=== PATIENT | male | born 1960 | race Caucasian/White ===

== ENCOUNTER → 2017-12-20 06:59 | Outpatient (CLI) | payer BC, SELFPAY ==
--- NOTE | 2017-12-20 07:30 | CT_ITS ---
STUDY: CT CHEST WITH CONTRAST REASON FOR EXAM: Male, 57 years old. Two-week history of shortness of breath. Lung nodules. RADIATION DOSAGE (If Supplied By Facility): CTDIvol = ( 13.87 ) mGy, DLP = ( 613.21 ) mGycm TECHNIQUE: Transaxial imaging was performed following intravenous administration of 100cc ml of Isovue 300 contrast material. Multiplanar coronal and sagittal images were reformatted. Individualized dose optimization techniques were used for this CT. COMPARISON: Comparison is made with prior study dated July 09, 2014. FINDINGS: There is a 6 mm noncalcified nodule in the lingular segment of the left upper lobe as seen on axial image #63. There is also evidence of a 5.4 mm noncalcified nodule in the peripheral aspect of the left lower lobe adjacent to the pleural surface on image #71. A 3 mm nodule is also seen in the peripheral aspect of the left lower lobe as seen on axial image #79. The previously seen bibasilar infiltration and/or atelectasis has almost completely resolved. 3 mm nodule in the right middle lobe as seen on axial image #52. There is no demonstrated pleural abnormality. Normal heart and pericardium. Normal mediastinum. Normal hilar regions. Normal enhanced pulmonary arteries. Normal aorta arch and descending thoracic aorta. There are degenerative changes of the thoracic spine. There is no demonstrated abnormality of the visualized upper abdomen. CT/Chest WITH Contrast IMPRESSION: Stable appearance of the subcentimeter bilateral pulmonary nodules. The previously seen infiltration and/or atelectasis of the lung bases L almost completely resolved. Electronically Signed: Julio Walter MD at 9:37 EST Tel [phone], Service support ,
== END ==
PROVIDERS: Family Provider Family Medicine; PCP Family Medicine; Visit Provider Internal Medicine Critical Care Medicine
DX: R91.8 Other nonspecific abnormal finding of lung field (principal); R06.02 Shortness of breath
CPT/HCPCS: 71260

== ENCOUNTER → 2017-12-21 06:30 | Outpatient (CLI) | payer BC, SELFPAY ==
--- NOTE | 2017-12-21 10:11 | STRESSREP ---
Stress Test Report Date: 12/21/2017 Procedure: Pharmacologic stress nuclear imaging study Indications: Chest pain; dyspnea Consent: Per the patient Procedure: The patient underwent pharmacologic (Regadenoson) evaluation with a peak heart rate of 96 bpm (58% predicted maximal heart rate) with a peak blood pressure 130/90 mmHg. The baseline ECG demonstrated normal sinus rhythm. The peak pharmacologic ECG demonstrated no obvious ECG changes. There were no cardiac dysrhythmias pretest, during pharmacologic infusion, or recovery. The examination was discontinued secondary to completion of protocol. Impression: 1. Pharmacologic (Regadenoson) evaluation 2. Peak pharmacologic ECG with no obvious ECG changes 3. Nuclear images pending Myocardial perfusion imaging study: Technique: The patient was injected with 13.9 mCi of technetium 99m Cardiolite and subsequently rest SPECT Cardiolite nuclear imaging was obtained in the horizontal long, vertical long, and short axis views. The patient underwent pharmacologic (Regadenoson) evaluation with a peak heart rate of 96 bpm (58% predicted maximal heart rate) with a peak blood pressure 130/90 mmHg area the patient was injected with 43.6 mCi of technetium 99m Cardiolite and subsequently stress SPECT Cardiolite nuclear imaging was obtained in the horizontal long, vertical long, and short axis views. A gated Cardiolite study at peak stress was obtained. Interpretation: Rest and stress SPECT cardiac nuclear imaging status post realignment, normalization, and attenuation correction, demonstrates a small area of subtle diminished tracer uptake near the apical segments without significant change between rest and stress. There are similar type findings on the resting and stress polar map images. There is end systolic thickening and brightening. The gated Cardiolite study demonstrates myocardial thickening and inward wall motion. The reported LVEF is 75%. Impression: 1. Rest and stress SPECT cardiac nuclear imaging demonstrate myocardial perfusion changes appearing compatible with physiologic apical thinning with no myocardial perfusion changes consider diagnostic for associated stress-induced myocardial ischemia or previous myocardial injury/infarction. [place] 2. The gated Cardiolite study reports an LVEF of 75%. This note was generated with [employer] software. Every effort was made to ensure accuracy, however, computerized ferris wheel operator mistakes may persist.
--- NOTE | 2017-12-21 10:17 | STRESSREP_ITS ---
Stress Test Report Date: 12/21/2017 Procedure: Pharmacologic stress nuclear imaging study Indications: Chest pain; dyspnea Consent: Per the patient Procedure: The patient underwent pharmacologic (Regadenoson) evaluation with a peak heart rate of 96 bpm (58% predicted maximal heart rate) with a peak blood pressure 130 /90 mmHg. The baseline ECG demonstrated normal sinus rhythm. The peak pharmacologic ECG demonstrated no obvious ECG changes. There were no cardiac dysrhythmias pretest, during pharmacologic infusion, or recovery. The examination was discontinued secondary to completion of protocol. Impression: 1. Pharmacologic (Regadenoson) evaluation 2. Peak pharmacologic ECG with no obvious ECG changes 3. Nuclear images pending Myocardial perfusion imaging study: Technique: The patient was injected with 13.9 mCi of technetium 99m Cardiolite and subsequently rest SPECT Cardiolite nuclear imaging was obtained in the horizontal long, vertical long, and short axis views. The patient underwent pharmacologic (Regadenoson) evaluation with a peak heart rate of 96 bpm (58% predicted maximal heart rate) with a peak blood pressure 130/90 mmHg area the patient was injected with 43.6 mCi of technetium 99m Cardiolite and subsequently stress SPECT Cardiolite nuclear imaging was obtained in the horizontal long, vertical long, and short axis views. A gated Cardiolite study at peak stress was obtained. Interpretation: Rest and stress SPECT cardiac nuclear imaging status post realignment, normalization, and attenuation correction, demonstrates a small area of subtle diminished tracer uptake near the apical segments without significant change between rest and stress. There are similar type findings on the resting and stress polar map images. There is end systolic thickening and brightening. The gated Cardiolite study demonstrates myocardial thickening and inward wall motion. The reported LVEF is 75%. Impression: 1. Rest and stress SPECT cardiac nuclear imaging demonstrate myocardial perfusion changes appearing compatible with physiologic apical thinning with no myocardial perfusion changes consider diagnostic for associated stress-induced myocardial ischemia or previous myocardial injury/infarction. [place] 2. The gated Cardiolite study reports an LVEF of 75%. This note was generated with [employer] software. Every effort was made to ensure accuracy, however, computerized director oracle mistakes may persist.
== END ==
PROVIDERS: Family Provider Family Medicine; PCP Family Medicine; Visit Provider Family Medicine
DX: R07.9 Chest pain, unspecified (principal)
CPT/HCPCS: 78452; 93017; A9500; A4216; J2785

== ENCOUNTER → 2017-12-25 06:28 | Outpatient (CLI) | payer BC, SELFPAY ==
--- NOTE | 2017-12-25 15:10 | PFTCOMP ---
COMPLETE PULMONARY FUNCTION TEST INTERPRETATION Brief HPI: Patient is a 57 year old male, currently under the care of Dr. Hallman, who presents to [facility] for complete pulmonary function tests secondary to diagnosis of dyspnea. Respiratory therapist reports good effort and reproducible results. Interpretation: Forced expiration spirometry shows no large airways obstructive ventilatory defect with an FEV1 of 74 % predicted. There is a significant bronchodilator response in FVC by ATS criteria. Spirograms are of good quality and plateau normally. The respiratory flow volume loop shows decreased expiratory flow rates at high lung volumes consistent with small airways obstruction. Lung volumes by body plethysmography show a decreased total lung capacity at 3.59 L, 68 % predicted. All other lung volumes are reduced symmetrically. Diffusion capacity by carbon monoxide is at the lower limit of normal at 64 % predicted. The airway resistance is elevated. No previous pulmonary function tests were available for review. Impression: Moderate restrictive ventilatory defect with a symmetric reduction in diffusion capacity.
== END ==
PROVIDERS: Family Provider Family Medicine; PCP Family Medicine; Visit Provider Internal Medicine Critical Care Medicine
DX: R06.02 Shortness of breath (principal)
CPT/HCPCS: 94060; 94726; 94729

== ENCOUNTER → 2017-12-28 08:41 | Outpatient (CLI) | payer BC, SELFPAY ==
--- NOTE | 2017-12-28 09:00 | ECHOD_ITS ---
Reason For Study: DYSPNEA Procedure This was a 2D Doppler, Color Flow transthoracic echocardiogram. Contrast injection was performed. The study was technically difficult. Exam performed in department. Left Ventricle Normal size and thickness. The estimated ejection fraction is 65 %. Stage 1 diastolic dysfunction. No regional wall motion abnormalities noted. Right Ventricle Normal size and thickness. Normal systolic function. Atria Normal left atrium. Normal right atrium. Normal atrial septum. Mitral Valve The mitral valve is structurally normal. No prolapse or stenosis seen. Tricuspid Valve Normal tricuspid valve. Trivial tricuspid valve insufficiency. Right ventricular systolic pressure estimated to be 30 mmHg. Aortic Valve Trisinus/trileaflet aortic valve. Normal aortic valve. Pulmonic Valve The pulmonic valve is not well visualized. Great Vessels Normal aortic root. Normal arch. Normal inferior vena cava. Inferior vena cava collapse with sniff. Pericardium/Pleural No pericardial effusion. Medication 22 gauge I.V. with prn adaptor inserted into right arm. Diluted definity 3ml given slow IV push to enhance endocardial definition. MMode/2D Measurements & Calculations LVIDd: 4.4 cm IVSd: 0.96 cm Ao root diam: 3.2 cm LVIDs: 3.0 cm LVPWd: 1.2 cm LA dimension: 4.3 cm RVDd: 3.0 cm FS: 31.8 % LAV(MOD-sp4): 38.7 ml EDV(MOD-sp4): 118.0 ml EDV(MOD-sp2): 99.2 ml ESV(MOD-sp4): 37.4 ml EF(MOD-sp2): 58.6 % EF(MOD-sp4): 68.3 % SV(MOD-sp4): 80.6 ml SV(MOD-sp2): 58.1 ml LA A4 area: 15.0 cm2 RA A4 area: 8.8 cm2 Doppler Measurements & Calculations MV E max kaci: 63.9 cm/sec Ao V2 max: 110.0 cm/sec LV V1 max: 101.3 cm/sec MV A max kaci: 80.1 cm/sec Ao max P.9 mmHg LV V1 max P.1 mmHg MV E/A: 0.80 TR max kaci: 251.4 cm/sec TR max P.3 mmHg Interpretation Summary The estimated ejection fraction is 65 %. Stage 1 diastolic dysfunction. Trivial tricuspid valve insufficiency. Right ventricular systolic pressure estimated to be 30 mmHg. There is no comparison study available. Ordering Physician: Albert Hallman D.O. Referring Physician: ANDREE PARRISH Performed By: Mirian Collazo RDCS, RVT
== END ==
PROVIDERS: Family Provider Family Medicine; PCP Family Medicine; Visit Provider Internal Medicine Critical Care Medicine
DX: R06.02 Shortness of breath (principal)
CPT/HCPCS: 93306; Q9957; A4216; C8929

== ENCOUNTER → 2018-01-09 10:18 | Outpatient (CLI) | payer BC, SELFPAY ==
[2018-01-13 14:06] LABS: Aspirgillus flavus Negative (Neg:<1:1); Aspirgillus fumigatus Negative (Neg:<1:1); Aspirgillus niger Negative (Neg:<1:1)
[2018-01-14 03:06] LABS: Alternaria alternata <0.10 kU/L (Class 0); Bermuda Grass <0.10 kU/L (Class 0); Bluegrass, Kentucky <0.10 kU/L (Class 0); Cat Hair/Dander, Standard <0.10 kU/L (Class 0); D farinae Mite 0.54 kU/L (Class I); D pteronyssinus 0.52 kU/L (Class I); Dog Epithelia <0.10 kU/L (Class 0); Elm, American White <0.10 kU/L (Class 0); Oak, White <0.10 kU/L (Class 0); Plantain, English <0.10 kU/L (Class 0); Ragweed, Short/Common 0.54 kU/L (Class I)
[2018-01-14 08:51] LABS: Immunoglobulin E 87 IU/mL (0-100)
[2018-01-14 08:52] LABS: Mouse Urine <0.10 kU/L (Class 0)
== END ==
PROVIDERS: Family Provider Family Medicine; PCP Family Medicine; Visit Provider Nurse Practitioner Acute Care
DX: R06.02 Shortness of breath (principal)
CPT/HCPCS: 36415; 82785; 86003; 86606

== ENCOUNTER → 2018-01-19 08:45 | Outpatient (CLI) | payer BC, SELFPAY ==
[2018-01-19 09:23] VITALS: PULSE 74; PULSE 76; PULSE 77; PULSE 85; PULSE 88; PULSE 95; O2SAT 94; O2SAT 95; O2SAT 96; O2SAT 97; O2SAT 99
--- NOTE | 2018-01-19 12:09 | WT_ITS ---
PSN 6 Minute Walk Test - 6 Minute Walk Test 6 Minute Walk Test: 6 Minute Walk Test PSN:6-Minute Walk Test Start: 01/19/18 09: 23 Freq: Status: Active Protocol: [id number] Document 01/19/18 09:23 [facility] (Rec: 01/19/18 09:27 [facility] [id number]) 6 Minute Walk Test Date Performed 01/19/18 Time Performed 09:15 Height 5 ft 4 in Weight: 185 lb Weight in Pounds 185.[address]: Geri Del Real FIO2 (% Oxygen) 21 Assistive device used: None Pre-test Oxygen Delivery Method Room Air Pulse Ox (%) 95 Pulse Rate (60-100 beats/min) 76 Dyspnea Jason Scale (0-10) 0 1st minute Oxygen Delivery Method Room Air Pulse Ox (%) 95 Pulse Rate (60-100 beats/min) 77 Dyspnea Jason Scale (0-10) 0 Number of Rests Taken 0 2nd minute Oxygen Delivery Method Room Air Pulse Ox (%) 94 Pulse Rate (60-100 beats/min) 95 Dyspnea Jason Scale (0-10) 1 Number of Rests Taken 0 Reported Symptoms Increased Work of Breathing 3rd minute Oxygen Delivery Method Room Air Pulse Ox (%) 95 Pulse Rate (60-100 beats/min) 88 Dyspnea Jason Scale (0-10) 3 Number of Rests Taken 0 Reported Symptoms Increased Work of Breathing 4th minute Oxygen Delivery Method Room Air Pulse Ox (%) 97 Pulse Rate (60-100 beats/min) 88 Dyspnea Jason Scale (0-10) 3 Number of Rests Taken 0 Reported Symptoms Increased Work of Breathing 5th minute Oxygen Delivery Method Room Air Pulse Ox (%) 97 Pulse Rate (60-100 beats/min) 85 Dyspnea Jason Scale (0-10) 3 Number of Rests Taken 0 Reported Symptoms Increased Work of Breathing 6th minute Oxygen Delivery Method Room Air Pulse Ox (%) 96 Pulse Rate (60-100 beats/min) 95 Dyspnea Jason Scale (0-10) 4 Number of Rests Taken 0 Reported Symptoms Increased Work of Breathing Post-test Oxygen Delivery Method Room Air Pulse Ox (%) 99 Pulse Rate (60-100 beats/min) 74 Dyspnea Jason Scale (0-10) 1 Full Laps Walked 20 Partial Lap, Number of Tiles Walked 14 Total Distance Walked (ft) 1194 - Interpretation Interpretation: The patient ambulated 1194 feet over the course of 6 minutes on room air without assistive devices or breaks. Pretesting oxygen saturation was noted to be 95% on room air. With ambulation, the elvira oxygen saturation was 94%. There was no significant exertional oxygen desaturation noted. - Recommendations Recommendations: There is no indication for the use of supplemental oxygen at this time.
== END ==
PROVIDERS: Family Provider Family Medicine; PCP Family Medicine; Visit Provider Nurse Practitioner Acute Care
DX: R06.02 Shortness of breath (principal)
CPT/HCPCS: 94618

== ENCOUNTER → 2018-02-20 11:06 | Outpatient (CLI) | payer BC, SELFPAY ==
--- NOTE | 2018-02-20 11:11 | RAD_ITS ---
STUDY: X-RAY - RIGHT SHOULDER REASON FOR EXAM: Male, 57 years old. Pain TECHNIQUE: Four view(s) of the RIGHT shoulder were obtained. COMPARISON: None. FINDINGS: The glenohumeral joint is within normal limits. There is degenerative arthrosis of the acromioclavicular joint without inferior osseous spur formation. No acute abnormalities are seen in the visualized clavicle. There is spurring off the inferior acromion. No acute abnormalities are seen in the visualized humerus. The soft tissues are unremarkable. There is minimal atelectasis in the right lung base. RAD/Shoulder min 2 Views IMPRESSION: There are mild degenerative changes in the acromioclavicular joint, and there is subacromial spurring. This can cause symptoms of impingement. Electronically Signed: Ariela Ramires MD at 9:02 EDT Tel Direct: [phone], Service support ,
== END ==
PROVIDERS: Family Provider Family Medicine; PCP Family Medicine; Visit Provider Family Medicine
DX: M19.011 Primary osteoarthritis, right shoulder (principal)
CPT/HCPCS: 73030

== ENCOUNTER → 2018-03-16 15:15 | Outpatient (CLI) | payer BC, SELFPAY ==
--- NOTE | 2018-03-16 16:00 | MRI_ITS ---
STUDY: MRI RIGHT SHOULDER REASON FOR EXAM: Male, 58 years old. Pain. Weakness. TECHNIQUE: Standardized fat and water weighted pulse sequences were obtained in all 3 orthogonal planes. COMPARISON: X-ray February 20, 2018. FINDINGS: Tendinosis with high-grade tear of the distal supraspinatus, series 4 image /20. There is infraspinatus tendinosis with tendon thickening, but without a demonstrated tendon tear. Normal subscapularis tendon. Normal teres minor tendon. Normal supraspinatus muscle. Normal infraspinatus muscle. Normal subscapularis muscle. Normal teres minor muscle. Normal glenohumeral articulation. There is a cortical erosion at the insertion of the subscapularis tendon. Normal biceps labral complex. Normal intracapsular long biceps tendon. Tear of the posterior labrum, series 2 image 12/20 Normal capsulo- ligamentous complex. Normal rotator interval. There is mild osteoarthritis of the acromioclavicular articulation. There is a Type II morphology (curved) acromion, with a neutral orientation. There is minimal fluid distention of the subacromial bursa, consistent with mild subacromial-subdeltoid bursitis. Normal visualized coracohumeral and coracoacromial ligaments. Normal quadrilateral space. Normal axillary space. Normal deltoid muscle. Normal trapezius muscle. MRI/Upper Ext Joint Only(Routine) IMPRESSION: High-grade tear of the supraspinatus tendon. Tear of the posterior labrum. Electronically Signed: Jero Garcia MD at 12:47 EDT , Service support ,
== END ==
PROVIDERS: Family Provider Family Medicine; PCP Family Medicine; Visit Provider Orthopaedic Surgery
DX: M75.101 Unspecified rotator cuff tear or rupture of right shoulder, not specified as traumatic (principal)
CPT/HCPCS: 73221

== ENCOUNTER → 2018-03-21 09:10 | Outpatient (CLI) | payer BC, SELFPAY ==
[2018-03-21 12:25] LABS: Absolute Lymphocyte Count 2.03 X10^3/ul (0.83-4.51); Basophil# 0.02 X10^3/uL; Basophil% 0.4 % (0-1); Eosinophils% 1.8 % (0-5); Hematocrit 46.8 % (40-54); Hemoglobin 16.1 g/dl (13.0-16.5); Lymphocyte # 2.03 X10^3/ul (4.0); Lymphocyte % 35.6 % (19-41); Mean Corp Hgb Conc 34.4 g/gl (32-36); Mean Corpuscular Hgb 29.7 pg (27.0-32.0); Mean Corpuscular Volume 86.3 fL (80-94); Mean Platelet Vol. 9.9 fl (6.2-12.0); Monocyte# 0.56 X10^3/uL; Monocyte% 9.8 % (0-10); Neutrophil # 2.98 X10^3/uL (2.7-7.7); Neutrophil % 52.2 % (47-70); Platelet Count 227 K/mm3 (150-450); RBC Distribution Width CV 12.8 % (11.6-14.6); RBC Distribution Width SD 39.8 fl (35.1-43.9); Red Blood Count 5.42 M/mm3 (4.6-6.2); White Blood Count 5.7 K/mm3 (4.4-11.0)
[2018-03-21 12:32] LABS: POSITIVE COUNT NO; POSITIVE DIFFERENTIAL NO; POSITIVE MORPHOLOGY NO
[2018-03-21 12:42] LABS: ALB/GLOB Ratio 1.2 RATIO (0.9-2.4); AST(SGOT) 19 U/L (15-37); Alanine Aminotransfer ALT/SGPT 40 U/L (16-61); Alkaline Phosphatase 84 U/L (45-117); Anion Gap 8 (5-15); BUN 23 mg/dL (7-18); BUN/Creat Ratio 21.5 RATIO (10-20); Calcium,Total 9.1 mg/dL (8.5-10.1); Chloride 109 mmol/L (98-107); Cholesterol 218 mg/dL (200); Creatinine, Serum 1.07 mg/dL (0.70-1.30); EST Glomerular Filtration Rate 76 mL/min (>60); Est Glom Filt Rate - Afr Amer 92 mL/min (>60); Globulin 3.4 g/dL (2.2-4.2); Glucose 90 mg/dL (74-106); High Density Lipoprotein 45 mg/dL; Protein, Total 7.4 g/dL (6.4-8.2); Sodium Level 143 mmol/L (136-145); Triglycerides 146 mg/dL; Very Low Density Lipoprotein 29 mg/dL (5-40)
== END ==
PROVIDERS: Family Provider Family Medicine; PCP Family Medicine; Visit Provider Family Medicine
DX: I10 Essential (primary) hypertension (principal); E78.5 Hyperlipidemia, unspecified
CPT/HCPCS: 36415; 80053; 80061; 85025

== ENCOUNTER 2018-03-27 09:11 | Day surgery (SDC) | payer BC, SELFPAY ==
--- NOTE | 2018-03-23 08:51 | EKG12_ITS ---
Test Reason : PRE OP Blood Pressure : / mmHG Vent. Rate : 068 BPM Atrial Rate : 068 BPM P-R Int : 166 ms QRS Dur : 094 ms QT Int : 404 ms P-R-T Axes : 043 036 022 degrees QTc Int : 429 ms Normal sinus rhythm Poor R wave progression Confirmed by PADMINI ZEPEDA, RODOLFO ([id number]), online editor [employer]ON WHEAT ([id number] on 03/26/2018 1:42:50 PM Referred By: Redd Trinidad Confirmed By:RODOLFO WASHINGTON MD
[2018-03-23 10:02] LABS: International Normalized Ratio 1.1; Prothrombin Time (Protime)PT. 14.1 SECONDS (11.7-14.9)
[2018-03-23 10:30] LABS: AST(SGOT) 18 U/L (15-37); Alanine Aminotransfer ALT/SGPT 36 U/L (16-61); Albumin, Serum 3.8 g/dL (3.2-5.0); Alkaline Phosphatase 79 U/L (45-117); Bilirubin, Direct 0.15 mg/dL (0.00-0.30); Globulin 3.4 g/dL (2.2-4.2); Protein, Total 7.2 g/dL (6.4-8.2)
[2018-03-27 09:27] VITALS: BP 138/85; PULSE 80; RESP 16; TEMP 36.4; O2SAT 100; BMI 30.8
--- NOTE | 2018-03-27 10:03 | OP.PN_ITS ---
Immediate Post-Op Note Date of Procedure: 03/27/18 Primary Surgeon/Physician: Redd Trinidad DO ux developer designer: Linda May Pre-Operative Diagnosis: Right shoulder rotator cuff tear, subacromial impingement, biceps tendinitis. Post-Operative Diagnosis: Same as above Surgery/Procedure Performed:: Right shoulder arthroscopic rotator cuff repair, subacromial decompression Description of Surgical Findings:: See dictation Estimated Blood Loss: 20 Specimen's removed: None Type of Anesthesia:: General ASA Class: ASA2 Mod Systematic Disease - Admit VTE Documentation VTE Present on Admission: No VTE Mechan Device Prophylaxis: SCD's, Knee High MEGAN Hose VTE Pharm Prophylaxis ordered?: No Reason prophylaxis not ordered:: Treatment Not Indicated
[2018-03-27] MEDS: Cefazolin 2 GM in 0.9% Normal Saline 100 ML IV (10:15)
[2018-03-27 11:47] VITALS: BP 117/74; BP 138/85; PULSE 81; RESP 15; TEMP 36.2; O2SAT 95
[2018-03-27 12:00] VITALS: BP 115/80; BP 138/85; PULSE 82; RESP 16; O2SAT 96
[2018-03-27] MEDS: Ketorolac 15 MG/ML Vial IV (12:05)
[2018-03-27 12:15] VITALS: BP 127/86; BP 138/85; PULSE 84; RESP 16; TEMP 35.9; O2SAT 97
--- NOTE | 2018-03-27 12:19 | PCM.DC.ORTHO ---
Discharge Activity: Return to Normal Activity, May not drive while taking narcotic pain medications., May Shower, - - Sling 24 7 except for shower. May flex and extend elbow ad rohini. No other lifting of the shoulder motion. May perform Codman or pendulum exercises 3 times daily. May shower in (days): 2 May resume sexual activity in: 8 weeks Ice area for (Minutes): 20 Weight Bearing Status: No weight bearing Lifting Restrictions: Doing Call your doctor if your incision/area has: Continuous Slow Oozing, Sudden Increased Bleeding, Increased Pain/ Swelling, Increased Redness, Foul Smelling Discharge, Swelling at the incision site Call your doctor if you observe: Fever of 101 or Higher, Coldness, Increased Pain, Numbness or Tingling, Change in Color, Inability to urinate, Inability to have a bowel movement, Using more than one pad per hour, Shortness of breath, Dizziness, Fainting spells, Swelling in the ankles, Chest pain, Prolonged hiccoughing, Increased palpitations (irregular heartbeat), Calf discomfort, Uncontrolled pain Suture Line Care: Avoid Pulling/Pushing, Avoid Pinching/Bending Change Dressing in (Days):: 2 Remove Dressing in (days):: 2 Cleanse incision/area with: Soap & Water Additional Dressing/Incision Instructions:: Replace dressing with Band-Aids after shower. Allergies/Adverse Reactions: Allergies pre-anesthetic per pt report Allergy (Uncoded 03/22/18 08:26) Other SHRIMP Allergy (Uncoded 03/22/18 08:26) Swelling Medications to take at Discharge Albuterol Inhaler [Ventolin Hfa] 2 puff INHALATION Q6H PRN PRN 10/24/14 apple cider vinegar 300 mg tablet 300 mg PO QDAY ea 12/12/17 lisinopril 5 mg tablet 10 mg PO DAILY tab 12/12/17 magnesium oxide 500 mg capsule 100 mg PO QDAY cap 12/12/17 red yeast rice 600 mg capsule 1,200 mg PO QDAY cap 12/12/17 saw palm 160 mg-vit E 100 unit-selen 100 bpl-pfrb-ykionn-pygeum tablet 3 tab PO QDAY ea 12/12/17 albuterol sulfate 1.25 mg/3 mL solution for nebulization 1.25 mg CONTINUOUS NEBULIZATION ONCE #1 ml 12/13/17 albuterol sulfate 2.5 mg/3 mL (0.083 %) solution for nebulization 2.5 mg INHALATION Q4H PRN #75 vial 01/09/18 fluticasone furoate 200 mcg/actuation blister powder for inhalation 1 inh INHALATION QDAY #30 ea 01/09/18 fexofenadine 180 mg tablet 180 mg PO QDAY 03/07/18 Docusate Sodium [Colace] 100 mg PO BID PRN PRN #10 cap 03/27/18 Oxycodone HCl/Acetaminophen [Percocet 5/325] 1 - 2 tablet PO Q4H PRN PRN #60 tablet 03/27/18 proMETHazine tablet [Phenergan] 25 mg PO Q4H PRN PRN #10 tab 03/27/18 The following prescriptions were given: Oxycodone HCl/Acetaminophen [Percocet 5/325] 1 - 2 tablet PO Q4H PRN PRN #60 tablet PRN Reason: Pain proMETHazine tablet [Phenergan] 25 mg PO Q4H PRN PRN #10 tab PRN Reason: Nausea Docusate Sodium [Colace] 100 mg PO BID PRN PRN #10 cap PRN Reason: Constipation Primary Care Physician: Librado Carter DO [Primary Care Provider] - Please Follow Up With: Redd Trinidad DO When: call [facility] for appt for 2 week Proposed Discharge Date: 03/27/18
--- NOTE | 2018-03-27 12:27 | PCM.OPRPT ---
Report of Operation Date of Procedure: 03/27/18 Pre-Operative Diagnosis: Right shoulder rotator cuff tear, subacromial impingement, biceps tendinitis. Post-Operative Diagnosis: Same as above Surgery/Procedure Performed:: Right shoulder arthroscopic rotator cuff repair, subacromial decompression Description of Surgical Findings:: 58-year-old male with recalcitrant right shoulder pain that failed nonoperative management to include NSAIDs activity modifications physical therapy and injection. Patient had an MRI that showed him to have a leading edge rotator cuff tear and symptoms concerning for a subluxation of his biceps tendon. Having failed conservative measures patient elected for operative intervention. He was met in the holding area where the right upper extremity was marked and identified by the orthopedic surgeon. Patient was taken to the operating room in satisfactory condition with somewhat to place to identify patient operative procedure and limb. Patient received 2 g Ancef. He underwent a successful intubation was then placed into the beachchair position with all bony and soft tissue prominences protected. His head was in a fine neutral position. He was then prepped and draped in usual fashion. Right upper extremity was placed into the [place] O arm more. Posterior portal was established and we entered an intra-articular space. Upon identification of the anatomic triangle and anterior inferior working portal was established. Diagnostic scope should the patient have a normal superior labrum and biceps root. He had no labral pathology to the posterior inferior anterior inferior labrum. He had no significant chondromalacia to the glenoid. His subscapularis was normal. The biceps was mildly injected upon outlet but otherwise looked very good. The subscap sling was still intact. The patient had a leading edge rotator cuff tear full-thickness with delamination to the rotator cable. The tear was roughly 1-2 cm in overall width from anterior to posterior. The central posterior cuffs were normal. He had no loose bodies and x-ray pouch. At that point time the scope was retracted with moved in the subacromial space established a lateral working portal a anterior superior working portal and a posterior lateral working portal. Patient underwent a standard arthroscopic subacromial bursectomy and decompression due to a type III acromial spur using a 6 mm shark bite technique. Through gentle external rotation the cuff tear was identified it was significantly anterior and the biceps tendon was visualized. The main portion of the cuff was debrided down to the articular margin of the humeral head and the tuberosity was then decorticated using an acromionizer bur. Using a percutaneous technique 1 4.5 mm anchor from Marisela was placed at the articular margin. We then used a suture shuttle technique to place 2 horizontal mattress sutures through the tear and repair down in continuity. We then used 1 peripheral anchor to create a triangular compressive technique-a trans-osseous technique repair. This was done without difficulty. At that point time the shoulder moved through good range of motion. There was no further signs of any rotator cuff pathology no signs of any dog ears. Scope was then retracted portal sites are closed with 2 3-0 nylon using simple suture technique. He was then dressed in usual fashion with Xeroform 4 x 4's ABDs and Medipore tape. He was then placed into a sling. I was scrubbed and available all time during our procedure. We had no drains or complications. Implants included 1 4.5 mm bio composite anchor from [employer]isela Mytec in 1 4.5 mm peripheral row anchor also from [place] My[employer]. I was scrubbed and available time throughout the procedure if you require any further information please do not hesitate contact me. incising machine operator: Linda May Type of Anesthesia:: General Specimen's removed: None Estimated Blood Loss (mL): 20 Grafts/Implants Used: 2 4.5 mm bio composite anchors Marisela - Complications None - Admit VTE Documentation VTE Present on Admission: No VTE Mechan Device Prophylaxis: SCD's, Knee High MEGAN Hose VTE Pharm Prophylaxis ordered?: No Reason prophylaxis not ordered:: Treatment Not Indicated
[2018-03-27 13:06] VITALS: BP 138/85
== END 2018-03-27 13:14 | disposition home or self-care (01) ==
LOC: SDC 09:12 → AC 09:12
PROVIDERS: Family Provider Family Medicine; PCP Family Medicine; Visit Provider Orthopaedic Surgery
PROC: (CPT 29827; principal; 2018-03-27 11:05)
DX: S46.011A Strain of muscle(s) and tendon(s) of the rotator cuff of right shoulder, initial encounter (principal); X58.XXXA Exposure to other specified factors, initial encounter; M75.41 Impingement syndrome of right shoulder; M75.21 Bicipital tendinitis, right shoulder; I25.2 Old myocardial infarction; I10 Essential (primary) hypertension; J45.909 Unspecified asthma, uncomplicated; Z79.899 Other long term (current) drug therapy
CPT/HCPCS: 29826; 29827; 36415; 80076; 85610; 85730; 93005; C1713; C1776; J7120; J2405

== ENCOUNTER → 2018-11-07 10:00 | Outpatient (CLI) | payer BC, SELFPAY ==
[2018-10-24 14:20] VITALS: BMI 31.9
== END ==
PROVIDERS: Family Provider Family Medicine; PCP Family Medicine; Referring Provider Nurse Practitioner Acute Care; Visit Provider Nurse Practitioner Acute Care
DX: G47.33 Obstructive sleep apnea (adult) (pediatric) (principal)
CPT/HCPCS: 95806

== ENCOUNTER 2018-12-13 10:36 | Emergency (ER) | payer BC, SELFPAY ==
[2018-10-24 14:20] VITALS: BMI 31.9
[2018-12-13 10:37] VITALS: BP 122/85; PULSE 85; RESP 14; TEMP 36.6; O2SAT 100; BMI 30.6
[2018-12-13 10:44] VITALS: BP 124/81; PULSE 72; RESP 28; O2SAT 100
--- NOTE | 2018-12-13 10:53 | EKG12_ITS ---
Test Reason : SOB Blood Pressure : / mmHG Vent. Rate : 068 BPM Atrial Rate : 068 BPM P-R Int : 156 ms QRS Dur : 096 ms QT Int : 406 ms P-R-T Axes : 017 002 000 degrees QTc Int : 431 ms Normal sinus rhythm Inferior infarct , age undetermined Abnormal ECG Confirmed by PADMINI ZEPEDA, RODOLFO ([id number]), editor in chief newspaper [employer] WHEAT ([id number] on 12/18/2018 2:50:55 PM Referred By: ANTONINA Confirmed By:RODOLFO WASHINGTON MD
--- NOTE | 2018-12-13 10:53 | RAD_ITS ---
STUDY: X-RAY CHEST REASON FOR EXAM: Male, 58 years old. Shortness of breath, productive cough TECHNIQUE: AP upright portable chest COMPARISON: 12/06/2017 FINDINGS: The lungs are clear and expanded. Normal cardiomediastinal silhouette, omero and pleural margins. No acute osseous or upper abdominal process. RAD/Chest 1 View (Portable) IMPRESSION: No acute cardiopulmonary process. Electronically Signed: Reji Stoddard MD at 11:23 EST Tel , Service support ,
--- NOTE | 2018-12-13 11:09 | ED.DCSUM_ITS ---
- ER Visit Summary Date of Service: 12/13/18 Chief Complaint: [] Runny nose harsh cough for about 5 days History of Present Illness: The patient is a 58 M [] course of 5 days ago developed a harsh cough runny nose, he was on a Z-Pan and prednisone on Monday he reports symptoms persisted and he is constantly coughing, he is not sure he is having any fevers he is having no vomiting no chest or abdominal pain no numbness 6 paresthesias he does have COPD where it easier for him to inhale air then to expel the air is seen by Dr. Hallman and other outpatient providers he denies history of cardiovascular disease otherwise, no history of MA PE or DVT Physical Examination: [] 158/80 his pulse ox is 99% on room air, he has a harsh dry cough here in the department his nose is congested General, no distress resting comfortably HEENT is generally unremarkable except as above The neck is supple no adenopathy Cardiovascular, regular rate and rhythm Lungs, clear bilateral Abdomen, soft nontender Extremities, no clubbing cyanosis or edema Neurologic, awake alert answering questions appropriately moving all 4 extremities Test Results: [] Emergency Department Course and Treatment: [] In all the above x-rays aerosol screening labs Afrin nasal spray to help with the copious rhinorrhea Tylenol with codeine to help with the harsh coughing Treatment Plan: [] Studies are all unremarkable see those reports he is feeling much better he wants to go home the main medicine that seemed to help and was the Afrin nasal spray she will be started on Flonase as Afrin could cause complications, he has an aerosol machine at home he can use, he was recently on antibiotics and steroids and 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 It may contain incorrect words, spelling, and punctuation that were not noted in review of the chart prior to signing ED Disposition - Plan for ED Patient: Chief Complaint: Shortness of Breath Referrals: Librado Carter DO [Primary Care Provider] -
[2018-12-13 11:10] VITALS: PULSE 85; RESP 18
[2018-12-13] MEDS: Ipratropium/Albuterol Sulfate 3 ML AMPUL.NEB INHALATION (11:12)
[2018-12-13 11:26] LABS: Absolute Lymphocyte Count 0.62 X10^3/ul (0.83-4.51); Absolute Neutrophil Count 5.9 X10^3/uL (2.0-7.7); Hematocrit 46.4 % (40-54); Hemoglobin 15.7 g/dl (13.0-16.5); Lymphocyte # 0.62 X10^3/ul (4.0); Lymphocyte % 9.2 % (19-41); Mean Corp Hgb Conc 33.8 g/gl (32-36); Mean Corpuscular Hgb 29.5 pg (27.0-32.0); Mean Corpuscular Volume 87.2 fL (80-94); Mean Platelet Vol. 9.5 fl (6.2-12.0); Monocyte# 0.22 X10^3/uL; Monocyte% 3.3 % (0-10); Neutrophil # 5.88 X10^3/uL (2.7-7.7); Neutrophil % 87.2 % (47-70); Platelet Count 208 K/mm3 (150-450); RBC Distribution Width CV 13.3 % (11.6-14.6); RBC Distribution Width SD 42.6 fl (35.1-43.9); Red Blood Count 5.32 M/mm3 (4.6-6.2); White Blood Count 6.7 K/mm3 (4.4-11.0)
[2018-12-13 11:27] LABS: POSITIVE COUNT NO; POSITIVE DIFFERENTIAL NO; POSITIVE MORPHOLOGY NO
[2018-12-13 11:39] LABS: Anion Gap 13 (5-15); BUN 19 mg/dL (7-18); BUN/Creat Ratio 15.8 RATIO (10-20); Calcium,Total 9.2 mg/dL (8.5-10.1); Chloride 110 mmol/L (98-107); EST Glomerular Filtration Rate 66 mL/min (>60); Est Glom Filt Rate - Afr Amer 80 mL/min (>60); Estimated Creatinine Clearance 59.08 ml/min; Glucose 119 mg/dL (74-106); Potassium 3.8 mmol/L (3.5-5.1); Sodium Level 143 mmol/L (136-145)
[2018-12-13] MEDS: Oxymetazoline 0.05% 1 SPRAY SPRAY.BTL 2 SPRAY NASAL (11:46)
[2018-12-13 11:54] LABS: BNP,B-Type NATRIURETIC PEPTIDE 12.4 pg/mL (0-100)
[2018-12-13 12:10] VITALS: BP 110/64; PULSE 86; RESP 20; O2SAT 92
[2018-12-13 13:30] VITALS: BP 117/69; PULSE 85; RESP 28; O2SAT 93
--- NOTE | 2018-12-13 14:17 | ED.DEP ---
ED Disposition - Plan for ED Patient: Chief Complaint: Shortness of Breath Instructions: ED Upper Resp Infec No Abx Tx Prescriptions: Fluticasone Propionate [Flonase Allergy Relief] 15.8 ml NS BID #1 spray.susp Referrals: Librado Carter DO [Primary Care Provider] -
[2018-12-13 14:29] VITALS: BP 113/77; PULSE 78; RESP 17; O2SAT 94
--- NOTE | 2018-12-13 14:29 | ED.RN ---
IV DC'ED, CATHETER INTACT, SMALL GAUZE DRESSING PLACED. DISCHARGE INSTRUCTIONS GIVEN TO AND REVIEWED WITH PATIENT, PATIENT DENIES QUESTIONS OR CONCERNS AND VOICES UNDERSTANDING OF DISCHARGE INSTRUCTIONS. PT AMBULATES OUT OF ROOM WITHOUT ISSUE.
== END 2018-12-13 14:30 | disposition home or self-care (01) ==
PROVIDERS: Emergency Provider Emergency Medicine; Family Provider Family Medicine; PCP Family Medicine
DX: J06.9 Acute upper respiratory infection, unspecified (principal)
CPT/HCPCS: 71045; 80048; 83880; 84484; 85025; 87804; 93005; 94640; 99284; A4216

== ENCOUNTER → 2019-03-05 08:02 | Outpatient (CLI) | payer BC, SELFPAY ==
[2019-03-05 14:33] LABS: AST(SGOT) 24 U/L (15-37); Alanine Aminotransfer ALT/SGPT 37 U/L (16-61); Alkaline Phosphatase 88 U/L (45-117); Bilirubin, Direct 0.15 mg/dL (0.00-0.30); Cholesterol 221 mg/dL (200); Globulin 3.2 g/dL (2.2-4.2); High Density Lipoprotein 43 mg/dL; PSA,Total - Annual Screen 4.19 ng/mL (0.00-4.00); Protein, Total 7.2 g/dL (6.4-8.2); Triglycerides 191 mg/dL; Very Low Density Lipoprotein 38 mg/dL (5-40)
[2019-03-11 03:06] LABS: Aspirgillus flavus Negative (Neg:<1:1); Aspirgillus fumigatus Negative (Neg:<1:1); Aspirgillus niger Negative (Neg:<1:1)
[2019-03-11 11:13] LABS: Immunoglobulin E 76 IU/mL (6-495)
[2019-03-16 16:07] LABS: Alternaria alternata <0.10 kU/L (Class 0); Bermuda Grass <0.10 kU/L (Class 0); Bluegrass, Kentucky <0.10 kU/L (Class 0); Cat Hair/Dander, Standard <0.10 kU/L (Class 0); D farinae Mite 0.47 kU/L (Class I); D pteronyssinus 0.52 kU/L (Class I); Dog Epithelia <0.10 kU/L (Class 0); Elm, American White <0.10 kU/L (Class 0); Oak, White <0.10 kU/L (Class 0); Plantain, English <0.10 kU/L (Class 0); Ragweed, Short/Common 0.61 kU/L (Class II)
[2019-03-17 17:23] LABS: Mouse Urine <0.10 kU/L (Class 0)
== END ==
PROVIDERS: Family Provider Family Medicine; PCP Family Medicine; Visit Provider Nurse Practitioner Acute Care
DX: I10 Essential (primary) hypertension (principal); E78.5 Hyperlipidemia, unspecified; Z12.5 Encounter for screening for malignant neoplasm of prostate; R06.02 Shortness of breath
CPT/HCPCS: 36415; 80061; 80076; 82785; 84153; 86003; 86606; G0103

== ENCOUNTER 2019-03-05 09:05 | Emergency (ER) | payer BC, SELFPAY ==
[2019-03-05 09:06] VITALS: BP 122/81; PULSE 66; RESP 24; TEMP 36.4; O2SAT 100; BMI 33.0
--- NOTE | 2019-03-05 09:35 | ED.VISSUMM ---
- ER Visit Summary Date of Service: 03/05/19 Chief Complaint: Near syncope History of Present Illness: The patient is a 59 M who was at his doctor's office today getting blood work drawn for yearly physical. He states that after multiple attempts he began to feel lightheaded sweaty and weak. He never lost consciousness. He states that he is feeling better. He fasted since 7 PM last night. He had some water prior to the blood draw. He has had syncope and near syncope with blood draws in the past particularly donating blood. Physical Examination: Afebrile vital signs are stable Gen: Well-nourished well-developed Head: Normocephalic atraumatic Eyes: Perrl EOMI ENT: TMs clear no rhinorrhea moist mucous membranes Neck: Supple no lymphadenopathy no JVD nontender CVS: Regular rate rhythm no murmurs normal S1-S2 Respiratory: No distress clear to auscultation bilaterally chest nontender Abdomen: Soft nontender nondistended normal bowel sounds no masses Back: Nontender Extremity: Nontender no edema Skin: Normal color no rash Neuro: alert orientated ?3 CN II-XII intact normal strength sensation reflexes gait cerebellar Psych: Normal affect normal mood Test Results: Prehospital EKG shows a normal sinus rhythm at a rate of 64 with no concerning features. Blood sugar for EMS was 94. Emergency Department Course and Treatment: Patient received a liter of normal saline and was given food and drink. He continues to do well. I believe this to be a vasovagal reaction. Patient will follow-up as needed return if worsening or concerns Impression: 1. Vasovagal near syncope This note was generated with [employer] dictation software. It may contain incorrect words, spelling, and punctuation that were not noted in review of the chart prior to signing ED Disposition - Plan for ED Patient: Disposition: Home or Assisted Living Instructions: ED Near Syncope Vasovagal Referrals: Librado Carter DO [Primary Care Provider] - Keep Niki appointment
[2019-03-05] MEDS: 0.9% Normal Saline 1,000 ML 1000 ML IV (09:40)
[2019-03-05 11:03] VITALS: BP 132/80; PULSE 87; RESP 16; O2SAT 100
== END 2019-03-05 11:04 | disposition home or self-care (01) ==
PROVIDERS: Emergency Provider Emergency Medicine; Family Provider Family Medicine; PCP Family Medicine
DX: R55 Syncope and collapse (principal); I10 Essential (primary) hypertension; J45.909 Unspecified asthma, uncomplicated
CPT/HCPCS: 96360; 99285; J7030; A4216

== ENCOUNTER → 2019-03-15 08:08 | Outpatient (CLI) | payer BC, SELFPAY ==
[2019-03-05 09:06] VITALS: BMI 33.0
--- NOTE | 2019-03-15 08:11 | US_ITS ---
PROCEDURES: ULTRASOUND AORTA REASON FOR EXAM: Male, 59 years old. Abdominal and back pain TECHNIQUE: Ultrasound evaluation of the aorta was performed with real-time and static sellers-scale imaging. COMPARISON: None. FINDINGS: There is no elongation or tortuosity of the abdominal aorta. Aorta measures: Proximal 2.2 cm. Middle 1.7 cm. Distal 1.6 cm. Aorta measure transversely: Proximal 2.5 cm. Middle 1.8 cm. Distal 2.0 cm. Right iliac artery measures: 1.2 cm. Right iliac artery measure transversely: 1.4 cm. Left iliac artery measures: 1.2 cm. Left iliac artery measure transversely: 1.4 cm. There is no demonstrated aneurysm.. US/Aorta IMPRESSION: Normal abdominal aorta. Electronically Signed: Eliazar Mott MD at 10:36 EDT , Service support ,
--- NOTE | 2019-03-15 14:07 | VDLE_ITS ---
Reason For Study: LEG PAIN RIGHT LEFT GSV is normal. CFV is compressible, spontaneous, phasic, CFV is compressible, spontaneous, phasic, competent, and demonstrates normal competent and demonstrates normal augmentation. augmentation. FV is compressible, spontaneous, phasic, competent and demonstrates normal augmentation. POP V is compressible, spontaneous, phasic, competent and demonstrates normal augmentation. T/P Trunk is compressible. PTV is compressible. RT PerV is compressible. Procedure Exam performed in department. A preliminary report was called and/or faxed to Dr. Carter. Interpretation Summary Deep veins of the right lower extremity are patent and compressible segmentally. There is no evidence of right lower extremity deep vein thrombosis. Valvular competence appears intact within the proximal deep venous system on the right . The right greater saphenous vein appears patent and compressible segmentally. Ordering Physician: Librado Carter Referring Physician: Librado Carter Performed By: Janell Art RVT
== END ==
PROVIDERS: Family Provider Family Medicine; PCP Family Medicine; Referring Provider Family Medicine; Visit Provider Family Medicine
DX: M79.661 Pain in right lower leg (principal)
CPT/HCPCS: 76775; 93971

== ENCOUNTER → 2019-06-17 13:08 | Outpatient (CLI) | payer BC, SELFPAY ==
[2019-03-19 07:08] VITALS: BMI 32.4
--- NOTE | 2019-06-17 13:10 | CT_ITS ---
STUDY: CT CHEST WITHOUT CONTRAST REASON FOR EXAM: Male, 59 years old. Follow-up lung nodules RADIATION DOSAGE (If Supplied By Facility): CTDIvol = ( 14.67 ) mGy, DLP = ( 483.80 ) mGycm TECHNIQUE: Transaxial imaging was performed without the administration of intravenous contrast material. Individualized dose optimization techniques were used for this CT. COMPARISON: CT chest 12/20/2017 and 07/09/2014. FINDINGS: Stable nodule in the lingular segment of the left upper lobe measures approximately 8 mm average diameter on series 2 image 67 when measured in a similar manner. There is a stable 5mm noncalcified nodule in the peripheral aspect of the left lower lobe adjacent to the pleural surface on image 71. Stable 3 mm nodule in the peripheral aspect of the left lower lobe as seen on axial image 78. Stable 3 mm nodule in the right middle lobe as seen on axial image 56. Stable 4 mm posterior right lower lobe nodule on image 60. Stable 3-4 mm right upper and middle lobe nodules on image 43, 48 and 50. No new or enlarging pulmonary nodule. No focal consolidation. There is no demonstrated pleural abnormality. Normal heart and pericardium. Normal mediastinum. Normal hilar regions. Normal unenhanced pulmonary arteries. Normal aorta arch and descending thoracic aorta. Mild aortic calcification. Normal osseous structures. There is a 1.1 cm indeterminate right adrenal gland nodule, unchanged since 2013. There is diffuse fibrofatty infiltration of the liver. CT/Chest without Contrast IMPRESSION: 1. Scattered pulmonary nodules measuring up to 8mm are unchanged since 2013 and very likely benign. No new or enlarging pulmonary nodule. No focal consolidation. If high risk for developing pulmonary malignancy continued annual chest CT is recommended. 2. Hepatic steatosis. 3. Indeterminate right adrenal gland nodule also stable since 2013. Electronically Signed: Jose Agarwal, at 9:37 EDT Tel , Service support ,
== END ==
PROVIDERS: Family Provider Family Medicine; PCP Family Medicine; Referring Provider Internal Medicine Critical Care Medicine; Visit Provider Internal Medicine Critical Care Medicine
DX: R91.1 Solitary pulmonary nodule (principal)
CPT/HCPCS: 71250

== ENCOUNTER → 2019-09-06 15:10 | Outpatient (CLI) | payer BC, SELFPAY ==
[2019-07-09 07:01] VITALS: BMI 33.1
[2019-09-06 18:07] LABS: PSA,Total- Diagnostic 3.05 ng/mL (0.0-4.0)
== END ==
PROVIDERS: Family Provider Family Medicine; PCP Family Medicine; Referring Provider Family Medicine; Visit Provider Family Medicine
DX: R97.20 Elevated prostate specific antigen [PSA] (principal)
CPT/HCPCS: 36415; 84153

== ENCOUNTER → 2019-09-11 08:17 | Outpatient (CLI) | payer BC, SELFPAY ==
[2019-09-11 07:57] VITALS: BMI 33.1
--- NOTE | 2019-09-11 08:18 | RAD_ITS ---
STUDY: X-RAY - LEFT SHOULDER REASON FOR EXAM: Male, 59 years old. Pain. TECHNIQUE: 4 view(s) of the shoulder. COMPARISON: None. FINDINGS: There is minimal degenerative arthrosis of the glenohumeral articulation. Normal acromioclavicular joint. Normal acromion. Normal humeral head and visualized proximal humerus. The soft tissue structures are unremarkable. There is no demonstrated fracture. Normal visualized pulmonary apex. RAD/Shoulder min 2 Views IMPRESSION: Minimal/early degenerative arthritis as described above with no acute fracture or subluxation. Electronically Signed: Celeste Gallardo MD at 0:28 EDT , Service support ,
== END ==
PROVIDERS: Family Provider Family Medicine; PCP Family Medicine; Referring Provider Orthopaedic Surgery; Visit Provider Orthopaedic Surgery
DX: M25.512 Pain in left shoulder (principal)
CPT/HCPCS: 73030

== ENCOUNTER → 2019-12-28 07:41 | Outpatient (CLI) | payer BC, SELFPAY ==
[2019-12-23 08:33] VITALS: BMI 22.9
--- NOTE | 2019-12-28 07:42 | MRI_ITS ---
HISTORY: LEFT shoulder capsulitis, pain and ROM x 4 months, NKI EXAMINATION: MR Shoulder W/O Contrast TECHNIQUE: Multiplanar and multisequence MR images of the left shoulder. IV Contrast dosage and agent: None. 161 images COMPARISON: X-rays of the left shoulder from September 11, 2019 FINDINGS: BONE: Subcortical cystic degenerative disease in edema is present at the pedicle for the insertion of the anterior margin of the supraspinatus, and the superior margin for the subscapularis ACROMIOCLAVICULAR JOINT: Mildly arthropathic with a small amount of edema and fluid within the space between the 2 bones SUBACROMIAL-SUBDELTOID SPACE: Tiny crescentic rim of subacromial/subdeltoid bursal fluid GLENOHUMERAL JOINT: Small shoulder effusion Cartilaginous surfaces are preserved Rotator cuff interval edema and fluid are present ROTATOR CUFF: Full-thickness rim rent tear is present at the anterior margin of the supraspinatus. Some tendinosis is present within the subscapularis and the infraspinatus There is no cuff muscle atrophy. LABRUM: Intact, limited evaluation on non-arthrographic exam. BICEPS TENDON: The extra-articular portion long head of the biceps tendon sits well within the biceps groove, but is surrounded by fluid. There is some thickening and edema as it courses the intra-articular portion. OTHER SOFT TISSUES: Unremarkable. IMPRESSION: Small peripheral insertional full-thickness tear to the anterior margin of the supraspinatus. Tendinosis to the sub-scapularis and the teres minor. Tendinosis at the origin long head of the biceps tendon. Small left shoulder effusion. at 0611 Reported and signed by: Jason Oro MD Electronically Signed: Jason Oro MD at 6:10 EST Tel , Service support , MRI/Upper Ext Joint Only(Routine)
== END ==
PROVIDERS: PCP Family Medicine; Referring Provider Orthopaedic Surgery; Visit Provider Orthopaedic Surgery
DX: M75.02 Adhesive capsulitis of left shoulder (principal)
CPT/HCPCS: 73221

== ENCOUNTER 2020-03-24 07:15 | Day surgery (SDC) | payer BC, SELFPAY ==
[2020-03-18 08:17] VITALS: BMI 22.9
--- NOTE | 2020-03-19 15:57 | EKG12_ITS ---
Test Reason : PRE OP Blood Pressure : / mmHG Vent. Rate : 074 BPM Atrial Rate : 074 BPM P-R Int : 176 ms QRS Dur : 088 ms QT Int : 384 ms P-R-T Axes : 034 -10 013 degrees QTc Int : 426 ms Normal sinus rhythm Inferior Q waves that could be due to body habitus Abnormal ECG Confirmed by MARSHA ZEPEDA, KANDACE ([id number]), video news editor NAPOLEON WHEAT ([id number]) on 03/23/2020 2:10:43 PM Referred By: Erich Duckworth Confirmed By:LOKESH LARSON MD
[2020-03-19 18:08] LABS: Hematocrit 48.3 % (40-54); Hemoglobin 15.9 g/dL (13.0-16.5); Partial Thromboplast Time 35.1 Seconds (24.1-36.2); Red Blood Count 5.57 M/mm3 (4.6-6.2); White Blood Count 6.1 K/mm3 (4.4-11.0)
[2020-03-19 18:09] LABS: Mean Corp Hgb Conc 32.9 g/dL (32-36); Mean Corpuscular Hgb 28.5 pg (27.0-32.0); Mean Corpuscular Volume 86.7 fL (80-94); Mean Platelet Vol. 10.1 fl (6.2-12.0); Platelet Count 237 K/mm3 (150-450); RBC Distribution Width CV 12.6 % (11.6-14.6); RBC Distribution Width SD 39.8 fl (35.1-43.9)
[2020-03-19 18:23] LABS: AST(SGOT) 18 U/L (15-37); Alanine Aminotransfer ALT/SGPT 35 U/L (16-61); Alkaline Phosphatase 80 U/L (45-117); Globulin 3.5 g/dL (2.2-4.2); Protein, Total 7.5 g/dL (6.4-8.2)
[2020-03-24 07:37] VITALS: BP 124/84; PULSE 72; RESP 14; TEMP 37.1; O2SAT 100
[2020-03-24] MEDS: Lactated Ringers 1,000 ML 100 ML IV (07:59)
--- NOTE | 2020-03-24 08:37 | DCINST_ITS ---
Discharge Diet: No Restrictions Weight Bearing Status: Weight bearing as tolerated Keep extremity elevated above heart level: Operative Extremity Call your doctor if you observe: Fever of 101 or Higher, Shortness of breath, Chest pain Additional Instructions: Ice and elevate next 72 hours .keep dressing on clean and dry for 48 hours then may remove begin showering daily but do not submerge in tub or pool. After shower may apply Band-Aids . Encourage knee range of motion weightbearing as tolerated, use crutches until confident in knee then may discontinue. No strenuous activity. When not ambulating keep iced and elevated next 72 hours. Allergies/Adverse Reactions: Allergies pre-anesthetic per pt report Allergy (Uncoded 03/24/20 07:36) Other SHRIMP Allergy (Uncoded 03/24/20 07:36) Swelling Medications to take at Discharge Albuterol Aerosols [Ventolin Aerosols] 2.5 mg INHALATION Q6H PRN PRN 12/13/18 Lisinopril [Prinivil] 10 mg PO DAILY 12/13/18 Magnesium Oxide 250 mg PO DAILY 03/05/19 Red Yeast Rice 1,200 mg PO DAILY 03/05/19 fexofenadine 60 mg tablet 60 mg PO DAILY 09/11/19 Fluticasone Furoate [Arnuity Ellipta] 1 puff IH DAILY 03/19/20 Prostate Plus 3 tab PO DAILY 03/19/20 Oxycodone [Oxyir] 5 mg PO Q4H PRN PRN #30 tablet 03/24/20 The following prescriptions were given: Oxycodone [Oxyir] 5 mg PO Q4H PRN PRN #30 tablet PRN Reason: Pain Score 4-10/10 Transmission Status: Sent to [facility] Orders to be completed after discharge: 12 Lead EKG [CVS] Time Frame: 03/24/20, Facility: [facility], Location: Cardiovascular Services Primary Care Physician: Librado Carter DO [Primary Care Provider] - Test Results: Test results from this visit will be discussed in further detail at your follow- up appointment, if applicable. Please Follow Up With: Erich Duckworth DO - 2 weeks
[2020-03-24] MEDS: Cefazolin 2 GM in 0.9% Normal Saline 100 ML IV (09:17)
[2020-03-24] MEDS: MethylPREDNISolone Acetate 80 MG/ML Vial (09:31)
[2020-03-24] MEDS: Epinephrine (1 mg/ml) 1 MG/ML VIAL (09:31)
[2020-03-24] MEDS: morphine PF (epidural) 5 MG/10 ML Vial (09:31)
[2020-03-24] MEDS: Bupivacaine Mpf 0.5% 30 ML VIAL (09:31)
[2020-03-24] MEDS: Bupiv/Epi 0.5% Mpf 30 ML Vial (09:31)
[2020-03-24 10:18] VITALS: BP 124/84; BP 134/83; PULSE 86; RESP 16; TEMP 36.2; O2SAT 94
--- NOTE | 2020-03-24 10:20 | PCM.HP.BLA ---
History and Physical Date of Admission: 03/24/20 Addendum entered and electronically signed by Erich Duckworth DO 03/18/20 09:53: Risk of contraction of the COVID virus from coming to the hospital reviewed patient understands risk and wishes to proceed because of active limitations in activity of daily living HPI Details: LUIS GRAF, is a 60 M who presents to the office today for Assessment & Plan Problems 1. Nontraumatic incomplete tear of left rotator cuff M75.112 2. Left shoulder tendonitis M75.82 3. Adhesive capsulitis of left shoulder M75.02 Intake Vital Signs 03/18/20 BMI 22.9 Intake Visit Reasons: LEFT SHOULDER Is patient in pain?: Yes Allergies pre-anesthetic per pt report Allergy (Uncoded 12/24/19 06:57) Other SHRIMP Allergy (Uncoded 12/24/19 06:57) Swelling Medications Albuterol Aerosols [Ventolin Aerosols] 2.5 mg INHALATION Q6H PRN PRN 12/13/18 [History Confirmed 12/24/19] Lisinopril [Prinivil] 10 mg PO DAILY 12/13/18 [History Confirmed 12/24/19] Cider Vinegar [Apple Cider Vinegar] 300 mg PO DAILY 03/05/19 [History Confirmed 12/24/19] Magnesium Oxide 250 mg PO DAILY 03/05/19 [History Confirmed 12/24/19] Red Yeast Rice 600 mg PO DAILY 03/05/19 [History Confirmed 12/24/19] albuterol sulfate 90 mcg/actuation aerosol inhaler 2 puff INHALATION Q4H PRN #18 g 07/09/19 [Rx Confirmed 12/24/19] fexofenadine 60 mg tablet 60 mg PO BID 09/11/19 [History Confirmed 12/24/19] fluticasone furoate 200 mcg/actuation blister powder for inhalation 200 mcg INHALATION DAILY #30 ea 11/08/19 [Rx Confirmed 12/24/19] celecoxib 50 mg capsule 50 mg PO DAILY #30 cap 12/11/19 [Rx Confirmed 12/24/19] [facility] Social History (Updated 03/18/20 @ 09:[address] 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 This visit was conducted during COVID-19 pandemic. LUIS GRAF, is a 60 M who presents to the office today for continued left shoulder pain. Patient notes that his pain is over his superior and posterior shoulder. He states that his range of motion is improved but not full, as physical therapy has been helpful. He states that if he reaches to the side he has increased shoulder pain. He denies any pain medications. Patient had surgery scheduled previously which was stopped due to covid. Denies numbness, tingling or other associated symptoms. ROS Musc Musculoskeletal: Positive for joint pain, muscle weakness and stiffness Exam Const General: cooperative, healthy appearing, well developed, well groomed, not anxious Nutritional Appearance: average body habitus Musc Musculoskeletal: Yes muscle weakness Skin General: no rashes or lesions noted, elasticity normal, turgor normal Neuro General: alert, awake, oriented x3 Psych Appearance: grossly normal, well kempt Mood: congruent mood Affect: normal affect Attitude: cooperative Details: Details:: Exam was limited due to phone visit with no video. Supplemental Info 12/28/2019 MRI left shoulder: Anterior acromial spurring small anterior supraspinatus rotator cuff tear subscapularis and teres minor tendinosis bicipital tendon tinnitus and tendinosis Quality Reporting BMI Screening ([facility] 69) Body Mass Index (BMI): 22.9 Tobacco Screening (CMS 138) Smoking Status: Never smoker Assessment & Plan Problems 1. Nontraumatic incomplete tear of left rotator cuff M75.112 2. Left shoulder tendonitis M75.82 3. Adhesive capsulitis of left shoulder M75.02 Medications Discontinued: meloxicam (Mobic) Take 1 pill daily regularly for 1 month do not take other NSAIDs while on this medication Discontinued Reason: Pt no longer taking 15 mg PO DAILY 30 tabs 1RF I have re-examined the patient. There are no clinical changes since date of exam
--- NOTE | 2020-03-24 10:20 | PCM.DC.ORTHO ---
Weight Bearing Status: Partial weight bearing Keep extremity elevated above heart level: Operative Extremity Call your doctor if you observe: Fever of 101 or Higher, Shortness of breath, Chest pain Additional Instructions: leave the dressing on and intact for 48 hours. Then may remove and shower with warm water and antibacterial soap. But do not submerge in tub for 3 weeks. ice shoulder 15 min on and 15 mins off next 72 hrs. May remove sling for elbow range of motion and pendulum exercises may preform active range of motion of shoulder when pain allows. discontinue sling over the course to the week as pain allow. DC completely by 1 week. Do not lift push or pull greater then 5 lbs with operative extremity. Encourage finger and wrist range of motion. If any concerns call Dr. Duckworth's office. Allergies/Adverse Reactions: Allergies pre-anesthetic per pt report Allergy (Uncoded 03/24/20 07:36) Other SHRIMP Allergy (Uncoded 03/24/20 07:36) Swelling Medications to take at Discharge Albuterol Aerosols [Ventolin Aerosols] 2.5 mg INHALATION Q6H PRN PRN 12/13/18 Lisinopril [Prinivil] 10 mg PO DAILY 12/13/18 Magnesium Oxide 250 mg PO DAILY 03/05/19 Red Yeast Rice 1,200 mg PO DAILY 03/05/19 fexofenadine 60 mg tablet 60 mg PO DAILY 09/11/19 Fluticasone Furoate [Arnuity Ellipta] 1 puff IH DAILY 03/19/20 Prostate Plus 3 tab PO DAILY 03/19/20 Oxycodone [Oxyir] 5 mg PO Q4H PRN PRN #30 tab 03/24/20 The following prescriptions were given: Oxycodone [Oxyir] 5 mg PO Q4H PRN PRN #30 tab PRN Reason: Pain Score 4-10/10 Transmission Status: Received by [facility] Orders to be completed after discharge: 12 Lead EKG [CVS] Time Frame: 03/24/20, Facility: [facility], Location: Cardiovascular Services Primary Care Physician: Librado Carter DO [Primary Care Provider] - Test Results: Test results from this visit will be discussed in further detail at your follow-up appointment, if applicable. Please Follow Up With: Erich Duckworth DO - 2 weeks
--- NOTE | 2020-03-24 10:22 | OP.PCM_ITS ---
Report of Operation Date of Procedure: 03/24/20 Description of Surgical Findings:: Preoperative diagnosis: Left shoulder he said capsulitis suspected partial rotator cuff tear biceps tendinopathy Postoperative diagnosis: Left shoulder type I labral tearing biceps tendinopathy synovitis capsulitis bursitis anterior acromial spurring impingement Procedure: Arthroscopic labral debridement biceps tenotomy manipulation under anesthesia anterior capsulectomy with rotator interval release rotator cuff evaluation subacromial decompression with bursectomy and acromioplasty Anesthesia: General with interscalane block; EBL: 10 cc Complications: none Indication for procedure: This is a 60-year-old male patient without injury who has had ongoing shoulder pain and progressive stiffness who is failed conservative treatment did have an MRI and did wish to proceed with elective arthroscopic surgery to attempt to alleviate his symptoms patient did wish to proceed with an arthroscopic subacromial decompression and surgery as indicated. risks benefits and alternatives of the procedure were reviewed including risk of bleeding infection nerve artery tissue damage need for further surgery continued pain postoperative stiffness and need for postoperative physical therapy and continued pain. Procedure : Patient was met in the preoperative holding area the operative extremity was identified by both the patient and the physician and was marked. Patient was met by anesthesia and brought back to the operating room on a wheeled cart. She was transferred to the operating table in the supine position. Anesthesia was started. Patient was then positioned in the beachchair configuration. Bony prominences were well-padded. The patient was prepped and draped in the usual sterile fashion. A timeout was called to ensure the proper patient procedure and extremity were being contemplated. Anatomic landmarks were palpated and marked with a marking pen. A 0.25% Marcaine with epinephrine was injected into the planned portal sites. Manipulation under anesthesia was performed with forward flexion abduction internal/external rotation with palpable adhesion releases an 11 blade scalpel was used to make a stab incision in the posterior lateral portal. Arthroscope was inserted into the glenohumeral space with ease. Inflow and outflow tubes were attached and arthroscopic visualization began. An anterior portal was established with an 18-gauge spinal needle. Immediately there was noted to be degenerative labral tearing from tear and superior labrum there was noted to be lipstick lesion of the biceps with degenerative tearing the use of an ArthroCare biceps tenotomy was performed and a shaver was used to debride the labral tissue the rotator cuff was evaluated from the undersurface supraspinatus infraspinatus were completely intact there was some degenerative appearance to the subscapularis bu t no tracee tearing the arthroscope was then repositioned into the subacromial space there was significant bursal thickening sub-acromial decompression of bursal tissue as well as acromioplasty were performed there was anterior acromial spurring which was removed bursal side of the cuff was evaluated and there was no tear seen or palpated with probe probe, again the amount of thickened bursal tissue was very significant in this case the wound was thoroughly irrigated through the scope followed by a subacromial injection with 40 mg Depo-Medrol 4 mg of morphine and 8 cc of 0.5% Marcaine plain. Suture portals were closed with 3-0 nylon arthroscopic stitches followed by Xeroform 4 x 4 ABD and a Ioban dressing. A regular sling was placed. Anesthesia was reversed and patient tolerated the procedure well was and was transferred to the PACU all counts were correct patient will follow-up in the office in 2 weeks patient may begin active range of motion immediately
[2020-03-24 10:30] VITALS: BP 122/82; BP 124/84; PULSE 63; RESP 18; O2SAT 99
[2020-03-24 10:48] VITALS: BP 117/76; BP 124/84; PULSE 72; RESP 18; TEMP 36.2; O2SAT 100
[2020-03-24 11:59] VITALS: BP 112/60; BP 124/84; PULSE 60; RESP 16; TEMP 36.1; O2SAT 94
== END 2020-03-24 12:07 | disposition home or self-care (01) ==
LOC: SDC 07:16 → AC 07:16
PROVIDERS: Anesthesiology; PCP Family Medicine; Referring Provider Orthopaedic Surgery; Visit Provider Orthopaedic Surgery
PROC: (CPT 29827; principal; 2020-03-24 08:40)
DX: M75.22 Bicipital tendinitis, left shoulder (principal); M75.02 Adhesive capsulitis of left shoulder; M75.42 Impingement syndrome of left shoulder; I10 Essential (primary) hypertension; J45.909 Unspecified asthma, uncomplicated; G47.30 Sleep apnea, unspecified; Z79.51 Long term (current) use of inhaled steroids; Z79.899 Other long term (current) drug therapy
CPT/HCPCS: 29826; 29828; 64415; 36415; 80076; 85027; 85610; 85730; 93005; J7120; J2405

== ENCOUNTER → 2020-07-08 15:34 | Outpatient (CLI) | payer BC, SELFPAY ==
--- NOTE | 2020-07-08 15:35 | RAD_ITS ---
STUDY: X-RAY - LEFT HAND, ATTENTION 2 FINGER REASON FOR EXAM: Male, 60 years old. 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 SOMETHING WENT INTO FINGER BUT PATIENT DOESN''T KNOW WHAT @ PIP JOINT. PAIN AND SWELLING SINCE TECHNIQUE: 3 view(s) of the finger were obtained. COMPARISON: None. FINDINGS: Normal metacarpal head. Normal metacarpophalangeal joint. Normal proximal phalanx. Normal middle phalanx. Normal distal phalanx. Normal proximal interphalangeal joint. Normal distal interphalangeal joint. RAD/Finger(s) Min 2 Views IMPRESSION: Normal x-ray examination of the finger. Electronically Signed: Reji Sheldon MD at 15:51 EDT Tel , Service support ,
== END ==
PROVIDERS: PCP Family Medicine; Referring Provider Physician Assistant; Visit Provider Physician Assistant
DX: S69.92XA Unspecified injury of left wrist, hand and finger(s), initial encounter (principal)
CPT/HCPCS: 73140

== ENCOUNTER → 2020-08-06 | Outpatient (CLI) | payer BC, SELFPAY | END | disposition home or self-care (01) | LOC: LABSPEC 12:21 | PROVIDERS: Visit Provider Family Medicine | DX: Z03.818 Encounter for observation for suspected exposure to other biological agents ruled out (principal) | CPT/HCPCS: 87635; U0003 ==

== ENCOUNTER → 2020-08-20 | Outpatient (CLI) | payer BC, SELFPAY | END | disposition home or self-care (01) | LOC: LABSPEC 10:39 | PROVIDERS: Referring Provider Family Medicine; Visit Provider Family Medicine | DX: Z11.59 Encounter for screening for other viral diseases (principal) | CPT/HCPCS: 87635; U0003 ==

== ENCOUNTER → 2020-11-23 13:50 | Outpatient (CLI) | payer BC, SELFPAY ==
[2020-10-06 15:18] VITALS: BMI 30.9
== END ==
PROVIDERS: Visit Provider Nurse Practitioner Acute Care
DX: R69 Illness, unspecified (principal)

== ENCOUNTER → 2021-01-09 06:57 | Outpatient (CLI) | payer BC, SELFPAY ==
[2020-10-06 15:18] VITALS: BMI 30.9
[2021-01-09 08:30] LABS: Absolute Lymphocyte Count 2.01 X10^3/uL (0.83-4.51); Absolute Neutrophil Count 2.6 X10^3/uL (2.0-7.7); Basophil# 0.02 X10^3/uL; Basophil% 0.4 % (0-1); Eosinophil# 0.08 X10^3/uL; Eosinophils% 1.5 % (0-5); Hematocrit 49.9 % (40-54); Hemoglobin 16.3 g/dL (13.0-16.5); Lymphocyte # 2.01 X10^3/ul (4.0); Lymphocyte % 38.8 % (19-41); Mean Corp Hgb Conc 32.7 g/dL (32-36); Mean Corpuscular Hgb 28.4 pg (27.0-32.0); Mean Corpuscular Volume 87.1 fL (80-94); Mean Platelet Vol. 9.5 fl (6.2-12.0); Monocyte# 0.43 X10^3/uL; Monocyte% 8.3 % (0-10); NRBC Flagged by Analyzer 0 % (0-5); Neutrophil # 2.63 X10^3/uL (2.7-7.7); Neutrophil % 50.8 % (47-70); Platelet Count 216 K/mm3 (150-450); RBC Distribution Width CV 12.5 % (11.6-14.6); RBC Distribution Width SD 39.7 fl (35.1-43.9); Red Blood Count 5.73 M/mm3 (4.6-6.2); White Blood Count 5.2 K/mm3 (4.4-11.0)
[2021-01-09 09:05] LABS: ALB/GLOB Ratio 1.2 RATIO (0.9-2.4); AST(SGOT) 21 U/L (15-37); Alanine Aminotransfer ALT/SGPT 32 U/L (16-61); Albumin, Serum 3.8 g/dL (3.2-5.0); Alkaline Phosphatase 92 U/L (45-117); Anion Gap 5 (5-15); BUN 22 mg/dL (7-18); BUN/Creat Ratio 22.2 RATIO (10-20); Calcium,Total 8.9 mg/dL (8.5-10.1); Chloride 107 mmol/L (98-107); Cholesterol 232 mg/dL (200); Creatinine, Serum 0.99 mg/dL (0.70-1.30); EST Glomerular Filtration Rate 82 mL/min (>60); Est Glom Filt Rate - Afr Amer 99 mL/min (>60); Globulin 3.3 g/dL (2.2-4.2); Glucose 96 mg/dL (74-106); High Density Lipoprotein 51 mg/dL; PSA,Total - Annual Screen 7.23 ng/mL (0.00-4.00); Potassium 4.1 mmol/L (3.5-5.1); Protein, Total 7.1 g/dL (6.4-8.2); Sodium Level 141 mmol/L (136-145); Triglycerides 97 mg/dL; Very Low Density Lipoprotein 19 mg/dL (5-40)
== END ==
PROVIDERS: PCP Family Medicine; Visit Provider Family Medicine
DX: Z00.00 Encounter for general adult medical examination without abnormal findings (principal); Z12.5 Encounter for screening for malignant neoplasm of prostate
CPT/HCPCS: 36415; 80053; 80061; 84153; 85025; G0103

== ENCOUNTER → 2021-07-10 08:20 | Outpatient (CLI) | payer OTHER, SELFPAY ==
[2020-10-06 15:18] VITALS: BMI 30.9
[2021-07-10 09:12] LABS: PSA,Total- Diagnostic 4.91 ng/mL (0.0-4.0)
== END ==
PROVIDERS: PCP Family Medicine; Referring Provider Family Medicine; Visit Provider Family Medicine
DX: R97.20 Elevated prostate specific antigen [PSA] (principal)
CPT/HCPCS: 36415; 84153

== ENCOUNTER → 2022-04-02 | Outpatient (CLI) | payer OTHER, SELFPAY ==
[2022-04-02 09:17] LABS: Absolute Lymphocyte Count 2.19 X10^3/uL (0.83-4.51); Hematocrit 46.1 % (40-54); Hemoglobin 15.8 g/dL (13.0-16.5); Lymphocyte # 2.19 X10^3/ul (0.83-4.51); Lymphocyte % 28.4 % (19-41); Mean Corp Hgb Conc 34.3 g/dL (32-36); Mean Corpuscular Hgb 29.5 pg (27.0-32.0); Mean Corpuscular Volume 86.2 fL (80-94); Mean Platelet Vol. 9.9 fl (6.2-12.0); Monocyte# 0.55 X10^3/uL; Monocyte% 7.1 % (0-10); NRBC Flagged by Analyzer 0 % (0-5); Neutrophil # 4.96 X10^3/uL (2.7-7.7); Neutrophil % 64.4 % (47-70); Platelet Count 258 K/mm3 (150-450); RBC Distribution Width CV 12.6 % (11.6-14.6); RBC Distribution Width SD 39.2 fl (35.1-43.9); Red Blood Count 5.35 M/mm3 (4.6-6.2); White Blood Count 7.7 K/mm3 (4.4-11.0)
[2022-04-02 10:22] LABS: ALB/GLOB Ratio 1.2 RATIO (0.9-2.4); AST(SGOT) 20 U/L (15-37); Alanine Aminotransfer ALT/SGPT 35 U/L (16-61); Albumin, Serum 3.8 g/dL (3.2-5.0); Alkaline Phosphatase 80 U/L (45-117); Anion Gap 7 (5-15); BUN 23 mg/dL (7-18); BUN/Creat Ratio 23.1 RATIO (10-20); Calcium,Total 8.7 mg/dL (8.5-10.1); Chloride 109 mmol/L (98-107); Cholesterol 199 mg/dL (200); Creatinine, Serum 0.99 mg/dL (0.70-1.30); EST Glomerular Filtration Rate 81 mL/min (>60); Est Glom Filt Rate - Afr Amer 98 mL/min (>60); Globulin 3.2 g/dL (2.2-4.2); Glucose 101 mg/dL (74-106); High Density Lipoprotein 60 mg/dL; PSA,Total- Diagnostic 5.47 ng/mL (0.0-4.0); Potassium 3.6 mmol/L (3.5-5.1); Sodium Level 141 mmol/L (136-145); Triglycerides 65 mg/dL; Very Low Density Lipoprotein 13 mg/dL (5-40)
== END | disposition home or self-care (01) ==
LOC: LAB 07:53
PROVIDERS: PCP Family Medicine; Visit Provider Family Medicine
DX: Z00.00 Encounter for general adult medical examination without abnormal findings (principal); R97.20 Elevated prostate specific antigen [PSA]
CPT/HCPCS: 36415; 80053; 80061; 84153; 85025

== ENCOUNTER → 2022-05-03 | Outpatient (CLI) | payer OTHER, SELFPAY ==
--- NOTE | 2022-05-03 16:04 | RAD_ITS ---
EXAM: XR LEFT HAND COMPLETE, 3 OR MORE VIEWS CLINICAL INDICATION: PAIN TECHNIQUE: Frontal, lateral and oblique views of the left hand. This report was created using [employer] report generation technology. COMPARISON: None. FINDINGS: BONES/JOINTS: Unremarkable. No acute fracture. No subluxation. Normal alignment. Preservation of the joint space. No sclerotic or destructive changes observed. SOFT TISSUES: Unremarkable. No soft tissue swelling or gas. No radiopaque foreign body. RAD/Hand Min 3 Views IMPRESSION: No acute abnormality. Electronically Signed: Benny Light MD at 16:42 EDT ,
== END | disposition home or self-care (01) ==
LOC: MTRAD 16:03
PROVIDERS: PCP Family Medicine; Referring Provider Family Medicine; Visit Provider Family Medicine
DX: M79.645 Pain in left finger(s) (principal); M79.89 Other specified soft tissue disorders
CPT/HCPCS: 73130

== ENCOUNTER → 2023-03-04 | Outpatient (CLI) | payer OTHER, SELFPAY ==
[2023-03-04 08:39] LABS: Absolute Lymphocyte Count 2.02 X10^3/uL (0.83-4.51); Absolute Neutrophil Count 2.8 X10^3/uL (2.0-7.7); Basophil# 0.03 X10^3/uL; Basophil% 0.5 % (0-1); Eosinophil# 0.09 X10^3/uL; Eosinophils% 1.6 % (0-5); Hematocrit 48.1 % (40-54); Hemoglobin 16.1 g/dL (13.0-16.5); Lymphocyte # 2.02 X10^3/ul (0.83-4.51); Lymphocyte % 36.9 % (19-41); Mean Corp Hgb Conc 33.5 g/dL (32-36); Mean Corpuscular Hgb 28.8 pg (27.0-32.0); Mean Corpuscular Volume 85.9 fL (80-94); Mean Platelet Vol. 9.3 fl (6.2-12.0); Monocyte# 0.52 X10^3/uL; Monocyte% 9.5 % (0-10); NRBC Flagged by Analyzer 0 % (0-5); Neutrophil # 2.81 X10^3/uL (2.7-7.7); Neutrophil % 51.3 % (47-70); Platelet Count 227 K/mm3 (150-450); RBC Distribution Width CV 12.4 % (11.6-14.6); RBC Distribution Width SD 38.6 fl (35.1-43.9); White Blood Count 5.5 K/mm3 (4.4-11.0)
[2023-03-04 09:07] LABS: ALB/GLOB Ratio 1.3 RATIO (0.9-2.4); AST(SGOT) 24 U/L (15-37); Alanine Aminotransfer ALT/SGPT 35 U/L (16-61); Albumin, Serum 3.8 g/dL (3.2-5.0); Alkaline Phosphatase 80 U/L (45-117); Anion Gap 4 (5-15); BUN 14 mg/dL (7-18); BUN/Creat Ratio 14.1 RATIO (10-20); Calcium,Total 9.1 mg/dL (8.5-10.1); Chloride 109 mmol/L (98-107); Cholesterol 225 mg/dL (200); Creatinine, Serum 0.99 mg/dL (0.70-1.30); EST Glomerular Filtration Rate 81 mL/min (>60); Est Glom Filt Rate - Afr Amer 98 mL/min (>60); Glucose 102 mg/dL (74-106); High Density Lipoprotein 44 mg/dL; PSA,Total - Annual Screen 6.89 ng/mL (0.00-4.00); Potassium 3.9 mmol/L (3.5-5.1); Protein, Total 6.8 g/dL (6.4-8.2); Sodium Level 140 mmol/L (136-145); Triglycerides 205 mg/dL; Very Low Density Lipoprotein 41 mg/dL (5-40)
[2023-03-07 22:06] LABS: QNTFERON TB Mitogen Value > 10.00 IU/mL (.); QNTFERON TB Nil Value 0.09 IU/mL (.); QNTFERON TB1+ Ag Value 0.12 IU/mL (.); QNTFERON TB2+ Ag Value 0.14 IU/mL (.); QNTIFERON TB Positive Criteria Negative (Negative)
== END | disposition home or self-care (01) ==
LOC: MTLAB 08:16 → LAB 08:17
PROVIDERS: PCP Family Medicine; Referring Provider Family Medicine; Visit Provider Family Medicine
DX: Z00.00 Encounter for general adult medical examination without abnormal findings (principal); Z11.1 Encounter for screening for respiratory tuberculosis; Z12.5 Encounter for screening for malignant neoplasm of prostate
CPT/HCPCS: 36415; 80053; 80061; 84153; 85025; 86480; G0103

== ENCOUNTER 2023-12-19 06:43 | Day surgery (SDC) | payer OTHER, SELFPAY ==
[2023-12-19] VITALS (7 sets, daily range): BP systolic 94–135; BP diastolic 70–92; PULSE 59–79; RESP 16; TEMP 36.6–37.1; O2SAT 95–98
[2023-12-19] MEDS: Lactated Ringers 1,000 ML 15 ML IV (07:24)
--- NOTE | 2023-12-19 08:04 | H&P.OPEN ---
HPI - General HPI Narrative LUIS GRAF, is a 63 M who presents for screening colonoscopy. His last colonoscopy was 12 years ago. He denies any abdominal pain or blood in the stool. He has no family history of colon cancer. [facility] Medical History (Updated 12/14/23 @ 14:41 by Renetta Beckwith) Asthma exacerbation Cancer Chest pain CPAP (continuous positive airway pressure) dependence Fatigue Gastric reflux Gout Hay fever High cholesterol History of echocardiogram History of left shoulder repair History of stomach ulcers History of stress test Hypertension Jaw pain Non-smoker Old myocardial infarction Prostate disease Pulmonary nodule Shortness of breath Shoulder pain Sleep apnea TMJ (temporomandibular joint disorder) Wears glasses Home Medications lisinopril 10 mg tablet 10 mg PO DAILY 12/13/18 [History Last Taken 12/19/23 05:10] albuterol sulfate 2.5 mg/3 mL (0.083 %) solution for nebulization 2.5 mg (3 mL) inhalation Q6H PRN PRN COUGH/SOB #180 mL 03/31/22 [Rx Last Taken Unknown] saw palm 160 mg-vit E 100 unit-selen 100 shi-vrpx-dmqczr-pygeum tablet ([employer]) 2 tab PO .QD 11/29/23 [History Last Taken 12/18/23 05:15] 4 LIFE TRANSFER FACTOR CARDIO 2 ea PO BID 12/14/23 [History Last Taken 12/18/23 05:15] 4 LIFE TRANSFER FACTOR LUNG 3 ea PO DAILY 12/14/23 [History Last Taken 12/18/23 05:15] 4 LIFE TRANSFER FACTORY CLASSIC 3 ea PO DAILY 12/14/23 [History Last Taken 12/18/23 05:15] Allergy/AdvReac Type Severity Reaction Status Date / Time shrimp Allergy Swelling Verified 12/19/23 07:20 Family History Father Lung disease Diabetes Mother Diabetes Brother Diabetes Surgical History (Updated 12/14/23 @ 14:41 by Renetta Beckwith) H/O hernia repair H/O repair of right rotator cuff History of repair of left rotator cuff History of tonsillectomy Hx of colonoscopy Hx of vasectomy Social History (Updated 11/29/23 @ 08:46 by Mckayla Pinzon) household members: spouse current occupational status: employed current occupation: [employer] Smoking Status: Never smoker alcohol intake: never substance use type: does not use Past Medical/Surgical History Planned Operation Planned Operative Procedure/s: COLONOSCOPY S.O.S: No Previous Hospitalizations/Surgeries HX Hospitalizations: No HX of Surgeries: VASECTOMY X 2 TESTICULAR SWELLING WITH SURGICAL REPAIR COLONOSCOPY CICUMCISION TONSILLECTOMY EGD right shoulder subcromical decompression 2018 Any Problems With Anesthesia: No You/Your Family Experience Fever (Hyperthermia) With Anes: No Cholinesterase deficiency: No Cardiovascular Hx Chest Pain within Last 2 months: No Hx of Irregular Heartbeat and/or Afib: No Hx Heart Attack: No Hx Congestive Heart Failure: No Hx Rheumatic Fever: No Hx Hypertension: Yes Hx Internal Defibrillator: No Hx Pacemaker: No Hx Cardiac Catheterization: No Hx Cardiac Surgery/Stents/Etc.: No Hx Stress Test: Yes (12/21/17) Hx Pain in Legs when Walking/Leg Cramps: Yes (LEG CRAMPS AT NIGHT) Respiratory Chronic Cough: No HX of Shortness of Breath: No (ABLE TO WALK UP TWO FLIGHTS OF STAIRS) Hoarseness: No Hx Chronic Obstructive Pulmonary Disease (COPD): No Hx Asthma: Yes (inhaler) Hx Emphysema: No Hx Sleep Apnea: Yes CPAP: Yes BIPAP: No Hx Respiratory Tract Infection/Cold (presently): No Result (for STOP score): Positive Hx Smoking: No Smoking Status: Never smoker Gastrointestinal Controlled With Meds: No Hx Gastrointestinal Disorders: No Hx Gastrointestinal Bleed: No Hx Ulcer: Yes (in the past) Hx Hiatal Hernia: No Difficulty Chewing/Swallowing: No Special diet followed at home: No (.) Hx Unplanned Weight Loss of 20#: No HX Unplanned Weight Gain of 20#: No Neurological Hx Seizures: No HX Syncope/Blackout Spells/Unconsciousness: Yes (syncope prn/blacked out in the past) Hx Transient Ischemic Attacks (TIA): No Hx Multiple Sclerosis: No Hx Parkinson's Disease: No Hx Head/Neck Injury: No (.) Hx Headaches: Yes (occ) Hx Back Injury/Pain: Yes (upper back pain prn) Recent Onset of Speech Difficulty: No Restless Legs: No Does patient have nerve stimulator: No Blood Disorder Hx Leukemia: No Bleeding Tendencies: Yes (bleeds easily) Hx Deep Vein Thrombosis: No Hx High Cholesterol: Yes (TAKING SUPPLEMENTS) Blood Transmitted Disease: No Hx Hepatitis: No Hx Cirrhosis: No Hx Anemia: No Hx Blood Disorders: No Genitourinary Hx Renal Disease: No Musculoskeletal Hx Arthritis: No Hx Rheumatoid Arthritis: No Hx Gout: Yes (HX) Recent Onset of an Orthopedic Problem: No Endocrine Hx Diabetes: No (hypoglycemia) Thyroid Disease: No Hx Steroid Therapy: No Psycho/Social Hx Substance Use: No Hx Alcohol Use: No Hx Anxiety: No Hx Depression: No Mental Illness: No Hx Dementia: No Miscellaneous Hx Cancer: No Recent Exposure to Contagious Disease: No Hx of C-Diff: No Any Loose Teeth: No (upper plate) Allergies shrimp Allergy (Verified 12/19/23 07:20) Swelling Also hives Discharge Is Pt Admitted From a Jail, or a Retirement: No Who Could Help: After D/C, Where Do you Plan to Go: Return Home From the [facility] History Number of Risk Factors: 2 Vital Signs Vital Signs Vital Signs: 12/19/23 07:22 12/19/23 07:22 Temperature 97.8 F Temperature Source Temporal Pulse Rate 79 Respiratory Rate 16 Respiratory Pattern Normal Blood Pressure 135/92 H Blood Pressure Mean 106 Blood Pressure Source Monitor Blood Pressure Position Sitting Blood Pressure Location Right Arm Pulse Ox 98 Oxygen Delivery Method Room Air Weight Weight: 180 lb 12.465 oz Body Mass Index (BMI) 30.0 Physical Exam Const alert and oriented x3 HEENT normocephalic Eyes PERRL Resp normal respiratory effort and normal air movement Cardio regular rate and regular rhythm GI soft to palpation, non-tender and non-distended Extremity normal to inspection Assessment & Plan Assessment/Plan (1) Encounter for screening for malignant neoplasm of colon: PLAN: I explained endoscopy in detail to the patient. I explained the risks including but not limited to stroke or heart attack with anesthesia, perforation of the GI tract, bleeding, infection. I explained that any of these could necessitate further emergency surgery. The patient understands and all questions were answered sufficiently. The patient wishes to proceed with procedure. Joseph Macias MD Pager: [facility] [address] [place] [address], [address] [place] [address] Office: Surgery Risks - Colonoscopy Risks Include but are not Limited To: Risks include but are not limited to: Bleeding, perforation requiring further surgery, inability to complete colonoscopy requiring barium enema.
--- NOTE | 2023-12-19 08:31 | OP.COLON_ITS ---
Patient Name: Vinnie Etienne Procedure Date: 12/19/2023 8:07 AM Date of : 1960 Age: 63 Procedure: Colonoscopy Indications: Screening for colorectal malignant neoplasm Providers: Joseph Macias MD Referring MD: Joseph Macias MD Medicines: Propofol per Anesthesia Patient Profile: This is a 63 year old male. Refer to note in patient chart for documentation of history and physical. Last Colonoscopy: more than 10 years ago. Complications: No immediate complications. Procedure: Pre-Anesthesia Assessment: - Prior to the procedure, a History and Physical was performed, and patient medications and allergies were reviewed. The patient's tolerance of previous anesthesia was also reviewed. The risks and benefits of the procedure and the sedation options and risks were discussed with the patient. All questions were answered, and informed consent was obtained. Prior Anticoagulants: The patient has taken no anticoagulant or antiplatelet agents. After reviewing the risks and benefits, the patient was deemed in satisfactory condition to undergo the procedure. After I obtained informed consent, the scope was passed under direct vision. Throughout the procedure, the patient's blood pressure, pulse, and oxygen saturations were monitored continuously. The Colonoscope was introduced through the anus and advanced to the cecum, identified by appendiceal orifice and ileocecal valve. The colonoscopy was performed without difficulty. The patient tolerated the procedure well. The quality of the bowel preparation was good. The ileocecal valve, appendiceal orifice, and rectum were photographed. Scope In: 8:16:07 AM Scope Withdrawal Time 0 hours 5 minutes 30 seconds Scope Out: 8:24:29 AM Total Procedure Duration Time 0 hours 8 minutes 22 seconds Findings: The entire examined colon appeared normal on direct and retroflexion views. Impression: - The entire examined colon is normal on direct and retroflexion views. - No specimens collected. Recommendation: - Discharge patient to home. - Resume previous diet. - Continue present medications. - Repeat colonoscopy in 10 years for screening purposes. Procedure Code(s): --- Professional --- 50657, Colonoscopy, flexible; diagnostic, including collection of specimen(s) by brushing or washing, when performed (separate procedure) Diagnosis Code(s): --- Professional --- Z12.11, Encounter for screening for malignant neoplasm of colon CPT copyright 2021 [employer]. All rights reserved. The codes documented in this report are preliminary and upon oil field pumper review may be revised to meet current compliance requirements. Joseph Macias MD 12/19/2023 8:31:23 AM This report has been signed electronically. Number of Addenda: 0 Note Initiated On: 12/19/2023 8:07 AM
--- NOTE | 2023-12-19 08:31 | OP.CCLET_ITS ---
12/19/2023 Librado Carter [address] [place] [address] Re : Colonoscopy procedure for Vinnienithya Dennyy Dear Dr. Carter This procedure was performed on Tuesday, December 19, 2023. My impressions and recommendations are as follows: Impressions : - The entire examined colon is normal on direct and retroflexion views. - No specimens collected. Recommendations : - Discharge patient to home. - Resume previous diet. - Continue present medications. - Repeat colonoscopy in 10 years for screening purposes. My findings are described in the full procedure note, which is enclosed. If I can be of further assistance, please feel free to contact me at Doctor phone number(s): , Work: . Sincerely, Joseph Macias MD 12/19/2023 8:31:23 AM This report has been signed electronically.
== END 2023-12-19 09:15 | disposition home or self-care (01) ==
LOC: EN 06:45 → AC 06:46
PROVIDERS: PCP Family Medicine; Referring Provider Family Medicine; Visit Provider Surgery
PROC: 0DJD8ZZ Inspection of Lower Intestinal Tract, Via Natural or Artificial Opening Endoscopic (ICD-10-PCS; CPT 45378; principal; 2023-12-19 08:10)
DX: Z12.11 Encounter for screening for malignant neoplasm of colon (principal); I10 Essential (primary) hypertension; I25.2 Old myocardial infarction; Z79.899 Other long term (current) drug therapy
CPT/HCPCS: 45378; J7120; J2405

== ENCOUNTER → 2023-12-26 | Outpatient (CLI) | payer OTHER, SELFPAY | END | disposition home or self-care (01) | LOC: PSN 09:03 | PROVIDERS: PCP Family Medicine; Referring Provider Nurse Practitioner Acute Care; Visit Provider Nurse Practitioner Acute Care | DX: R06.02 Shortness of breath (principal) | CPT/HCPCS: 94060; 94726; 94729 ==

== ENCOUNTER → 2024-01-30 | Outpatient (CLI) | payer OTHER, SELFPAY ==
[2024-01-30 08:10] VITALS: PULSE 101; PULSE 102; PULSE 103; PULSE 79; PULSE 80; PULSE 92; PULSE 96; PULSE 98; O2SAT 97; O2SAT 98
--- NOTE | 2024-01-31 05:46 | WT_ITS ---
PSN 6 Minute Walk Test 6 Minute Walk Test 6 Minute Walk Test: 6 Minute Walk Test PSN:6-Minute Walk Test Start: 01/30/24 08:11 Freq: Status: Active Protocol: RESP.6MINW Document 01/30/24 08:10 AE (Rec: 01/30/24 08:15 [facility] Desktop) 6 Minute Walk Test Date Performed 01/30/24 Time Performed 08:10 Height 5 ft 5 in Weight: 81.647 kg Weight in Pounds 180.[address]: Dolly Assistive device used: None Pre-test Oxygen Delivery Method Nasal Cannula Pulse Ox 98 Pulse Rate (60-100) 79 Dyspnea Jason Scale (0-10) 0 Exertion Jason Scale (6-20) 6 1st minute Oxygen Delivery Method Room Air Pulse Ox 98 Pulse Rate (60-100) 92 2nd minute Oxygen Delivery Method Room Air Pulse Rate (60-100) 98 Dyspnea Jason Scale (0-10) 96 3rd minute Oxygen Delivery Method Room Air Pulse Ox 97 Pulse Rate (60-100) 103 H 4th minute Oxygen Delivery Method Room Air Pulse Ox 98 Pulse Rate (60-100) 101 H 5th minute Oxygen Delivery Method Room Air Pulse Ox 98 Pulse Rate (60-100) 102 H 6th minute Oxygen Delivery Method Room Air Pulse Ox 98 Pulse Rate (60-100) 96 Dyspnea Jason Scale (0-10) 0 Exertion Jason Scale (6-20) 8 Post-test Oxygen Delivery Method Room Air Pulse Ox 98 Pulse Rate (60-100) 80 Full Laps Walked 28 Partial Lap, Number of Tiles Walked 34 Total Distance Walked (ft) 1686 Interpretation Interpretation: The patient was able to ambulate 1686 feet over the course of 6 minutes on room air with no assistive devices or breaks. The patient experienced no significant desaturation and only mild tachycardia with a peak heart rate of 103 bpm. These findings are consistent with deconditioning. Recommendations Recommendations: No supplemental oxygen is indicated at this time.
== END | disposition home or self-care (01) ==
LOC: PSN 07:51
PROVIDERS: PCP Family Medicine; Referring Provider Nurse Practitioner Acute Care; Visit Provider Nurse Practitioner Acute Care
DX: R06.02 Shortness of breath (principal)
CPT/HCPCS: 94618

== ENCOUNTER → 2024-03-08 | Outpatient (CLI) | payer OTHER, SELFPAY ==
[2024-03-08 08:44] LABS: Absolute Lymphocyte Count 2.44 X10^3/uL (0.83-4.51); Absolute Neutrophil Count 2.5 X10^3/uL (2.0-7.7); Basophil# 0.02 X10^3/uL; Basophil% 0.3 % (0-1); Eosinophil# 0.14 X10^3/uL; Eosinophils% 2.4 % (0-5); Hematocrit 44.8 % (40-54); Hemoglobin 15.4 g/dL (13.0-16.5); Lymphocyte # 2.44 X10^3/ul (0.83-4.51); Lymphocyte % 42.6 % (19-41); Mean Corp Hgb Conc 34.4 g/dL (32-36); Mean Corpuscular Hgb 29.3 pg (27.0-32.0); Mean Corpuscular Volume 85.2 fL (80-94); Mean Platelet Vol. 9.3 fl (6.2-12.0); Monocyte# 0.59 X10^3/uL; Monocyte% 10.3 % (0-10); NRBC Flagged by Analyzer 0 % (0-5); Neutrophil # 2.53 X10^3/uL (2.7-7.7); Neutrophil % 44.2 % (47-70); Platelet Count 208 K/mm3 (150-450); RBC Distribution Width CV 12.7 % (11.6-14.6); RBC Distribution Width SD 39.2 fl (35.1-43.9); Red Blood Count 5.26 M/mm3 (4.6-6.2); White Blood Count 5.7 K/mm3 (4.4-11.0)
[2024-03-08 09:14] LABS: ALB/GLOB Ratio 1.2 RATIO (0.9-2.4); AST(SGOT) 26 U/L (15-37); Alanine Aminotransfer ALT/SGPT 40 U/L (16-61); Albumin, Serum 3.8 g/dL (3.2-5.0); Alkaline Phosphatase 73 U/L (45-117); Anion Gap 8 (5-15); BUN 24 mg/dL (7-18); BUN/Creat Ratio 24.1 RATIO (10-20); Calcium,Total 8.9 mg/dL (8.5-10.1); Chloride 109 mmol/L (98-107); Cholesterol 239 mg/dL (200); Creatinine, Serum 0.99 mg/dL (0.70-1.30); EST Glomerular Filtration Rate 81 mL/min (>60); Est Glom Filt Rate - Afr Amer 98 mL/min (>60); Globulin 3.2 g/dL (2.2-4.2); Glucose 96 mg/dL (74-106); High Density Lipoprotein 43 mg/dL; PSA,Total - Annual Screen 5.07 ng/mL (0.00-4.00); Potassium 3.8 mmol/L (3.5-5.1); Sodium Level 144 mmol/L (136-145); Triglycerides 187 mg/dL; Very Low Density Lipoprotein 37 mg/dL (5-40)
== END | disposition home or self-care (01) ==
LOC: LAB 08:03
PROVIDERS: PCP Family Medicine; Referring Provider Family Medicine; Visit Provider Family Medicine
DX: Z00.00 Encounter for general adult medical examination without abnormal findings (principal); Z12.5 Encounter for screening for malignant neoplasm of prostate
CPT/HCPCS: 36415; 80053; 80061; 83036; 84153; 85025; G0103

== ENCOUNTER → 2024-07-16 | Outpatient (CLI) | payer OTHER, SELFPAY ==
[2024-07-16 15:21] LABS: Absolute Lymphocyte Count 2.21 X10^3/uL (0.83-4.51); Absolute Neutrophil Count 2.8 X10^3/uL (2.0-7.7); Basophil# 0.02 X10^3/uL; Basophil% 0.4 % (0-1); Eosinophil# 0.11 X10^3/uL; Hematocrit 46.7 % (40-54); Hemoglobin 15.4 g/dL (13.0-16.5); Lymphocyte # 2.21 X10^3/ul (0.83-4.51); Lymphocyte % 39.2 % (19-41); Mean Corpuscular Hgb 28.6 pg (27.0-32.0); Mean Corpuscular Volume 86.6 fL (80-94); Mean Platelet Vol. 10.1 fl (6.2-12.0); Monocyte# 0.54 X10^3/uL; Monocyte% 9.6 % (0-10); NRBC Flagged by Analyzer 0 % (0-5); Neutrophil # 2.75 X10^3/uL (2.7-7.7); Neutrophil % 48.6 % (47-70); Platelet Count 219 K/mm3 (150-450); RBC Distribution Width CV 12.7 % (11.6-14.6); RBC Distribution Width SD 39.8 fl (35.1-43.9); Red Blood Count 5.39 M/mm3 (4.6-6.2); White Blood Count 5.6 K/mm3 (4.4-11.0)
[2024-07-16 16:02] LABS: Anion Gap 6 (5-15); BUN 22 mg/dL (7-18); BUN/Creat Ratio 25.5 RATIO (10-20); Calcium,Total 9.2 mg/dL (8.5-10.1); Chloride 106 mmol/L (98-107); Creatinine, Serum 0.86 mg/dL (0.70-1.30); EST Glomerular Filtration Rate 95 mL/min (>60); Est Glom Filt Rate - Afr Amer 115 mL/min (>60); Glucose 84 mg/dL (74-106); Potassium 4.1 mmol/L (3.5-5.1); Sodium Level 139 mmol/L (136-145)
== END | disposition home or self-care (01) ==
LOC: BFHLAB 13:39
PROVIDERS: PCP Family Medicine; Referring Provider Student in an Organized Health Care Education/Training Program; Visit Provider Student in an Organized Health Care Education/Training Program
DX: Z01.818 Encounter for other preprocedural examination (principal); Z01.810 Encounter for preprocedural cardiovascular examination
CPT/HCPCS: 36415; 80048; 85025

== ENCOUNTER 2025-03-06 14:23 | Emergency (ER) | payer BC, SELFPAY ==
[2025-03-06 14:24] VITALS: BP 142/97; PULSE 87; RESP 18; TEMP 36.1; O2SAT 98; BMI 31.2
--- NOTE | 2025-03-06 15:08 | ED.VIS.BACK ---
HPI History of Present Illness Chief Complaint: Back Detail of Chief Complaint: Bilateral lower back pain Informant: patient Onset/Context/Timing Onset: Weeks (2.0) Context: Sudden Onset Injury: lifting and bending Timing: Continuous Quality: Dull and Aching Location: Lumbar Current Severity: Moderate Maximum Severity: Severe Worsened by: improves with Movement, Ambulation and Bending Relieved by: Nothing Associated Symptoms Associated Symptoms: - (Denies saddle paresthesia or anesthesia. Denies foot drop.); Negative for Numbness, Tingling, Radiation to Right Leg, Radiation to Left Leg, Fever, Abdominal Pain, Dysuria, Unable to Ambulate, Unable to Transfer, Urinary Retention, Urinary Incontinence, Constipation or Fecal Incontinence Narrative Narrative: Patient is 65-year-old male. He has history of obesity, CANDACE, asthma, pulmonary hypertension, restrictive lung disease who presents because of severe bilateral low back pain. He denies radiation. Denies bowel bladder dysfunction. No saddle paresthesia or anesthesia. Denies symptoms of claudication. No history of direct trauma. This occurred after he pulled a sump pump out. He has no known history of herniated disc. He denies night sweats or weight loss. She has had no recent procedure. Recent Illness/Hospitalization: No PFSH PFSH Medical History Wears glasses Cancer Gout Prostate disease High cholesterol Gastric reflux Non-smoker CPAP (continuous positive airway pressure) dependence Sleep apnea History of stress test History of echocardiogram History of left shoulder repair Hay fever Fatigue History of stomach ulcers Shoulder pain Hypertension Pulmonary nodule Shortness of breath Old myocardial infarction TMJ (temporomandibular joint disorder) Chest pain Asthma exacerbation Jaw pain Home Medications ?Medication ?Instructions ?Recorded ?Last Taken ?Type lisinopril 10 mg tablet 10 mg PO DAILY 12/13/18 12/19/23 05:10 History saw palm 160 mg-vit E 100 2 tab PO .QD 11/29/23 12/18/23 05:15 History unit-selen 100 uvu-bkru-isczil-pygeum tablet ([employer]) 4 LIFE TRANSFER FACTOR CARDIO 2 ea PO BID 12/14/23 12/18/23 05:15 History 4 LIFE TRANSFER FACTOR LUNG 3 ea PO DAILY 12/14/23 12/18/23 05:15 History 4 LIFE TRANSFER FACTORY CLASSIC 3 ea PO DAILY 12/14/23 12/18/23 05:15 History fexofenadine 180 mg tablet 180 mg PO DAILY 01/30/24 Unknown History ([facility]le Allergy) albuterol sulfate 2.5 mg/3 mL 2.5 mg (3 mL) inhalation Q6H PRN 02/05/25 Unknown Rx (0.083 %) solution for nebulization PRN COUGH/SOB #180 mL ezetimibe 10 mg tablet 10 mg PO QDAY 02/05/25 Unknown History tamsulosin 0.4 mg capsule 0.8 mg PO QHS 02/05/25 Unknown History diazepam 2 mg tablet (Valium) 2 mg PO TID 3 days #10 tabs 03/06/25 Unknown Rx hydrocodone-acetaminophen 5-325mg 1 tab PO Q6H PRN PRN Pain 3 days 03/06/25 Unknown Rx 5mg-325mg #10 TABLETS Allergy/AdvReac Type Severity Reaction Status Date / Time Seasonal Allergies: Uncoded Allergy Mild Chest Verified 03/06/25 14:23 tightness shrimp Allergy Swelling Verified 03/06/25 14:23 Family History Father Lung disease Diabetes Mother Diabetes Brother Diabetes Surgical History History of repair of left rotator cuff Hx of vasectomy Hx of colonoscopy H/O repair of right rotator cuff H/O hernia repair History of tonsillectomy Social History household members: spouse current occupational status: employed current occupation: [employer] Smoking Status: Never smoker alcohol intake: never substance use type: does not use ROS ROS ED Constitutional Constitutional ED: Denies chills, fever(s), subjective, sweats or weight loss Eyes Eyes: Denies blurry vision, change in vision or diplopia ENT ENT ED: Denies ear pain, rhinorrhea or sore throat Cardiovascular Cardiovascular: Denies chest pain or palpitations Respiratory/Chest Respiratory/Chest: Denies dyspnea or dyspnea on exertion Gastrointestinal Gastrointestinal: Denies abdominal pain, constipation, diarrhea, nausea or vomiting Genitourinary Genitourinary ED: Denies dysuria, hematuria or urinary frequency Musculoskeletal Musculoskeletal: Reports back pain; Denies arthralgias or myalgias Integumentary Denies rash Neurologic Neurologic: Denies headache(s) or paresthesias Psychiatric Psychiatric: Reports depression Endocrine Endocrinology: Denies cold intolerance or heat intolerance Hematologic/Lymphatic Hematologic/Lymphatic: Denies easy bleeding or easy bruising EXAM Physical Exam Const Vital Signs: 03/06/25 14:24 Temperature 97 F L Temperature Source Temporal Pulse Rate 87 Respiratory Rate 18 Blood Pressure 142/97 H Blood Pressure Mean 112 Pulse Ox 98 Oxygen Delivery Method Room Air Positive well nourished and well developed Constitutional Narrative: BMI is 31.2 General Appearance ED: well developed; Negative for pallor HEENT Reports moist mucous membranes HEENT Narrative: Head is atraumatic normocephalic. Ears normal. Eyes PERRL and EOMs intact bilaterally General Eye ED: Negative for pale conjunctiva or scleral icterus Neck no lymphadenopathy, supple and no JVD Resp normal respiratory effort and clear to auscultation bilaterally Cardio regular rate, regular rhythm, S1 normal heart sound, S2 normal heart sound and no murmurs GI normal to inspection, nondistended, normoactive bowel sounds, soft to palpation, non-tender, non-distended and no masses GI Narrative: There is no palpable pulsatile mass. There is no abdominal bruit. Back/Spine normal to inspection; Negative for no thoracic nor lumbar tenderness Back/Spine Narrative: Pain palpation right and left paralumbar sacral region. EHLs intact. 5/5 strength plantar and dorsiflexion of the foot. Normal sensation L3-S1 dermatome. PT and DP pulse are 2+. DTR 2+ at the patella and ankle. General Back: Negative for CVA tenderness Cervical Spine: Negative for cervical spine tenderness Thoracic Spine / Upper Back: paraspinal muscle tenderness Lumbar Spine / Lower Back: ROM limited and straight leg raise negative bilaterally Extremity normal to inspection and no clubbing, cyanosis or edema Neuro oriented x3 and no sensory deficits noted Sensorium / Orientation: alert Motor Exam: strength 5/5 throughout Deep Tendon Reflexes: Rt Patellar (L4): 2+, Lt Patellar (L4): 2+, Rt Ankle (S1): 2+ and Lt Ankle (S1): 2+ Deep Tendon Reflexes Back: Rt Patellar (L4): 2+, Lt Patellar (L4): 2+, Rt Ankle (S1): 2+ and Lt Ankle (S1): 2+ Plantar Reflex: Downgoing: bilateral Psych Mood & Affect: depressed and tearful Skin no rashes or lesions noted and no wounds General Skin Exam: Negative for jaundice or pallor MDM MDM MDM Narrative Medical decision making narrative: IV was established. Patient was treated with morphine for his pain and Valium for presumed spasm. Will reassess in 30 to 60 minutes. Since he has no neurovascular compromise and the pain is reproducible there is no indication for emergent advanced imaging i.e. CT or MRI. History & Record Review Additional record(s) reviewed:: Prior outpatient record (Pulmonary office visit February 05 for asthma. H&P by Dr. Macias or colonoscopy outpatient screening for colon cancer), Prior ED visit (ER visit March 05, 2019 for syncope and collapse) and Prior labs Treatment and Re-Evaluation Narrative: Patient was reassessed at 1629. He is pain-free. He was discharged home with appropriate pain medicine and home-going instructions. Discharge Plan Triage Chief Complaint: Back ED Provider: Que Santiago Dx/Rx/DC Orders Clinical Impression: Acute lumbosacral myofascial strain, Pulmonary hypertension, Elevated blood-pressure reading without diagnosis of hypertension, BMI 31.0-31.9,adult Instructions: ED Back Sprain/Strain Prescriptions: New hydrocodone-acetaminophen 5-325 mg tablet 1 tab PO Q6H PRN PRN (Reason: Pain) 3 Days Qty: 10 0RF diazepam [Valium] 2 mg tablet 2 mg PO TID 3 Days Qty: 10 0RF No Action fexofenadine [Krystle Allergy] 180 mg tablet 180 mg PO DAILY Prostate Health 160-100-100 mg-unit-mcg tablet 2 tab PO .QD tamsulosin 0.4 mg capsule 0.8 mg PO QHS ezetimibe 10 mg tablet 10 mg PO QDAY albuterol sulfate 2.5 mg /3 mL (0.083 %) solution for nebulization 2.5 mg inhalation Q6H PRN PRN (Reason: COUGH/SOB) Qty: 180 6RF lisinopril 10 MG tablet 10 mg PO DAILY 4 LIFE TRANSFER FACTOR CARDIO 2 ea PO BID 4 LIFE TRANSFER FACTOR LUNG 3 ea PO DAILY 4 LIFE TRANSFER FACTORY CLASSIC 3 ea PO DAILY Primary Care Provider: Librado Carter Referrals: Librado Carter, [Primary Care Provider] - 3-5 Days if not improving Activity Restrictions/Additional Instructions: 1. Apply ice to your lower back 6-8 times a day for the next 3 to 5 days Print Language: Tamazight Disposition Disposition: Home, Self Care
[2025-03-06] MEDS: diazePAM 2 MG Tablet PO (15:09)
[2025-03-06] MEDS: Ondansetron 4 MG/2 ML Vial IV (15:09)
[2025-03-06] MEDS: Morphine 4 MG/ML Syringe IV (15:09)
[2025-03-06 16:37] VITALS: PULSE 72; RESP 10; TEMP 36.3; O2SAT 97
== END 2025-03-06 16:43 | disposition home or self-care (01) ==
PROVIDERS: Emergency Provider Emergency Medicine; PCP Family Medicine; Referring Provider Emergency Medicine; Visit Provider Emergency Medicine
DX: S39.012A Strain of muscle, fascia and tendon of lower back, initial encounter (principal); I27.20 Pulmonary hypertension, unspecified; J45.909 Unspecified asthma, uncomplicated; Z68.31 Body mass index [BMI] 31.0-31.9, adult; E66.9 Obesity, unspecified; G47.33 Obstructive sleep apnea (adult) (pediatric); I25.2 Old myocardial infarction; X58.XXXA Exposure to other specified factors, initial encounter
CPT/HCPCS: 96374; 96375; 99284; A4216; J2405

== ENCOUNTER → 2025-04-08 | Outpatient (CLI) | payer BC, SELFPAY ==
[2025-04-08 10:13] LABS: Absolute Lymphocyte Count 2.65 X10^3/uL (0.83-4.51); Absolute Neutrophil Count 2.5 X10^3/uL (2.0-7.7); Basophil# 0.02 X10^3/uL; Basophil% 0.3 % (0-1); Eosinophil# 0.14 X10^3/uL; Eosinophils% 2.4 % (0-5); Hematocrit 46.8 % (40-54); Hemoglobin 15.9 g/dL (13.0-16.5); Lymphocyte # 2.65 X10^3/ul (0.83-4.51); Lymphocyte % 45.5 % (19-41); Mean Corpuscular Hgb 29.3 pg (27.0-32.0); Mean Corpuscular Volume 86.3 fL (80-94); Mean Platelet Vol. 9.6 fl (6.2-12.0); Monocyte# 0.52 X10^3/uL; Monocyte% 8.9 % (0-10); NRBC Flagged by Analyzer 0 % (0-5); Neutrophil # 2.48 X10^3/uL (2.7-7.7); Neutrophil % 42.7 % (47-70); Platelet Count 220 K/mm3 (150-450); RBC Distribution Width CV 12.7 % (11.6-14.6); RBC Distribution Width SD 39.4 fl (35.1-43.9); Red Blood Count 5.42 M/mm3 (4.6-6.2); White Blood Count 5.8 K/mm3 (4.4-11.0)
[2025-04-08 11:29] LABS: ALB/GLOB Ratio 1.6 RATIO (0.9-2.4); AST(SGOT) 32 U/L (<=37); Alanine Aminotransfer ALT/SGPT 38 U/L (<=46); Albumin, Serum 4.4 g/dL (3.4-4.8); Alkaline Phosphatase 81 U/L (40-129); Anion Gap 11 (5-15); BUN 16 mg/dL (4-19); BUN/Creat Ratio 17.2 RATIO (10-20); Calcium,Total 9.4 mg/dL (7.6-11.0); Carbon Dioxide 24.3 mmol/L (21.0-32.0); Chloride 106 mmol/L (98-108); Cholesterol 188 mg/dL (<=200); Creatinine, Serum 0.95 mg/dL (0.70-1.20); EST Glomerular Filtration Rate 90 (>60); Globulin 2.8 g/dL (2.2-4.2); Glucose 84 mg/dL (70-99); High Density Lipoprotein 42 mg/dL; Low Density Lipoprotein Calc. 119 mg/dL; Potassium 4.3 mmol/L (3.3-5.1); Protein, Total 7.1 g/dL (5.9-8.4); Sodium Level 142 mmol/L (133-145); Total Bilirubin 0.78 mg/dL (0.00-1.30); Triglycerides 137 mg/dL; Very Low Density Lipoprotein 27 mg/dL (5-40); cholesterol:hdl ratio screen 4.49
== END | disposition home or self-care (01) ==
LOC: LAB 08:44
PROVIDERS: PCP Family Medicine; Referring Provider Family Medicine; Visit Provider Family Medicine
DX: Z00.00 Encounter for general adult medical examination without abnormal findings (principal); Z12.5 Encounter for screening for malignant neoplasm of prostate
CPT/HCPCS: 36415; 80053; 80061; 84153; 85025; G0103

== ENCOUNTER 2025-06-06 07:45 | Observation (INO) | payer BC, SELFPAY ==
--- NOTE | 2025-06-05 10:59 | PAT.ANESEVAL ---
Pre-Assessment Diagnosis/Proposed Procedure Planned Operative Procedure(s): TURP Anesthesia History Anesthesia History - breakfast host: Anesthesia History - breakfast host Hx Hospitalization No 05/27/25 09:21 Any Problems With Anesthesia No 05/27/25 09:21 Cholinesterase deficiency No 05/27/25 09:21 You/Your Family Experience No 05/27/25 09:21 fever (hyperthermia) with Relationship Recent Exposure to Contagious No 12/19/23 08:05 Disease Does patient have nerve No 05/27/25 09:21 stimulator Patient instructed to have device shut off --Does patient have Pacemaker or ICD? When Was Last Pacemaker Check QUESTION #4 FULL TEXT: You/Your Family Experience fever (hyperthermia) with Anesthesia Last Oral Intake Last Oral intake: Last Oral Intake NPO since Meds taken in AM with sips of water? Meds patient instructed to take am of surgery PONV PONV - breakfast host: PONV - breakfast host Female No 05/27/25 09:21 HX of Motion Sickness No 05/27/25 09:21 HX of N/V After Surgery No 05/27/25 09:21 Non-Smoker Yes 05/27/25 09:21 Duration of Surgery greater Yes 05/27/25 09:21 than 60 minutes Number of Risk Factors 2 05/27/25 09:21 PONV Score Moderate Risk 05/27/25 09:21 Height & Weight Height & Weight: Anesthesia: Height & Weight Height 5 ft 5 in 03/06/25 14:24 Respiratory Assessment Respiratory Assessment - breakfast host: Respiratory Tract Infection Hx - breakfast host Hx Respiratory Tract Infection No 05/27/25 09:21 STOP Sleep Apnea STOP Sleep Apnea - breakfast host: STOP Sleep Apnea - breakfast host Hx Hypertension Yes: CONTROLLED WITH MEDS 05/27/25 09:21 Hx Sleep Apnea Yes 05/27/25 09:21 CPAP Yes 05/27/25 09:21 BIPAP No 05/27/25 09:21 Do you snore loudly (louder than talking or can be heard Do you often feel tired/ fatigued/ sleepy during daytime? Has anyone observed you stop breathing during sleep? STOP Results Positive 05/27/25 09:21 QUESTION #5 FULL TEXT : Do you snore loudly (louder than talking or can be heard through closed doors)? 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 Specify any problems Hx of Preganancy in last 3 N/A 05/27/25 09:21 Months Nurse Filling Out Transfusion [id number] 05/27/25 09:21 & Questions: Date: 05/27/25 05/27/25 09:21 Time: 09:24 05/27/25 09:21 Patient unable to answer at this time (ie. confused, unrespo /Reproduction History /Reproductive History - breakfast host: /Reproductive Hx- breakfast host Hx Now Gestational Age (in weeks): EDC: Hx Hx Para Hx Section SAB Active Medications Active Medications: Current Medications Generic Name Dose Route Start Last Admin Trade Name Freq PRN Reason Stop Dose Admin Cefazolin Sodium 2 gm/ Sodium 110 mls @ 200 mls/hr 06/06/25 09:05 Chloride IV 06/06/25 09:37 INTRAOP [facility] Medical History (Updated 05/27/25 @ 09:29 by German Jalloh) Wears hearing aid Loss of hearing Migraine headache Wears glasses Cancer Gout Prostate disease High cholesterol Gastric reflux Non-smoker CPAP (continuous positive airway pressure) dependence Sleep apnea History of stress test History of echocardiogram History of left shoulder repair Hay fever Fatigue History of stomach ulcers Shoulder pain Hypertension Pulmonary nodule Shortness of breath Old myocardial infarction TMJ (temporomandibular joint disorder) Chest pain Asthma exacerbation Jaw pain Home Medications ?Medication ?Instructions ?Recorded ?Last Taken ?Type saw palm 160 mg-vit E 100 2 tab PO DAILY 11/29/23 12/18/23 05:15 History unit-selen 100 uyl-bego-phhetb-pygeum tablet (Prostate Health) 4 LIFE TRANSFER FACTOR CARDIO 2 ea PO BID 12/14/23 12/18/23 05:15 History 4 LIFE TRANSFER FACTOR LUNG 3 ea PO DAILY 12/14/23 12/18/23 05:15 History 4 LIFE TRANSFER FACTORY CLASSIC 3 ea PO DAILY 12/14/23 12/18/23 05:15 History fexofenadine 180 mg tablet 180 mg PO DAILY 01/30/24 Unknown History (Krystle Allergy) albuterol sulfate 2.5 mg/3 mL 2.5 mg (3 mL) inhalation Q6H PRN 02/05/25 Unknown Rx (0.083 %) solution for nebulization PRN COUGH/SOB #180 mL ezetimibe 10 mg tablet 10 mg PO QDAY 02/05/25 Unknown History tamsulosin 0.4 mg capsule 0.8 mg PO QHS 02/05/25 Unknown History diazepam 2 mg tablet (Valium) 2 mg PO TID 3 days #10 tabs 03/06/25 Unknown Rx dutasteride 0.5 mg capsule 0.5 mg PO DAILY 05/27/25 Unknown History lisinopril 20 mg tablet 20 mg PO DAILY 05/27/25 Unknown History sulfamethoxazole 800 1 tab PO BID 05/27/25 Unknown History mg-trimethoprim 160 mg tablet Allergy/AdvReac Type Severity Reaction Status Date / Time grass pollen Allergy Chest Verified 05/27/25 09:17 tightness mold Allergy Chest Verified 05/27/25 09:17 tightness ragweed pollen Allergy Chest Verified 05/27/25 09:17 tightness shrimp Allergy Swelling Verified 05/27/25 09:17 Family History Father Lung disease Diabetes Mother Diabetes Brother Diabetes Surgical History History of repair of left rotator cuff Hx of vasectomy Hx of colonoscopy H/O repair of right rotator cuff H/O hernia repair History of tonsillectomy Social History household members: spouse current occupational status: employed current occupation: [employer] Smoking Status: Never smoker alcohol intake: never substance use type: does not use Audit: Pertinent Findings Pertinent Findings EKG Perinent findings: Sinus rhythm Echo (EF%) pertinent findings: Echo in December 2017. EF 65%. Stage I diastolic dysfunction Recommendation Anesthesia Recommendation Anesthesia recommendation: OPTIMIZED for anesthesia
[2025-06-06] VITALS (11 sets, daily range): BP systolic 115–140; BP diastolic 73–91; PULSE 60–80; RESP 16–18; TEMP 36.1–37; O2SAT 93–100; BMI 31.4
--- NOTE | 2025-06-06 07:02 | PCM.HP.STD ---
HPI - General General Date of Service: 06/06/25 Chief Complaint: BPH with obstruction HPI Narrative LUIS GRAF, is a 65 M who presents for transurethral section of the prostate very large prostate plan to do a TURP may have to do a staged procedure, plan for a TURP today [facility] Medical History (Updated 05/27/25 @ 09:29 by German Jalloh) Wears hearing aid Loss of hearing Migraine headache Wears glasses Cancer Gout Prostate disease High cholesterol Gastric reflux Non-smoker CPAP (continuous positive airway pressure) dependence Sleep apnea History of stress test History of echocardiogram History of left shoulder repair Hay fever Fatigue History of stomach ulcers Shoulder pain Hypertension Pulmonary nodule Shortness of breath Old myocardial infarction TMJ (temporomandibular joint disorder) Chest pain Asthma exacerbation Jaw pain Home Medications ?Medication ?Instructions ?Recorded ?Last Taken ?Type saw palm 160 mg-vit E 100 2 tab PO DAILY 11/29/23 12/18/23 05:15 History unit-selen 100 xiq-xzpz-ppghgv-pygeum tablet ([employer]) 4 LIFE TRANSFER FACTOR CARDIO 2 ea PO BID 12/14/23 12/18/23 05:15 History 4 LIFE TRANSFER FACTOR LUNG 3 ea PO DAILY 12/14/23 12/18/23 05:15 History 4 LIFE TRANSFER FACTORY CLASSIC 3 ea PO DAILY 12/14/23 12/18/23 05:15 History fexofenadine 180 mg tablet 180 mg PO DAILY 01/30/24 Unknown History (Krystle Allergy) albuterol sulfate 2.5 mg/3 mL 2.5 mg (3 mL) inhalation Q6H PRN 02/05/25 Unknown Rx (0.083 %) solution for nebulization PRN COUGH/SOB #180 mL ezetimibe 10 mg tablet 10 mg PO QDAY 02/05/25 Unknown History tamsulosin 0.4 mg capsule 0.8 mg PO QHS 02/05/25 Unknown History diazepam 2 mg tablet (Valium) 2 mg PO TID 3 days #10 tabs 03/06/25 Unknown Rx dutasteride 0.5 mg capsule 0.5 mg PO DAILY 05/27/25 Unknown History lisinopril 20 mg tablet 20 mg PO DAILY 05/27/25 Unknown History sulfamethoxazole 800 1 tab PO BID 05/27/25 Unknown History mg-trimethoprim 160 mg tablet Allergy/AdvReac Type Severity Reaction Status Date / Time grass pollen Allergy Chest Verified 05/27/25 09:17 tightness mold Allergy Chest Verified 05/27/25 09:17 tightness ragweed pollen Allergy Chest Verified 05/27/25 09:17 tightness shrimp Allergy Swelling Verified 05/27/25 09:17 Family History Father Lung disease Diabetes Mother Diabetes Brother Diabetes Surgical History History of repair of left rotator cuff Hx of vasectomy Hx of colonoscopy H/O repair of right rotator cuff H/O hernia repair History of tonsillectomy Social History household members: spouse current occupational status: employed current occupation: [employer] Smoking Status: Never smoker alcohol intake: never substance use type: does not use
--- OUTSIDE RECORDS SUMMARY | 2025-06-06 07:34 | XMS RPT_ITS | CCD ---
Author Organization [facility] Care Team Providers Care Smash Piecer Name Role Phone Dr. Librado Carter Primary Care Provider [phone] Nasima CARRIER OPERATOR, CARRIER OPERATOR-C Geri Attending Provider Nasima CARRIER OPERATOR, CARRIER OPERATOR-C Geri Referring Provider Dr. Librado Carter Primary Care Provider Dr. Librado Carter Referring Provider Nasima CARRIER OPERATOR, CARRIER OPERATOR-C Geri Attending Provider Mckayla Pinzon Attending Provider Unavailable Dr. Joseph Macias Attending Provider Dr. Joseph Macias Other Provider Dr. Librado Carter Primary Care Provider [phone] Mckayla Pinzon Attending Provider Unavailable Dr. Librado Carter Referring Provider Dr. Joseph Macias Attending Provider Dr. Joseph Macias Other Provider Dr. Albert Hallman Attending Provider Nasima CARRIER OPERATOR, CARRIER OPERATOR-C Geri Referring Provider Nasima CARRIER OPERATOR, CARRIER OPERATOR-C Geri Other Provider Dr. Paulino Damon Attending Provider Dr. Librado Carter DO Primary Care Provider [phone] Dr. Librado Carter DO Referring Provider Nasima CENTENO-Geri Caceres Attending Provider Dr. Que Santiago MD Referring Provider Dr. Que Santiago MD Emergency Provider [phone] Librado Carter Primary Care Unavailable Librado Carter Attending Unavailable Emma, Librado Referring Unavailable Jak Najera Attending Unavailable SerafinleJak Referring Unavailable Emma, Librado Primary Care Unavailable Que Santiago Attending Unavailable Que Santiago Referring Unavailable Emma, Librado Primary Care Unavailable EmmaLibrado yeung Referring Unavailable Geri Del Real NP Attending Unavailable Emma, Librado Primary Care Unavailable Emma, Librado Primary Care Unavailable Chris Sanchez Attending Unavailable Chris Sanchez Referring Unavailable Allergies Allergy Classification Reported Allergen(s) Allergy Type Date of Onset Reaction(s) Facility (8 sources) Shrimp product; Translations: [shrimp] Allergy to substance [address] [facility] Comment on above: Also hives (2 sources) pre-anesthetic per pt report Allergy to substance [address] [facility] Work Phone: (4 sources) Seasonal Allergies: Uncoded; Translations: [Seasonal Allergies: Uncoded] Allergy to substance [address] [facility] Comment on above: runny nose (1 source) Grass pollen Drug allergy (disorder) 5 [facility] Repository (1 source) Mold Extract Drug Allergy 5 [facility] Repository (1 source) Ragweed pollen Drug allergy (disorder) 5 [facility] Repository Medications Current Medications Medication Drug Class(es) Dates Sig (Normalized) Sig (Original) 4 LIFE TRANSFER FACTOR CARDIO (5 sources) Start: 12-14-2023 4 LIFE TRANSFER FACTOR CARDIO Active 2 NMA PO TWICE A DAY December 14, 2023 1:00am Start: 12-14-2023 4 LIFE TRANSFE R FACTOR CARDIO Active 2 EACH PO TWICE A DAY December 14, 2023 1:00am Start: 12-14-2023 4 LIFE TRANSFE R FACTOR CARDIO Active 2 EACH PO TWICE A DAY December 14, 2023 12:00am 4 LIFE TRANSFER FACTOR LUNG (5 sources) Start: 12-14-2023 4 LIFE TRANSFE R FACTOR LUNG Active 3 NMA PO DAILY December 14, 2023 1:00am Start: 12-14-2023 4 LIFE TRANSFE R FACTOR LUNG Active 3 EACH PO DAILY December 14, 2023 1:00am Start: 12-14-2023 4 LIFE TRANSFE R FACTOR LUNG Active 3 EACH PO DAILY December 14, 2023 12:00am 4 LIFE TRANSFER FACTORY CLAS SIC (5 sources) Start: 12-14-2023 4 LIFE TRANSFE R FACTORY CLASSIC Active 3 NMA PO DAILY December 14, 2023 1:00am Start: 12-14-2023 4 LIFE TRANSFE R FACTORY CLASSIC Active 3 EACH PO DAILY December 14, 2023 1:00am Start: 12-14-2023 4 LIFE TRANSFE R FACTORY CLASSIC Active 3 EACH PO DAILY December 14, 2023 12:00am acetaminophen 325 mg / HYDROcodone bitartrate 5 mg oral tablet (1 source) Opioid Agonist Start: 03-06-2025 take 1 tablet by mouth every six hours as needed for pain Hydrocodone-Acetaminophen 5-325 mg tablet Active 1 {tbl} PO EVERY 6 HOURS NEEDED as needed for Pain 10 March 06, 2025 diazePAM 2 mg oral tablet (1 source) Benzodiazepine Start: 03-06-2025 take 1 tablet by mouth three times daily Diazepam (Valium) 2 mg tablet Active 2 mg PO THREE TIMES A DAY 10 March 06, 2025 12:00am diclofenac sodium 0.01 mg/mg topical gel (2 sources) Nonsteroidal Anti-inflammatory Drug Start: 07-20-2020 apply 2 g topically four times daily Diclofenac Sodium (Voltaren) 1 % gel Active 2 GM TOPICAL .QID 50 July 20, 2020 3:47pm apply to single knee, ankle, foot; for foot includes sole/toes/top of foot ezetimibe 10 mg oral tablet (1 source) Dietary Cholesterol Absorption Inhibitor Start: 02-05-2025 take 1 tablet by mouth once daily Ezetimibe 10 mg tablet Active 10 mg PO daily February 05, 2025 12:00am fexofenadine hydrochloride 180 mg oral tablet (20 sources) Histamine-1 Receptor Antagonist Start: 01-30-2024 take 1 tablet by mouth once daily Fexofenadine (Krystle Allergy) 180 mg tablet Active 180 mg PO DAILY January 30, 2024 12:00am Start: 09-11-2019 End: 04-06-2020 take 1 tablet by mouth once daily Fexofenadine (Krystle Allergy) 60 mg tablet Discontinued 60 mg PO DAILY September 11, 2019 12:00am April 06, 2020 9:33am Start: 03-07-2018 End: 09-04-2018 take 1 tablet by mouth once daily Fexofenadine (Krystle Allergy) 180 mg tablet Discontinued 180 mg PO daily March 07, 2018 12:00am September 04, 2018 8:45am Start: 10-24-2014 End: 12-12-2017 Fexofenadine 180 MG tablet Discontinued 180 mg PO NEEDED as needed for Allergies October 24, 2014 1:00am December 12, 2017 2:25pm lisinopril 10 mg oral tablet (14 sources) Angiotensin Converting Enzyme Inhibitor Start: 12-13-2018 take 1 tablet by mouth once daily Lisinopril 10 MG tablet Active 10 mg PO DAILY December 13, 2018 1:00am Start: 10-18-2014 End: 12-12-2017 take 1 tablet by mouth once daily Lisinopril 5 MG tablet Discontinued 5 mg PO DAILY October 18, 2014 1:00am December 12, 2017 2:27pm Saw-Vit E-Sod Ajz-Dqb-Wsxk-P yg (Prostate Health) 160-100-100 mg-unit-mcg tablet (5 sources) Start: 11-29-2023 Saw-Vit E-Sod Ipi-Bjl-Cvol-Pyg (Prostate Health) 160-100-100 mg-unit-mcg tablet Active 2 {tbl} PO .QD November 29, 2023 1:00am Start: 11-29-2023 take 2 tablets by [facility] once daily Saw-Vit E-Sod Fag-Oaw-Pedo-Pyg (Prostate Health) 160-100-100 mg-unit-mcg tablet Active 2 TABLET PO .QD November 29, 2023 1:00am Start: 11-29-2023 take 2 tablets by [facility] once daily Saw-Vit E-Sod Zay-Teq-Lyxi-Pyg (Prostate Health) 160-100-100 mg-unit-mcg tablet Active 2 TABLET PO .QD November 29, 2023 12:00am tamsulosin hydrochloride 0.4 mg oral capsule (1 source) alpha-Adrenergic Marcial Start: 02-05-2025 take 2 capsules by mouth at bedtime Tamsulosin 0.4 mg capsule Active 0.8 mg PO AT BEDTIME February 05, 2025 12:00am Completed/Discontinued Medications Medication Drug Class(es) Dates Sig (Normalized) Sig (Original) acetaminophen 325 mg / oxyCODONE hydrochloride 5 mg oral tablet (14 sources) Opioid Agonist Start: 03-27-2018 End: 04-09-2018 Oxycodone-Acetamino phen 1 TABLET tablet Discontinued 1 - 2 {tbl} PO EVERY 4 HOURS NEEDED as needed for Pain 60 March 27, 2018 12:00am April 09, 2018 9:11am Start: 03-27-2018 End: 04-09-2018 take 1 tablet by mouth every four hours as needed Oxycodone-Acetaminophen Discontinued 1 - 2 TABLET PO EVERY 4 HOURS NEEDED 60 March 27, 2018 12:00am April 09, 2018 9:11am Start: 10-27-2014 End: 02-28-2018 Oxycodone-Acetaminophen 1 TA BLET tablet Discontinued 1 - 2 {tbl} PO EVERY 6 HOURS NEEDED as needed for Pain October 27, 2014 1:00am February 28, 2018 8:27am Start: 10-27-2014 End: 02-28-2018 take 1 tablet by mouth every six hours as needed Oxycodone-Acetaminophen Discontinued 1 - 2 TABLET PO EVERY 6 HOURS NEEDED October 27, 2014 1:00am February 28, 2018 8:27am [id number] 200 actuat albuterol 0.09 mg/actuat metered dose inhaler (20 sources) beta2-Adrenergic Agonist Start: 07-10-2019 End: 07-10-2019 Albuterol Sulfate 90 mcg/actuation HFA aerosol inhaler Discontinued 2 NMA INHALATION Q4H as needed for shortness of breath or wheezing July 10, 2019 12:00am July 10, 2019 2:37pm Start: 07-10-2019 End: 07-10-2019 take 1 puff(s) by inhalation every four hours Albuterol Sulfate Discontinued 2 PUFF INHALATION Q4H July 10, 2019 12:00am July 10, 2019 2:37pm Start: 03-19-2019 End: 07-10-2019 take 2.5 mg by inhalation every four hours as needed for wheezing Albuterol Sulfate 2.5 mg /3 mL (0.083 %) solution for nebulization Discontinued 2.5 mg INHALATION Q4H as needed for shortness of breath or wheezing 180 March 19, 2019 12:00am July 10, 2019 2:37pm Start: 12-13-2018 End: 02-05-2025 take 2.5 mg by inhalation every six hours as needed for cough Albuterol Sulfate 2.5 mg /3 mL (0.083 %) solution for nebulization Active 2.5 mg INHALATION EVERY 6 HOURS NEEDED as needed for COUGH/SOB 180 February 05, 2025 9:11am Start: 12-13-2017 End: 03-07-2018 albuterol sulfate 0.63 mg/3 mL solution for nebulization Discontinued 0.63 MG Continuous Nebulization ONCE December 13, 2017 1:58pm March 07, 2018 9:21am Start: 12-13-2017 End: 01-09-2018 take 2.5 mg by inhalation every four hours as needed for wheezing Albuterol Sulfate 2.5 mg /3 mL (0.083 %) solution for nebulization Discontinued 2.5 mg INHALATION Q4H as needed for shortness of breath or wheezing December 13, 2017 1:00am January 09, 2018 11:01am 120 actuat budesonide 0.16 mg/actuat / formoterol fumarate 0.0045 mg/actuat metered dose inhaler (7 sources) Corticosteroid, beta2-Adrenergic Agonist Start: 08-28-2020 End: 03-31-2021 Budesonide-Formoterol (Symbicort) 160-4.5 mcg/actuation HFA aerosol inhaler Discontinued 2 NMA INHALATION TWICE A DAY August 28, 2020 12:00am March 31, 2021 2:24pm administer with spacer, rinse mouth after each use Start: 08-28-2020 End: 03-31-2021 take 1 puff(s) by mouth twice daily Budesonide-Formoterol (Symbicort) 160-4.5 mcg/actuation HFA aerosol inhaler Discontinued 2 PUFF INHALATION TWICE A DAY August 28, 2020 12:00am March 31, 2021 2:24pm administer with spacer, rinse mouth after each use cephalexin 500 mg oral capsule (7 sources) Cephalosporin Antibacterial Start: 07-08-2020 End: 07-20-2020 take 1 capsule by mouth three times daily Cephalexin 500 mg capsule Discontinued 500 mg PO THREE TIMES A DAY July 08, 2020 12:00am July 20, 2020 3:41pm cetirizine hydrochloride 10 mg oral tablet (7 sources) Histamine-1 Receptor Antagonist Start: 03-31-2021 End: 03-31-2022 take 1 tablet by mouth once daily as needed Cetirizine (24hour Allergy) 10 mg tablet Discontinued 10 mg PO DAILY as needed March 31, 2021 12:00am March 31, 2022 1:07pm docusate sodium 100 mg oral capsule (7 sources) Start: 03-27-2018 End: 09-04-2018 take 1 capsule by mouth twice daily as needed for constipation Docusate Sodium 100 MG capsule Discontinued 100 mg PO TWICE DAILY NEEDED as needed for Constipation March 27, 2018 12:00am September 04, 2018 8:46am doxycycline hyclate 100 mg oral capsule (7 sources) Tetracycline-class Drug Start: 07-17-2020 End: 07-27-2020 take 1 capsule by mouth twice daily Doxycycline Hyclate 100 mg capsule Discontinued 100 mg PO TWICE A DAY 08 09July 17, 2020 12:00am July 26, 2020 12:00am July 27, 2020 12:02am Fluticasone Furoate (20 sources) Corticosteroid Start: 09-26-2022 End: 09-28-2023 take 200 ug by inhalation once daily Fluticasone Furoate (Arnuity Ellipta) 200 mcg/actuation blister with device Discontinued 1 NMA INHALATION DAILY September 26, 2022 11:19am September 28, 2023 1:44pm Start: 09-26-2022 End: 09-28-2023 take 200 ug by inhalation once daily Fluticasone Furoate (Arnuity Ellipta) 200 mcg/actuation blister with device Discontinued 1 INH INHALATION DAILY September 26, 2022 11:19am September 28, 2023 1:44pm Start: 09-26-2022 End: 09-28-2023 take 200 ug by inhalation once daily Fluticasone Furoate (Arnuity Ellipta) 200 mcg/actuation blister with device Discontinued 1 INH INHALATION DAILY September 26, 2022 10:19am September 28, 2023 12:44pm Start: 03-31-2022 End: 09-26-2022 take 200 ug by inhalation once daily Fluticasone Furoate (Arnuity Ellipta) 200 mcg/actuation blister with device Discontinued 1 NMA INHALATION DAILY March 31, 2022 1:06pm September 26, 2022 11:19am Start: 03-31-2022 End: 09-26-2022 take 200 ug by inhalation once daily Fluticasone Furoate (Arnuity Ellipta) 200 mcg/actuation blister with device Discontinued 1 INH INHALATION DAILY March 31, 2022 1:06pm September 26, 2022 11:19am Start: 03-31-2022 End: 09-26-2022 take 200 ug by inhalation once daily Fluticasone Furoate (Arnuity Ellipta) 200 mcg/actuation blister with device Discontinued 1 INH INHALATION DAILY March 31, 2022 12:06pm September 26, 2022 10:19am Start: 03-31-2022 take 200 ug by inhal ation once daily Fluticasone Furoate (Arnuity Ellipta) 200 mcg/actuation blister with device Active 1 INH INHALATION DAILY March 31, 2022 1:06pm Start: 02-09-2022 End: 03-31-2022 take 200 ug by inhalation once daily Fluticasone Furoate (Arnuity Ellipta) 200 mcg/actuation blister with device Discontinued 1 NMA INHALATION DAILY February 09, 2022 3:04pm March 31, 2022 1:08pm Start: 02-09-2022 End: 03-31-2022 take 200 ug by inhalation once daily Fluticasone Furoate (Arnuity Ellipta) 200 mcg/actuation blister with device Discontinued 1 INH INHALATION DAILY February 09, 2022 2:04pm March 31, 2022 12:08pm Start: 02-09-2022 End: 03-31-2022 take 200 ug by inhalation once daily Fluticasone Furoate (Arnuity Ellipta) 200 mcg/actuation blister with device Discontinued 1 INH INHALATION DAILY February 09, 2022 3:04pm March 31, 2022 1:08pm Start: 03-31-2021 End: 02-09-2022 take 200 ug by inhalation once daily Fluticasone Furoate (Arnuity Ellipta) 200 mcg/actuation blister with device Discontinued 1 NMA INHALATION DAILY March 31, 2021 12:00am February 09, 2022 3:04pm Start: 03-31-2020 End: 03-31-2022 Fluticasone Furoate 200 mcg/actuation blister with device Discontinued 1 NMA INHALATION DAILY March 31, 2020 7:59am March 31, 2022 1:06pm Start: 03-31-2020 End: 03-31-2022 Fluticasone Furoate Disconti nued 1 INH INHALATION DAILY March 31, 2020 6:59am March 31, 2022 12:06pm Start: 03-31-2020 End: 03-31-2022 Fluticasone Furoate Disconti nued 1 INH INHALATION DAILY March 31, 2020 7:59am March 31, 2022 1:06pm Start: 03-19-2020 End: 03-31-2020 take 1 puff(s) by inhalation once daily Fluticasone Furoate Discontinued 1 PUFF IH DAILY March 19, 2020 3:07pm March 31, 2020 7:59am Start: 03-19-2020 End: 03-31-2020 Fluticasone Furoate 200 MCG blister with device Discontinued 1 NMA IH DAILY March 19, 2020 12:00am March 31, 2020 7:59am Start: 03-19-2020 End: 03-31-2020 take 1 puff(s) by inhalation once daily Fluticasone Furoate Discontinued 1 PUFF IH DAILY March 18, 2020 11:00pm March 31, 2020 6:59am Start: 03-19-2020 End: 03-31-2020 take 1 puff(s) by inhalation once daily Fluticasone Furoate Discontinued 1 PUFF IH DAILY March 19, 2020 12:00am March 31, 2020 7:59am Start: 11-08-2019 End: 11-08-2019 take 200 ug by inhalation once daily Fluticasone Furoate 200 mcg/actuation blister with device Discontinued 200 ug INHALATION DAILY November 08, 2019 10:46am November 08, 2019 10:53am Start: 11-08-2019 End: 11-08-2019 take 200 ug by inhalation once daily Fluticasone Furoate Discontinued 200 MCG INHALATION DAILY November 08, 2019 9:46am November 08, 2019 9:53am Start: 11-08-2019 End: 11-08-2019 take 200 ug by inhalation once daily Fluticasone Furoate Discontinued 200 MCG INHALATION DAILY November 08, 2019 10:46am November 08, 2019 10:53am Start: 04-16-2019 End: 11-08-2019 take 200 ug by inhalation once daily Fluticasone Furoate 200 mcg/actuation blister with device Discontinued 200 ug INHALATION DAILY April 16, 2019 10:54am November 08, 2019 10:47am Start: 04-16-2019 End: 11-08-2019 take 200 ug by inhalation once daily Fluticasone Furoate Discontinued 200 MCG INHALATION DAILY April 16, 2019 9:54am November 08, 2019 9:47am Start: 04-16-2019 End: 11-08-2019 take 200 ug by inhalation once daily Fluticasone Furoate Discontinued 200 MCG INHALATION DAILY April 16, 2019 10:54am November 08, 2019 10:47am Start: 03-05-2019 End: 04-16-2019 take 200 ug by inhalation once daily Fluticasone Furoate Discontinued 200 MCG IH DAILY March 05, 2019 9:14am April 16, 2019 10:54am Start: 03-05-2019 End: 04-16-2019 take 200 ug by inhalation once daily Fluticasone Furoate 200 MCG blister with device Discontinued 200 ug IH DAILY March 05, 2019 12:00am April 16, 2019 10:54am Start: 03-05-2019 End: 04-16-2019 take 200 ug by inhalation once daily Fluticasone Furoate Discontinued 200 MCG IH DAILY March 04, 2019 11:00pm April 16, 2019 9:54am Start: 03-05-2019 End: 04-16-2019 take 200 ug by inhalation once daily Fluticasone Furoate Discontinued 200 MCG IH DAILY March 05, 2019 12:00am April 16, 2019 10:54am Start: 08-21-2018 End: 09-18-2018 take 200 ug by inhalation once daily Fluticasone Furoate (Arnuity Ellipta) 200 mcg/actuation blister with device Discontinued 1 NMA INHALATION daily August 21, 2018 10:10am September 18, 2018 8:12am administer at approximately the same time(s) each day Start: 08-21-2018 End: 09-18-2018 take 200 ug by inhalation once daily Fluticasone Furoate (Arnuity Ellipta) 200 mcg/actuation blister with device Discontinued 1 INH INHALATION daily August 21, 2018 9:10am September 18, 2018 7:12am administer at approximately the same time(s) each day Start: 08-21-2018 End: 09-18-2018 take 200 ug by inhalation once daily Fluticasone Furoate (Arnuity Ellipta) 200 mcg/actuation blister with device Discontinued 1 INH INHALATION daily August 21, 2018 10:10am September 18, 2018 8:12am administer at approximately the same time(s) each day Start: 01-09-2018 End: 08-21-2018 take 200 ug by inhalation once daily Fluticasone Furoate (Arnuity Ellipta) 200 mcg/actuation blister with device Discontinued 1 INH INHALATION daily January 09, 2018 10:48am August 21, 2018 10:10am administer at approximately the same time(s) each day Start: 01-09-2018 End: 08-21-2018 take 200 ug by inhalation once daily Fluticasone Furoate (Arnuity Ellipta) 200 mcg/actuation blister with device Discontinued 1 NMA INHALATION daily January 09, 2018 1:00am August 21, 2018 10:10am administer at approximately the same time(s) each day Start: 01-09-2018 End: 08-21-2018 take 200 ug by inhalation once daily Fluticasone Furoate (Arnuity Ellipta) 200 mcg/actuation blister with device Discontinued 1 INH INHALATION daily January 09, 2018 12:00am August 21, 2018 9:10am administer at approximately the same time(s) each day Start: 01-09-2018 End: 08-21-2018 take 200 ug by inhalation once daily Fluticasone Furoate (Arnuity Ellipta) 200 mcg/actuation blister with device Discontinued 1 INH INHALATION daily January 09, 2018 1:00am August 21, 2018 10:10am administer at approximately the same time(s) each day magnesium oxide 500 mg oral capsule (7 sources) Start: 03-05-2019 End: 04-06-2020 Magnesium Oxide 500 MG capsu le Discontinued 250 mg PO DAILY March 05, 2019 12:00am April 06, 2020 9:33am Start: 03-05-2019 End: 04-06-2020 take 250 mg by mouth once daily Magnesium Oxide Discontinued 250 MG PO DAILY March 05, 2019 12:00am April 06, 2020 9:33am meloxicam 15 mg oral tablet (7 sources) Nonsteroidal Anti-inflammatory Drug Start: 09-11-2019 End: 03-18-2020 take 1 tablet by mouth once daily Meloxicam (Mobic) 15 mg tablet Discontinued 15 mg PO DAILY September 11, 2019 12:00am March 18, 2020 8:17am Take 1 pill daily regularly for 1 month do not take other NSAIDs while on this medication methylPREDNISolone acetate 40 mg/ml injectable suspension (2 sources) Corticosteroid Start: 01-01-2020 End: 01-01-2020 Depo-Medrol (methylprednisol one acetate) 40 mg/mL suspension for injection Discontinued 40 MG INTRAARTIC ONCE January 01, 2020 8:49am January 01, 2020 9:36am Start: 09-11-2019 End: 09-11-2019 Depo-Medrol (methylprednisol one acetate) 40 mg/mL suspension for injection Discontinued 40 MG INTRAARTIC ONCE September 11, 2019 7:30am September 11, 2019 8:48am oxyCODONE hydrochloride 5 mg oral tablet (7 sources) Opioid Agonist Start: 03-24-2020 End: 05-04-2020 take 1-2 tablets by mouth every four hours as needed for pain Oxycodone 5 MG tablet Discontinued 5 mg PO EVERY 4 HOURS NEEDED as needed for Pain Score 4-10/10 March 24, 2020 May 04, 2020 8:03am 1-2 tabs by mouth every 4 hrs as needed for pain predniSONE 20 mg oral tablet (14 sources) Start: 03-31-2022 End: 09-26-2022 take 3 tablets by mouth once daily at mealtime Prednisone 20 mg tablet Discontinued 60 mg PO daily March 31, 2022 12:00am September 26, 2022 10:45am administer with food or milk Start: 03-31-2022 End: 09-26-2022 take 60 mg by mouth once daily at mealtime Prednisone Discontinued 60 MG PO daily March 31, 2022 12:00am September 26, 2022 10:45am administer with food or milk Start: 09-04-2018 End: 09-18-2018 take 2 tablets by mouth once daily Prednisone 20 mg tablet Discontinued 40 mg PO DAILY September 04, 2018 12:00am September 18, 2018 8:04am Start: 09-04-2018 End: 09-18-2018 take 40 mg by mouth once daily Prednisone Discontinued 40 MG PO DAILY September 04, 2018 12:00am September 18, 2018 8:04am promethazine hydrochloride 25 mg oral tablet (7 sources) Phenothiazine Start: 03-27-2018 End: 04-09-2018 take 1 tablet by mouth every four hours as needed for nausea Promethazine 25 MG tablet Discontinued 25 mg PO EVERY 4 HOURS NEEDED as needed for Nausea March 27, 2018 12:00am April 09, 2018 9:11am Prostate Plus (7 sources) Start: 03-19-2020 End: 04-06-2020 take 3 tablets by mouth once daily Prostate Plus Discontinued 3 TABLET PO DAILY March 19, 2020 3:07pm April 06, 2020 9:34am Start: 03-19-2020 End: 04-06-2020 Prostate Plus Discontinued 3 {tbl} PO DAILY March 19, 2020 12:00am April 06, 2020 9:34am Start: 03-19-2020 End: 04-06-2020 take 3 tablets by mouth once daily Prostate Plus Discontinued 3 TABLET PO DAILY March 18, 2020 11:00pm April 06, 2020 8:34am Start: 03-19-2020 End: 04-06-2020 take 3 tablets by mouth once daily Prostate Plus Discontinued 3 TABLET PO DAILY March 19, 2020 12:00am April 06, 2020 9:34am red yeast rice 600 mg oral capsule (7 sources) Start: 03-05-2019 End: 04-06-2020 take 1 capsule by mouth once daily Red Yeast Rice 600 MG capsule Discontinued 1200 mg PO DAILY March 05, 2019 12:00am April 06, 2020 9:34am Start: 03-05-2019 End: 04-06-2020 take 1200 mg by mouth once daily Red Yeast Rice Discontinued 1200 MG PO DAILY March 05, 2019 12:00am April 06, 2020 9:34am Saw-Vit E-Sod Fth-Pad-Vknd-P yg (6 sources) Start: 03-05-2019 End: 07-09-2019 Saw-Vit E-Sod Rhe-Ugq-Jlge-P yg Discontinued 1 EACH PO DAILY March 05, 2019 9:14am July 09, 2019 7:12am Start: 03-05-2019 End: 07-09-2019 Saw-Vit E-Sod Dat-Ycd-Rdkh-P yg Discontinued 1 EACH PO DAILY March 04, 2019 11:00pm July 09, 2019 6:12am Start: 03-05-2019 End: 07-09-2019 Saw-Vit E-Sod Uuv-Nda-Sbwp-P yg Discontinued 1 EACH PO DAILY March 05, 2019 12:00am July 09, 2019 7:12am Saw-Vit E-Sod Dii-Xrv-Oaiz-Pyg 1 EACH tablet (1 source) Start: 03-05-2019 End: 07-09-2019 take 1 tablet by mouth once daily Saw-Vit E-Sod Fah-Hui-Cnpt-Pyg 1 EACH tablet Discontinued 1 NMA PO DAILY March 05, 2019 12:00am July 09, 2019 7:12am triamcinolone acetonide 40 mg/ml injectable suspension (1 source) Corticosteroid Start: 10-24-2018 End: 10-24-2018 inject 60 mg by intramuscular injection once Kenalog (triamcinolone acetonide) 40 mg/mL suspension for injection Discontinued 60 MG IM ONCE 1.5 October 24, 2018 3:15pm October 24, 2018 3:51pm Problems Problem Classification Problem Date Documented Date Episodic/Chronic Asthma (20 sources) Exacerbation of asthma; Translations: [Unspecified asthma with (acute) exacerbation] Onset: Chronic Coronary atherosclerosis and other heart disease (7 sources) Old myocardial infarction; Translations: [Old myocardial infarction] 12-24-2019 Chronic Disorders of teeth and jaw (14 sources) Temporomandibular joint disorder; Translations: [Unspecified temporomandibular joint disorder, unspecified side] 12-24-2019 Episodic Nonspecific chest pain (7 sources) Chest pain; Translations: [Chest pain, unspecified] 12-24-2019 Episodic Open wounds of extremities (7 sources) Puncture wound of index finger of left hand; Translations: [Puncture wound without foreign body of left index finger without damage to nail, initial encounter] 07-17-2020 Episodic Other circulatory disease (1 source) Elevated blood-pressure reading without diagnosis of hypertension; Translations: [Elevated blood-pressure reading, without diagnosis of hypertension] 03-06-2025 Episodic Other lower respiratory disease (7 sources) Dyspnea; Translations: [Shortness of breath] 03-27-2018 Episodic Other lower respiratory disease (7 sources) Nodule of lung; Translations: [Solitary pulmonary nodule] 03-27-2018 Episodic Other lower respiratory disease (7 sources) Restrictive lung disease; Translations: [Other disorders of lung] 03-27-2018 Episodic Other nutritional; endocrine; and metabolic disorders (1 source) Body mass index 30+ - obesity; Translations: [Body mass index (BMI) 31.0-31.9, adult] 03-06-2025 Chronic Other nutritional; endocrine; and metabolic disorders (2 sources) Obesity; Translations: [Obesity, unspecified] 02-05-2025 Chronic Other nutritional; endocrine; and metabolic disorders (1 source) Other obesity due to excess calories; Translations: [Other obesity due to excess calories] Onset: 5 Chronic Other nutritional; endocrine; and metabolic disorders (1 source) Body mass index (BMI) 32.0-32.9, adult; Translations: [Body mass index [BMI] 32.0-32.9, adult] Onset: 5 Chronic Other screening for suspected conditions (not mental disorders or infectious disease) (9 sources) Patient encounter status; Translations: [Encounter for screening for malignant neoplasm of colon] 11-29-2023 Episodic Pulmonary heart disease (7 sources) Pulmonary hypertension; Translations: [Pulmonary hypertension, unspecified] 03-27-2018 Chronic Residual codes; unclassified (8 sources) Obstructive sleep apnea syndrome; Translations: [Obstructive sleep apnea (adult) (pediatric)] 09-28-2023 Chronic Comment on above: AutoPap 5-14 cmH2O Residual codes; unclassified (7 sources) Obstructive sleep apnea (adult) (pediatric); Translations: [Obstructive sleep apnea (adult)(pediatric)] Onset: 5 Chronic Residual codes; unclassified (7 sources) History of hernia repair; Translations: [Other specified postprocedural states] 12-24-2019 Episodic Skin and subcutaneous tissue infections (7 sources) Cellulitis of finger; Translations: [Cellulitis of left finger] 07-17-2020 Episodic Sprains and strains (1 source) Lower back injury; Translations: [Strain of muscle, fascia and tendon of lower back, initial encounter] 03-06-2025 Episodic Unclassified (1 source) Low back pain, unspecified; Translations: [Low back pain, unspecified] Onset: 5 Unclassified (1 source) Obesity, class 1; Translations: [Obesity, class 1] Onset: 5 Results Test Name Value Interpretation Reference Range Facility CBC W/Diff, Automatedon - Absolute Lymph 2.65 X10 3/uL Normal 0.83-4.51 [facility] Comment on above: Performed By: #### L 500.4100, L501.9910, L500.4050, L100.0100 #### [facility] [address] [place], [address] Absolute Neut 2.5 X10 3/uL Normal 2.0-7.7 [facility] Comment on above: Performed By: #### L 500.4100, L501.9910, L500.4050, L100.0100 #### [facility] [address] [place], [address] Basophils/100 WBC (Bld) 0.3 % Normal 0-1 [facility] Comment on above: Performed By: #### L 500.4100, L501.9910, L500.4050, L100.0100 #### [facility] [address] [place], [address] Eosinophils/100 WBC (Bld) 2.4 % Normal 0-5 [facility] Comment on above: Performed By: #### L 500.4100, L501.9910, L500.4050, L100.0100 #### [facility] [address] [place], [address] Erythrocyte distribution width (RBC) [Ratio] 12.7 % Normal 11.6-14.6 [facility] Comment on above: Performed By: #### L 500.4100, L501.9910, L500.4050, L100.0100 #### [facility] [address] [place], [address] Hematocrit (Bld) [Volume fraction] 46.8 % Normal 40-54 [facility] Comment on above: Performed By: #### L 500.4100, L501.9910, L500.4050, L100.0100 #### [facility] [address] [place], [address] Hemoglobin (Bld) [Mass/Vol] 15.9 g/dL Normal 13.0-16.5 [facility] Comment on above: Performed By: #### L 500.4100, L501.9910, L500.4050, L100.0100 #### [facility] [address] [place], [address] IG% 0.200 Normal 0.0-0.9 [facility] Comment on above: Result Comment: IG% - Immature Granulocytes (promyelocytes, myelocytes and metamyelocytes) > 1% indicates that a LEFT SHIFT is Present. Performed By: #### L 500.4100, L501.9910, L500.4050, L100.0100 #### [facility] [address] [place], [address] Lymphocytes/100 WBC (Bld) 45.5 % High 19-41 [facility] Comment on above: Performed By: #### L 500.4100, L501.9910, L500.4050, L100.0100 #### [facility] [address] [place], [address] MCH (RBC) [Entitic mass] 29.3 pg Normal 27.0-32.0 [facility] Comment on above: Performed By: #### L 500.4100, L501.9910, L500.4050, L100.0100 #### [facility] [address] [place], [address] MCHC (RBC) [Mass/Vol] 34.0 g/dL Normal 32-36 [facility] Comment on above: Performed By: #### L 500.4100, L501.9910, L500.4050, L100.0100 #### [facility] [address] [place], [address] MCV (RBC) [Entitic vol] 86.3 fL Normal 80-94 [facility] Comment on above: Performed By: #### L 500.4100, L501.9910, L500.4050, L100.0100 #### [facility] [address] [place], [address] Monocytes/100 WBC (Bld) 8.9 % Normal 0-10 [facility] Comment on above: Performed By: #### L 500.4100, L501.9910, L500.4050, L100.0100 #### [facility] [address] [place], [address] Neutrophils/100 WBC (Bld) 42.7 % Low 47-70 [facility] Comment on above: Performed By: #### L 500.4100, L501.9910, L500.4050, L100.0100 #### [facility] [address] [place], [address] Nucleated RBC (Bld) [#/Vol] 0 10*3/uL Normal 0-5 [facility] Comment on above: Performed By: #### L 500.4100, L501.9910, L500.4050, L100.0100 #### [facility] [address] [place], [address] Platelet mean volume (Bld) [Entitic vol] 9.6 fL Normal 6.2-12.0 [facility] Comment on above: Performed By: #### L 500.4100, L501.9910, L500.4050, L100.0100 #### [facility] [address] [place], [address] Platelets (Bld) [#/Vol] 220 10*3/uL Normal 150-450 [facility] Comment on above: Performed By: #### L 500.4100, L501.9910, L500.4050, L100.0100 #### [facility] [address] [place], [address] RBC (Bld) [#/Vol] 5.42 10*6/uL Normal 4.6-6.2 [facility] Comment on above: Performed By: #### L 500.4100, L501.9910, L500.4050, L100.0100 #### [facility] [address] [place], [address] RDW SD 39.4 fl Normal 35.1-43.9 [facility] Comment on above: Performed By: #### L 500.4100, L501.9910, L500.4050, L100.0100 #### [facility] [address] [place], [address] WBC (Bld) [#/Vol] 5.8 10*3/uL Normal 4.4-11.0 [facility] Comment on above: Performed By: #### L 500.4100, L501.9910, L500.4050, L100.0100 #### [facility] [address] [place], [address] Comprehensive Met[facility] 04-08-2025 Albumin [Mass/Vol] 4.4 g/dL Normal 3.4-4.8 [facility] Comment on above: Performed By: #### L 500.4100, L501.9910, L500.4050, L100.0100 #### [facility] [address] [place], [address] Albumin/Globulin [Mass ratio] 1.6 {ratio} Normal 0.9-2.4 [facility] Comment on above: Performed By: #### L 500.4100, L501.9910, L500.4050, L100.0100 #### [facility] [address] [place], [address] ALK PHOS 81 U/L Normal 40-129 [facility] Comment on above: Performed By: #### L 500.4100, L501.9910, L500.4050, L100.0100 #### [facility] [address] [place], [address] ALT [Catalytic activity/Vol] 38 U/L Normal <=46 [facility] Comment on above: Performed By: #### L 500.4100, L501.9910, L500.4050, L100.0100 #### [facility] [address] [place], [address] AST [Catalytic activity/Vol] 32 U/L Normal <=37 [facility] Comment on above: Performed By: #### L 500.4100, L501.9910, L500.4050, L100.0100 #### [facility] [address] [place], [address] Bilirubin [Mass/Vol] 0.78 mg/dL Normal 0.00-1.30 [facility] Comment on above: Performed By: #### L 500.4100, L501.9910, L500.4050, L100.0100 #### [facility] [address] [place], [address] BUN/CRE 17.2 RATIO Normal 10-20 [facility] Comment on above: Performed By: #### L 500.4100, L501.9910, L500.4050, L100.0100 #### [facility] [address] [place], [address] Calcium [Mass/Vol] 9.4 mg/dL Normal 7.6-11.0 [facility] Comment on above: Performed By: #### L 500.4100, L501.9910, L500.4050, L100.0100 #### [facility] [address] [place], [address] Chloride [Moles/Vol] 106 mmol/L Normal 98-108 [facility] Comment on above: Performed By: #### L 500.4100, L501.9910, L500.4050, L100.0100 #### [facility] [address] [place], [address] CO2 [Moles/Vol] 24.3 mmol/L Normal 21.0-32.0 [facility] Comment on above: Performed By: #### L 500.4100, L501.9910, L500.4050, L100.0100 #### [facility] [address] [place], [address] Creatinine [Mass/Vol] 0.95 mg/dL Normal 0.70-1.20 [facility] Comment on above: Performed By: #### L 500.4100, L501.9910, L500.4050, L100.0100 #### [facility] [address] [place], [address] GAP 11 Normal 5-15 [facility] Comment on above: Performed By: #### L 500.4100, L501.9910, L500.4050, L100.0100 #### [facility] [address] [place], [address] GFR/1.73 sq M.predicted among non-blacks MDRD (S/P/Bld) [Vol rate/Area] 90 mL/min/{1.73_m2} Normal >60 [facility] Comment on above: Result Comment: mL/m in/1.73m2 CKD-EPI Creatinine Equation (2020) Performed By: #### L 500.4100, L501.9910, L500.4050, L100.0100 #### [facility] [address] [place], [address] Globulin (S) [Mass/Vol] 2.8 g/dL Normal 2.2-4.2 [facility] Comment on above: Performed By: #### L 500.4100, L501.9910, L500.4050, L100.0100 #### [facility] [address] [place], [address] Glucose [Mass/Vol] 84 mg/dL Normal 70-99 [facility] Comment on above: Performed By: #### L 500.4100, L501.9910, L500.4050, L100.0100 #### [facility] [address] [place], [address] Potassium [Moles/Vol] 4.3 mmol/L Normal 3.3-5.1 [facility] Comment on above: Performed By: #### L 500.4100, L501.9910, L500.4050, L100.0100 #### [facility] [address] [place], [address] Sodium [Moles/Vol] 142 mmol/L Normal 133-145 [facility] Comment on above: Performed By: #### L 500.4100, L501.9910, L500.4050, L100.0100 #### [facility] [address] [place], [address] T PROT 7.1 g/dL Normal 5.9-8.4 [facility] Comment on above: Performed By: #### L 500.4100, L501.9910, L500.4050, L100.0100 #### [facility] [address] [place], [address] Urea nitrogen [Mass/Vol] 16 mg/dL Normal 4-19 [facility] Comment on above: Performed By: #### L 500.4100, L501.9910, L500.4050, L100.0100 #### [facility] [address] [place], [address] Lipid Profileon 04-08-2025 CHOL:HDL 4.[address] [facility] Comment on above: Performed By: #### L 500.4100, L501.9910, L500.4050, L100.0100 #### [facility] [address] [place], [address] Cholesterol [Mass/Vol] 188 mg/dL Normal <=200 [facility] Comment on above: Result Comment: Chol esterol level, Desirable <200 mg/dL Borderline high cholesterol 200-239 mg/dL High cholesterol >=240 mg/dL Recommendations of the NCEP Adult Treatment Panel for the following risk-cutoff thresholds for the [place] population. Performed By: #### L 500.4100, L501.9910, L500.4050, L100.0100 #### [facility] [address] [place], [address] Cholesterol in HDL [Mass/Vol] 42 mg/dL Normal [facility] Comment on above: Result Comment: Josefina onal Cholesterol Education Program (NCEP) guidelines: <40 mg/dL: Low HDL-cholesterol (major risk factor for CHD) >= 60 mg/dL: High HDL-cholesterol (negative risk factor for CHD) HDL-cholesterol is affected by a number of factors, e.g. smoking, exercise, hormones, sex and age. Performed By: #### L 500.4100, L501.9910, L500.4050, L100.0100 #### [facility] [address] [place], [address] Cholesterol in LDL [Mass/Vol] 119 mg/dL Normal [facility] Comment on above: Result Comment: Bord epqzgr=367-606 mg/dL Higher Zjqq=871 mg/dL or greater Performed By: #### L 500.4100, L501.9910, L500.4050, L100.0100 #### [facility] [address] [place], [address] Cholesterol in VLDL [Mass/Vol] 27 mg/dL Normal 5-40 [facility] Comment on above: Performed By: #### L 500.4100, L501.9910, L500.4050, L100.0100 #### [facility] [address] [place], [address] Triglyceride [Mass/Vol] 137 mg/dL Normal [facility] Comment on above: Result Comment: The drugs N-Acetylcysteine and Metamizole may falsely depress this assay. Normal range: <150 mg/dL Borderline High: 150-199 mg/dL High: 200-499 mg/dL Very High: >500 mg/dL Performed By: #### L 500.4100, L501.9910, L500.4050, L100.0100 #### [facility] [address] [place], [address] PSA,Total - Annual Screenon 04-08-2025 PSA,TOT SCREEN 10.60 ng/mL High 0.02-4.00 [facility] Comment on above: Result Comment: This test was performed using the [employer] tPSA method. Measured values of a patient??sample can vary depending on the testing procedure used. PSA values determined on patient samples by different testing procedures cannot be used interchangeably. If there is a change in PSA assays while monitoring therapy, sequential testing should be performed to confirm baseline values. Performed By: #### L 500.4100, L501.9910, L500.4050, L100.0100 #### [facility] [address] [place], [address] Emergency Department Summary on 03-06-2025 Emergency Department Summary [facility] Medical Records Department [address] [place] [address] Emergency Department Summary 03/06/25 MR#: [id number] Acct: [id number] Name: LUIS GRAF Rep #: [id number] : 1960 65 From: Que Santiago MD PCP: Dr. Librado Carter, DO Status:REG ER Location: ED HPI History of Present Illness Chief Complaint: Back Detail of Chief Complaint: Bilateral lower back pain Informant: patient Onset/Context/Rossin jojo Onset: Weeks (2.0) Context: Sudden Onset Injury: lifting and bending Timing: Continuous Quality: Dull and Aching Location: Lumbar Current Severity: Moderate Maximum Severity: Severe Worsened by: improves with Movement, Ambulation and Bending Relieved by: Nothing Associated Symptoms Associated Symptoms: - (Denies saddle paresthesia or anesthesia. Denies foot drop.); Negative for Numbness, Tingling, Radiation to Right Leg, Radiation to Left Leg, Fever, Abdominal Pain, Dysuria, Unable to Ambulate, Unable to Transfer, Urinary Retention, Urinary Incontinence, Constipation or Fecal Incontinence Narrative Narrative: Patient is 65-year-old male. He has history of obesity, CANDACE, asthma, pulmonary hypertension, restrictive lung disease who presents because of severe bilateral low back pain. He denies radiation. Denies bowel bladder dysfunction. No saddle paresthesia or anesthesia. Denies symptoms of claudication. No history of direct trauma. This occurred after he pulled a sump pump out. He has no known history of herniated disc. He denies night sweats or weight loss. She has had no recent procedure. Recent Illness/Hospitaliza tion: No PFSH PFSH Medical History Wears glasses Cancer Gout Prostate disease High cholesterol Gastric reflux Non-smoker CPAP (continuous positive airway pressure) dependence Sleep apnea History of stress test History of echocardiogram History of left shoulder repair Hay fever Fatigue History of stomach ulcers Shoulder pain Hypertension Pulmonary nodule Shortness of breath Old myocardial infarction TMJ (temporomandibular joint disorder) Chest pain Asthma exacerbation Jaw pain Home Medications ???Medication ???Instructions ???Recorded ???Last Taken ???Type lisinopril 10 mg tablet 10 mg PO DAILY 12/13/18 12/19/23 0 5:10 History saw palm 160 mg-vit E 100 2 tab PO .QD 11/29/23 12/18/23 05: 15 History unit-selen 100 oim-vwvx-tzkoei-pyg eum tablet (Prostate Health) 4 LIFE TRANSFER FACTOR CARDIO 2 ea PO BID 12/14/23 12/18/23 05:1 5 History 4 LIFE TRANSFER FACTOR LUNG 3 ea PO DAILY 12/14/23 12/18/23 05 :15 History 4 LIFE TRANSFER FACTORY CLASSIC 3 ea PO DAILY 12/14/23 12/18/23 05 :15 History fexofenadine 180 mg tablet 180 mg PO DAILY 01/30/24 Unknown H istory ([facility]) albuterol sulfate 2.5 mg/3 mL 2.5 mg (3 mL) inhalation Q6H PRN 0 02/05/25 Unknown Rx (0.083 %) solution for nebulization PRN COUGH/SOB #180 mL ezetimibe 10 mg tablet 10 mg PO QDAY 02/05/25 Unknown His tory tamsulosin 0.4 mg capsule 0.8 mg PO QHS 02/05/25 Unknown His tory diazepam 2 mg tablet (Valium) 2 mg PO TID 3 days #10 tabs Unknown Rx hydrocodone-acetami nophen 5-325mg 1 tab PO Q6H PRN PRN Pain 3 days 03/06/25 Unknown Rx 5mg-325mg #10 TABLETS Allergy/AdvReac Type Severity Reaction Status Date / Time Seasonal Allergies: Uncoded Allergy Mild Chest Verified 03/06/25 14:23 tightness shrimp Allergy Swelling Verified 03/06/25 14:23 Family History Father Lung disease Diabetes Mother Diabetes Brother Diabetes Surgical History History of repair of left rotator cuff Hx of vasectomy Hx of colonoscopy H/O repair of right rotator cuff H/O hernia repair History of tonsillectomy Social History household members: spouse current occupational status: employed current occupation: [employer] Smoking Status: Never smoker alcohol intake: never substance use type: does not use ROS ROS ED Constitutional Constitutional ED: Denies chills, fever(s), subjective, sweats or weight loss Eyes Eyes: Denies blurry vision, change in vision or diplopia ENT ENT ED: Denies ear pain, rhinorrhea or sore throat Cardiovascular Cardiovascular: Denies chest pain or palpitations Respiratory/Chest Respiratory/Chest: Denies dyspnea or dyspnea on exertion Gastrointestinal Gastrointestinal: Denies abdominal pain, constipation, diarrhea, nausea or vomiting Genitourinary Genitourinary ED: Denies dysuria, hematuria or urinary frequency Musculoskeletal Musculoskeletal: Reports back pain; Denies arthralgias or myalgias Integumentary Denies rash Neurologic Ne (more content not included)... Normal [facility] Pulmonary Visit Reporton Pulmonary Visit Report [facility] [place] [address] [place] [address] OFFICE VISIT Date of Service: 02/05/25 MR#: [id number] Acct: [id number] Name: LUIS GRAF Rep #: [id number] : 1960 Provider: RICK Del Real Age/Sex: 64/M Location: [facility] [place] Status: Signed Assessment and Plan Assessment and Plan (1) CANDACE (obstructive sleep apnea): Status: Chronic Comment: AutoPap 5-14 cmH2O Plan: He is using and benefiting from Pap therapy. No indication for titration study at this time. Continue to encourage weight loss. Contact the office for any new or worsening symptoms in the meantime. Follow-up in 1 year. (2) Asthma: Status: Chronic Qualifiers: Asthma severity: mild Asthma persistence: intermittent Asthma complication type: uncomplicated Qualified Code(s): J45.20 - Mild intermittent asthma, uncomplicated Plan: Asymptomatic at this time. Not requiring maintenance medications nor the use of his albuterol rescue inhaler. No additional testing at this time. He has been encouraged to contact the office with any signs of exacerbation. He conveys understanding and is agreeable with this plan. (3) Obesity: Status: Chronic Qualifiers: Obesity type: due to excess calories Obesity classification: adult class 1 (BMI 30 - 34.9) Serious obesity comorbidity presence: with serious comorbidity Body mass index: BMI 32.0-32.9 Qualified Code(s): E66.811 - Obesity, class 1; E66.09 - Other obesity due to excess calories; Z68.32 - Body mass index [BMI] 32.0-32.9, adult Plan: Complicates exam, plan, care and prognosis. Encourage weight loss. Medications: Refilled albuterol sulfate 2.5 mg (3 mL) inhalation Q6H PRN PRN 180 mL 6RF COUGH/SOB Plan Details Follow Up: 1 Year HPI 1 Y FU Chief Complaint: Need prescription for PAP supplies HPI Comments Details: This patient presents to the office today for follow-up of his asthma and obstructive sleep apnea. He is ambulatory and currently on room air. He has not recently been seen in the ED or urgent care for any respiratory illness. He has not required any antibiotics or prednisone for any breathing problems. He is no longer on any maintenance inhalers. He has not required the use of his albuterol rescue inhaler. If you recall, he is a lifelong never smoker. Currently has shortness of breath on exertion only. He denies any cough, sputum production or hemoptysis. He denies any wheezing, chest tightness, chest pain or palpitations. He also denies any fever, chills or body aches. He reports excellent compliance with PAP therapy. Unfortunately, recently his mask has broken and he has been trying to be as compliant as he possibly could be. It has been over a year since his last office visit and he requires an updated office visit and prescription to receive replacement supplies. He is feeling rested and refreshed when he wakes up. He only occasionally takes a nap. He is not having difficulty with mask leaks or dry mouth. He denies any difficulty with excessive nocturia or morning headaches. Compliance report for the past 30 days shows 33 % compliance and average use 7 hours and 44 minutes per night. Current setting is AutoPap 5 to 14 cm of water with typical pressures being utilized at 7.7-12.0 cm of water. Residual AHI 0.8 events per hour. Leaks do not appear to be problematic. Intake Vital Signs 01/30/24 08:10 02/05/25 07:58 Height 5 ft 5 in 5 ft 5 in Weight: 193 lb BMI 32.1 BP 154/91 H Blood Pressure Location Rt brachial Position Sitting Respiration 18 Pulse 73 Pulse Source Monitor Temp 97.1 F L Temperature Source Temporal Artery Pulse Oximetry (%) 96 Oxygen Delivery Method room air Intake Visit Reasons: 1 Y FU Chief Complaint: yearly DME Vendor: [employer] Accompanied by: Self Allergies Seasonal Allergies: Uncoded Allergy (Mild, Verified 02/05/25 08:57) Chest tightness shrimp Allergy (Verified 02/05/25 08:57) Swelling Medications ???Medication ???Instructions ???Recorded ???Confirmed ???Type lisinopril 10 mg tablet 10 mg PO DAILY 12/13/18 02/05/25 H istory saw palm 160 mg-vit E 100 2 tab PO .QD 11/29/23 02/05/25 His tory unit-selen 100 nls-jcga-mhbnyv-pyg eum tablet (Prostate Health) 4 LIFE TRANSFER FACTOR CARDIO 2 ea PO BID 12/14/23 02/05/25 Hist ory 4 LIFE TRANSFER FACTOR LUNG 3 ea PO DAILY 12/14/23 02/05/25 Hi story 4 LIFE TRANSFER FACTORY CLASSIC 3 ea PO DAILY 12/14/23 02/05/25 Hi story fexofenadine 180 mg tablet 180 mg PO DAILY 01/30/24 02/05/25 History ([facility]) albuterol sulfate 2.5 mg/3 mL 2.5 mg (3 mL) inhalation Q6H PRN 0 02/05/25 02/05/25 Rx (0.083 %) solution for nebulization PRN COUGH/SOB #180 mL ezetimibe 10 mg tablet 10 mg PO QDAY 02/05/25 02/05/25 Hi s (more content not included)... Normal [facility] Basic Metabolic Profile (BMP )on 07-16-2024 BUN/CRE 25.5 RATIO High 10-20 [facility] Comment on above: Performed By: #### L 100.0100, L500.2500 #### [facility] [address] [place], [address] CA,Total 9.2 mg/dL Normal 8.5-10.1 [facility] Comment on above: Performed By: #### L 100.0100, L500.2500 #### [facility] [address] [place], [address] Chloride [Moles/Vol] 106 mmol/L Normal 98-107 [facility] Comment on above: Performed By: #### L 100.0100, L500.2500 #### [facility] [address] [place], [address] CO2 [Moles/Vol] 27.0 mmol/L Normal 21.0-32.0 [facility] Comment on above: Performed By: #### L 100.0100, L500.2500 #### [facility] [address] [place], [address] Creatinine [Mass/Vol] 0.86 mg/dL Normal 0.70-1.30 [facility] Comment on above: Result Comment: The validity of the calculated GFR GFRAA in patients over 70 years has not been determined. Clinical correlation is essential. Performed By: #### L 100.0100, L500.2500 #### [facility] [address] [place], [address] EST GFR - AA 115 mL/min Normal >60 [facility] Comment on above: Result Comment: Afri can Mont[place] GFR Calc Performed By: #### L 100.0100, L500.2500 #### [facility] [address] [place], [address] GAP 6 Normal 5-15 [facility] Comment on above: Performed By: #### L 100.0100, L500.2500 #### [facility] [address] [place], [address] GFR/1.73 sq M.predicted among non-blacks MDRD (S/P/Bld) [Vol rate/Area] 95 mL/min/{1.73_m2} Normal >60 [facility] Comment on above: Result Comment: Non- GFR Calc Performed By: #### L 100.0100, L500.2500 #### [facility] [address] [place], [address] Glucose [Mass/Vol] 84 mg/dL Normal 74-106 [facility] Comment on above: Performed By: #### L 100.0100, L500.2500 #### [facility] [address] [place], [address] Potassium [Moles/Vol] 4.1 mmol/L Normal 3.5-5.1 [facility] Comment on above: Performed By: #### L 100.0100, L500.2500 #### [facility] [address] [place], [address] Sodium [Moles/Vol] 139 mmol/L Normal 136-145 [facility] Comment on above: Performed By: #### L 100.0100, L500.2500 #### [facility] [address] [place], [address] Urea nitrogen [Mass/Vol] 22 mg/dL High 7-18 [facility] Comment on above: Performed By: #### L 100.0100, L500.2500 #### [facility] [address] [place], [address] CBC W/Diff, Automatedon 08-2 -2023 Absolute Lymph 2.21 X10 3/uL Normal 0.83-4.51 [facility] Comment on above: Performed By: #### L 100.0100, L500.2500 #### [facility] [address] [place], [address] Absolute Neut 2.8 X10 3/uL Normal 2.0-7.7 [facility] Comment on above: Performed By: #### L 100.0100, L500.2500 #### [facility] [address] [place], [address] Basophils/100 WBC (Bld) 0.4 % Normal 0-1 [facility] Comment on above: Performed By: #### L 100.0100, L500.2500 #### [facility] [address] [place] [place], [address] Eosinophils/100 WBC (Bld) 2.0 % Normal 0-5 [facility] Comment on above: Performed By: #### L 100.0100, L500.2500 #### [facility] [address] [place], [address] Erythrocyte distribution width (RBC) [Ratio] 12.7 % Normal 11.6-14.6 [facility] Comment on above: Performed By: #### L 100.0100, L500.2500 #### [facility] [address] [place], [address] Hematocrit (Bld) [Volume fraction] 46.7 % Normal 40-54 [facility] Comment on above: Performed By: #### L 100.0100, L500.2500 #### [facility] [address] [place], [address] Hemoglobin (Bld) [Mass/Vol] 15.4 g/dL Normal 13.0-16.5 [facility] Comment on above: Performed By: #### L 100.0100, L500.2500 #### [facility] [address] [place], [address] IG% 0.200 Normal 0.0-0.9 [facility] Comment on above: Result Comment: IG% - Immature Granulocytes (promyelocytes, myelocytes and metamyelocytes) > 1% indicates that a LEFT SHIFT is Present. Performed By: #### L 100.0100, L500.2500 #### [facility] [address] [place], [address] Lymphocytes/100 WBC (Bld) 39.2 % Normal 19-41 [facility] Comment on above: Performed By: #### L 100.0100, L500.2500 #### [facility] [address] [place], [address] MCH (RBC) [Entitic mass] 28.6 pg Normal 27.0-32.0 [facility] Comment on above: Performed By: #### L 100.0100, L500.2500 #### [facility] [address] [place], [address] MCHC (RBC) [Mass/Vol] 33.0 g/dL Normal 32-36 [facility] Comment on above: Performed By: #### L 100.0100, L500.2500 #### [facility] [address] [place], [address] MCV (RBC) [Entitic vol] 86.6 fL Normal 80-94 [facility] Comment on above: Performed By: #### L 100.0100, L500.2500 #### [facility] [address] [place], [address] Monocytes/100 WBC (Bld) 9.6 % Normal 0-10 [facility] Comment on above: Performed By: #### L 100.0100, L500.2500 #### [facility] [address] [place], [address] Neutrophils/100 WBC (Bld) 48.6 % Normal 47-70 [facility] Comment on above: Performed By: #### L 100.0100, L500.2500 #### [facility] [address] [place], [address] Nucleated RBC (Bld) [#/Vol] 0 10*3/uL Normal 0-5 [facility] Comment on above: Performed By: #### L 100.0100, L500.2500 #### [facility] [address] [place], [address] Platelet mean volume (Bld) [Entitic vol] 10.1 fL Normal 6.2-12.0 [facility] Comment on above: Performed By: #### L 100.0100, L500.2500 #### [facility] [address] [place], [address] Platelets (Bld) [#/Vol] 219 10*3/uL Normal 150-450 [facility] Comment on above: Performed By: #### L 100.0100, L500.2500 #### [facility] [address] [place], [address] RBC (Bld) [#/Vol] 5.39 10*6/uL Normal 4.6-6.2 [facility] Comment on above: Performed By: #### L 100.0100, L500.2500 #### [facility] [address] [place], [address] RDW SD 39.8 fl Normal 35.1-43.9 [facility] Comment on above: Performed By: #### L 100.0100, L500.2500 #### [facility] [address] [place], [address] WBC (Bld) [#/Vol] 5.6 10*3/uL Normal 4.4-11.0 [facility] Comment on above: Performed By: #### L 100.0100, L500.2500 #### [facility] [address] [place], [address] Absolute lymphocyte countOrd ered By: Librado Carter on 03-08-2024 Lymphocytes Auto (Unsp spec) [#/Vol] 2.44 10*3/uL 0.83-4.51 [facility] Automated lymphocyte count a s percentage of total leukocytesOrdered By: Librado Carter on 03-08-2024 Lymphocytes/100 WBC Auto (Unsp spec) 42.6 % 19-41 [facility] Basophil percentageOrdered B y: Librado Carter on 03-08-2024 Basophils/100 WBC (Bld) 0.3 % 0-1 [facility] Bilirubin [Mass/Vol] 0.90 mg/dL 0.20-1.00 [facility] Comment on above: For patients on eltr ombopag therapy, use of Dimension [place] TBIL is not recommended. Chloride [Moles/Vol] 109 mmol/L 98-107 [facility] Cholesterol [Mass/Vol] 239 mg/dL <200 [facility] Comment on above: <200 mg/dL Desirable 200-240 mg/dL Borderline >240 mg/dL High Risk Eosinophils/100 WBC (Bld) 2.4 % 0-5 [facility] Glucose [Mass/Vol] 96 mg/dL 74-106 [facility] Hemoglobin (Bld) [Mass/Vol] 15.4 g/dL 13.0-16.5 [facility] Monocytes/100 WBC (Bld) 10.3 % 0-10 [facility] Neutrophils (Bld) [#/Vol] 2.5 10*3/uL 2.0-7.7 [facility] Neutrophils/100 WBC (Bld) 44.2 % 47-70 [facility] Potassium [Moles/Vol] 3.8 mmol/L 3.5-5.1 [facility] Protein [Mass/Vol] 7.0 g/dL 6.4-8.2 [facility] Sodium [Moles/Vol] 144 mmol/L 136-145 [facility] Triglyceride [Mass/Vol] 187 mg/dL <199 [facility] Comment on above: The drugs N-Acetylcy steine and Metamizole may falsely depress this assay.Serum Triglycerides Reference Interval Normal <150 mg/dL Borderline high 150 - 199 mg/dL High 200 - 499 mg/dL Very High > or = 500 mg/dL WBC (Bld) [#/Vol] 5.7 10*3/uL 4.4-11.0 [facility] Determination of erythrocyte mean corpuscular volume (MCV)Ordered By: Librado Carter on 03-08-2024 MCV (RBC) [Entitic vol] 85.2 fL 80-94 [facility] Erythrocyte distribution wid th ratioOrdered By: Librado Carter on 03-08-2024 Erythrocyte distribution width (RBC) [Ratio] 12.7 % 11.6-14.6 [facility] Erythrocyte distribution wid th standard deviationOrdered By: Librado Carter on 03-08-2024 Erythrocyte distribution width (RBC) [Entitic vol] 39.2 fL 35.1-43.9 [facility] Hematocrit Auto (Bld) [Volum e fraction]Ordered By: Librado Carter on 03-08-2024 Hematocrit (Bld) [Volume fraction] 44.8 % 40-54 [facility] Immature granulocytes/100 WB C Auto (Bld)Ordered By: Librado Carter on 03-08-2024 Immature granulocytes/100 WBC (Bld) 0.200 % 0.0-0.9 [facility] Comment on above: IG% - Immature Granu locytes (promyelocytes, myelocytes and metamyelocytes) > 1% indicates that a LEFT SHIFT is Present. Laboratory - Chemistry and C hemistry - challengeOrdered By: Librado Carter on 03-08-2024 Albumin/Globulin [Mass ratio] 1.2 {ratio} 0.9-2.4 [facility] ALP [Catalytic activity/Vol] 73 U/L 45-117 [facility] ALT [Catalytic activity/Vol] 40 U/L 16-61 [facility] Cholesterol in HDL [Mass/Vol] 43 mg/dL >40 [facility] Comment on above: The drugs N-Acetylcy steine and Metamizole may falsely depress this assay. Reference Range HDL <40 mg/dL Low HDL Cholesterol HDL >or= 60 mg/dL High HDL Cholesterol Cholesterol in LDL [Mass/Vol] 159 mg/dL 0-130 [facility] CO2 [Moles/Vol] 27.0 mmol/L 21.0-32.0 [facility] Globulin (S) [Mass/Vol] 3.2 g/dL 2.2-4.2 [facility] Urea nitrogen/Creatinine [Mass ratio] 24.1 mg/mg 10-20 [facility] Laboratory - Hematology and Cell countsOrdered By: Librado Carter on 03-08-2024 MCH (RBC) [Entitic mass] 29.3 pg 27.0-32.0 [facility] MCHC (RBC) [Mass/Vol] 34.4 g/dL 32-36 [facility] Nucleated RBC/100 WBC (Bld) [Ratio] 0 % 0-5 [facility] Platelet mean volume (Bld) [Entitic vol] 9.3 fL 6.2-12.0 [facility] Platelets (Bld) [#/Vol] 208 10*3/uL 150-450 [facility] No Panel InformationOrdered By: Librado Carter on 03-08-2024 Estimated GFR (MDRD) Amer 98 mL/min >60 [facility] Comment on above: GFR Calc Estimated GFR (MDRD) Non-Af Amer 81 mL/min >60 [facility] Comment on above: Non- GFR Calc Prostate Specific Antigen Screen 5.07 ng/mL 0.00-4.00 [facility] Comment on above: This test was perfor med using the TPSA assay method for theFlipboard chemistry system. Values obtained with differentassay methods cannot be used interchangably.When changing PSA assays in the course of monitoring apatient, additional sequential testing should be carriedout to confirm baseline values. VLDL Cholesterol 37 mg/dL 5-40 [facility] RBC Auto (Bld) [#/Vol]Ordere d By: Librado Carter on 03-08-2024 RBC (Bld) [#/Vol] 5.26 10*6/uL 4.6-6.2 [facility] Serum or plasma calcium francisco urement (mass/volume)Ordered By: Librado Carter on 03-08-2024 Calcium [Mass/Vol] 8.9 mg/dL 8.5-10.1 [facility] Serum or plasma creatinine m easurement (mass/volume)Ordered By: Librado Carter on 03-08-2024 Creatinine [Mass/Vol] 0.99 mg/dL 0.70-1.30 [facility] Comment on above: The validity of the calculated GFR & GFRAA in patients over 70 years has not been determined. Clinical correlation is essential. Serum or plasma urea nitroge n measurement (mass/volume)Ordered By: Librado Carter on 03-08-2024 Urea nitrogen [Mass/Vol] 24 mg/dL 7-18 [facility] Thin prep Papanicolaou smear with manual screeningOrdered By: Librado Carter on 03-08-2024 Thin prep Papanicolaou smear with manual screening 3.8 g/dL 3.2-5.0 [facility] Thin prep Papanicolaou smear with manual screening 26 U/L 15-37 [facility] Thin prep Papanicolaou smear with manual screening 8 5-15 [facility] Whole blood hemoglobin A1c/t otal hemoglobin ratio (mass fraction)Ordered By: Librado Carter on 03-08-2024 HbA1c (Bld) [Mass fraction] 5.0 % 3.8-5.6 [facility] Comment on above: Normal < 5.7 % Predi abetic 5.7 - 6.4 % Diabetic >or= 6.5 % Please note range changes. Absolute lymphocyte counton 04-02-2022 Lymphocytes Auto (Unsp spec) [#/Vol] 2.19 10*3/uL 0.83-4.51 [facility] Work Phone: Basophil percentageon 2021 Basophils/100 WBC (Bld) 0.0 % 0-1 [facility] Work Phone: Bilirubin [Mass/Vol] 0.80 mg/dL 0.20-1.00 [facility] Work Phone: Comment on above: For patients on eltr ombopag therapy, use of Dimension [place] TBIL is not recommended. Chloride [Moles/Vol] 109 mmol/L 98-107 [facility] Work Phone: Cholesterol [Mass/Vol] 199 mg/dL <200 [facility] Work Phone: Comment on above: <200 mg/dL Desirable 200-240 mg/dL Borderline >240 mg/dL High Risk Eosinophils/100 WBC (Bld) 0.0 % 0-5 [facility] Work Phone: Glucose [Mass/Vol] 101 mg/dL 74-106 [facility] Work Phone: Comment on above: Fasting Glucose resu lt from 100 to 125 mg/dL suggests IMPAIRED HOMEOSTASIS per A.D.A. criteria. Neutrophils (Bld) [#/Vol] 5.0 10*3/uL 2.0-7.7 [facility] Work Phone: Neutrophils/100 WBC (Bld) 64.4 % 47-70 [facility] Work Phone: Potassium [Moles/Vol] 3.6 mmol/L 3.5-5.1 [facility] Work Phone: Protein [Mass/Vol] 7.0 g/dL 6.4-8.2 [facility] Work Phone: Sodium [Moles/Vol] 141 mmol/L 136-145 [facility] Work Phone: Triglyceride [Mass/Vol] 65 mg/dL <199 [facility] Work Phone: Comment on above: The drugs N-Acetylcy steine and Metamizole may falsely depress this assay.Serum Triglycerides Reference Interval Normal <150 mg/dL Borderline high 150 - 199 mg/dL High 200 - 499 mg/dL Very High > or = 500 mg/dL WBC (Bld) [#/Vol] 7.7 10*3/uL 4.4-11.0 [facility] Work Phone: Blood erythrocytes count (nu mber/volume)on 04-02-2022 RBC (Bld) [#/Vol] 5.35 10*6/uL 4.6-6.2 [facility] Work Phone: Blood hemoglobin measurement (mass/volume)on 04-02-2022 Hemoglobin (Bld) [Mass/Vol] 15.8 g/dL 13.0-16.5 [facility] Work Phone: Blood lymphocytes/100 leukoc yteson 04-02-2022 Lymphocytes/100 WBC (Bld) 28.4 % 19-41 [facility] Work Phone: Blood monocytes/100 leukocyt eson 04-02-2022 Monocytes/100 WBC (Bld) 7.1 % 0-10 [facility] Work Phone: Blood platelet mean volumeon 04-02-2022 Platelet mean volume (Bld) [Entitic vol] 9.9 fL 6.2-12.0 [facility] Work Phone: Determination of erythrocyte mean corpuscular volume (MCV)on 04-02-2022 MCV (RBC) [Entitic vol] 86.2 fL 80-94 [facility] Work Phone: Hematocrit Auto (Bld) [Volum e fraction]on 04-02-2022 Hematocrit (Bld) [Volume fraction] 46.1 % 40-54 [facility] Work Phone: Laboratory - Chemistry and C hemistry - challengeon 04-02-2022 ALP [Catalytic activity/Vol] 80 U/L 45-117 [facility] Work Phone: ALT [Catalytic activity/Vol] 35 U/L 16-61 [facility] Work Phone: CO2 [Moles/Vol] 25.0 mmol/L 21.0-32.0 [facility] Work Phone: Globulin (S) [Mass/Vol] 3.2 g/dL 2.2-4.2 [facility] Work Phone: Urea nitrogen/Creatinine [Mass ratio] 23.1 mg/mg 10-20 [facility] Work Phone: Laboratory - Hematology and Cell countson 04-02-2022 Erythrocyte distribution width (RBC) [Entitic vol] 39.2 fL 35.1-43.9 [facility] Work Phone: Erythrocyte distribution width (RBC) [Ratio] 12.6 % 11.6-14.6 [facility] Work Phone: Immature granulocytes/100 WBC (Bld) 0.100 % 0.0-0.9 [facility] Work Phone: Comment on above: IG% - Immature Granu locytes (promyelocytes, myelocytes and metamyelocytes) > 1% indicates that a LEFT SHIFT is Present. MCH (RBC) [Entitic mass] 29.5 pg 27.0-32.0 [facility] Work Phone: Nucleated RBC/100 WBC (Bld) [Ratio] 0 % 0-5 [facility] Work Phone: MCHC Auto (RBC) [Mass/Vol]on 04-02-2022 MCHC (RBC) [Mass/Vol] 34.3 g/dL 32-[facility]: No Panel Informationon 04-02 Estimated GFR (MDRD) Amer 98 mL/min >60 [facility] Work Phone: Comment on above: GFR Calc Estimated GFR (MDRD) Non-Af Amer 81 mL/min >60 [facility] Work Phone: Comment on above: Non- GFR Calc Prostate Specific Antigen Total 5.47 ng/mL 0.0-4.0 [facility] Work Phone: Comment on above: This test was perfor med using the TPSA assay method for [employer] chemistry system. Values obtained with differentassay methods cannot be used interchangably.When changing PSA assays in the course of monitoring apatient, additional sequential testing should be carriedout to confirm baseline values. Platelets bldon 04-02-2022 Platelets (Bld) [#/Vol] 258 10*3/uL 150-450 [facility] Work Phone: Serum or plasma albumin francisco urement (mass/volume)on 04-02-2022 Albumin [Mass/Vol] 3.8 g/dL 3.2-5.0 [facility] Work Phone: Serum or plasma albumin/glob ulin mass ratioon 04-02-2022 Albumin/Globulin [Mass ratio] 1.2 {ratio} 0.9-2.4 [facility] Work Phone: Serum or plasma calcium francisco urement (mass/volume)on 04-02-2022 Calcium [Mass/Vol] 8.7 mg/dL 8.5-10.1 [facility] Work Phone: Serum or plasma cholesterol in HDL measurement (mass/volume)on 04-02-2022 Cholesterol in HDL [Mass/Vol] 60 mg/dL >40 [facility] Work Phone: Comment on above: The drugs N-Acetylcy steine and Metamizole may falsely depress this assay. Reference Range HDL <40 mg/dL Low HDL Cholesterol HDL >or= 60 mg/dL High HDL Cholesterol Serum or plasma cholesterol in VLDL measurement (mass/volume)on 04-02-2022 Cholesterol in VLDL [Mass/Vol] 13 mg/dL 5-40 [facility] Work Phone: Serum or plasma creatinine m easurement (mass/volume)on 04-02-2022 Creatinine [Mass/Vol] 0.99 mg/dL 0.70-1.30 [facility] Work Phone: Comment on above: The validity of the calculated GFR & GFRAA in patients over 70 years has not been determined. Clinical correlation is essential. Serum or plasma low density lipoprotein (LDL) cholesterol measurement (mass/volume)on 04-02-2022 Cholesterol in LDL [Mass/Vol] 126 mg/dL 0-130 [facility] Work Phone: Serum or plasma urea nitroge n measurement (mass/volume)on 04-02-2022 Urea nitrogen [Mass/Vol] 23 mg/dL 7-18 [facility] Work Phone: Thin prep Papanicolaou smear with manual screeningon 04-02-2022 Thin prep Papanicolaou smear with manual screening 20 U/L 15-37 [facility] Work Phone: Thin prep Papanicolaou smear with manual screening 7 5-15 [facility] Work Phone: Vital Signs Date Time Vital Sign Value Performing Clinician Faci lity 03-06-2025 16:37-0400 Body temperature 97.4 [degF] Dr. Librado Carter DO Work Phone: [facility] 03-06-2025 16:37-0400 Heart rate 72 /min Dr. Librado Carter DO Work Phone: [facility] 03-06-2025 16:37-0400 Respiratory rate 10 /min Dr. Librado Carter DO Work Phone: [facility] 03-06-2025 16:37-0400 SaO2% (BldA) [Mass fraction] 97 % Dr. Librado Carter DO Work Phone: [facility] 03-06-2025 14:24-0400 Body height 165.[address] Librado Carter DO Work Phone: [facility] 03-06-2025 14:24-0400 Body mass index (BMI) [Ratio] 31.2 kg/m2 Dr. Librado Carter DO Work Phone: [facility] 03-06-2025 14:24-0400 Body weight 85.[address] Librado Carter DO Work Phone: [facility] 03-06-2025 14:24-0400 Diastolic blood pressure 97 mm[Hg] Dr. Librado Carter DO Work Phone: [facility] 03-06-2025 14:24-0400 Systolic blood pressure 142 mm[Hg] Dr. Librado Carter DO Work Phone: [facility] 02-05-2025 07:58-0400 Body mass index (BMI) [Ratio] 32.1 kg/m2 Dr. Librado Carter DO Work Phone: [facility] 02-05-2025 07:58-0400 Body temperature 97.1 [degF] Dr. Librado Carter DO Work Phone: [facility] 02-05-2025 07:58-0400 Body weight 87.[address] Librado Carter DO Work Phone: [facility] 02-05-2025 07:58-0400 Diastolic blood pressure 91 mm[Hg] Dr. Librado Carter DO Work Phone: [facility] 02-05-2025 07:58-0400 Heart rate 73 /min Dr. Librado Carter DO Work Phone: [facility] 02-05-2025 07:58-0400 Respiratory rate 18 /min Dr. Librado Carter DO Work Phone: [facility] 02-05-2025 07:58-0400 SaO2% (BldA) [Mass fraction] 96 % Dr. Librado Carter DO Work Phone: [facility] 02-05-2025 07:58-0400 Systolic blood pressure 154 mm[Hg] Dr. Librado Carter DO Work Phone: [facility] 01-30-2024 08:10-0400 Body height 165.[address] Librado Carter Work Phone: [facility] 01-30-2024 08:10-0400 Body mass index (BMI) [Ratio] 30 kg/m2 Dr. Librado Carter Work Phone: [facility] 01-30-2024 08:10-0400 Body temperature 98 [degF] Dr. Librado Carter Work Phone: [facility] 01-30-2024 08:10-0400 Body weight 81.[address] Librado Carter Work Phone: [facility] 01-30-2024 08:10-0400 Body weight 81.[address] Librado Carter Work Phone: [facility] 01-30-2024 08:10-0400 Diastolic blood pressure 82 mm[Hg] Dr. Librado Carter Work Phone: [facility] 01-30-2024 08:10-0400 Heart rate 79 /min Dr. Librado Carter Work Phone: [facility] 01-30-2024 08:10-0400 Respiratory rate 18 /min Dr. Librado Carter Work Phone: [facility] 01-30-2024 08:10-0400 SaO2% (BldA) [Mass fraction] 98 % Dr. Librado Carter Work Phone: [facility] 01-30-2024 08:10-0400 SaO2% (BldA) [Mass fraction] 97 % Dr. Librado Carter Work Phone: [facility] 01-30-2024 08:10-0400 Systolic blood pressure 148 mm[Hg] Dr. Librado Carter Work Phone: [facility] 12-19-2023 08:47-0500 Body temperature 98.8 [degF] Dr. Librado Carter Work Phone: [facility] 12-19-2023 08:47-0500 Diastolic blood pressure 74 mm[Hg] Dr. Librado Carter Work Phone: [facility] 12-19-2023 08:47-0500 Heart rate 59 /min Dr. Librado Carter Work Phone: [facility] 12-19-2023 08:47-0500 Respiratory rate 16 /min Dr. Librado Carter Work Phone: [facility] 12-19-2023 08:47-0500 SaO2% (BldA) [Mass fraction] 96 % Dr. Librado Carter Work Phone: [facility] 12-19-2023 08:47-0500 Systolic blood pressure 94 mm[Hg] Dr. Librado Carter Work Phone: [facility] 12-19-2023 07:22-0500 Body height 165.[address] Librado Carter Work Phone: [facility] 12-19-2023 07:22-0500 Body mass index (BMI) [Ratio] 30 kg/m2 Dr. Librado Carter Work Phone: [facility] 12-19-2023 07:22-0500 Body weight [address] Librado Carter Work Phone: [facility] 11-29-2023 08:53-0500 Body mass index (BMI) [Ratio] 30.4 kg/m2 Dr. Librado Carter Work Phone: [facility] 11-29-2023 08:53-0500 Body weight [address] Librado Carter Work Phone: [facility] 09-28-2023 12:45-0500 Body mass index (BMI) [Ratio] 31.8 kg/m2 Dr. Librado Carter Work Phone: [facility] 09-28-2023 12:45-0500 Body temperature 97.7 [degF] Dr. Librado Carter Work Phone: [facility] 09-28-2023 12:45-0500 Body weight 86.[address] Librado Carter Work Phone: [facility] 09-28-2023 12:45-0500 Diastolic blood pressure 88 mm[Hg] Dr. Librado Carter Work Phone: [facility] 09-28-2023 12:45-0500 Heart rate 72 /min Dr. Librado Carter Work Phone: [facility] 09-28-2023 12:45-0500 Respiratory rate 16 /min Dr. Librado Carter Work Phone: [facility] 09-28-2023 12:45-0500 SaO2% (BldA) [Mass fraction] 99 % Dr. Librado Carter Work Phone: [facility] 09-28-2023 12:45-0500 Systolic blood pressure 142 mm[Hg] Dr. Librado Carter Work Phone: [facility] 03-31-2022 09:47-0400 Body height 165.[address] Librado Carter Work Phone: [facility] Work Phone: 03-31-2022 09:47-0400 Body temperature 97.6 [degF] Dr. Librado Carter Work Phone: [facility] Work Phone: 03-31-2022 09:47-0400 Body weight 83.[address] Librado Carter Work Phone: [facility] Work Phone: 03-31-2022 09:47-0400 Diastolic blood pressure 82 mm[Hg] Dr. Librado Carter Work Phone: [facility] Work Phone: 03-31-2022 09:47-0400 Heart rate 71 /min Dr. Librado Carter Work Phone: [facility] Work Phone: 03-31-2022 09:47-0400 Respiratory rate 17 /min Dr. Librado Carter Work Phone: [facility] Work Phone: 03-31-2022 09:47-0400 SaO2% (BldA) [Mass fraction] 98 % Dr. Librado Carter Work Phone: [facility] Work Phone: 03-31-2022 09:47-0400 Systolic blood pressure 138 mm[Hg] Dr. Librado Carter Work Phone: [facility] Work Phone: 03-31-2022 09:47-0400 Body height 165.[address] Librado Carter Work Phone: [facility] Work Phone: 03-31-2022 09:47-0400 Body temperature 97.6 [degF] Dr. Librado Carter Work Phone: [facility] Work Phone: 03-31-2022 09:47-0400 Body weight 83.[address] Librado Carter Work Phone: [facility] Work Phone: 03-31-2022 09:47-0400 Diastolic blood pressure 82 mm[Hg] Dr. Librado Carter Work Phone: [facility] Work Phone: 03-31-2022 09:47-0400 Heart rate 71 /min Dr. Librado Carter Work Phone: [facility] Work Phone: 03-31-2022 09:47-0400 Respiratory rate 17 /min Dr. Librado Carter Work Phone: [facility] Work Phone: 03-31-2022 09:47-0400 SaO2% (BldA) [Mass fraction] 98 % Dr. Librado Carter Work Phone: [facility] Work Phone: 03-31-2022 09:47-0400 Systolic blood pressure 138 mm[Hg] Dr. Librado Carter Work Phone: [facility] Work Phone: 03-31-2021 06:41-0400 Body mass index (BMI) [Ratio] 30.9 kg/m2 Dr. Librado Carter Work Phone: [facility] Work Phone: 03-31-2021 06:41-0400 Body mass index (BMI) [Ratio] 30.9 kg/m2 Dr. Librado Carter Work Phone: [facility] Work Phone: Encounters Encounter Date Encounter Type Care Provider Facility Start: 06-06-2025 ambulatory [facility] Facility: [facility] Start: 04-18-2025 Encounter for genera l adult medical examination without abnormal findings Librado [facility] Start: 04-08-2025 End: 04-08-2025 ambulatory [facility] Facility:[facility] Start: 03-06-2025 End: 03-06-2025 Emergency department patient visit Dr. Librado Carter DO Work Phone: -Emergency Department Work Phone: Start: 02-05-2025 End: 02-05-2025 Patient encounter procedure Geri CABRERA [facility] Work Phone: Start: 02-05-2025 End: 02-05-2025 ambulatory Librado [facility] Facility:[facility] Start: 07-25-2024 Encounter for other preprocedural examination Jak Najera [facility] Start: 07-16-2024 End: 07-16-[facility] Start: 03-08-2024 End: 03-08-[address] Librado Carter Work Phone: [facility] Work Phone: Start: 03-08-2024 End: 03-08-[address] Librado Carter Work Phone: [facility]-Laboratory Work Phone: Start: 01-31-2024 Non-patient / Non-visit Dr. Geeta Carter Work Phone: [facility] Start: 01-30-2024 End: 01-30-[address] Librado Carter Work Phone: [facility] Work Phone: Start: 01-30-2024 End: 01-30-[address] Librado Carter Work Phone: [facility] Work Phone: Start: 12-26-2023 End: 12-26-[address] Librado Carter Work Phone: [facility] Work Phone: Start: 12-26-2023 End: 12-26-[address] Librado Carter Work Phone: [facility]-Pulmonary Services/Neurology Work Phone: Start: 12-19-2023 Non-patient / Non-visit Dr. Geeta Carter Work Phone: [facility] Start: 12-19-2023 End: 12-19-2023 Admission to same day surgery center Dr. Librado Carter Work Phone: [facility]-Endoscopy Work Phone: Start: 12-19-2023 End: 12-19-[address] Librado Carter Work Phone: [facility] Work Phone: Start: 11-29-2023 Non-patient / Non-visit Dr. Geeta Carter Work Phone: [facility] Work Phone: Start: 09-28-2023 End: 09-28-[address] Librado Carter Work Phone: [facility] Work Phone: Start: 05-03-2022 End: 05-03-[address] Librado Carter Work Phone: [facility]-Radiology, [place] Start: 04-02-2022 End: 04-02-[address] Librado Carter Work Phone: [facility]-Laboratory Start: 03-31-2022 End: 03-31-[address] Librado Carter Work Phone: [facility]-Pulmonary Medicine [facility] Procedures Date Procedure Procedure Detail Performing Clinician Start: 12-19-[address] Librado Carter Work Phone: Start: 05-03-2022 Plain x-ray of hand Dr. Librado Carter Work Phone: History of repair of musculotendinous cuff of shoulder H/O repair of right rotator cuff Dr. Librado Carter Work Phone: History of tonsillectomy History of tonsillectomy Dr. Librado Carter Work Phone: Plan of Treatment Date Care Activity Detail Author Start: 03-06-2025 [facility] Start: 12-19-2023 Colonoscopy flx dx w/collj spec when pfrmd DIAGNOSTIC COLONOSCOPY [facility] Start: 12-19-2023 Patient discharge [facility] Colonoscopy [facility] Exercise tolerance test [facility] Measurement of respiratory function [facility] Patient Education ED Back Sprain/Strain [facility] Work Phone: Patient referral [facility] Work Phone: Immunizations Immunization Date Immunization Notes Care Provider Fa cility 09-26-2022 influenza, injectabl e, quadrivalent, preservative free Dr. Librado Carter Work Phone: [facility] 07-08-2020 diphtheria, tetanus toxoids and acellular pertussis vaccine, unspecified formulation Dr. Librado Carter Work Phone: [facility] Work Phone: 07-08-2020 tetanus toxoid, redu [place] diphtheria toxoid, and acellular pertussis vaccine, adsorbed Dr. Librado Carter Work Phone: [facility] Payers Date Payer Category Payer Unknown [id number] 2024 Self-pay [id number] 2024 Unknown [id number] 2014 Unknown [id number] [facility] [id number] Unknown [id number] [id number] Unknown [id number] [id number] Unknown [id number] [id number] [id number] Unknown [id number] [id number] [id number] Unknown [id number] [id number] Social History Date Type Detail Facility Start: 03-31-2022 End: 01-30-2024 Tobacco smoking status NHIS Unknown if ever smoked [facility] Start: 03-19-2020 Non-smoker [facility] Start: 1960 Sex Assigned At Male [facility] Start: 03-06-2025 Tobacco smoking stat us NHIS Never smoked tobacco (finding) [facility] Start: 03-06-2025 Sex Male (finding) [facility] Medical Equipment Procedure Code Equipment Code Equipment Origin al Text Equipment Identifier Dates HEALIX ADV KNOTL ESS ANCHOR FDA Start: 03-27-2018 HEALIX ADV KNOTL ESS ANCHOR BR FDA Start: 03-27-2018 HEALIX ADV KNOTL ESS ANCHOR FDA Start: 03-27-2018 HEALIX ADV KNOTL ESS ANCHOR BR FDA Start: 03-27-2018 HEALIX ADV KNOTL ESS ANCHOR FDA Start: 03-27-2018 HEALIX ADV KNOTL ESS ANCHOR BR FDA Start: 03-27-2018 HEALIX ADV KNOTL ESS ANCHOR FDA Start: 03-27-2018 HEALIX ADV KNOTL ESS ANCHOR BR FDA Start: 03-27-2018 HEALIX ADV KNOTL ESS ANCHOR FDA Start: 03-27-2018 HEALIX ADV KNOTL ESS ANCHOR BR FDA Start: 03-27-2018 HEALIX ADV KNOTL ESS ANCHOR FDA Start: 03-27-2018 HEALIX ADV KNOTL ESS ANCHOR BR FDA Start: 03-27-2018 HEALIX ADV KNOTL ESS ANCHOR FDA Start: 03-27-2018 HEALIX ADV KNOTL ESS ANCHOR BR FDA Start: 03-27-2018 Goals Date Patient Goal Desired Activity /State Mental Status Date Assessment Result Facility 12-19-2023 Cognitive function Voice/Name;Touch/Esthela hannon [facility] Work Phone: Clinical Notes 12-19-2023 to 03-06-2025 Note Date & Type Note Facility 03-06-[address] [facility] 03-06-2025 Discharge summary Note Date/Time March 06, 2025 4:34pm [facility] Medical Records Department [address] [place] [address] Emergency Department Summary 03/06/25 MR#: [id number] Acct: [id number] Name: LUIS GRAF Rep #:[id number] : 1960 65 From: Que Santiago MD PCP: Dr. Librado Carter, DO Status:REG ER Location: ED HPI History of Present Illness Chief Complaint: Back Detail of Chief Complaint: Bilateral lower back pain Informant: patient Onset/Context/Timing Onset: Weeks (2.0) Context: Sudden Onset Injury: lifting and bending Timing: Continuous Quality: Dull and Aching Location: Lumbar Current Severity: Moderate Maximum Severity: Severe Worsened by: improves with Movement, Ambulation and Bending Relieved by: Nothing Associated Symptoms Associated Symptoms: - (Denies saddle paresthesia or anesthesia. Denies foot drop.); Negative for Numbness, Tingling, Radiation to Right Leg, Radiation to Left Leg, Fever, Abdominal Pain, Dysuria, Unable to Ambulate, Unable to Transfer, Urinary Retention, Urinary Incontinence, Constipation or Fecal Incontinence Narrative Narrative: Patient is 65-year-old male. He has history of obesity, CANDACE, asthma, pulmonary hypertension, restrictive lung disease who presents because of severe bilateral low back pain. He denies radiation. Denies bowel bladder dysfunction. No saddle paresthesia or anesthesia. Denies symptoms of claudication. No history of direct trauma. This occurred after he pulled a sump pump out. He has no known history of herniated disc. He denies night sweats or weight loss. She has had no recent procedure. Recent Illness/Hospitalization: No PFSH PFS Medical History Wears glasses Cancer Gout Prostate disease High cholesterol Gastric reflux Non-smoker CPAP (continuous positive airway pressure) dependence Sleep apnea History of stress test History of echocardiogram History of left shoulder repair Hay fever Fatigue History of stomach ulcers Shoulder pain Hypertension Pulmonary nodule Shortness of breath Old myocardial infarction TMJ (temporomandibular joint disorder) Chest pain Asthma exacerbation Jaw pain Home Medications ?Medication ?Instructions ?Recorded ?Last Taken ?Type lisinopril 10 mg tablet 10 mg PO DAILY 12/13/1811/22 05:10 History saw palm 160 mg-vit E 100 2 tab PO .QD 11/29/23 05:15 History unit-selen 100 siw-iqeo-zvvpzs-pygeum tablet (Prostate Health) 4 LIFE TRANSFER FACTOR CARDIO 2 ea PO BID 12/14/23 05:15 History 4 LIFE TRANSFER FACTOR LUNG 3 ea PO DAILY 12/14/23 05:15 History 4 LIFE TRANSFER FACTORY CLASSIC 3 ea PO DAILY 12/14/23 12/18/23 05:15 History fexofenadine 180 mg tablet 180 mg PO DAILY 01/30/24 Un known History (Krystle Allergy) albuterol sulfate 2.5 mg/3 mL 2.5 mg (3 mL) inhalation Q6H PRN 02/05/25 Unknown Rx (0.083 %) solution for nebulization PRN COUGH/SOB #180 mL ezetimibe 10 mg tablet 10 mg PO QDAY 02/05/25 Unkno wn History tamsulosin 0.4 mg capsule 0.8 mg PO QHS 02/05/25 Unkno wn History diazepam 2 mg tablet (Valium) 2 mg PO TID 3 days #10 t abs 03/06/25 Unknown Rx hydrocodone-acetaminophen 5-325mg 1 tab PO Q6H PRN PRN Pain 3 days 03/06/25 Unknown Rx 5mg-325mg #10 TABLETS Allergy/AdvReac Type Severity Reaction Status Date / Time Seasonal Allergies: Uncoded Allergy Mild Chest Verified 03/06/25 14:23 tightness shrimp Allergy Swelling Verified 03/06/25 14:23 Family History Father Lung disease Diabetes Mother Diabetes Brother Diabetes Surgical History History of repair of left rotator cuff Hx of vasectomy Hx of colonoscopy H/O repair of right rotator cuff H/O hernia repair History of tonsillectomy Social History household members: spouse current occupational status: employed current occupation: [employer] Smoking Status: Never smoker alcohol intake: never substance use type: does not use ROS ROS ED Constitutional Constitutional ED: Denies chills, fever(s), subjective, sweats or weight loss Eyes Eyes: Denies blurry vision, change in vision or diplopia ENT ENT ED: Denies ear pain, rhinorrhea or sore throat Cardiovascular Cardiovascular: Denies chest pain or palpitations Respiratory/Chest Respiratory/Chest: Denies dyspnea or dyspnea on exertion Gastrointestinal Gastrointestinal: Denies abdominal pain, constipation, diarrhea, nausea or vomiting Genitourinary Genitourinary ED: Denies dysuria, hematuria or urinary frequency Musculoskeletal Musculoskeletal: Reports back pain; Denies arthralgias or myalgias Integumentary Denies rash Neurologic Neurologic: Denies headache(s) or paresthesias Psychiatric Psychiatric: Reports depression Endocrine Endocrinology: Denies cold intolerance or heat intolerance Hematologic/Lymphatic Hematologic/Lymphatic: Denies easy bleeding or easy bruising EXAM Physical Exam Const Vital Signs: 03/06/25 14:24 Temperature 97 F L Temperature Source Temporal Pulse Rate 87 Respiratory Rate 18 Blood Pressure 142/97 H Blood Pressure Mean 112 Pulse Ox 98 Oxygen Delivery Method Room Air Positive well nourished and well developed Constitutional Narrative: BMI is 31.2 General Appearance ED: well developed; Negative for pallor HEENT Reports moist mucous membranes HEENT Narrative: Head is atraumatic normocephalic. Ears normal. Eyes PERRL and EOMs intact bilaterally General Eye ED: Negative for pale conjunctiva or scleral icterus Neck no lymphadenopathy, supple and no JVD Resp normal respiratory effort and clear to auscultation bilaterally Cardio regular rate, regular rhythm, S1 normal heart sound, S2 normal heart sound and no murmurs GI normal to inspection, nondistended, normoactive bowel sounds, soft to palpation,non-tender, non-distended and no masses GI Narrative: There is no palpable pulsatile mass. There is no abdominal bruit. Back/Spine normal to inspection; Negative for no thoracic nor lumbar tenderness Back/Spine Narrative: Pain palpation right and left paralumbar sacral region. EHLs intact. 5/5 strength plantar and dorsiflexion of the foot. Normal sensation L3-S1 dermatome. PT and DP pulse are 2+. DTR 2+ at the patella and ankle. General Back: Negative for CVA tenderness Cervical Spine: Negative for cervical spine tenderness Thoracic Spine / Upper Back: paraspinal muscle tenderness Lumbar Spine / Lower Back: ROM limited and straight leg raise negative bilaterally Extremity normal to inspection and no clubbing, cyanosis or edema Neuro oriented x3 and no sensory deficits noted Sensorium / Orientation: alert Motor Exam: strength 5/5 throughout Deep Tendon Reflexes: Rt Patellar (L4): 2+, Lt Patellar (L4): 2+, Rt Ankle (S1):2+ and Lt Ankle (S1): 2+ Deep Tendon Reflexes Back: Rt Patellar (L4): 2+, Lt Patellar (L4): 2+, Rt Ankle (S1): 2+ and Lt Ankle (S1): 2+ Plantar Reflex: Downgoing: bilateral Psych Mood & Affect: depressed and tearful Skin no rashes or lesions noted and no wounds General Skin Exam: Negative for jaundice or pallor MDM MDM MDM Narrative Medical decision making narrative: IV was established. Patient was treated with morphine for his pain and Valium for presumed spasm. Will reassess in 30 to 60 minutes. Since he has no neurovascular compromise and the pain is reproducible there is no indication foremergent advanced imaging i.e. CT or MRI. History & Record Review Additional record(s) reviewed:: Prior outpatient record (Pulmonary office visit February 05 for asthma. H&P by Dr. Macias or colonoscopy outpatient screening for colon cancer), Prior ED visit (ER visit March 05, 2019 for syncope and collapse) and Prior labs Treatment and Re-Evaluation Narrative: Patient was reassessed at 1629. He is pain-free. He was discharged home with appropriate pain medicine and home-going instructions. Discharge Plan Triage Chief Complaint: Back ED Provider: Que Santiago Dx/Rx/DC Orders Clinical Impression: Acute lumbosacral myofascial strain, Pulmonary hypertension, Elevated blood-pressure reading without diagnosis of hypertension, BMI 31.0-31.9,adult Instructions: ED Back Sprain/Strain Prescriptions: New hydrocodone-acetaminophen 5-325 mg tablet 1 tab PO Q6H PRN PRN (Reason: Pain) 3 Days Qty: 10 0RF diazepam [Valium] 2 mg tablet 2 mg PO TID 3 Days Qty: 10 0RF No Action fexofenadine [Krystle Allergy] 180 mg tablet 180 mg PO DAILY Prostate Health 160-100-100 mg-unit-mcg tablet 2 tab PO .QD tamsulosin 0.4 mg capsule 0.8 mg PO QHS ezetimibe 10 mg tablet 10 mg PO QDAY albuterol sulfate 2.5 mg /3 mL (0.083 %) solution for nebulization 2.5 mg inhalation Q6H PRN PRN (Reason: COUGH/SOB) Qty: 180 6RF lisinopril 10 MG tablet 10 mg PO DAILY 4 LIFE TRANSFER FACTOR CARDIO 2 ea PO BID 4 LIFE TRANSFER FACTOR LUNG 3 ea PO DAILY 4 LIFE TRANSFER FACTORY CLASSIC 3 ea PO DAILY Primary Care Provider: Librado Carter Referrals: Librado Carter, [Primary Care Provider] - 3-5 Days if not improving Activity Restrictions/Additional Instructions: 1. Apply ice to your lower back 6-8 times a day for the next 3 to 5 days Print Language: Qatari Disposition Disposition: Home, Self Care What to do if you have Problems For any increased pain, shortness of breath, bleeding, nausea or vomiting, chestpain, or any unexpected problems, contact your Primary Care Provider. Call [facility] ([phone]) or report to the closest Emergency Room. Call 911 if necessary. 03/06/25 1634 <Electronically signed by Que Santiago MD> Cosigner Signature (if applicable): CC: Dr. Librado Carter DO ~ Signed [facility] Work Phone: [phone]) 118-258704-17-2025 Hospital Discharge instructions Additional Instructions 1. Apply ice to your lower back 6-8 times [facility] the [facility] 1(457) 972-874603-19-2025 Evaluation note* Diagnosis Onset Date Resolution Status Admit Date Asthma chronic February 05 8:44am Obesity chronic February 05 8:44am CANDACE (obstructive sleep apnea) chroni c February 05, 2025 8:44am [facility] Work Phone: [phone]) 362-255503-13-2024 Procedure [facility] 12-19-2023 Procedure [facility]01-30-[address] Diagnosis Onset Date Resolution Status CANDACE (obstructive sleep apnea) acute Asthma chronic [facility] Work Phone: Evaluation note* Diagnosis Onset Date Resolution Status Asthma chronic CANDACE (obstructive sleep apnea) chronic Encounter for screening for malignant neoplasm of colo n acute [facility] Work Phone: Evaluation note* Diagnosis Onset Date Resolution Status Encounter for screening for malignant neoplasm of colo n acute Asthma chronic CANDACE (obstructive sleep apnea) chronic [facility] Work Phone: History and physical note Author Joseph Macias [facility] December 19, 2023 8:05am Note Date/Time December 19, 2023 8 :05am [facility] Medical Records Department [address] [place] [address] History & Physical Exam 12/19/23 0804 MR#: [id number] Acct: [id number] Name: LUIS GRAF Rep #:[id number] : 1960 63 From: Joseph garcia MD PCP: Dr. Librado Carter, DO Status:[facility] Location: [place] [address] HPI - General HPI Narrative LUIS GRAF, is a 63 M who presents for screening colonoscopy. His last colonoscopy was 12 years ago. He denies any abdominal pain or blood in the stool. He has no family history of colon cancer. [facility] Medical History (Updated 12/14/23 @ 14:41 by Renetta Beckwith) Asthma exacerbation Cancer Chest pain CPAP (continuous positive airway pressure) dependence Fatigue Gastric reflux Gout Hay fever High cholesterol History of echocardiogram History of left shoulder repair History of stomach ulcers History of stress test Hypertension Jaw pain Non-smoker Old myocardial infarction Prostate disease Pulmonary nodule Shortness of breath Shoulder pain Sleep apnea TMJ (temporomandibular joint disorder) Wears glasses Home Medications lisinopril 10 mg tablet 10 mg PO DAILY 12/13/18 [History Last Taken 12/19/23 05:10] albuterol sulfate 2.5 mg/3 mL (0.083 %) solution for nebulization 2.5 mg (3 mL) inhalation Q6H PRN PRN COUGH/SOB #180 mL 03/31/22 [Rx Last Taken Unknown] saw palm 160 mg-vit E 100 unit-selen 100 dpq-goiw-bolhat-pygeum tablet (ProstateHealth) 2 tab PO .QD 11/29/23 [History Last Taken 12/18/23 05:15] 4 LIFE TRANSFER FACTOR CARDIO 2 ea PO BID 12/14/23 [History Last Taken 12/18/23 05:15] 4 LIFE TRANSFER FACTOR LUNG 3 ea PO DAILY 12/14/23 [History Last Taken 12/18/23 05:15] 4 LIFE TRANSFER FACTORY CLASSIC 3 ea PO DAILY 12/14/23 [History Last Taken 12/18/23 05:15] Allergy/AdvReac Type Severity Reaction Status Date / Time shrimp Allergy Swelling Verified 12/19/23 07:20 Family History Father Lung disease Diabetes Mother Diabetes Brother Diabetes Surgical History (Updated 12/14/23 @ 14:41 by Renetta Beckwith) H/O hernia repair H/O repair of right rotator cuff History of repair of left rotator cuff History of tonsillectomy Hx of colonoscopy Hx of vasectomy Social History (Updated 11/29/23 @ 08:46 by Mckayla Pinzon) household members: spouse current occupational status: employed current occupation: [employer] Smoking Status: Never smoker alcohol intake: never substance use type: does not use Past Medical/Surgical History Planned Operation Planned Operative Procedure/s: COLONOSCOPY S.O.S: No Previous Hospitalizations/Surgeries HX Hospitalizations: No HX of Surgeries: VASECTOMY X 2 TESTICULAR SWELLING WITH SURGICAL REPAIR COLONOSCOPY CICUMCISION TONSILLECTOMY EGD right shoulder subcromical decompression 2018 Any Problems With Anesthesia: No You/Your Family Experience Fever (Hyperthermia) With Anes: No Cholinesterase deficiency: No Cardiovascular Hx Chest Pain within Last 2 months: No Hx of Irregular Heartbeat and/or Afib: No Hx Heart Attack: No Hx Congestive Heart Failure: No Hx Rheumatic Fever: No Hx Hypertension: Yes Hx Internal Defibrillator: No Hx Pacemaker: No Hx Cardiac Catheterization: No Hx Cardiac Surgery/Stents/Etc.: No Hx Stress Test: Yes (12/21/17) Hx Pain in Legs when Walking/Leg Cramps: Yes (LEG CRAMPS AT NIGHT) Respiratory Chronic Cough: No HX of Shortness of Breath: No (ABLE TO WALK UP TWO FLIGHTS OF STAIRS) Hoarseness: No Hx Chronic Obstructive Pulmonary Disease (COPD): No Hx Asthma: Yes (inhaler) Hx Emphysema: No Hx Sleep Apnea: Yes CPAP: Yes BIPAP: No Hx Respiratory Tract Infection/Cold (presently): No Result (for STOP score): Positive Hx Smoking: No Smoking Status: Never smoker Gastrointestinal Controlled With Meds: No Hx Gastrointestinal Disorders: No Hx Gastrointestinal Bleed: No Hx Ulcer: Yes (in the past) Hx Hiatal Hernia: No Difficulty Chewing/Swallowing: No Special diet followed at home: No (.) Hx Unplanned Weight Loss of 20#: No HX Unplanned Weight Gain of 20#: No Neurological Hx Seizures: No HX Syncope/Blackout Spells/Unconsciousness: Yes (syncope prn/blacked out in the past) Hx Transient Ischemic Attacks (TIA): No Hx Multiple Sclerosis: No Hx Parkinson's Disease: No Hx Head/Neck Injury: No (.) Hx Headaches: Yes (occ) Hx Back Injury/Pain: Yes (upper back pain prn) Recent Onset of Speech Difficulty: No Restless Legs: No Does patient have nerve stimulator: No Blood Disorder Hx Leukemia: No Bleeding Tendencies: Yes (bleeds easily) Hx Deep Vein Thrombosis: No Hx High Cholesterol: Yes (TAKING SUPPLEMENTS) Blood Transmitted Disease: No Hx Hepatitis: No Hx Cirrhosis: No Hx Anemia: No Hx Blood Disorders: No Genitourinary Hx Renal Disease: No Musculoskeletal Hx Arthritis: No Hx Rheumatoid Arthritis: No Hx Gout: Yes (HX) Recent Onset of an Orthopedic Problem: No Endocrine Hx Diabetes: No (hypoglycemia) Thyroid Disease: No Hx Steroid Therapy: No Psycho/Social Hx Substance Use: No Hx Alcohol Use: No Hx Anxiety: No Hx Depression: No Mental Illness: No Hx Dementia: No Miscellaneous Hx Cancer: No Recent Exposure to Contagious Disease: No Hx of C-Diff: No Any Loose Teeth: No (upper plate) Allergies shrimp Allergy (Verified 12/19/23 07:20) Swelling Also hives Discharge Is Pt Admitted From a Correction, or a Correction: No Who Could Help: After D/C, Where Do you Plan to Go: Return Home From the [facility] History Number of Risk Factors: 2 Vital Signs Vital Signs Vital Signs: 12/19/23 07:22 12/19/23 07:22 Temperature 97.8 F Temperature Source Temporal Pulse Rate 79 Respiratory Rate 16 Respiratory Pattern Normal Blood Pressure 135/92 H Blood Pressure Mean 106 Blood Pressure Source Monitor Blood Pressure Position Sitting Blood Pressure Location Right Arm Pulse Ox 98 Oxygen Delivery Method Room Air Weight Weight: 180 lb 12.465 oz Body Mass Index (BMI) 30.0 Physical Exam Const alert and oriented x3 HEENT normocephalic Eyes PERRL Resp normal respiratory effort and normal air movement Cardio regular rate and regular rhythm GI soft to palpation, non-tender and non-distended Extremity normal to inspection Assessment & Plan Assessment/Plan (1) Encounter for screening for malignant neoplasm of colon: PLAN: I explained endoscopy in detail to the patient. I explained the risks including but not limited to stroke or heart attack with anesthesia, perforationof the GI tract, bleeding, infection. I explained that any of these could necessitate further emergency surgery. The patient understands and all questions were answered sufficiently. The patient wishes to proceed with procedure. Joseph Macias MD Pager: [facility] [address] [place] [address], [address] [place] [address] Office: Surgery Risks - Colonoscopy Risks Include but are not Limited To: Risks include but are not limited to: Bleeding, perforation requiring further surgery, inability to complete colonoscopy requiring barium enema. 12/19/23 0805 <Electronically signed by Joseph Macias MD> Cosigner Signature (if applicable): CC: Dr. Joseph Macias MD; Dr. Librado Carter, DO~ Signed [facility] Work Phone: Reason for referral (narrative)No reason for referral information [facility] Work Phone: Chief Complaint and Reason for Visit Chief Complaint 1 Y FU Reason for Visit CANDACE (obstructive sle ep apnea) Asthma Chief Complaint 1 Y FU Amb Documentation Reason for Visit Asthma CANDACE (obstructive sleep apnea) Encounter for screening for malignant neoplasm of colon Chief Complaint 1 Y FU Amb Documentation SOB Reason for Visit Asthma CANDACE (obstructive sleep apnea) Encounter for screening for malignant neoplasm of colon Chief Complaint Amb Documentation SOB SOB-pls send results w pt to pmw for 0845appt 4 M FU SOB-pls send results w pt to pmw for 0845appt Reason for Visit Encounter for screen ing for malignant neoplasm of colon Asthma CANDACE (obstructive sleep apnea) Chief Complaint Admit Date 1 Y FU February 05, 2025 8:4 4am back pain March 06, 2025 2:2 3pm Reason for Visit Admit Date Asthma February 05, 2025 8:4 4am Obesity February 05, 2025 8:4 4am CANDACE (obstructive sleep apnea) January 8:44am Family History No Family History Records Found Relationship Condition Age at Onset Recorded Date/T bernard father Disorder of lung Unknown Diabetes mellitus Unknown mother Diabetes mellitus Unknown brother Diabetes mellitus Unknown Advance Directives No Advanced Directives Records Found Advance Directive Response Recorded Date/ Time Advance Directives Yes October 24, 2014 3:07pm Living Will Yes March 19, 2020 3:12pm Power of Transportation Analyst Yes March 19 3:12pm Advance Directive Response Recorded Date/ Time Name of Medical Power of Transportation Analyst December 14, 2023 2:35pm Advance Directives Yes October 24, 2014 2:07pm Living Will Yes December 14 2:35pm Power of Transportation Analyst Yes December 14, 2023 2:35pm Advance Directive Response Recorded Date/ Time Name of Medical Power of Transportation Analyst December 14, 2023 3:35pm Advance Directives Yes October 24, 2014 3:07pm Living Will Yes December 14 3:35pm Power of Transportation Analyst Yes December 14, 2023 3:35pm Advance Directive Response Recorded Date/ Time Living Will Yes December 14 3:35pm Do you have a Healthcare Power of Transportation Analyst? Yes December 14, 2023 3:35pm Living Will Yes March 06, 2025 3:15pm Do you have a Healthcare Power of Transportation Analyst? Yes March 06, 2025 3:15pm Name of Medical Power of Transportation Analyst March 06, 2025 3:15pm Advance Directives Yes October 24, 2014 3:07pm Summary Purpose Additional Source Comments Goals (unrecognized section and content) Goals may be documented in a n alternate sectionGoals may be documented in an alternate section Care Teams (unrecognized sec tion and content) Team Status: Active Member Role Status Dates Dr. Librado Carter , DO Family Provider Active Dr. Librado Carter , DO Primary Care Provider Active Team Status: Inactive Member Role Status Dates Dr. Librado Carter , DO Primary Care Provider, Referrin g Provider Active Geri Del Real CARRIER OPERATOR, CARRIER OPERATOR-C Attending Provider Active Team Status: Active Member Role Status Dates Dr. Librado Carter , DO Primary Care Provider Active Mckayla Pinzon Attending Provider Active Team Status: Active Member Role Status Dates Dr. Librado Carter , DO Primary Care Provider, Referrin g Provider Active Dr. Joseph Macias MD Attending Provider, Other Provider Active Team Status: Inactive Member Role Status Dates Dr. Librado Carter , DO Primary Care Provider, Referrin g Provider Active Dr. Joseph Macias MD Attending Provider Active Team Status: Inactive Member Role Status Dates Dr. Librado Carter DO Primary Care Provider Active Geri Del Real CARRIER OPERATOR, CARRIER OPERATOR-C Attending Provider, Referrin g Provider Active Team Status: Inactive Member Role Status Dates Dr. Librado Carter DO Primary Care Provider, Referrin g Provider Active Dr. Albert Hallman DO Attending Provider Active Team Status: Active Member Role Status Dates Dr. Librado Carter DO Primary Care Provider Active Geri Del Real CARRIER OPERATOR, CARRIER OPERATOR-C Referring Provider, Other Pr ovider Active Dr. Paulino Damon MD Attending Provider Active Team Status: Inactive Member Role Status Dates Dr. Librado Carter DO Primary Care Prov ider, Attending Provider, Referring Provider Active Team Status: Active Member Role Status Dates Dr. Librado Carter DO Primary Care Provider Active Team Status: Inactive Member Role Status Dates Dr. Librado Carter DO Primary Care Provider Active Start: February 05, 2025 End: February 05, 2025 Dr. Librado Carter DO Referring Provider Active Start: February 05, 2025 End: February 05, 2025 Geri Del Real NP, CARRIER OPERATOR-C Attending Provider Active Start: February 05, 2025 End: February 05, 2025 Team Status: Inactive Member Role Status Dates Dr. Librado Carter DO Primary Care Provider Active Start: March 06, 2025 End: March 06, 2025 Dr. Que Santiago MD Referring Provider Active Sta rt: March 06, 2025 End: March 06, 2025 Dr. Que Santiago MD Emergency Provider Active Sta rt: March 06, 2025 End: March 06, 2025 (unrecognized sect ion and content) No Status Records Found INFORMATION SOURCE (unrecogn ized section and content) DATE CREATED AUTHOR 05/31/2025 [facility] FOR RECORDS PERTAINING TO PATIENTS WHO ARE OR HAVE BEEN ENROLLED IN A CHEMICAL DEPENDENCY/SUBSTANCEABUSE PROGRAM, SOME INFORMATION MAY BE OMITTED. This clinical summary was aggregated from multiple sources. Caution should be exercised in using it in the provision of clinical care. This summary normalizes information from multiple sources, and as a consequence, information in this document may materially change the coding, format and clinical context of patient data. In addition, data may be omitted in some cases. CLINICAL DECISIONS SHOULD BE BASED ON THE PRIMARY CLINICAL RECORDS. [facility] provides no warranty or guarantee of the accuracy or completeness of information in this document.
--- NOTE | 2025-06-06 07:48 | DCINST_ITS ---
Discharge Instructions DC O2, CPAP, BIPAP needs Home O2 Discharge instructions: No Dressing / Incision Discharge Activity: Return to Normal Activity, No Restrictions and May Drive May resume sexual activity in: 4-6 weeks Dressing / Incision Call your doctor if you observe: Fever of 101 or Higher and Uncontrolled pain Suture Line Care: Avoid Pulling/Pushing and Avoid Pinching/Bending Follow Up Care Please Follow Up With: Chris Sanchez MD When: call for appt, 2 weeks. Test Results: Test results from this visit will be discussed in further detail at your follow- up appointment, if applicable. Discharge Plan Admission Primary Reason for Your Visit: turp Attending Provider: Chris Sanchez Primary Care Provider: Librado Carter Instructions Patient Instructions: TURP, TURP Home Recovery, TURP Hospital Recovery Print Language: Bangladeshi Discharge Orders/Prescriptions Prescriptions: New ciprofloxacin HCl [Cipro] 500 mg tablet 500 mg PO BID Qty: 10 0RF Continued fexofenadine [Krystle Allergy] 180 mg tablet 180 mg PO DAILY [facility]state [facility] 160-100-100 mg-unit-mcg tablet 2 tab PO DAILY tamsulosin 0.4 mg capsule 0.8 mg PO QHS ezetimibe 10 mg tablet 10 mg PO QDAY albuterol sulfate 2.5 mg /3 mL (0.083 %) solution for nebulization 2.5 mg inhalation Q6H PRN PRN (Reason: COUGH/SOB) Qty: 180 6RF 4 LIFE TRANSFER FACTOR CARDIO 2 ea PO BID 4 LIFE TRANSFER FACTOR LUNG 3 ea PO DAILY 4 LIFE TRANSFER FACTORY CLASSIC 3 ea PO DAILY lisinopril 20 mg tablet 20 mg PO DAILY dutasteride 0.5 mg capsule 0.5 mg PO DAILY diazepam [Valium] 2 mg tablet 2 mg PO TID 3 Days Qty: 10 0RF Discontinued sulfamethoxazole-trimethoprim 800-160 mg tablet 1 tab PO BID Other Ambulatory Orders: 12 Lead EKG (Routine) Timeframe: [id number] Location: None Selected Ordered By: Dr. Cristian Bustos Referrals / Follow Up: Librado Carter DO [Primary Care Provider] - Disposition Disposition (needs filled in before D/C Order can be placed): Home, Self Care
[2025-06-06] MEDS: Lactated Ringers 1,000 ML 15 ML IV (08:22)
--- NOTE | 2025-06-06 08:59 | PCM.PRE.AN2 ---
ASA Classification* ASA Classification ASA Classification: 2 Assessment & Plan Anesthesia* Anesthesia Assessment Anesthesia Assessment: Discussed sedation and/or anesthesia options, risks, benefits, and alternatives with patient/parents/legal guardian/POA. Questions invited. The patient/parents/legal guardian/POA seems to understand and agrees to proceed with anesthesia plan. Reviewed the physical assessment, medical history, allergy history and patient home medications list prior to surgery/procedure/anesthetic and documented any changes. Performed airway and anesthesia risk assessments. Anesthesia Type Anesthesia Type: General History Source History Obtained from:: Patient and Chart Anesthesia Focused Assessment* Temperature: 98.6 F Pulse Rate: 73 Blood Pressure: 132/89 Respiratory Rate: 18 Pulse Ox: 98 Oxygen Delivery Method: Room Air Airway Assessment Mouth opens: >3 cm Mallampati Score: IV Teeth Condition: Caps/Crowns (Patient has couple crowns. They are tight.) and Missing (Multiple missing teeth. Edentulous on top.) Neck Range of motion (ROM): Limited ROM (Slight Decrease) Labs Anesthesia Preop lab: CBC WBC 5.8 K/mm3 (4.4-11.0) 04/08/25 08:47 04/08/25 RBC 5.42 M/mm3 (4.6-6.2) 04/08/25 08:47 04/08/25 Hgb 15.9 g/dL (13.0-16.5) 04/08/25 08:47 04/08/25 Hct 46.8 % (40-54) 04/08/25 08:47 04/08/25 Plt Count 220 K/mm3 (150-450) 04/08/25 08:47 04/08/25 CHEMISTRY Potassium 4.3 mmol/L (3.3-5.1) 04/08/25 08:47 04/08/25 Sodium 142 mmol/L (133-145) 04/08/25 08:47 04/08/25 BUN 16 mg/dL (4-19) 04/08/25 08:47 04/08/25 Creatinine 0.95 mg/dL (0.70-1.20) 04/08/25 08:47 04/08/25 Glucose 84 mg/dL (70-99) 04/08/25 08:47 04/08/25 TSH 0.97 uIU/mL (0.358-3.74) 04/18/17 09:26 04/18/17 COAG PT 13.0 SECONDS (11.7-14.9) 03/19/20 12:25 03/19/20 Pre-Assessment Diagnosis/Proposed Procedure Planned Operative Procedure(s): TURP Anesthesia History Anesthesia History - hedis registered nurse rn: Anesthesia History - hedis registered nurse rn Hx Hospitalization No 05/27/25 09:21 Any Problems With Anesthesia slow waking up. 05/27/25 09:21 Cholinesterase deficiency No 05/27/25 09:21 You/Your Family Experience No 05/27/25 09:21 fever (hyperthermia) with Relationship Recent Exposure to Contagious No 06/06/25 08:18 Disease Does patient have nerve No 05/27/25 09:21 stimulator Patient instructed to have device shut off --Does patient have Pacemaker No 06/06/25 08:18 or ICD? When Was Last Pacemaker Check QUESTION #4 FULL TEXT: You/Your Family Experience fever (hyperthermia) with Anesthesia Last Oral Intake Last Oral intake: Last Oral Intake NPO since 20:00 06/06/25 08:18 Meds taken in AM with sips of No 06/06/25 08:18 water? Meds patient instructed to take am of surgery PONV PONV - hedis registered nurse rn: PONV - hedis registered nurse rn Female No 05/27/25 09:21 HX of Motion Sickness No 05/27/25 09:21 HX of N/V After Surgery No 05/27/25 09:21 Non-Smoker Yes 05/27/25 09:21 Duration of Surgery greater Yes 05/27/25 09:21 than 60 minutes Number of Risk Factors 2 05/27/25 09:21 PONV Score Moderate Risk 05/27/25 09:21 Height & Weight Height & Weight: Anesthesia: Height & Weight Height 5 ft 5 in 06/06/25 08:18 Weight: 85.6 kg 06/06/25 08:18 Body Mass Index (BMI) 31.4 06/06/25 08:18 Respiratory Assessment Respiratory Assessment - hedis registered nurse rn: Respiratory Tract Infection Hx - hedis registered nurse rn Hx Respiratory Tract Infection No 05/27/25 09:21 STOP Sleep Apnea STOP Sleep Apnea - hedis registered nurse rn: STOP Sleep Apnea - hedis registered nurse rn Hx Hypertension Yes: CONTROLLED WITH MEDS 05/27/25 09:21 Hx Sleep Apnea Yes 05/27/25 09:21 CPAP Yes 05/27/25 09:21 BIPAP No 05/27/25 09:21 Do you snore loudly (louder than talking or can be heard Do you often feel tired/ fatigued/ sleepy during daytime? Has anyone observed you stop breathing during sleep? STOP Results Positive 05/27/25 09:21 QUESTION #5 FULL TEXT : Do you snore loudly (louder than talking or can be heard through closed doors)? 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 Specify any problems Hx of Preganancy in last 3 N/A 05/27/25 09:21 Months Nurse Filling Out Transfusion [id number] 05/27/25 09:21 & Questions: Date: 05/27/25 05/27/25 09:21 Time: 09:24 05/27/25 09:21 Patient unable to answer at this time (ie. confused, unrespo /Reproduction History /Reproductive History - hedis registered nurse rn: /Reproductive Hx- hedis registered nurse rn Hx Now Gestational Age (in weeks): EDC: Hx Hx Para Hx Section SAB Active Medications Active Medications: Current Medications Generic Name Dose Route Start Last Admin Trade Name Freq PRN Reason Stop Dose Admin Acetaminophen 650 mg 06/06/25 07:45 Acetaminophen 325 Mg Tablet PO Q6H PRN PRN Pain Score 1-10 Al Hydroxide/Mg Hydroxide 30 ml 06/06/25 07:45 Mag Hydrox/Al Hydrox/Simeth 30 Ml Udc PO Q4H PRN PRN HEARTBURN Albuterol Sulfate 2.5 mg 06/06/25 07:44 Albuterol 2.5 Mg/3 Ml Vial.Neb. INHALATION Q6H PRN PRN COUGH/SOB Diazepam 2 mg 06/06/25 14:00 Diazepam 2 Mg Tablet PO TID [facility] Docusate Sodium 200 mg 06/06/25 10:00 Docusate Sodium 100 Mg Capsule PO BID [facility] Ezetimibe 10 mg 06/06/25 07:45 Ezetimibe 10 Mg Tablet PO QDAY [facility] Cefazolin Sodium 2 gm/ Sodium 110 mls @ 200 mls/hr 06/06/25 09:05 Chloride IV 06/06/25 09:37 INTRAOP ONE Lactated Ringer's 1,000 mls @ 15 mls/hr 06/06/25 07:45 06/06/25 08:22 IV 15 mls/hr .Q48H [facility] Administration Sodium Chloride 1,000 mls @ 125 mls/hr 06/06/25 07:45 IV .Q8H [facility] Ciprofloxacin 400 mg in 200 mls @ 200 mls/hr 06/06/25 10:00 Cipro IV 06/06/25 22:59 Q12 [facility] Ketorolac Tromethamine 15 mg 06/06/25 07:45 Ketorolac 15 Mg/Ml Vial IV 06/08/25 07:46 Q6H PRN PRN PAIN 1-10 Lisinopril 20 mg 06/06/25 10:00 Lisinopril 20 Mg Tablet PO DAILY [facility] Protocol Non-Formulary Medication 0.5 mg 06/06/25 10:00 Dutasteride PO DAILY [facility] Non-Formulary Medication 180 mg 06/06/25 10:00 Fexofenadine [Krystle Allergy] PO DAILY [facility] Ondansetron HCl 4 mg 06/06/25 07:45 Ondansetron 4 Mg/2 Ml Vial IV Q8H PRN NAUSEA/VOMITING Oxycodone HCl 5 - 10 mg 06/06/25 07:45 Oxycodone 5 Mg Tablet PO Q6H PRN PRN Pain Score 4-10 Tamsulosin HCl 0.8 mg 06/06/25 22:00 Tamsulosin Hcl 0.4 Mg Capsule PO QHS [facility] Trimethoprim/Sulfamethoxazole 1 tablet 06/06/25 10:00 Smz/Tmp Ds Tablet PO BID [facility] PFS Medical History Wears hearing aid Loss of hearing Migraine headache Wears glasses Cancer Gout Prostate disease High cholesterol Gastric reflux Non-smoker CPAP (continuous positive airway pressure) dependence Sleep apnea History of stress test History of echocardiogram History of left shoulder repair Hay fever Fatigue History of stomach ulcers Shoulder pain Hypertension Pulmonary nodule Shortness of breath Old myocardial infarction TMJ (temporomandibular joint disorder) Chest pain Asthma exacerbation Jaw pain Home Medications ?Medication ?Instructions ?Recorded ?Last Taken ?Type saw palm 160 mg-vit E 100 2 tab PO DAILY 11/29/23 06/05/25 18:30 History unit-selen 100 ojm-mzhi-fvyvdm-pygeum tablet (Prostate Health) 4 LIFE TRANSFER FACTOR CARDIO 2 ea PO BID 12/14/23 06/05/25 18:30 History 4 LIFE TRANSFER FACTOR LUNG 3 ea PO DAILY 12/14/23 06/05/25 08:00 History 4 LIFE TRANSFER FACTORY CLASSIC 3 ea PO DAILY 12/14/23 06/05/25 08:00 History fexofenadine 180 mg tablet 180 mg PO DAILY 01/30/24 06/05/25 08:00 History (Krystle Allergy) albuterol sulfate 2.5 mg/3 mL 2.5 mg (3 mL) inhalation Q6H PRN 02/05/25 Unknown Rx (0.083 %) solution for nebulization PRN COUGH/SOB #180 mL ezetimibe 10 mg tablet 10 mg PO QDAY 02/05/25 06/05/25 08:00 History tamsulosin 0.4 mg capsule 0.8 mg PO QHS 02/05/25 06/05/25 08:00 History diazepam 2 mg tablet (Valium) 2 mg PO TID 3 days #10 tabs 03/06/25 Unknown Rx dutasteride 0.5 mg capsule 0.5 mg PO DAILY 05/27/25 06/05/25 08:00 History lisinopril 20 mg tablet 20 mg PO DAILY 05/27/25 06/05/25 08:00 History ciprofloxacin HCl 500 mg tablet 500 mg PO BID #10 tabs 06/06/25 Unknown Rx (Cipro) Allergy/AdvReac Type Severity Reaction Status Date / Time grass pollen Allergy Chest Verified 06/06/25 08:13 tightness mold Allergy Chest Verified 06/06/25 08:13 tightness ragweed pollen Allergy Chest Verified 06/06/25 08:13 tightness shrimp Allergy Swelling Verified 06/06/25 08:13 Family History Father Lung disease Diabetes Mother Diabetes Brother Diabetes Surgical History History of repair of left rotator cuff Hx of vasectomy Hx of colonoscopy H/O repair of right rotator cuff H/O hernia repair History of tonsillectomy Social History household members: spouse current occupational status: employed current occupation: [employer] Smoking Status: Never smoker alcohol intake: never substance use type: does not use Review of Systems (Anesthesia) ROS Narrative System reviewed and no additional complaints, except as documented.
--- NOTE | 2025-06-06 10:00 | PROS_PTH ---
PATIENT: LUIS GRAF LOC: MS3 U#:[id number] AGE/SX: 65/M ROOM: [id number] RE06/06/[address]: Dr. Chris Sanchez MD : 1960 BED: 1 DIS: 06/07/2025 SPEC #: [id number] RECD: 06/06/25 11:34 STATUS: MARY OLMSTEAD #: [id number] TOOTIE: 06/06/25 10:[address]: Chris Sanchez DEPT: SURGICAL PATHOLOGY RECD BY: Shorty Lopez ENTERED: 06/09/25 11:07 SP TYPE: TURP OTHR DR: Dr. Lbirado Carter, DO Tissues: A - Prostate, NOS Procedures: Surgery Specimen Level IV HEADER OPERATION: Cystoscopy, transurethral resection, prostate PRE-OP DIAGNOSIS: Benign prostatic hyperplasia with obstruction TISSUE SUBMITTED: A- Prostate tissue MICROSCOPIC DIAGNOSIS A. Prostate, BPH with obstruction, transurethral resection: * Benign prostatic hyperplasia. MICROSCOPIC DESCRIPTION Slides are reviewed. GROSS DESCRIPTION A. A. Received in formalin labeled with the patient's name and date of . Designated as prostate tissue is a 18.2 g, 6.6 x 5.0 x 1.2 cm aggregate of irregular, khan, rubbery and cauterized tissue fragments. Entirely submitted in 8 cassettes. NM [id number]
--- NOTE | 2025-06-06 10:50 | PCM.OPRPT ---
Operative Report (Standard) Operative Information Date of Procedure: 06/06/25 Pre-Operative Diagnosis: BPH with obstruction Post-Operative Diagnosis: The same Surgery/Procedure Performed: Transurethral section prostate access control specialist: No Type of Anesthesia: General RN Documented Start/Stop Times: Operation Date: 06/06/25 10:00 Case Time Into Pre-Op 06/06/25 07:41 Anesthesia Start 06/06/25 09:29 Into Room 06/06/25 09:29 Out of Pre-Op 06/06/25 09:29 Procedure Start 06/06/25 09:41 Procedure End 06/06/25 10:48 Procedure Start Time: 09:41 Procedure Stop Time: 10:48 Select all DRAINS/GRAFTS/IMPLANTS that apply: Drains Drain details: 22 [place] three-way Estimated Blood Loss: 10 cc I th Specimen collected: Yes Description of specimen(s) removed: Prostate tissue chips Description of surgery: In the preoperative setting I discussed with the patient how the surgery would be done with expect afterwards. We discussed how a prostate resection is done and we discussed the risk of the surgery including, bleeding, infection, retrograde ejaculation, changes with ejaculation or intercourse,. We discussed the possibility that the resection of the prostate may not alleviate his urinary symptoms. We discussed the small risk of developing scar tissue along the urethral channel and strictures. We also discussed the chance of the prostate could grow back and he may need further surgery or treatment in the future for prostate problems. Patient was taken back to the operating room, timeout procedure was performed, he was identified and marked and placed on the operating room table. He underwent general anesthesia. He was placed in dorsolithotomy position. Penis and testicles were prepped and draped in usual sterile fashion. Went into the bladder using the visual obturator with a resectoscope. Once inside the bladder identified the right and left ureteral orifice. I then identified the prostate and the anatomy of the prostate. I marked out the area of the sphincter and the verumontanum was identified. I then proceeded with the prostate resection first resected the median lobe. And then resected the right lobe of the prostate. Then to resect the left lobe of the prostate. I then resected the apical tissue of the prostate. This was a complete resection of all obstructive tissue to improve voiding and relieve obstruction. I then made sure that there was no injury to the sphincter or the verumontanum was still intact. At the end of the resection all the chips were Ellik out of the bladder. I then identified the left and right ureteral orifice and these were confirmed to be in good position and effluxing and not injured. The resectoscope was removed, a 22 [place] catheter was placed into the bladder on continuous irrigation. And the urine was fairly light pink color and draining normally. He was taken back to the PACU in good condition. Surgical Findings: Very large prostate resected nicely wide open Complications Complications: No Admit VTE Documentation VTE Present on Admission: No VTE Mechan Device Prophylaxis: SCD's VTE Pharm Prophylaxis ordered?: No
--- NOTE | 2025-06-06 11:00 | PCM.POST.ANE ---
Anesthesia: Postop Eval I Current Vital Signs Temperature: 97 F Pulse Rate: 69 Blood Pressure: 127/91 Respiratory Rate: 16 Pulse Ox: 96 Assessment Airway patent: Yes Spontaneous unlabored respirations: Yes nausea: No Vomiting: No Anesthesia Complication: No Fluid Hydration Crystalloid volume administer (ml): 600 Total IV fluid infused: 600 Progress Note Anesthesia document: Postop Eval 1 completed: Yes
[2025-06-06] MEDS: 0.9% Normal Saline (1000mL) 1,000 ML 125 ML IV ×2 (13:35→23:24)
--- NOTE | 2025-06-06 14:21 | POSTOPAN2_ITS ---
Anesthesia Postop Eval I Sum Postop Eval Completion status Anesthesia document: Postop Eval 1 completed: Yes Anesthesia Postop Eval I Summary Anesthesia Postop Eval I Summary: Anesthesia Postop Eval I: Assessment Summary Airway patent Yes 06/06/25 11:00 REFINING EQUIPMENT OPERATOR.JESSICAOBGlen Spontaneous unlabored Yes 06/06/25 11:00 JOAN respirations Mental status nausea No 06/06/25 11:00 REFINING EQUIPMENT OPERATOR.TERRENCE Vomiting No 06/06/25 11:00 JOAN Anesthesia Postop Eval I: Fluid Summary Crystalloid volume administer 600 06/06/25 11:00 REFINING EQUIPMENT OPERATOR.JESSICAOBGlen (ml) Colloids volume administered ( ml) Blood Product volume administered (ml) Total IV fluid infused 600 06/06/25 11:00 JOAN Anesthesia Postop Eval I: Summary Notes Anesthesia Complication No 06/06/25 11:00 JOAN Anesthesia Complication Comment: Post-operative progress note Anesthesia: Postop Eval II Evaluation Mental status: Awake and Calm Pain Level: 2 nausea: No Vomiting: No Complications Anesthesia Complication: No
[2025-06-07 05:53] VITALS: BP 119/63; PULSE 67; RESP 16; TEMP 36.5; O2SAT 95
[2025-06-07 07:19] LABS: Hematocrit 41.3 % (40-54); Hemoglobin 14.2 g/dL (13.0-16.5); Immature Granulocytes Count 0.050 X10^3/uL (0.0-0.0); Mean Corp Hgb Conc 34.4 g/dL (32-36); Mean Corpuscular Volume 85.5 fL (80-94); Mean Platelet Vol. 9.8 fl (6.2-12.0); NRBC Flagged by Analyzer 0 % (0-5); Platelet Count 213 K/mm3 (150-450); RBC Distribution Width CV 12.6 % (11.6-14.6); RBC Distribution Width SD 39.1 fl (35.1-43.9); Red Blood Count 4.83 M/mm3 (4.6-6.2); White Blood Count 11.9 K/mm3 (4.4-11.0)
[2025-06-07 07:38] LABS: Anion Gap 11 (5-15); BUN 17 mg/dL (4-19); BUN/Creat Ratio 19.0 RATIO (10-20); Calcium,Total 8.6 mg/dL (7.6-11.0); Carbon Dioxide 19.5 mmol/L (21.0-32.0); Chloride 105 mmol/L (98-108); Estimated Creatinine Clearance 84.37 ml/min (50-250); Glucose 112 mg/dL (70-99); Potassium 4.1 mmol/L (3.3-5.1)
[2025-06-07 08:00] VITALS: BP 111/73; PULSE 66; RESP 14; TEMP 36.6; O2SAT 96
--- NOTE | 2025-06-07 09:30 | PCM.DC.SUM ---
Providers Date of Admission: 06/06/25 Date of Discharge: 06/07/25 Primary Care Physician: Dr. Librado Carter DO Reason For Visit: Cysto,TUR,Prostate,[employer] Medications at Discharge Home Medications saw palm 160 mg-vit E 100 unit-selen 100 wwy-jvzy-zwrjru-pygeum tablet (Prostate Health) 2 tab PO DAILY 11/29/23 4 LIFE TRANSFER FACTOR CARDIO 2 ea PO BID 12/14/23 4 LIFE TRANSFER FACTOR LUNG 3 ea PO DAILY 12/14/23 4 LIFE TRANSFER FACTORY CLASSIC 3 ea PO DAILY 12/14/23 fexofenadine 180 mg tablet (Krystle Allergy) 180 mg PO DAILY 01/30/24 albuterol sulfate 2.5 mg/3 mL (0.083 %) solution for nebulization 2.5 mg (3 mL) inhalation Q6H PRN PRN COUGH/SOB #180 mL 02/05/25 ezetimibe 10 mg tablet 10 mg PO QDAY 02/05/25 tamsulosin 0.4 mg capsule 0.8 mg PO QHS 02/05/25 diazepam 2 mg tablet (Valium) 2 mg PO TID 3 days #10 tabs 03/06/25 dutasteride 0.5 mg capsule 0.5 mg PO DAILY 05/27/25 lisinopril 20 mg tablet 20 mg PO DAILY 05/27/25 ciprofloxacin HCl 500 mg tablet (Cipro) 500 mg PO BID #10 tabs 06/06/25 Hospital Course Operations TURP Weight / BMI Weight Weight: 85.6 kg Body Mass Index (BMI) 31.4 ABG / Lab / Microbiology Data 06/07/25 06:12 06/07/25 06:12 Laboratory: Laboratory Results - last 24 hr 06/07/25 06:12: WBC 11.9 H, RBC 4.83, Hgb 14.2, Hct 41.3, MCV 85.5, MCH 29.4, MCHC 34.4, RDW Std Deviation 39.1, RDW Coeff of Elizabeth 12.6, Plt Count 213, MPV 9.8, Immature Gran % (Auto) 0.400, Neut % (Auto) 75.5 H, Lymph % (Auto) 16.0 L, Harney % (Auto) 7.8, Eos % (Auto) 0.2, Baso % (Auto) 0.1, Absolute Neuts (auto) 9.0 H, Absolute Lymphs (auto) 1.90, Nucleated RBC % 0, Sodium 136, Potassium 4.1, Chloride 105, Carbon Dioxide 19.5 L, Anion Gap 11, BUN 17, Creatinine 0.89, Estim Creat Clear Calc 84.37, Est GFR (MDRD) Non-Af 96, BUN/Creatinine Ratio 19.0, Glucose 112 H, Calcium 8.6 D/C Instructions May resume sexual activity in: 4-6 weeks Call your doctor if you observe: Fever of 101 or Higher and Uncontrolled pain Suture Line Care: Avoid Pulling/Pushing and Avoid Pinching/Bending DC O2, CPAP, BIPAP Needs Home O2 Discharge instructions: No Please Follow Up With: Chris Sanchez MD When: call for appt, 2 weeks. Meaningful Use Info Meaningful Use Meaningful Use Diagnoses (Choose all that apply): None applicable Discharge Plan Admission Admit Date/Time: 06/06/25 07:45 Primary Reason for Your Visit: turp Attending Provider: Chris Sanchez Primary Care Provider: Librado Carter Instructions Patient Instructions: TURP, TURP Home Recovery, TURP Hospital Recovery Discharge Orders/Prescriptions Prescriptions: New ciprofloxacin HCl [Cipro] 500 mg tablet 500 mg PO BID Qty: 10 0RF Continued fexofenadine [Krystle Allergy] 180 mg tablet 180 mg PO DAILY Prostate Health 160-100-100 mg-unit-mcg tablet 2 tab PO DAILY tamsulosin 0.4 mg capsule 0.8 mg PO QHS ezetimibe 10 mg tablet 10 mg PO QDAY albuterol sulfate 2.5 mg /3 mL (0.083 %) solution for nebulization 2.5 mg inhalation Q6H PRN PRN (Reason: COUGH/SOB) Qty: 180 6RF 4 LIFE TRANSFER FACTOR CARDIO 2 ea PO BID 4 LIFE TRANSFER FACTOR LUNG 3 ea PO DAILY 4 LIFE TRANSFER FACTORY CLASSIC 3 ea PO DAILY lisinopril 20 mg tablet 20 mg PO DAILY dutasteride 0.5 mg capsule 0.5 mg PO DAILY diazepam [Valium] 2 mg tablet 2 mg PO TID 3 Days Qty: 10 0RF Discontinued sulfamethoxazole-trimethoprim 800-160 mg tablet 1 tab PO BID Other Ambulatory Orders: 12 Lead EKG (Routine) Timeframe: [id number] Location: None Selected Ordered By: Dr. Cristian Bustos Referrals / Follow Up: Librado Carter DO [Primary Care Provider] - Disposition Discharge Orders: Discharge Patient (Routine); Ordered 06/07/25 Ordered By: Dr. Chris Sanchez
[2025-06-07 12:40] VITALS: BP 146/96; PULSE 81; RESP 16; TEMP 36.6; O2SAT 96
== END 2025-06-07 12:57 | disposition home or self-care (01) ==
LOC: SDC 08:45 → MS3 08:45
PROVIDERS: Admitting Provider Urology; PCP Family Medicine; Referring Provider Urology; Visit Provider Urology
PROC: (CPT 52601; principal; 2025-06-06 09:50)
DX: N40.1 Benign prostatic hyperplasia with lower urinary tract symptoms (principal); E78.00 Pure hypercholesterolemia, unspecified; Z79.899 Other long term (current) drug therapy; I10 Essential (primary) hypertension; N13.8 Other obstructive and reflux uropathy; J45.909 Unspecified asthma, uncomplicated; K21.9 Gastro-esophageal reflux disease without esophagitis
CPT/HCPCS: 52601; 00914; 36415; 80048; 85025; 88305; 93005; 96361; 96365; 96366; 99221; G0378; J0744; J2405

== ENCOUNTER → 2025-06-19 | Outpatient (CLI) | payer BC, SELFPAY | END | disposition home or self-care (01) | LOC: LABSPEC 14:40 | PROVIDERS: PCP Family Medicine; Referring Provider Urology; Visit Provider Urology | DX: N39.0 Urinary tract infection, site not specified (principal) | CPT/HCPCS: 87086 ==

== ENCOUNTER → 2025-10-25 | Outpatient (CLI) | payer OTHER, SELFPAY ==
--- OUTSIDE RECORDS SUMMARY | 2025-10-25 09:08 | XMS RPT_ITS | CCD ---
Author Organization [facility] Care Team Providers Care Upholstery Bundler Name Role Phone Dr. Librado Carter Primary Care Provider Nasima PICKING MACHINE OPERATOR, PICKING MACHINE OPERATOR-C Geri Attending Provider [phone] Nasima PICKING MACHINE OPERATOR, PICKING MACHINE OPERATOR-C Geri Referring Provider Dr. Librado Carter Primary Care Provider Dr. Librado Carter Referring Provider Nasima PICKING MACHINE OPERATOR, PICKING MACHINE OPERATOR-C Geri Attending Provider Mckayla Pinzon Attending Provider Unavailable Dr. Joseph Macias Attending Provider Dr. Joseph Macias Other Provider Dr. Librado Carter Primary Care Provider Mckayla Pinzon Attending Provider Unavailable Dr. Librado Carter Referring Provider Dr. Joseph Macias Attending Provider Dr. Joseph Macias Other Provider [phone] Dr. Albert Hallman Attending Provider [phone] Nasima PICKING MACHINE OPERATOR, PICKING MACHINE OPERATOR-C Geri Referring Provider [phone] Nasima PICKING MACHINE OPERATOR, PICKING MACHINE OPERATOR-C Geri Other Provider Dr. Paulino Damon Attending Provider Dr. Librado Carter DO Primary Care Provider [phone] Dr. Librado Carter DO Referring Provider Nasima PICKING MACHINE OPERATOR-C, Geri Attending Provider Dr. Que Santiago MD Referring Provider [phone] Dr. Que Santiago MD Emergency Provider Emma FRANZ, Dr. Pavon Primary Care Provider [phone] Jack ZEPEDA, Dr. Grey Attending Provider Dr. Librado Carter DO Attending Provider Dr. Librado Carter DO Referring Provider Daniel ZEPEDA, Dr. Chris Torrez Admit Provider Daniel ZEPEDA, Dr. Chris Torrez Attending Provider [phone] Daniel ZEPEDA, Dr. Chris Torrez Referring Provider Dawna ZEPEDA, Dr. Sheehan Attending Provider Unavailab roberta Bustos MD, Dr. Foster Referring Provider Emma, Librado Primary Care Unavailable Emma, Librado Referring Unavailable Emma, Librado Attending Unavailable Daniel, Chris Torrez Referring Unavailable Daniel, Chris Torrez Attending Unavailable Emma, Librado Primary Care Unavailable Spittle, Jak Attending Unavailable Emma, Librado Primary Care Unavailable SpittleTetoJak Referring Unavailable Emma, Librado Primary Care Unavailable Santiago, Que Referring Unavailable Que Santiago Attending Unavailable Emma, Librado Primary Care Unavailable Emma, Librado Referring Unavailable Nasima PICKING MACHINE OPERATOR, Geri Attending Unavailable Aguila Toney Attending Unavailable Emma, Librado Primary Care Unavailable Cristian Bustos Referring Unavailable Daniel, Chris Torrez Referring Unavailable Daniel, Chris Torrez Attending Unavailable Daniel, Chris Torrez Admitting Unavailable Emma, Librado Primary Care Unavailable Allergies Allergy Classification Reported Allergen(s) Allergy Type Date of Onset Reaction(s) Facility (10 sources) Shrimp product; Translations: [shrimp] Allergy to substance 2 Swelling [facility] Comment on above: Also hives (2 sources) pre-anesthetic per pt report Allergy to substance 2 Other [facility] Work Phone: (4 sources) Seasonal Allergies: Uncoded; Translations: [Seasonal Allergies: Uncoded] Allergy to substance 4 Chest tightness [facility] Comment on above: runny nose (3 sources) Grass pollen; Translations: [grass pollen] Allergy to substance 5 Chest tightness [facility] (2 sources) Mold Extract Drug Allergy 5 Chest tightness [facility] (3 sources) Ragweed pollen; Translations: [ragweed pollen] Allergy to substance 5 Chest tightness [facility] (1 source) Mold Extract Drug Allergy 5 [facility] Repository Medications Current Medications Medication Drug Class(es) Dates Sig (Normalized) Sig (Original) 4 LIFE TRANSFER FACTOR CARDIO (7 sources) Start: 12-14-2023 4 LIFE TRANSFER FACTOR CARDIO Active 2 NMA PO TWICE A DAY December 14, 2023 1:00am Start: 12-14-2023 4 LIFE TRANSFE R FACTOR CARDIO Active 2 EACH PO TWICE A DAY December 14, 2023 1:00am Start: 12-14-2023 4 LIFE TRANSFE R FACTOR CARDIO Active 2 EACH PO TWICE A DAY December 14, 2023 12:00am 4 LIFE TRANSFER FACTOR LUNG (7 sources) Start: 12-14-2023 4 LIFE TRANSFE R FACTOR LUNG Active 3 NMA PO DAILY December 14, 2023 1:00am Start: 12-14-2023 4 LIFE TRANSFE R FACTOR LUNG Active 3 EACH PO DAILY December 14, 2023 1:00am Start: 12-14-2023 4 LIFE TRANSFE R FACTOR LUNG Active 3 EACH PO DAILY December 14, 2023 12:00am 4 LIFE TRANSFER FACTORY CLAS SIC (7 sources) Start: 12-14-2023 4 LIFE TRANSFE R FACTORY CLASSIC Active 3 NMA PO DAILY December 14, 2023 1:00am Start: 12-14-2023 4 LIFE TRANSFE R FACTORY CLASSIC Active 3 EACH PO DAILY December 14, 2023 1:00am Start: 12-14-2023 4 LIFE TRANSFE R FACTORY CLASSIC Active 3 EACH PO DAILY December 14, 2023 12:00am ciprofloxacin 500 mg oral tablet (2 sources) Quinolone Antimicrobial Start: 06-06-2025 take 1 tablet by mouth twice daily Ciprofloxacin Hcl (Cipro) 500 mg tablet Active 500 mg PO TWICE A DAY 10 June 06, 2025 12:00am diazePAM 2 mg oral tablet (3 sources) Benzodiazepine Start: 04-17-2025 take 1 tablet by mouth three times daily Diazepam (Valium) 2 mg tablet Active 2 mg PO THREE TIMES A DAY 10 3 0 March 06, 2025 12:00am Acute myofascial strain of lumbosacral region Strain of muscle, fascia and tendon of lower back, initial encounter diclofenac sodium 0.01 mg/mg topical gel (2 sources) Nonsteroidal Anti-inflammatory Drug Start: 07-20-2020 apply 2 g topically four times daily Diclofenac Sodium (Voltaren) 1 % gel Active 2 GM TOPICAL .QID 50 July 20, 2020 3:47pm apply to single knee, ankle, foot; for foot includes sole/toes/top of foot dutasteride 0.5 mg oral capsule (2 sources) 5-alpha Reductase Inhibitor Start: 05-27-2025 take 1 capsule by mouth once daily Dutasteride 0.5 mg capsule Active 0.5 mg PO DAILY May 27, 2025 12:00am ezetimibe 10 mg oral tablet (3 sources) Dietary Cholesterol Absorption Inhibitor Start: 02-05-2025 take [...] 2014 1:00am December 12, 2017 2:25pm lisinopril 20 mg oral tablet (20 sources) Angiotensin Converting Enzyme Inhibitor Start: 05-27-2025 take 1 tablet by mouth once daily Lisinopril 20 mg tablet Active 20 mg PO DAILY May 27, 2025 12:00am Start: 12-13-2018 End: 05-27-2025 take 1 tablet by mouth once daily Lisinopril 10 MG tablet Discontinued 10 mg PO DAILY December 13, 2018 1:00am May 27, 2025 9:18am Start: 10-18-2014 End: 12-12-2017 take 1 tablet by mouth once daily Lisinopril 5 MG tablet Discontinued 5 mg PO DAILY October 18, 2014 1:00am December 12, 2017 2:27pm Saw-Vit E-Sod Qtv-Mwe-Rrlc-P yg (Prostate Health) 160-100-100 mg-unit-mcg tablet (7 sources) Start: 11-29-2023 Saw-Vit E-Sod Gsj-Osv-Onab-Pyg (Prostate Health) 160-100-100 mg-unit-mcg tablet Active 2 {tbl} PO DAILY November 29, 2023 1:00am Start: 11-29-2023 Saw-Vit E-Sod Vms-Jqg-Kauq-Pyg (Prostate Health) 160-100-100 mg-unit-mcg tablet Active 2 {tbl} PO .QD November 29, 2023 1:00am Start: 11-29-2023 take 2 tablets by [facility] daily Saw-Vit E-Sod Xzg-Yfg-Hhmx-Pyg (Prostate Health) 160-100-100 mg-unit-mcg tablet Active 2 TABLET PO .QD November 29, 2023 1:00am Start: 11-29-2023 take 2 tablets by [facility] daily Saw-Vit E-Sod Swg-Dqh-Lxta-Pyg (Prostate Health) 160-100-100 mg-unit-mcg tablet Active 2 TABLET PO .QD November 29, 2023 12:00am tamsulosin hydrochloride 0.4 mg oral capsule (3 sources) alpha-Adrenergic Marcial Start: 02-05-2025 take 2 capsules by mouth at bedtime Tamsulosin 0.4 mg capsule Active 0.8 mg PO AT BEDTIME February 05, 2025 12:00am Completed/Discontinued Medications Medication Drug Class(es) Dates Sig (Normalized) Sig (Original) acetaminophen 325 mg / HYDROcodone bitartrate 5 mg oral tablet (3 sources) Opioid Agonist Start: 03-06-2025 End: 05-27-2025 Hydrocodone-Acetami nophen 5-325 mg tablet Discontinued 1 {tbl} PO EVERY 6 HOURS NEEDED as needed for Pain 10 3 0 March 06, 2025 May 27, 2025 9:18am Acute myofascial strain of lumbosacral region Strain of muscle, fascia and tendon of lower back, initial encounter acetaminophen 325 mg / oxyCODONE hydrochloride 5 mg oral tablet (18 sources) Opioid Agonist Start: 03-27-2018 End: 04-09-2018 Oxycodone-Acetamino phen 1 TABLET tablet Discontinued 1 - 2 {tbl} PO EVERY 4 HOURS NEEDED as needed for Pain 60 March 27, 2018 12:00am April 09, 2018 9:11am Tear of right rotator cuff Start: 03-27-2018 End: 04-09-2018 take 1 tablet [...] 27, 2014 1:00am February 28, 2018 8:27am [id number] 200 actuat albuterol 0.09 mg/actuat metered dose inhaler (20 sources) beta2-Adrenergic Agonist Start: 07-10-2019 End: 07-10-2019 Albuterol Sulfate 90 mcg/actuation HFA aerosol inhaler Discontinued 2 NMA INHALATION Q4H as needed for shortness of breath or wheezing 1 3 July 10, 2019 12:00am July 10, 2019 2:37pm Unspecified asthma, uncomplicated Other disorders of lung Start: 07-10-2019 End: 07-10-2019 take 1 puff(s) [...] for shortness of breath or wheezing 180 3 March 19, 2019 12:00am July 10, 2019 2:37pm Start: 12-13-2018 End: 02-05-2025 take 2.5 mg by inhalation every six hours as needed for cough Albuterol Sulfate 2.5 mg /3 mL (0.083 %) solution for nebulization Discontinued 2.5 mg INHALATION EVERY 6 HOURS NEEDED as needed for COUGH/SOB 180 6 March 31, 2022 1:06pm February 05, 2025 9:11am Start: 12-13-2017 End: [...] needed for shortness of breath or wheezing 90 1 December 13, 2017 1:00am January 09, 2018 11:01am 120 actuat budesonide 0.16 mg/actuat / formoterol fumarate 0.0045 mg/actuat metered dose inhaler (9 sources) Corticosteroid, beta2-Adrenergic Agonist Start: 08-28-2020 End: 03-31-2021 Budesonide-Formoterol (Symbicort) 160-4.5 mcg/actuation HFA aerosol inhaler Discontinued 2 NMA INHALATION TWICE A DAY 1 August 28, 2020 12:00am March 31, 2021 2:24pm administer with spacer, rinse mouth after each use Start: 08-28-2020 End: 03-31-2021 take 1 puff(s) by mouth twice daily Budesonide-Formoterol (Symbicort) 160-4.5 mcg/actuation HFA aerosol inhaler Discontinued 2 PUFF INHALATION TWICE A DAY August 28, 2020 12:00am March 31, 2021 2:24pm administer with spacer, rinse mouth after each use cephalexin 500 mg oral capsule (9 sources) Cephalosporin Antibacterial Start: 07-08-2020 End: 07-20-2020 take 1 capsule by mouth three times daily Cephalexin 500 mg capsule Discontinued 500 mg PO THREE TIMES A DAY 30 0 July 08, 2020 12:00am July 20, 2020 3:41pm cetirizine hydrochloride 10 mg oral tablet (9 sources) Histamine-1 Receptor Antagonist Start: 03-31-2021 End: 03-31-2022 take 1 tablet by mouth once daily as needed Cetirizine (24hour Allergy) 10 mg tablet Discontinued 10 mg PO DAILY as needed March 31, 2021 12:00am March 31, 2022 1:07pm docusate sodium 100 mg oral capsule (9 sources) Start: 03-27-2018 End: 09-04-2018 take 1 capsule by mouth twice daily as needed for constipation Docusate Sodium 100 MG capsule Discontinued 100 mg PO TWICE DAILY NEEDED as needed for Constipation 10 March 27, 2018 12:00am September 04, 2018 8:46am doxycycline hyclate 100 mg oral capsule (9 sources) Tetracycline-class Drug Start: 07-17-2020 End: 07-27-2020 take 1 capsule by mouth twice daily Doxycycline Hyclate 100 mg capsule Discontinued 100 mg PO TWICE A DAY 20 10 July 17, 2020 12:00am July 26, 2020 12:00am July 27, 2020 12:02am Acute sinusitis, unspecified Fluticasone Furoate (20 sources) Corticosteroid Start: 09-26-2022 End: 09-28-2023 take 200 ug by inhalation once daily Fluticasone Furoate (Arnuity Ellipta) 200 mcg/actuation blister with device Discontinued 1 NMA INHALATION DAILY 3 September 26, 2022 11:19am September 28, 2023 [...] with device Discontinued 1 INH INHALATION DAILY 3 September 26, 2022 11:19am September 28, 2023 [...] with device Discontinued 1 NMA INHALATION DAILY 3 March 31, 2022 1:06pm September 26, 2022 [...] with device Discontinued 1 NMA INHALATION DAILY 3 February 09, 2022 3:04pm March 31, 2022 1:08pm Start: 02-09-2022 End: 03-31-2022 take 200 ug by inhalation once daily Fluticasone Furoate (Arnuity Ellipta) 200 mcg/actuation blister with device Discontinued 1 NMA INHALATION DAILY 3 February 09, 2022 3:04pm March 31, 2022 [...] with device Discontinued 1 NMA INHALATION DAILY 3 March 31, 2021 12:00am February 09, 2022 3:04pm Start: 03-31-2020 End: 03-31-2022 Fluticasone Furoate 200 mcg/actuation blister with device Discontinued 1 NMA INHALATION DAILY 30 March 31, 2020 7:59am March 31, 2022 1:06pm Start: 03-31-2020 End: 03-31-2022 Fluticasone Furoate 200 [...] with device Discontinued 200 ug INHALATION DAILY 19 05November 08, 2019 10:46am November 08, 2019 10:53am [...] with device Discontinued 200 ug INHALATION DAILY 19 05April 16, 2019 10:54am November 08, 2019 10:47am [...] with device Discontinued 1 NMA INHALATION daily 19 05August 21, 2018 10:10am September 18, 2018 8:12am [...] with device Discontinued 1 NMA INHALATION daily 19 05January 09, 2018 1:00am August 21, 2018 10:10am [...] day magnesium oxide 500 mg oral capsule (9 sources) Start: 03-05-2019 End: 04-06-2020 Magnesium Oxide 500 MG capsu le Discontinued 250 mg PO DAILY March 05, 2019 12:00am April 06, 2020 9:33am Start: 03-05-2019 End: 04-06-2020 take 250 mg by mouth once daily Magnesium Oxide Discontinued 250 MG PO DAILY March 05, 2019 12:00am April 06, 2020 9:33am meloxicam 15 mg oral tablet (9 sources) Nonsteroidal Anti-inflammatory Drug Start: 09-11-2019 End: 03-18-2020 take 1 tablet by mouth once daily Meloxicam (Mobic) 15 mg tablet Discontinued 15 mg PO DAILY 19 12September 11, 2019 12:00am March 18, 2020 8:17am [...] 8:48am oxyCODONE hydrochloride 5 mg oral tablet (9 sources) Opioid Agonist Start: 03-24-2020 End: 05-04-2020 take 1-2 tablets by mouth every four hours as needed for pain Oxycodone 5 MG tablet Discontinued 5 mg PO EVERY 4 HOURS NEEDED as needed for Pain Score 4-10/10 30 0 March 24, 2020 May 04, 2020 8:03am Other acute postprocedural pain 1-2 tabs by mouth every 4 hrs as needed for pain predniSONE 20 mg oral tablet (18 sources) Start: 03-31-2022 End: 09-26-2022 take 3 [...] 8:04am promethazine hydrochloride 25 mg oral tablet (9 sources) Phenothiazine Start: 03-27-2018 End: 04-09-2018 take 1 tablet by mouth every four hours as needed for nausea Promethazine 25 MG tablet Discontinued 25 mg PO EVERY 4 HOURS NEEDED as needed for Nausea 10 March 27, 2018 12:00am April 09, 2018 9:11am Prostate Plus (9 sources) Start: 03-19-2020 End: 04-06-2020 take 3 [...] red yeast rice 600 mg oral capsule (9 sources) Start: 03-05-2019 End: 04-06-2020 take 1 capsule by mouth once daily Red Yeast Rice 600 MG capsule Discontinued 1200 mg PO DAILY March 05, 2019 12:00am April 06, 2020 9:34am Start: 03-05-2019 End: 04-06-2020 take 1200 mg by mouth once daily Red Yeast Rice Discontinued 1200 MG PO DAILY March 05, 2019 12:00am April 06, 2020 9:34am Saw-Vit E-Sod Rkn-Wjg-Jajr-P yg (6 sources) Start: 03-05-2019 End: 07-09-2019 Saw-Vit E-Sod Vqv-Czz-Mwmt-P yg Discontinued 1 EACH PO DAILY March 05, 2019 9:14am July 09, 2019 7:12am Start: 03-05-2019 End: 07-09-2019 Saw-Vit E-Sod Qyq-Moc-Tgnq-P yg Discontinued 1 EACH PO DAILY March 04, 2019 11:00pm July 09, 2019 6:12am Start: 03-05-2019 End: 07-09-2019 Saw-Vit E-Sod Kvf-Dcq-Djzy-P yg Discontinued 1 EACH PO DAILY March 05, 2019 12:00am July 09, 2019 7:12am Saw-Vit E-Sod Zho-Yve-Sxyp-Pyg 1 EACH tablet (3 sources) Start: 03-05-2019 End: 07-09-2019 take 1 tablet by mouth once daily Saw-Vit E-Sod Ueg-Act-Tlej-Pyg 1 EACH tablet Discontinued 1 NMA PO DAILY March 05, 2019 12:00am July 09, 2019 7:12am sulfamethoxazole 800 mg / trimethoprim 160 mg oral tablet (2 sources) Dihydrofolate Reductase Inhibitor Antibacterial, Sulfonamide Antimicrobial Start: 05-27-2025 End: 06-06-2025 Sulfamethoxazole-Tr imethoprim 800-160 mg tablet Discontinued 1 {tbl} PO TWICE A DAY May 27, 2025 12:00am June 06, 2025 7:45am triamcinolone acetonide 40 mg/ml injectable suspension (1 source) Corticosteroid Start: 10-24-2018 End: 10-24-2018 inject 60 mg by intramuscular injection once Kenalog (triamcinolone acetonide) 40 mg/mL suspension for injection Discontinued 60 MG IM ONCE 1.5 October 24, 2018 3:15pm October 24, 2018 3:51pm Problems Problem Classification Problem Date Documented Date Episodic/Chronic Asthma (20 sources) Exacerbation of asthma; Translations: [Unspecified asthma with (acute) exacerbation] Onset: 5 Chronic Coronary atherosclerosis and other heart disease (9 sources) Old myocardial infarction; Translations: [Old myocardial infarction] 12-24-2019 Chronic Disorders of teeth and jaw (18 sources) Temporomandibular joint disorder; Translations: [Unspecified temporomandibular joint disorder, unspecified side] 12-24-2019 Episodic Hyperplasia of prostate (1 source) Benign prostatic hyperplasia with lower urinary tract symptoms; Translations: [Benign prostatic hyperplasia with lower urinary tract symptoms] Onset: 5 Chronic Nonspecific chest pain (9 sources) Chest pain; Translations: [Chest pain, unspecified] 12-24-2019 Episodic Open wounds of extremities (9 sources) Puncture wound of index finger of left hand; Translations: [Puncture wound without foreign body of left index finger without damage to nail, initial encounter] 07-17-2020 Episodic Other circulatory disease (3 sources) Elevated blood-pressure reading without diagnosis of hypertension; Translations: [Elevated blood-pressure reading, without diagnosis of hypertension] 03-06-2025 Episodic Other lower respiratory disease (9 sources) Dyspnea; Translations: [Shortness of breath] 03-27-2018 Episodic Other lower respiratory disease (9 sources) Nodule of lung; Translations: [Solitary pulmonary nodule] 03-27-2018 Episodic Other lower respiratory disease (9 sources) Restrictive lung disease; Translations: [Other disorders of lung] 03-27-2018 Episodic Other nutritional; endocrine; and metabolic disorders (3 sources) Body mass index 30+ - obesity; Translations: [Body mass index (BMI) 31.0-31.9, adult] 03-06-2025 Chronic Other nutritional; endocrine; and metabolic disorders (4 sources) Obesity; Translations: [Obesity, unspecified] 02-05-2025 Chronic [...] conditions (not mental disorders or infectious disease) (11 sources) Patient encounter status; Translations: [Encounter for screening for malignant neoplasm of colon] 11-29-2023 Episodic Pulmonary heart disease (9 sources) Pulmonary hypertension; Translations: [Pulmonary hypertension, unspecified] 03-27-2018 Chronic Residual codes; unclassified (10 sources) Obstructive sleep apnea syndrome; Translations: [Obstructive sleep apnea (adult) (pediatric)] 09-28-2023 Chronic Comment on above: AutoPap 5-14 cmH2O Residual codes; unclassified (7 sources) Obstructive sleep apnea (adult) (pediatric); Translations: [Obstructive sleep apnea (adult)(pediatric)] Onset: 5 Chronic Residual codes; unclassified (9 sources) History of hernia repair; Translations: [Other specified postprocedural states] 12-24-2019 Episodic Skin and subcutaneous tissue infections (9 sources) Cellulitis of finger; Translations: [Cellulitis of left finger] 07-17-2020 Episodic Sprains and strains (3 sources) Lower back injury; Translations: [Strain of muscle, fascia and tendon of lower back, initial encounter] 03-06-2025 Episodic Unclassified (1 source) Low back pain, unspecified; Translations: [Low back pain, unspecified] Onset: 5 Unclassified (1 source) Obesity, class 1; Translations: [Obesity, class 1] Onset: 5 Urinary tract infections (1 source) Urinary tract infection, site not specified; Translations: [Urinary tract infection, site not specified] Onset: 5 Episodic Results Test Name Value Interpretation Reference Range Facility Urine Cultureon 06-20-2025 URC Culture exhibits no growth. Normal [facility] Comment on above: Performed By: #### L 100.0100, L500.2500 #### [facility] [address] [facility] [place], [address] Urine cultureOrdered By: Surendra Sanchez on 06-19-2025 Bacteria identified Cx Nom (U) Culture exhibits no growth. [facility] Basic Metabolic Profile (BMP )on 06-09-2025 BUN Normal - [facility] Comment on above: Result Comment: Canc elled via OM: Order cancelled - Patient discharged Performed By: #### L 100.0100, L500.2500 #### [facility] [address] [place], [address] BUN/CRE Normal 10-20 [facility] Comment on above: Result Comment: Canc elled via OM: Order cancelled - Patient discharged Performed By: #### L 100.0100, L500.2500 #### [facility] [address] [place], [address] Calcium Normal 7.6-11.0 [facility] Comment on above: Result Comment: Canc elled via OM: Order cancelled - Patient discharged Performed By: #### L 100.0100, L500.2500 #### [facility] [address] [place], [address] CL Normal 98-108 [facility] Comment on above: Result Comment: Canc elled via OM: Order cancelled - Patient discharged Performed By: #### L 100.0100, L500.2500 #### [facility] [address] [place], [address] CO2 Normal 21.0-32.0 [facility] Comment on above: Result Comment: Canc elled via OM: Order cancelled - Patient discharged Performed By: #### L 100.0100, L500.2500 #### [facility] [address] [place], [address] CREAT,SERUM Normal 0.70-1.20 [facility] Comment on above: Result Comment: Canc elled via OM: Order cancelled - Patient discharged Performed By: #### L 100.0100, L500.2500 #### [facility] [address] [place], [address] eGFR Normal >60 [facility] Comment on above: Result Comment: Canc elled via OM: Order cancelled - Patient discharged Performed By: #### L 100.0100, L500.2500 #### [facility] [address] [place], [address] GAP Normal 5-15 [facility] Comment on above: Result Comment: Canc elled via OM: Order cancelled - Patient discharged Performed By: #### L 100.0100, L500.2500 #### [facility] [address] [place], [address] GLU Normal 70-99 [facility] Comment on above: Result Comment: Canc elled via OM: Order cancelled - Patient discharged Performed By: #### L 100.0100, L500.2500 #### [facility] [address] [place], [address] Potassium Normal 3.3-5.1 [facility] Comment on above: Result Comment: Canc elled via OM: Order cancelled - Patient discharged Performed By: #### L 100.0100, L500.2500 #### [facility] [address] [place], [address] Basic Metabolic Profile (BMP) Normal 133-145 [facility] Comment on above: Result Comment: Canc elled via OM: Order cancelled - Patient discharged Performed By: #### L 100.0100, L500.2500 #### [facility] [address] [place], [address] CBC W/Diff, Automatedon 07-2 Absolute Neut Normal 2.0-7.7 [facility] Comment on above: Result Comment: Canc elled via OM: Order cancelled - Patient discharged Performed By: #### L 100.0100, L500.2500 #### [facility] [address] [place], [address] HCT Normal 40-54 [facility] Comment on above: Result Comment: Canc elled via OM: Order cancelled - Patient discharged Performed By: #### L 100.0100, L500.2500 #### [facility] [address] [place], [address] HGB Normal 13.0-16.5 [facility] Comment on above: Result Comment: Canc elled via OM: Order cancelled - Patient discharged Performed By: #### L 100.0100, L500.2500 #### [facility] [address] [place], [address] MCH Normal 27.0-32.0 [facility] Comment on above: Result Comment: Canc elled via OM: Order cancelled - Patient discharged Performed By: #### L 100.0100, L500.2500 #### [facility] [address] [place], [address] MCHC Normal 32-36 [facility] Comment on above: Result Comment: Canc elled via OM: Order cancelled - Patient discharged Performed By: #### L 100.0100, L500.2500 #### [facility] [address] [place], [address] MCV Normal 80-94 [facility] Comment on above: Result Comment: Canc elled via OM: Order cancelled - Patient discharged Performed By: #### L 100.0100, L500.2500 #### [facility] [address] [place], [address] NEUT% Normal 47-70 [facility] Comment on above: Result Comment: Canc elled via OM: Order cancelled - Patient discharged Performed By: #### L 100.0100, L500.2500 #### [facility] [address] [place], [address] PLT Normal 150-450 [facility] Comment on above: Result Comment: Canc elled via OM: Order cancelled - Patient discharged Performed By: #### L 100.0100, L500.2500 #### [facility] [address] [place], [address] RBC Normal 4.6-6.2 [facility] Comment on above: Result Comment: Canc elled via OM: Order cancelled - Patient discharged Performed By: #### L 100.0100, L500.2500 #### [facility] [address] [place], [address] RDW CV Normal 11.6-14.6 [facility] Comment on above: Result Comment: Canc elled via OM: Order cancelled - Patient discharged Performed By: #### L 100.0100, L500.2500 #### [facility] [address] [place], [address] RDW SD Normal 35.1-43.9 [facility] Comment on above: Result Comment: Canc elled via OM: Order cancelled - Patient discharged Performed By: #### L 100.0100, L500.2500 #### [facility] [address] [place], [address] WBC Normal 4.4-11.0 [facility] Comment on above: Result Comment: Canc elled via OM: Order cancelled - Patient discharged Performed By: #### L 100.0100, L500.2500 #### [facility] [address] [place], [address] Basic Metabolic Profile (BMP )on 06-08-2025 BUN Normal 4-19 [facility] Comment on above: Result Comment: Canc elled via OM: Order cancelled - Patient discharged Performed By: #### L 500.2500, L100.0100 #### [facility] [address] [place], [address] BUN/CRE Normal 10-20 [facility] Comment on above: Result Comment: Canc elled via OM: Order cancelled - Patient discharged Performed By: #### L 500.2500, L100.0100 #### [facility] [address] [place], [address] Calcium Normal 7.6-11.0 [facility] Comment on above: Result Comment: Canc elled via OM: Order cancelled - Patient discharged Performed By: #### L 500.2500, L100.0100 #### [facility] [address] [place], [address] CL Normal 98-108 [facility] Comment on above: Result Comment: Canc elled via OM: Order cancelled - Patient discharged Performed By: #### L 500.2500, L100.0100 #### [facility] [address] [place], [address] CO2 Normal 21.0-32.0 [facility] Comment on above: Result Comment: Canc elled via OM: Order cancelled - Patient discharged Performed By: #### L 500.2500, L100.0100 #### [facility] [address] [place], [address] CREAT,SERUM Normal 0.70-1.20 [facility] Comment on above: Result Comment: Canc elled via OM: Order cancelled - Patient discharged Performed By: #### L 500.2500, L100.0100 #### [facility] [address] [place], [address] eGFR Normal >60 [facility] Comment on above: Result Comment: Canc elled via OM: Order cancelled - Patient discharged Performed By: #### L 500.2500, L100.0100 #### [facility] [address] [place], [address] GAP Normal 5-15 [facility] Comment on above: Result Comment: Canc elled via OM: Order cancelled - Patient discharged Performed By: #### L 500.2500, L100.0100 #### [facility] [address] [place], [address] GLU Normal 70-99 [facility] Comment on above: Result Comment: Canc elled via OM: Order cancelled - Patient discharged Performed By: #### L 500.2500, L100.0100 #### [facility] [address] [place], [address] Potassium Normal 3.3-5.1 [facility] Comment on above: Result Comment: Canc elled via OM: Order cancelled - Patient discharged Performed By: #### L 500.2500, L100.0100 #### [facility] [address] [place], [address] Basic Metabolic Profile (BMP) Normal 133-145 [facility] Comment on above: Result Comment: Canc elled via OM: Order cancelled - Patient discharged Performed By: #### L 500.2500, L100.0100 #### [facility] [address] [place], [address] CBC W/Diff, Automatedon 07-2 0-2024 Absolute Neut Normal 2.0-7.7 [facility] Comment on above: Result Comment: Canc elled via OM: Order cancelled - Patient discharged Performed By: #### L 500.2500, L100.0100 #### [facility] [address] [place], [address] HCT Normal 40-54 [facility] Comment on above: Result Comment: Canc elled via OM: Order cancelled - Patient discharged Performed By: #### L 500.2500, L100.0100 #### [facility] [address] [place], [address] HGB Normal 13.0-16.5 [facility] Comment on above: Result Comment: Canc elled via OM: Order cancelled - Patient discharged Performed By: #### L 500.2500, L100.0100 #### [facility] [address] [place], [address] MCH Normal 27.0-32.0 [facility] Comment on above: Result Comment: Canc elled via OM: Order cancelled - Patient discharged Performed By: #### L 500.2500, L100.0100 #### [facility] [address] [place], [address] MCHC Normal 32-36 [facility] Comment on above: Result Comment: Canc elled via OM: Order cancelled - Patient discharged Performed By: #### L 500.2500, L100.0100 #### [facility] [address] [place], [address] MCV Normal 80-94 [facility] Comment on above: Result Comment: Canc elled via OM: Order cancelled - Patient discharged Performed By: #### L 500.2500, L100.0100 #### [facility] [address] [place], [address] NEUT% Normal 47-70 [facility] Comment on above: Result Comment: Canc elled via OM: Order cancelled - Patient discharged Performed By: #### L 500.2500, L100.0100 #### [facility] [address] [place], [address] PLT Normal 150-450 [facility] Comment on above: Result Comment: Canc elled via OM: Order cancelled - Patient discharged Performed By: #### L 500.2500, L100.0100 #### [facility] [address] [place], [address] RBC Normal 4.6-6.2 [facility] Comment on above: Result Comment: Canc elled via OM: Order cancelled - Patient discharged Performed By: #### L 500.2500, L100.0100 #### [facility] [address] [place], [address] RDW CV Normal 11.6-14.6 [facility] Comment on above: Result Comment: Canc elled via OM: Order cancelled - Patient discharged Performed By: #### L 500.2500, L100.0100 #### [facility] [address] [place], [address] RDW SD Normal 35.1-43.9 [facility] Comment on above: Result Comment: Canc elled via OM: Order cancelled - Patient discharged Performed By: #### L 500.2500, L100.0100 #### [facility] [address] [place], [address] WBC Normal 4.4-11.0 [facility] Comment on above: Result Comment: Canc elled via OM: Order cancelled - Patient discharged Performed By: #### L 500.2500, L100.0100 #### [facility] [address] [place], [address] Absolute lymphocyte countOrd ered By: Chris Sanchez on 06-07-2025 Lymphocytes Auto (Unsp spec) [#/Vol] 1.90 10*3/uL 0.83-4.51 [facility] Absolute neutrophil countOrd ered By: Chris Sanchez on 06-07-2025 Neutrophils (Bld) [#/Vol] 9.0 10*3/uL High 2.0-7.7 [facility] Anion gap in Serum or Plasma Ordered By: Chris Sanchez on 06-07-2025 Anion gap [Moles/Vol] 11 mmol/L 5-15 [facility] Automated lymphocyte count a s percentage of total leukocytesOrdered By: Chris Sanchez on 06-07-2025 Lymphocytes/100 WBC Auto (Unsp spec) 16.0 % Low 19-41 [facility] BUN/creatinine ratioOrdered By: Chris Sanchez on 06-07-2025 Urea nitrogen/Creatinine [Mass ratio] 19.0 mg/mg 10-20 [facility] Basic Metabolic Profile (BMP )on 06-07-2025 BUN/CRE 19.0 RATIO Normal 10-20 [facility] Comment on above: Performed By: #### L 500.2500, L100.0100 #### [facility] [address] [place], [address] Calcium [Mass/Vol] 8.6 mg/dL Normal 7.6-11.0 [facility] Comment on above: Performed By: #### L 500.2500, L100.0100 #### [facility] [address] [place], [address] Chloride [Moles/Vol] 105 mmol/L Normal 98-108 [facility] Comment on above: Performed By: #### L 500.2500, L100.0100 #### [facility] [address] [place], [address] CO2 [Moles/Vol] 19.5 mmol/L Low 21.0-32.0 [facility] Comment on above: Performed By: #### L 500.2500, L100.0100 #### [facility] [address] [place], [address] Creatinine [Mass/Vol] 0.89 mg/dL Normal 0.70-1.20 [facility] Comment on above: Performed By: #### L 500.2500, L100.0100 #### [facility] [address] [place], [address] ECRCL 84.37 ml/min Normal 50-250 [facility] Comment on above: Performed By: #### L 500.2500, L100.0100 #### [facility] [address] [place], [address] GAP 11 Normal 5-15 [facility] Comment on above: Performed By: #### L 500.2500, L100.0100 #### [facility] [address] [place], [address] GFR/1.73 sq M.predicted among non-blacks MDRD (S/P/Bld) [Vol rate/Area] 96 mL/min/{1.73_m2} Normal >60 [facility] Comment on above: Result Comment: mL/m in/1.73m2 CKD-EPI Creatinine Equation (2020) Performed By: #### L 500.2500, L100.0100 #### [facility] [address] [place], [address] Glucose [Mass/Vol] 112 mg/dL High 70-99 [facility] Comment on above: Performed By: #### L 500.2500, L100.0100 #### [facility] [address] [place], [address] Potassium [Moles/Vol] 4.1 mmol/L Normal 3.3-5.1 [facility] Comment on above: Result Comment: Hemo lysis present, Results??could be affected. ?? Performed By: #### L 500.2500, L100.0100 #### [facility] [address] [place], [address] Sodium [Moles/Vol] 136 mmol/L Normal 133-145 [facility] Comment on above: Performed By: #### L 500.2500, L100.0100 #### [facility] [address] [place], [address] Urea nitrogen [Mass/Vol] 17 mg/dL Normal 4-19 [facility] Comment on above: Performed By: #### L 500.2500, L100.0100 #### [facility] [address] [place], [address] Basophil percentageOrdered B y: Chris Sanchez on 06-07-2025 Basophils/100 WBC (Bld) 0.1 % 0-1 [facility] CBC W/Diff, Automatedon 05-20 Absolute Lymph 1.90 X10 3/uL Normal 0.83-4.51 [facility] Comment on above: Performed By: #### L 500.2500, L100.0100 #### [facility] [address] [place], [address] Absolute Neut 9.0 X10 3/uL High 2.0-7.7 [facility] Comment on above: Performed By: #### L 500.2500, L100.0100 #### [facility] [address] [place], [address] Basophils/100 WBC (Bld) 0.1 % Normal 0-1 [facility] Comment on above: Performed By: #### L 500.2500, L100.0100 #### [facility] [address] [place], [address] Eosinophils/100 WBC (Bld) 0.2 % Normal 0-5 [facility] Comment on above: Performed By: #### L 500.2500, L100.0100 #### [facility] [address] [place], [address] Erythrocyte distribution width (RBC) [Ratio] 12.6 % Normal 11.6-14.6 [facility] Comment on above: Performed By: #### L 500.2500, L100.0100 #### [facility] [address] [place], [address] Hematocrit (Bld) [Volume fraction] 41.3 % Normal 40-54 [facility] Comment on above: Performed By: #### L 500.2500, L100.0100 #### [facility] [address] [place], [address] Hemoglobin (Bld) [Mass/Vol] 14.2 g/dL Normal 13.0-16.5 [facility] Comment on above: Performed By: #### L 500.2500, L100.0100 #### [facility] [address] [place], [address] IG% 0.400 Normal 0.0-0.9 [facility] Comment on above: Result Comment: IG% - Immature Granulocytes (promyelocytes, myelocytes and metamyelocytes) > 1% indicates that a LEFT SHIFT is Present. Performed By: #### L 500.2500, L100.0100 #### [facility] [address] [place], [address] Lymphocytes/100 WBC (Bld) 16.0 % Low 19-41 [facility] Comment on above: Performed By: #### L 500.2500, L100.0100 #### [facility] [address] [place], [address] MCH (RBC) [Entitic mass] 29.4 pg Normal 27.0-32.0 [facility] Comment on above: Performed By: #### L 500.2500, L100.0100 #### [facility] [address] [place], [address] MCHC (RBC) [Mass/Vol] 34.4 g/dL Normal 32-36 [facility] Comment on above: Performed By: #### L 500.2500, L100.0100 #### [facility] [address] [place], [address] MCV (RBC) [Entitic vol] 85.5 fL Normal 80-94 [facility] Comment on above: Performed By: #### L 500.2500, L100.0100 #### [facility] [address] [place], [address] Monocytes/100 WBC (Bld) 7.8 % Normal 0-10 [facility] Comment on above: Performed By: #### L 500.2500, L100.0100 #### [facility] [address] [place], [address] Neutrophils/100 WBC (Bld) 75.5 % High 47-70 [facility] Comment on above: Performed By: #### L 500.2500, L100.0100 #### [facility] [address] [place], [address] Nucleated RBC (Bld) [#/Vol] 0 10*3/uL Normal 0-5 [facility] Comment on above: Performed By: #### L 500.2500, L100.0100 #### [facility] [address] [place], [address] Platelet mean volume (Bld) [Entitic vol] 9.8 fL Normal 6.2-12.0 [facility] Comment on above: Performed By: #### L 500.2500, L100.0100 #### [facility] [address] [place], [address] Platelets (Bld) [#/Vol] 213 10*3/uL Normal 150-450 [facility] Comment on above: Performed By: #### L 500.2500, L100.0100 #### [facility] [address] [place], [address] RBC (Bld) [#/Vol] 4.83 10*6/uL Normal 4.6-6.2 [facility] Comment on above: Performed By: #### L 500.2500, L100.0100 #### [facility] [address] [place], [address] RDW SD 39.1 fl Normal 35.1-43.9 [facility] Comment on above: Performed By: #### L 500.2500, L100.0100 #### [facility] [address] [place], [address] WBC (Bld) [#/Vol] 11.9 10*3/uL High 4.4-11.0 [facility] Comment on above: Performed By: #### L 500.2500, L100.0100 #### [facility] [address] [place], [address] Carbon dioxide, total [Moles /volume] in Central venous bloodOrdered By: Chris Sanchez on 06-07-2025 CO2 [Moles/Vol] 19.5 mmol/L Low 21.0-32.0 [facility] Chloride assayOrdered By: Ashley Sanchez on 06-07-2025 Chloride [Moles/Vol] 105 mmol/L 98-108 [facility] Eosinophil percentageOrdered By: Chris Sanchez on 06-07-2025 Eosinophils/100 WBC (Bld) 0.2 % 0-5 [facility] Erythrocyte distribution wid th ratioOrdered By: Chris Sanchez on 06-07-2025 Erythrocyte distribution width (RBC) [Ratio] 12.6 % 11.6-14.6 [facility] Erythrocyte distribution wid th standard deviationOrdered By: Chris Sanchez on 06-07-2025 Erythrocyte distribution width (RBC) [Ratio] 39.1 fl 35.1-43.9 [facility] Glomerular filtration rate ( GFR) estimation/1.73 sq m using serum, plasma, or whole bOrdered By: Chris Sanchez on 06-07-2025 GFR/1.73 sq M.predicted among non-blacks MDRD (S/P/Bld) [Vol rate/Area] 96 mL/min/{1.73_m2} >60 [facility] Comment on above: mL/min/1.73m2 CKD-EP I Creatinine Equation (2020) Hematocrit Auto (Bld) [Volum e fraction]Ordered By: Chris Sanchez on 06-07-2025 Hematocrit (Bld) [Volume fraction] 41.3 % 40-54 [facility] Hemoglobin measurementOrdere d By: Chris Sanchez on 06-07-2025 Hemoglobin (Bld) [Mass/Vol] 14.2 g/dL 13.0-16.5 [facility] Immature granulocytes/100 WB C Auto (Bld)Ordered By: Chris Sanchez 06-07-2025 Immature granulocytes/100 WBC (Bld) 0.400 % 0.0-0.9 [facility] Comment on above: IG% - Immature Granu locytes (promyelocytes, myelocytes and metamyelocytes) > 1% indicates that a LEFT SHIFT is Present. MCV (mean corpuscular volume ) determinationOrdered By: Chris Sanchez on 06-07-2025 MCV (RBC) [Entitic vol] 85.5 fL 80-94 [facility] Mean corpuscular hemoglobin (MCH) determinationOrdered By: Chris Sanchez 06-07-2025 MCH (RBC) [Entitic mass] 29.4 pg 27.0-32.0 [facility] Mean corpuscular hemoglobin concentration (MCHC) determinationOrdered By: Chris Sanchez on 06-07-2025 MCHC (RBC) [Mass/Vol] 34.4 g/dL 32-36 [facility] Mean platelet volume determi nationOrdered By: Chris Sanchez on 06-07-2025 Platelet mean volume (Bld) [Entitic vol] 9.8 fL 6.2-12.0 [facility] Monocyte percentageOrdered B y: Chris Sanchez on 06-07-2025 Monocytes/100 WBC (Bld) 7.8 % 0-10 [facility] Neutrophil percentageOrdered By: Chris Sanchez on 06-07-2025 Neutrophils/100 WBC (Bld) 75.5 % High 47-70 [facility] Nucleated red blood cell per centageOrdered By: Chris Sanchez on 06-07-2025 Nucleated RBC/100 WBC (Bld) [Ratio] 0 % 0-5 [facility] Platelet countOrdered By: Ashley Sanchez on 06-07-2025 Platelets (Bld) [#/Vol] 213 10*3/uL 150-450 [facility] Potassium measurement (mass/ volume)Ordered By: Chris Sanchez on 06-07-2025 Potassium (Unsp spec) [Mass/Vol] 4.1 mmol/L 3.3-5.1 [facility] Comment on above: Hemolysis present, R esults could be affected. RBC Auto (Bld) [#/Vol]Ordere d By: Chris Sanchez on 06-07-2025 RBC (Bld) [#/Vol] 4.83 10*6/uL 4.6-6.2 [facility] Serum creatinine measurement (mass/volume)Ordered By: Chris Sanchez on 06-07-2025 Creatinine [Mass/Vol] 0.89 mg/dL 0.70-1.20 [facility] Serum glucose measurement (m ass/volume)Ordered By: Chris Sanchez on 06-07-2025 Glucose [Mass/Vol] 112 mg/dL High 70-99 [facility] Serum or plasma calcium francisco urement (mass/volume)Ordered By: Chris Sanchez on 06-07-2025 Calcium [Mass/Vol] 8.6 mg/dL 7.6-11.0 [facility] Serum or plasma urea nitroge n measurement (mass/volume)Ordered By: Chris Sanchez on 06-07-2025 Urea nitrogen [Mass/Vol] 17 mg/dL 4-19 [facility] Sodium levelOrdered By: Chris Sanchez on 06-07-2025 Sodium [Moles/Vol] 136 mmol/L 133-145 [facility] White blood cell (WBC) count Ordered By: Chris Sanchez on 06-07-2025 WBC (Bld) [#/Vol] 11.9 10*3/uL High 4.4-11.0 [facility] Discharge Instructionon 05-20 Discharge Instruction [facility] Medical Records Department [address] [place] [address] Instructions for Home/Discharge Instructions 06/06/25 0748 MR#: [id number] Acct: [id number] Name: LUIS GRAF Rep #: [id number] : 1960 65 From: Chris Sanchez MD PCP: Dr. Librado Carter, DO Status:REG SDC Discharge Instructions DC O2, CPAP, BIPAP needs Home O2 Discharge instructions: No Dressing / Incision Discharge Activity: Return to Normal Activity, No Restrictions and May Drive May resume sexual activity in: 4-6 weeks Dressing / Incision Call your doctor if you observe: Fever of 101 or Higher and Uncontrolled pain Suture Line Care: Avoid Pulling/Pushing and Avoid Pinching/Bending Follow Up Care Please Follow Up With: Chris Sanchez MD When: call for appt, 2 weeks. Test Results: Test results from this visit will be discussed in further detail at your follow-up appointment, if applicable. Discharge Plan Admission Primary Reason for Your Visit: turp Attending Provider: Chris Sanchez Primary Care Provider: Librado Carter Instructions Patient Instructions: TURP, TURP Home Recovery, TURP Hospital Recovery Print Language: Vietnamese Discharge Orders/Prescription s Prescriptions: New ciprofloxacin HCl [Cipro] 500 mg tablet 500 mg PO BID Qty: 10 0RF Continued fexofenadine [Krystle Allergy] 180 mg tablet 180 mg PO DAILY Prostate Health 160-100-100 mg-unit-mcg tablet 2 tab PO DAILY tamsulosin 0.4 mg capsule 0.8 mg PO QHS ezetimibe 10 mg tablet 10 mg PO QDAY albuterol sulfate 2.5 mg /3 mL (0.083 %) solution for nebulization 2.5 mg inhalation Q6H PRN PRN (Reason: COUGH/SOB) Qty: 180 6RF 4 LIFE TRANSFER FACTOR CARDIO 2 ea PO BID 4 LIFE TRANSFER FACTOR LUNG 3 ea PO DAILY 4 LIFE TRANSFER FACTORY CLASSIC 3 ea PO DAILY lisinopril 20 mg tablet 20 mg PO DAILY dutasteride 0.5 mg capsule 0.5 mg PO DAILY diazepam [Valium] 2 mg tablet 2 mg PO TID 3 Days Qty: 10 0RF Discontinued sulfamethoxazole-tr imethoprim 800-160 mg tablet 1 tab PO BID Other Ambulatory Orders: 12 Lead EKG (Routine) Timeframe: [id number] Location: None Selected Ordered By: Dr. Cristian Bustos Referrals / Follow Up: Librado Carter DO [Primary Care Provider] - Disposition Disposition (needs filled in before D/C Order can be placed): Home, Self Care 06/06/25 0748 Chris Sanchez MD CC: Dr. Librado Carter DO Signed [facility] MR/POSTOP.[facility] 06-06-2025 MR/POSTOP.[facility] Medical Records Department [address] [place] [address] Anesthesia Postop Eval I 06/06/25 1100 MR#: [id number] Acct: [id number] Name: LUIS GRAF Rep #: [id number] : 1960 65 From: Fifi Brandt CRNA PCP: Dr. Librado Carter DO Status:ADM QUENTIN Y Race: C Location: MS3 [id number] Anesthesia: Postop Eval I Current Vital Signs Temperature: 97 F Pulse Rate: 69 Blood Pressure: 127/91 Respiratory Rate: 16 Pulse Ox: 96 Assessment Airway patent: Yes Spontaneous unlabored respirations: Yes nausea: No Vomiting: No Anesthesia Complication: No Fluid Hydration Crystalloid volume administer (ml): 600 Total IV fluid infused: 600 Progress Note Anesthesia document: Postop Eval 1 completed: Yes 06/06/25 1101 Date Fifi Karly Benson Signature: Date CC: Signed Normal [facility] [id number] 06-06-2025 MR/POSTOPAN2 [facility] Medical Records Department [address] [place] [address] Anesthesia Postop Eval II 06/06/25 1421 MR#: [id number] Acct: [id number] Name: LUIS GRAF Rep #: [id number] : 1960 65 From: Maxime Coyle CRNA PCP: Dr. Librado Carter, DO Status:ADM QUENTIN Y Race: C Location: [place] [id number] Anesthesia Postop Eval I Sum Postop Eval Completion status Anesthesia document: Postop Eval 1 completed: Yes Anesthesia Postop Eval I Summary Anesthesia Postop Eval I Summary: Anesthesia Postop Eval I: Assessment Summary Airway patent Yes 06/06/25 11:00 [email or web address] Spontaneous unlabored Yes 06/06/25 11:00 JOAN respirations Mental status nausea No 06/06/25 11:00 JOAN Vomiting No 06/06/25 11:00 JOAN Anesthesia Postop Eval I: Fluid Summary Crystalloid volume administer 600 06/06/25 11:00 JOAN (ml) Colloids volume administered ( ml) Blood Product volume administered (ml) Total IV fluid infused 600 06/06/25 11:00 JOAN Anesthesia Postop Eval I: Summary Notes Anesthesia Complication No 06/06/25 11:00 JOAN Anesthesia Complication Comment: Post-operative progress note Anesthesia: Postop Eval II Evaluation Mental status: Awake and Calm Pain Level: 2 nausea: No Vomiting: No Complications Anesthesia Complication: No 06/06/25 142 Date Maxime Benson Signature: Date CC: Signed Normal [facility] Operative Reporton 5 Operative Report [facility] Medical Records Department [address] [place] [address] Operative Report 06/06/25 1050 MR#: [id number] Acct: [id number] Name: LUIS GRAF Rep #: [id number] : 1960 65 From: Chris Sanchez MD PCP: Dr. Librado Carter, DO Status:ADM QUENTIN Location: [place] [address] Operative Report (Standard) Operative Information Date of Procedure: 06/06/25 Pre-Operative Diagnosis: BPH with obstruction Post-Operative Diagnosis: The same Surgery/Procedure Performed: Transurethral section prostate auto porter: No Type of Anesthesia: General RN Documented Start/Stop Times: Operation Date: 06/06/25 10:00 Case Time Into Pre-Op 06/06/25 07:41 Anesthesia Start 06/06/25 09:29 Into Room 06/06/25 09:29 Out of Pre-Op 06/06/25 09:29 Procedure Start 06/06/25 09:41 Procedure End 06/06/25 10:48 Procedure Start Time: 09:41 Procedure Stop Time: 10:48 Select all DRAINS/GRAFTS/IMPLA NTS that apply: Drains Drain details: 22 Cymraes three-way Estimated Blood Loss: 10 cc I th Specimen collected: Yes Description of specimen(s) removed: Prostate tissue chips Description of surgery: In the preoperative setting I discussed with the patient how the surgery would be done with expect afterwards. We discussed how a prostate resection is done and we discussed the risk of the surgery including, bleeding, infection, retrograde ejaculation, changes with ejaculation or intercourse,. We discussed the possibility that the resection of the prostate may not alleviate his urinary symptoms. We discussed the small risk of developing scar tissue along the urethral channel and strictures. We also discussed the chance of the prostate could grow back and he may need further surgery or treatment in the future for prostate problems. Patient was taken back to the operating room, timeout procedure was performed, he was identified and marked and placed on the operating room table. He underwent general anesthesia. He was placed in dorsolithotomy position. Penis and testicles were prepped and draped in usual sterile fashion. Went into the bladder using the visual obturator with a resectoscope. Once inside the bladder identified the right and left ureteral orifice. I then identified the prostate and the anatomy of the prostate. I marked out the area of the sphincter and the verumontanum was identified. I then proceeded with the prostate resection first resected the median lobe. And then resected the right lobe of the prostate. Then to resect the left lobe of the prostate. I then resected the apical tissue of the prostate. This was a complete resection of all obstructive tissue to improve voiding and relieve obstruction. I then made sure that there was no injury to the sphincter or the verumontanum was still intact. At the end of the resection all the chips were Ellik out of the bladder. I then identified the left and right ureteral orifice and these were confirmed to be in good position and effluxing and not injured. The resectoscope was removed, a 22 Cymraes catheter was placed into the bladder on continuous irrigation. And the urine was fairly light pink color and draining normally. He was taken back to the PACU in good condition. Surgical Findings: Very large prostate resected nicely wide open Complications Complications: No Admit VTE Documentation VTE Present on Admission: No VTE Mechan Device Prophylaxis: SCD's VTE Pharm Prophylaxis ordered?: No 06/06/25 6228 Cosigner Signature (if applicable): CC: Dr. Chris Sanchez MD; Dr. Librado Carter DO Signed Normal [facility] Surgery Specimen Level Maciel 06-06-2025 Surgery Specimen Level IV Patient Age/Sex Location Account Attending Physician LUIS GRAF JEANINE 65/M MS3 [id number] Dr. Chris Sanchez MD Specimen: [id number] Received: 06/06/25 Status: MARY Chavez Num: [id number] Spec Type: TURP Subm Dr: Dr. Chris Sanchez MD HEADER OPERATION: Cystoscopy, transurethral resection, prostate PRE-OP DIAGNOSIS: Benign prostatic hyperplasia with obstruction TISSUE SUBMITTED: A- Prostate tissue MICROSCOPIC DIAGNOSIS A. Prostate, BPH with obstruction, transurethral resection: * Benign prostatic hyperplasia. MICROSCOPIC DESCRIPTION Slides are reviewed. GROSS DESCRIPTION A. A. Received in formalin labeled with the patient's name and date of . Designated as prostate tissue is a 18.2 g, 6.6 x 5.0 x 1.2 cm aggregate of irregular, khan, rubbery and cauterized tissue fragments. Entirely submitted in 8 cassettes. ID [id number] Patient Age/Sex Location Account Attending Physician LUIS GRAF 65/M MS3 [id number] Dr. Chris Sanchez MD Signed (signatur e on file) Dr. Rosie Almeida MD 06/11/25 1450 Normal [facility] Comment on above: Performed By: #### L 500.2500, L100.0100 #### [facility] [address] [place], [place], [address] /Mookie 06-05-2025 MR/YASSINE [facility] Medical Records Department [address] [place] [address] PAT - Anesthesia 06/05/25 1059 MR#: [id number] Acct: [id number] Name: LUIS GRAF Rep #: [id number] : 1960 65 From: Perfecto Woodward MD PCP: Dr. 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 When Was Last Pacemaker Check QUESTION #4 FULL TEXT: You/Your Family Experience fever (hyperthermia) with Anesthesia Last Oral Intake Last Oral intake: Last Oral Intake NPO since Meds taken in AM with sips of water? 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 Female No 05/27/25 09:21 HX of Motion Sickness No 05/27/25 09:21 HX of N/V After Surgery No 05/27/25 09:21 Non-Smoker Yes 05/27/25 09:21 Duration of Surgery greater Yes 05/27/25 09:21 than 60 minutes Number of Risk Factors 2 05/27/25 09:21 PONV Score Moderate Risk 05/27/25 09:21 Height Weight Height Weight: Anesthesia: Height Weight Height 5 ft 5 in 03/06/25 14:24 Respiratory Assessment Respiratory Assessment - forming process line worker: Respiratory Tract Infection Hx - forming process line worker Hx Respiratory Tract Infection No 05/27/25 09:21 STOP Sleep Apnea STOP Sleep Apnea - forming process line worker: STOP Sleep Apnea - forming process 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 Has anyone observed you stop breathing during sleep? STOP Results Positive 05/27/25 09:21 QUESTION #5 FULL TEXT : Do you snore loudly (louder than talking or can be heard through closed doors)? 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 Specify any problems Hx of Preganancy in last 3 N/A 05/27/25 09:21 Months Nurse Filling Out Transfusion [email or web address] 05/27/25 09:21 Questions: Date: 05/27/25 05/27/25 09:21 Time: 09:24 05/27/25 09:21 Patient unable to answer at this time (ie. 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 worker: /Reproduct hong Hx- forming process line worker Hx Now Gestational Age (in weeks): EDC: Hx Hx Para Hx Section SAB Active Medications Active Medications: Current Medications Generic Name Dose Route Start Last Admin Trade Name Freq PRN Reason Stop Dose Admin Cefazolin Sodium 2 gm/ Sodium 110 mls @ 200 mls/hr 06/06/25 09:05 Chloride IV 06/06/25 09:37 [facility] Medical History (Updated 05/27/25 @ 09:29 by German Jalloh) Wears hearing aid Loss of hearing Migraine headache Wears glasses Cancer Gout Prostate disease High [...] Medications ???Medication ???Instructions ???Recorded ???Last Taken ???Type saw palm 160 mg-vit E 100 2 tab PO DAILY 11/29/23 (more content not included)... Normal [facility] Absolute lymphocyte countOrd ered By: Librado Carter on 04-08-2025 Lymphocytes Auto (Unsp spec) [#/Vol] 2.65 10*3/uL 0.83-4.51 [facility] Absolute neutrophil countOrd ered By: Librado Carter on 04-08-2025 Neutrophils (Bld) [#/Vol] 2.5 10*3/uL 2.0-7.7 [facility] Anion gap in Serum or Plasma Ordered By: Librado Carter on 04-08-2025 Anion gap [Moles/Vol] 11 mmol/L 04-03 [facility] Automated lymphocyte count a s percentage of total leukocytesOrdered By: Librado Carter on 04-08-2025 Lymphocytes/100 WBC Auto (Unsp spec) 45.5 % High - [facility] BUN/creatinine ratioOrdered By: Librado Carter on 04-08-2025 Urea nitrogen/Creatinine [Mass ratio] 17.2 mg/mg 09-08 [facility] Basophil percentageOrdered B y: Librado Carter on 04-08-2025 Basophils/100 WBC (Bld) 0.3 % 0-1 [facility] Bilirubin, totalOrdered By: Librado Carter on 04-08-2025 Bilirubin [Mass/Vol] 0.78 mg/dL 0.00-1.30 [facility] CBC W/Diff, Automatedon 03-21 Absolute Lymph 2.65 X10 3/uL Normal 0.83-4.51 [facility] Comment on above: Performed By: #### L 500.4100, L501.9910, L500.4050, L100.0100 #### [facility] [address] [place], [address] Absolute Neut 2.5 X10 3/uL Normal 2.0-7.7 [facility] Comment on above: Performed By: #### L 500.4100, L501.9910, L500.4050, L100.0100 #### [facility] [address] [place], [address] Basophils/100 WBC (Bld) 0.3 % Normal 0-1 [facility] Comment on above: Performed By: #### L 500.4100, L501.9910, L500.4050, L100.0100 #### [facility] [address] [place], [address] Eosinophils/100 WBC (Bld) 2.4 % Normal 0-5 [facility] Comment on above: Performed By: #### L 500.4100, L501.9910, L500.4050, L100.0100 #### [facility] [address] [place], [address] Erythrocyte distribution width (RBC) [Ratio] 12.7 % Normal 11.6-14.6 [facility] Comment on above: Performed By: #### L 500.4100, L501.9910, L500.4050, L100.0100 #### [facility] [address] [place], [address] Hematocrit (Bld) [Volume fraction] 46.8 % Normal 40-54 [facility] Comment on above: Performed By: #### L 500.4100, L501.9910, L500.4050, L100.0100 #### [facility] [address] [place], [address] Hemoglobin (Bld) [Mass/Vol] 15.9 g/dL Normal 13.0-16.5 [facility] Comment on above: Performed By: #### L 500.4100, L501.9910, L500.4050, L100.0100 #### [facility] [address] [place], [address] IG% 0.200 Normal 0.0-0.9 [facility] Comment on above: Result Comment: IG% - Immature Granulocytes (promyelocytes, myelocytes and metamyelocytes) > 1% indicates that a LEFT SHIFT is Present. Performed By: #### L 500.4100, L501.9910, L500.4050, L100.0100 #### [facility] [address] [place], [address] Lymphocytes/100 WBC (Bld) 45.5 % High 19-41 [facility] Comment on above: Performed By: #### L 500.4100, L501.9910, L500.4050, L100.0100 #### [facility] [address] [place], [address] MCH (RBC) [Entitic mass] 29.3 pg Normal 27.0-32.0 [facility] Comment on above: Performed By: #### L 500.4100, L501.9910, L500.4050, L100.0100 #### [facility] [address] [place], [address] MCHC (RBC) [Mass/Vol] 34.0 g/dL Normal 32-36 [facility] Comment on above: Performed By: #### L 500.4100, L501.9910, L500.4050, L100.0100 #### [facility] [address] [place], [address] MCV (RBC) [Entitic vol] 86.3 fL Normal 80-94 [facility] Comment on above: Performed By: #### L 500.4100, L501.9910, L500.4050, L100.0100 #### [facility] [address] [place], [address] Monocytes/100 WBC (Bld) 8.9 % Normal 0-10 [facility] Comment on above: Performed By: #### L 500.4100, L501.9910, L500.4050, L100.0100 #### [facility] [address] [place], [address] Neutrophils/100 WBC (Bld) 42.7 % Low 47-70 [facility] Comment on above: Performed By: #### L 500.4100, L501.9910, L500.4050, L100.0100 #### [facility] [address] [place], [address] Nucleated RBC (Bld) [#/Vol] 0 10*3/uL Normal 0-5 [facility] Comment on above: Performed By: #### L 500.4100, L501.9910, L500.4050, L100.0100 #### [facility] [address] [place], [address] Platelet mean volume (Bld) [Entitic vol] 9.6 fL Normal 6.2-12.0 [facility] Comment on above: Performed By: #### L 500.4100, L501.9910, L500.4050, L100.0100 #### [facility] [address] [place], [address] Platelets (Bld) [#/Vol] 220 10*3/uL Normal 150-450 [facility] Comment on above: Performed By: #### L 500.4100, L501.9910, L500.4050, L100.0100 #### [facility] [address] [place], [address] RBC (Bld) [#/Vol] 5.42 10*6/uL Normal 4.6-6.2 [facility] Comment on above: Performed By: #### L 500.4100, L501.9910, L500.4050, L100.0100 #### [facility] [address] [place], [address] RDW SD 39.4 fl Normal 35.1-43.9 [facility] Comment on above: Performed By: #### L 500.4100, L501.9910, L500.4050, L100.0100 #### [facility] [address] [place], [address] WBC (Bld) [#/Vol] 5.8 10*3/uL Normal 4.4-11.0 [facility] Comment on above: Performed By: #### L 500.4100, L501.9910, L500.4050, L100.0100 #### [facility] [address] [place], [address] Calculated very low density lipoprotein (VLDL) cholesterol measurementOrdered By: Librado Carter on 04-08-2025 Calculated very low density lipoprotein (VLDL) cholesterol measurement 27 mg/dL 5-40 [facility] Carbon dioxide, total [Moles /volume] in Central venous bloodOrdered By: Librado Carter on 04-08-2025 CO2 [Moles/Vol] 24.3 mmol/L 21.0-32.0 [facility] Chloride assayOrdered By: Geeta Carter on 04-08-2025 Chloride [Moles/Vol] 106 mmol/L 98-108 [facility] Comprehensive Metabolic Prof ilon 04-08-2025 Albumin [Mass/Vol] 4.4 g/dL Normal 3.4-4.8 [facility] Comment on above: Performed By: #### L 500.4100, L501.9910, L500.4050, L100.0100 #### [facility] [address] [place], [address] Albumin/Globulin [Mass ratio] 1.6 {ratio} Normal 0.9-2.4 [facility] Comment on above: Performed By: #### L 500.4100, L501.9910, L500.4050, L100.0100 #### [facility] [address] [place], [address] ALK PHOS 81 U/L Normal 40-129 [facility] Comment on above: Performed By: #### L 500.4100, L501.9910, L500.4050, L100.0100 #### [facility] [address] [place], [address] ALT [Catalytic activity/Vol] 38 U/L Normal <=46 [facility] Comment on above: Performed By: #### L 500.4100, L501.9910, L500.4050, L100.0100 #### [facility] [address] [place], [address] AST [Catalytic activity/Vol] 32 U/L Normal <=37 [facility] Comment on above: Performed By: #### L 500.4100, L501.9910, L500.4050, L100.0100 #### [facility] [address] [place], [address] Bilirubin [Mass/Vol] 0.78 mg/dL Normal 0.00-1.30 [facility] Comment on above: Performed By: #### L 500.4100, L501.9910, L500.4050, L100.0100 #### [facility] [address] [place], [address] BUN/CRE 17.2 RATIO Normal 10-20 [facility] Comment on above: Performed By: #### L 500.4100, L501.9910, L500.4050, L100.0100 #### [facility] [address] [place], [address] Calcium [Mass/Vol] 9.4 mg/dL Normal 7.6-11.0 [facility] Comment on above: Performed By: #### L 500.4100, L501.9910, L500.4050, L100.0100 #### [facility] [address] [place], [address] Chloride [Moles/Vol] 106 mmol/L Normal 98-108 [facility] Comment on above: Performed By: #### L 500.4100, L501.9910, L500.4050, L100.0100 #### [facility] [address] [place], [address] CO2 [Moles/Vol] 24.3 mmol/L Normal 21.0-32.0 [facility] Comment on above: Performed By: #### L 500.4100, L501.9910, L500.4050, L100.0100 #### [facility] [address] [place], [address] Creatinine [Mass/Vol] 0.95 mg/dL Normal 0.70-1.20 [facility] Comment on above: Performed By: #### L 500.4100, L501.9910, L500.4050, L100.0100 #### [facility] [address] [place], [address] GAP 11 Normal 5-15 [facility] Comment on above: Performed By: #### L 500.4100, L501.9910, L500.4050, L100.0100 #### [facility] [address] [place], [address] GFR/1.73 sq M.predicted among non-blacks MDRD (S/P/Bld) [Vol rate/Area] 90 mL/min/{1.73_m2} Normal >60 [facility] Comment on above: Result Comment: mL/m in/1.73m2 CKD-EPI Creatinine Equation (2020) Performed By: #### L 500.4100, L501.9910, L500.4050, L100.0100 #### [facility] [address] [place], [address] Globulin (S) [Mass/Vol] 2.8 g/dL Normal 2.2-4.2 [facility] Comment on above: Performed By: #### L 500.4100, L501.9910, L500.4050, L100.0100 #### [facility] [address] [place], [address] Glucose [Mass/Vol] 84 mg/dL Normal 70-99 [facility] Comment on above: Performed By: #### L 500.4100, L501.9910, L500.4050, L100.0100 #### [facility] [address] [place], [address] Potassium [Moles/Vol] 4.3 mmol/L Normal 3.3-5.1 [facility] Comment on above: Performed By: #### L 500.4100, L501.9910, L500.4050, L100.0100 #### [facility] [address] [place], [address] Sodium [Moles/Vol] 142 mmol/L Normal 133-145 [facility] Comment on above: Performed By: #### L 500.4100, L501.9910, L500.4050, L100.0100 #### [facility] [address] [place], [address] T PROT 7.1 g/dL Normal 5.9-8.4 [facility] Comment on above: Performed By: #### L 500.4100, L501.9910, L500.4050, L100.0100 #### [facility] [address] [place], [address] Urea nitrogen [Mass/Vol] 16 mg/dL Normal 4-19 [facility] Comment on above: Performed By: #### L 500.4100, L501.9910, L500.4050, L100.0100 #### [facility] [place], [address] Eosinophil percentageOrdered By: Librado Carter on 04-08-2025 Eosinophils/100 WBC (Bld) 2.4 % 0-5 [facility] Erythrocyte distribution wid th ratioOrdered By: Librado Carter on 04-08-2025 Erythrocyte distribution width (RBC) [Ratio] 12.7 % 11.6-14.6 [facility] Erythrocyte distribution wid th standard deviationOrdered By: Librado Carter on 04-08-2025 Erythrocyte distribution width (RBC) [Ratio] 39.4 fl 35.1-43.9 [facility] Glomerular filtration rate ( GFR) estimation/1.73 sq m using serum, plasma, or whole bOrdered By: Librado Carter on 04-08-2025 GFR/1.73 sq M.predicted among non-blacks MDRD (S/P/Bld) [Vol rate/Area] 90 mL/min/{1.73_m2} >60 [facility] Comment on above: mL/min/1.73m2 CKD-EP I Creatinine Equation (2020) Hematocrit Auto (Bld) [Volum e fraction]Ordered By: Librado Carter on 04-08-2025 Hematocrit (Bld) [Volume fraction] 46.8 % 40-54 [facility] Hemoglobin measurementOrdere d By: Librado Carter on 04-08-2025 Hemoglobin (Bld) [Mass/Vol] 15.9 g/dL 13.0-16.5 [facility] Immature granulocytes/100 WB C Auto (Bld)Ordered By: Librado Carter on 04-08-2025 Immature granulocytes/100 WBC (Bld) 0.200 % 0.0-0.9 [facility] Comment on above: IG% - Immature Granu locytes (promyelocytes, myelocytes and metamyelocytes) > 1% indicates that a LEFT SHIFT is Present. LDL calc ser/plasOrdered By: Librado Carter on 04-08-2025 Cholesterol in LDL [Mass/Vol] 119 mg/dL [facility] Comment on above: Mdekpxlvhr=303-314 m g/dL & Higher Aoho=540 mg/dL or greater Laboratory - Chemistry and C hemistry - challengeOrdered By: Librado Carter on 04-08-2025 AST [Catalytic activity/Vol] 32 U/L <38 [facility] Lipid Profileon 04-08-2025 CHOL:HDL 4.49 Normal [facility] Comment on above: Performed By: #### L 500.4100, L501.9910, L500.4050, L100.0100 #### [facility] [address] [place], [address] Cholesterol [Mass/Vol] 188 mg/dL Normal <=200 [facility] Comment on above: Result Comment: Chol esterol level, Desirable <200 mg/dL Borderline high cholesterol 200-239 mg/dL High cholesterol >=240 mg/dL Recommendations of the NCEP Adult Treatment Panel for the following risk-cutoff thresholds for the [place] population. Performed By: #### L 500.4100, L501.9910, L500.4050, L100.0100 #### [facility] [address] [place], [address] Cholesterol in HDL [Mass/Vol] 42 mg/dL Normal [facility] Comment on above: Result Comment: Josefina onal Cholesterol Education Program (NCEP) guidelines: <40 mg/dL: Low HDL-cholesterol (major risk factor for CHD) >= 60 mg/dL: High HDL-cholesterol (negative risk factor for CHD) HDL-cholesterol is affected by a number of factors, e.g. smoking, exercise, hormones, sex and age. Performed By: #### L 500.4100, L501.9910, L500.4050, L100.0100 #### [facility] [address] [place], [address] Cholesterol in LDL [Mass/Vol] 119 mg/dL Normal [facility] Comment on above: Result Comment: Bord mfvsvr=071-261 mg/dL Higher Xysm=599 mg/dL or greater Performed By: #### L 500.4100, L501.9910, L500.4050, L100.0100 #### [facility] [address] [place], [address] Cholesterol in VLDL [Mass/Vol] 27 mg/dL Normal 5-40 [facility] Comment on above: Performed By: #### L 500.4100, L501.9910, L500.4050, L100.0100 #### [facility] [address] [place], [address] Triglyceride [Mass/Vol] 137 mg/dL Normal [facility] Comment on above: Result Comment: The drugs N-Acetylcysteine and Metamizole may falsely depress this assay. Normal range: <150 mg/dL Borderline High: 150-199 mg/dL High: 200-499 mg/dL Very High: >500 mg/dL Performed By: #### L 500.4100, L501.9910, L500.4050, L100.0100 #### [facility] [address] [place], [address] MCV (mean corpuscular volume ) determinationOrdered By: Librado Carter on 04-08-2025 MCV (RBC) [Entitic vol] 86.3 fL 80-94 [facility] Mean corpuscular hemoglobin (MCH) determinationOrdered By: Librado Carter on 04-08-2025 MCH (RBC) [Entitic mass] 29.3 pg 27.0-32.0 [facility] Mean corpuscular hemoglobin concentration (MCHC) determinationOrdered By: Librado Carter on 04-08-2025 MCHC (RBC) [Mass/Vol] 34.0 g/dL 32-36 [facility] Mean platelet volume determi nationOrdered By: Librado Carter on 04-08-2025 Platelet mean volume (Bld) [Entitic vol] 9.6 fL 6.2-12.0 [facility] Monocyte percentageOrdered B y: Librado Carter on 04-08-2025 Monocytes/100 WBC (Bld) 8.9 % 0-10 [facility] Neutrophil percentageOrdered By: Librado Carter on 04-08-2025 Neutrophils/100 WBC (Bld) 42.7 % Low 47-70 [facility] Nucleated red blood cell per centageOrdered By: Librado Carter on 04-08-2025 Nucleated RBC/100 WBC (Bld) [Ratio] 0 % 0-5 [facility] PSA,Total - Annual Screenon 04-08-2025 PSA,TOT SCREEN 10.60 ng/mL High 0.02-4.00 [facility] Comment on above: Result Comment: This [...] #### L 500.4100, L501.9910, L500.4050, L100.0100 #### [facility] [place], [address] Platelet countOrdered By: Geeta Carter on 04-08-2025 Platelets (Bld) [#/Vol] 220 10*3/uL 150-450 [facility] Potassium measurement (mass/ volume)Ordered By: Librado Carter on 04-08-2025 Potassium (Unsp spec) [Mass/Vol] 4.3 mmol/L 3.3-5.1 [facility] RBC Auto (Bld) [#/Vol]Ordere d By: Librado Carter on 04-08-2025 RBC (Bld) [#/Vol] 5.42 10*6/uL 4.6-6.2 [facility] Screening total cholesterol/ high density lipoprotein (HDL) cholesterol ratioOrdered By: Librado Carter on 04-08-2025 Cholesterol.total/Choles terol in HDL [Mass ratio] 4.49 {ratio} [facility] Serum creatinine measurement (mass/volume)Ordered By: Librado Carter on 04-08-2025 Creatinine [Mass/Vol] 0.95 mg/dL 0.70-1.20 [facility] Serum globulin measurementOr dered By: Librado Carter on 04-08-2025 Globulin (S) [Mass/Vol] 2.8 g/dL 2.2-4.2 [facility] Serum glucose measurement (m ass/volume)Ordered By: Librado Carter on 04-08-2025 Glucose [Mass/Vol] 84 mg/dL 70-99 [facility] Serum or plasma alanine dee otransferase (ALT) measurementOrdered By: Librado Carter on 04-08-2025 ALT [Catalytic activity/Vol] 38 U/L <47 [facility] Serum or plasma albumin francisco urement (mass/volume)Ordered By: Librado Carter on 04-08-2025 Albumin [Mass/Vol] 4.4 g/dL 3.4-4.8 [facility] Serum or plasma albumin/glob ulin mass ratioOrdered By: Librado Carter on 04-08-2025 Albumin/Globulin [Mass ratio] 1.6 {ratio} 0.9-2.4 [facility] Serum or plasma alkaline jeannie sphatase measurementOrdered By: Librado Carter on 04-08-2025 ALP [Catalytic activity/Vol] 81 U/L 40-129 [facility] Serum or plasma calcium francisco urement (mass/volume)Ordered By: Librado Carter on 04-08-2025 Calcium [Mass/Vol] 9.4 mg/dL 7.6-11.0 [facility] Serum or plasma cholesterol in HDL measurement (mass/volume)Ordered By: Librado Carter on 04-08-2025 Cholesterol in HDL [Mass/Vol] 42 mg/dL >40 [facility] Comment on above: National Cholesterol Education Program (NCEP) guidelines:<40 mg/dL: Low HDL-cholesterol (major risk factor for CHD)>= 60 mg/dL: High HDL-cholesterol (negative risk factor for CHD)HDL-cholesterol is affected by a number of factors, e.g. smoking, exercise, hormones, sex and age. Serum or plasma cholesterol measurement (mass/volume)Ordered By: Librado Carter on 04-08-2025 Cholesterol [Mass/Vol] 188 mg/dL <201 [facility] Comment on above: Cholesterol level, D esirable <200 mg/dLBorderline high cholesterol 200-239 mg/dLHigh cholesterol >=240 mg/dLRecommendations of the NCEP Adult Treatment Panel for the following risk-cutoff thresholds for the [place] population. Serum or plasma urea nitroge n measurement (mass/volume)Ordered By: Librado Carter on 04-08-2025 Urea nitrogen [Mass/Vol] 16 mg/dL 4-19 [facility] Sodium levelOrdered By: Librado Carter on 04-08-2025 Sodium [Moles/Vol] 142 mmol/L 133-145 [facility] Total proteinOrdered By: Jaquelin Carter on 04-08-2025 Protein [Mass/Vol] 7.1 g/dL 5.9-8.4 [facility] Triglycerides measurementOrd ered By: Librado Carter on 04-08-2025 Triglyceride [Mass/Vol] 137 mg/dL <199 [facility] Comment on above: The drugs N-Acetylcy steine and Metamizole may falsely depress this assay. Normal range: <150 mg/dLBorderline High: 150-199 mg/dLHigh: 200-499 mg/dLVery High: >500 mg/dL White blood cell (WBC) count Ordered By: Librado Carter on 04-08-2025 WBC (Bld) [#/Vol] 5.8 10*3/uL 4.4-11.0 [facility] Emergency Department Summary on 03-06-2025 Emergency Department Summary [facility] Medical Records Department [address] [place] [address] Emergency Department Summary 03/06/25 MR#: [id number] Acct: [id number] Name: LUIS GRAF Rep #: [id number] : 1960 65 From: Que Santiago MD PCP: Dr. Librado Carter, DO Status:REG ER Location: ED HPI History of Present Illness Chief Complaint: Back Detail of Chief Complaint: Bilateral lower back pain Informant: patient Onset/Context/[place] uribe Onset: Weeks (2.0) Context: Sudden Onset Injury: [...] recent procedure. Recent Illness/Hospitaliza tion: No PFSH PFS Medical History Wears glasses [...] 11/29/23 12/18/23 05: 15 History unit-selen 100 psn-rrui-nociqr-pyg eum tablet (Prostate Health) 4 LIFE TRANSFER [...] spouse current occupational status: employed current occupation: [employer] Smoking Status: Never smoker alcohol intake: never [...] Neurologic Ne (more content not included)... Normal [facility] Pulmonary Visit Reporton Pulmonary Visit Report [facility] [address] [place], [place] [id number] OFFICE VISIT Date of Service: 02/05/25 MR#: [id number] Acct: [id number] Name: LUIS GRAF Rep #: [id number] : 1960 Provider: RICK Del Real Age/Sex: 64/M Location: [facility] [place] [facility] [place] Status: Signed Assessment and Plan Assessment and [...] .QD 11/29/23 02/05/25 His tory unit-selen 100 cxv-ngai-ejgvsc-pyg eum tablet (Prostate Health) 4 LIFE TRANSFER [...] Hi s (more content not included)... Normal [facility] Basic Metabolic Profile (BMP )on 07-16-2024 BUN/CRE 25.5 RATIO High 10-20 [facility] Comment on above: Performed By: #### L 100.0100, L500.2500 #### [facility] [address] [facility] [address] CA,Total 9.2 mg/dL Normal 8.5-10.1 [facility] Comment on above: Performed By: #### L 100.0100, L500.2500 #### [facility] [address] [place], [address] Chloride [Moles/Vol] 106 mmol/L Normal 98-107 [facility] Comment on above: Performed By: #### L 100.0100, L500.2500 #### [facility] [address] [facility] [address] CO2 [Moles/Vol] 27.0 mmol/L Normal 21.0-32.0 [facility] Comment on above: Performed By: #### L 100.0100, L500.2500 #### [facility] [address] [facility] [address] Creatinine [Mass/Vol] 0.86 mg/dL Normal 0.70-1.30 [facility] Comment on above: Result Comment: The validity of the calculated GFR GFRAA in patients over 70 years has not been determined. Clinical correlation is essential. Performed By: #### L 100.0100, L500.2500 #### [facility] [address] [place], [address] EST GFR - AA 115 mL/min Normal >60 [facility] Comment on above: Result Comment: Afri can [place] GFR Calc Performed By: #### L 100.0100, L500.2500 #### [facility] [address] [place], [address] GAP 6 Normal 5-15 [facility] Comment on above: Performed By: #### L 100.0100, L500.2500 #### [facility] [address] [place], [address] GFR/1.73 sq M.predicted among non-blacks MDRD (S/P/Bld) [Vol rate/Area] 95 mL/min/{1.73_m2} Normal >60 [facility] Comment on above: Result Comment: Non- GFR Calc Performed By: #### L 100.0100, L500.2500 #### [facility] [address] [place] [place], [address] Glucose [Mass/Vol] 84 mg/dL Normal 74-106 [facility] Comment on above: Performed By: #### L 100.0100, L500.2500 #### [facility] [address] [place], [address] Potassium [Moles/Vol] 4.1 mmol/L Normal 3.5-5.1 [facility] Comment on above: Performed By: #### L 100.0100, L500.2500 #### [facility] [address] [place], [address] Sodium [Moles/Vol] 139 mmol/L Normal 136-145 [facility] Comment on above: Performed By: #### L 100.0100, L500.2500 #### [facility] [address] [place], [address] Urea nitrogen [Mass/Vol] 22 mg/dL High 7-18 [facility] Comment on above: Performed By: #### L 100.0100, L500.2500 #### [facility] [address] [place], [address] CBC W/Diff, Automatedon 08-2023 Absolute Lymph 2.21 X10 3/uL Normal 0.83-4.51 [facility] Comment on above: Performed By: #### L 100.0100, L500.2500 #### [facility] [address] [place], [address] Absolute Neut 2.8 X10 3/uL Normal 2.0-7.7 [facility] Comment on above: Performed By: #### L 100.0100, L500.2500 #### [facility] [address] [place], [address] Basophils/100 WBC (Bld) 0.4 % Normal 0-1 [facility] Comment on above: Performed By: #### L 100.0100, L500.2500 #### [facility] [address] [place], [address] Eosinophils/100 WBC (Bld) 2.0 % Normal 0-5 [facility] Comment on above: Performed By: #### L 100.0100, L500.2500 #### [facility] [address] [place], [address] Erythrocyte distribution width (RBC) [Ratio] 12.7 % Normal 11.6-14.6 [facility] Comment on above: Performed By: #### L 100.0100, L500.2500 #### [facility] [address] [place], [address] Hematocrit (Bld) [Volume fraction] 46.7 % Normal 40-54 [facility] Comment on above: Performed By: #### L 100.0100, L500.2500 #### [facility] [address] [place] [place], [address] Hemoglobin (Bld) [Mass/Vol] 15.4 g/dL Normal 13.0-16.5 [facility] Comment on above: Performed By: #### L 100.0100, L500.2500 #### [facility] [address] [place], [address] IG% 0.200 Normal 0.0-0.9 [facility] Comment on above: Result Comment: IG% - Immature Granulocytes (promyelocytes, myelocytes and metamyelocytes) > 1% indicates that a LEFT SHIFT is Present. Performed By: #### L 100.0100, L500.2500 #### [facility] [address] [facility] [place], [address] Lymphocytes/100 WBC (Bld) 39.2 % Normal 19-41 [facility] Comment on above: Performed By: #### L 100.0100, L500.2500 #### [facility] [address] [place] [place], [address] MCH (RBC) [Entitic mass] 28.6 pg Normal 27.0-32.0 [facility] Comment on above: Performed By: #### L 100.0100, L500.2500 #### [facility] [address] [place], [address] MCHC (RBC) [Mass/Vol] 33.0 g/dL Normal 32-36 [facility] Comment on above: Performed By: #### L 100.0100, L500.2500 #### [facility] [address] [place], [address] MCV (RBC) [Entitic vol] 86.6 fL Normal 80-94 [facility] Comment on above: Performed By: #### L 100.0100, L500.2500 #### [facility] [address] [place], [address] Monocytes/100 WBC (Bld) 9.6 % Normal 0-10 [facility] Comment on above: Performed By: #### L 100.0100, L500.2500 #### [facility] [address] [place], [address] Neutrophils/100 WBC (Bld) 48.6 % Normal 47-70 [facility] Comment on above: Performed By: #### L 100.0100, L500.2500 #### [facility] [address] [place], [address] Nucleated RBC (Bld) [#/Vol] 0 10*3/uL Normal 0-5 [facility] Comment on above: Performed By: #### L 100.0100, L500.2500 #### [facility] [address] [place], [address] Platelet mean volume (Bld) [Entitic vol] 10.1 fL Normal 6.2-12.0 [facility] Comment on above: Performed By: #### L 100.0100, L500.2500 #### [facility] [address] [place], [address] Platelets (Bld) [#/Vol] 219 10*3/uL Normal 150-450 [facility] Comment on above: Performed By: #### L 100.0100, L500.2500 #### [facility] [address] [place], [address] RBC (Bld) [#/Vol] 5.39 10*6/uL Normal 4.6-6.2 [facility] Comment on above: Performed By: #### L 100.0100, L500.2500 #### [facility] [address] [place], [address] RDW SD 39.8 fl Normal 35.1-43.9 [facility] Comment on above: Performed By: #### L 100.0100, L500.2500 #### [facility] [address] [place], [address] WBC (Bld) [#/Vol] 5.6 10*3/uL Normal 4.4-11.0 [facility] Comment on above: Performed By: #### L 100.0100, L500.2500 #### [facility] [address] [place], [address] Absolute lymphocyte countOrd ered By: Librado Carter on 03-08-2024 Lymphocytes Auto (Unsp spec) [#/Vol] 2.44 10*3/uL 0.83-4.51 [facility] Automated lymphocyte count a s percentage of total leukocytesOrdered By: Librado Carter on 03-08-2024 Lymphocytes/100 WBC Auto (Unsp spec) 42.6 % 19-41 [facility] Basophil percentageOrdered B y: Librado Carter on 03-08-2024 Basophils/100 WBC (Bld) 0.3 % 0-1 [facility] Bilirubin [Mass/Vol] 0.90 mg/dL 0.20-1.00 [facility] Comment on above: For patients on eltr ombopag therapy, use of Dimension Calion TBIL is not recommended. Chloride [Moles/Vol] 109 mmol/L 98-107 [facility] Cholesterol [Mass/Vol] 239 mg/dL <200 [facility] Comment on above: <200 mg/dL Desirable 200-240 mg/dL Borderline >240 mg/dL High Risk Eosinophils/100 WBC (Bld) 2.4 % 0-5 [facility] Glucose [Mass/Vol] 96 mg/dL 74-106 [facility] Hemoglobin (Bld) [Mass/Vol] 15.4 g/dL 13.0-16.5 [facility] Monocytes/100 WBC (Bld) 10.3 % 0-10 [facility] Neutrophils (Bld) [#/Vol] 2.5 10*3/uL 2.0-7.7 [facility] Neutrophils/100 WBC (Bld) 44.2 % 47-70 [facility] Potassium [Moles/Vol] 3.8 mmol/L 3.5-5.1 [facility] Protein [Mass/Vol] 7.0 g/dL 6.4-8.2 [facility] Sodium [Moles/Vol] 144 mmol/L 136-145 [facility] Triglyceride [Mass/Vol] 187 mg/dL <199 [facility] Comment on above: The drugs N-Acetylcy steine and Metamizole may falsely depress this assay.Serum Triglycerides Reference Interval Normal <150 mg/dL Borderline high 150 - 199 mg/dL High 200 - 499 mg/dL Very High > or = 500 mg/dL WBC (Bld) [#/Vol] 5.7 10*3/uL 4.4-11.0 [facility] Determination of erythrocyte mean corpuscular volume (MCV)Ordered By: Librado Carter on 03-08-2024 MCV (RBC) [Entitic vol] 85.2 fL 80-94 [facility] Erythrocyte distribution wid th ratioOrdered By: Librado Carter on 03-08-2024 Erythrocyte distribution width (RBC) [Ratio] 12.7 % 11.6-14.6 [facility] Erythrocyte distribution wid th standard deviationOrdered By: Librado Carter on 03-08-2024 Erythrocyte distribution width (RBC) [Entitic vol] 39.2 fL 35.1-43.9 [facility] Hematocrit Auto (Bld) [Volum e fraction]Ordered By: Librado Carter on 03-08-2024 Hematocrit (Bld) [Volume fraction] 44.8 % 40-54 [facility] Immature granulocytes/100 WB C Auto (Bld)Ordered By: Librado Carter on 03-08-2024 Immature granulocytes/100 WBC (Bld) 0.200 % 0.0-0.9 [facility] Comment on above: IG% - Immature Granu locytes (promyelocytes, myelocytes and metamyelocytes) > 1% indicates that a LEFT SHIFT is Present. Laboratory - Chemistry and C hemistry - challengeOrdered By: Librado Carter on 03-08-2024 Albumin/Globulin [Mass ratio] 1.2 {ratio} 0.9-2.4 [facility] ALP [Catalytic activity/Vol] 73 U/L 45-117 [facility] ALT [Catalytic activity/Vol] 40 U/L 16-61 [facility] Cholesterol in HDL [Mass/Vol] 43 mg/dL >40 [facility] Comment on above: The drugs N-Acetylcy steine and Metamizole may falsely depress this assay. Reference Range HDL <40 mg/dL Low HDL Cholesterol HDL >or= 60 mg/dL High HDL Cholesterol Cholesterol in LDL [Mass/Vol] 159 mg/dL 0-130 [facility] CO2 [Moles/Vol] 27.0 mmol/L 21.0-32.0 [facility] Globulin (S) [Mass/Vol] 3.2 g/dL 2.2-4.2 [facility] Urea nitrogen/Creatinine [Mass ratio] 24.1 mg/mg 10-20 [facility] - Hematology and Cell countsOrdered By: Librado Carter on 03-08-2024 MCH (RBC) [Entitic mass] 29.3 pg 27.0-32.0 [facility] MCHC (RBC) [Mass/Vol] 34.4 g/dL 32-36 [facility] Nucleated RBC/100 WBC (Bld) [Ratio] 0 % 0-5 [facility] Platelet mean volume (Bld) [Entitic vol] 9.3 fL 6.2-12.0 [facility] Platelets (Bld) [#/Vol] 208 10*3/uL 150-450 [facility] No Panel InformationOrdered By: Librado Carter on 03-08-2024 Estimated GFR (MDRD) Amer 98 mL/min >60 [facility] Comment on above: GFR Calc Estimated GFR (MDRD) Non-Af Amer 81 mL/min >60 [facility] Comment on above: Non- GFR Calc Prostate Specific Antigen Screen 5.07 ng/mL 0.00-4.00 [facility] Comment on above: This test was perfor med using the TPSA assay method for the9GAG chemistry system. Values obtained with differentassay methods cannot be used interchangably.When changing PSA assays in the course of monitoring apatient, additional sequential testing should be carriedout to confirm baseline values. VLDL Cholesterol 37 mg/dL 5-40 [facility] RBC Auto (Bld) [#/Vol]Ordere d By: Librado Carter on 03-08-2024 RBC (Bld) [#/Vol] 5.26 10*6/uL 4.6-6.2 [facility] Serum or plasma calcium francisco urement (mass/volume)Ordered By: Librado Carter on 03-08-2024 Calcium [Mass/Vol] 8.9 mg/dL 8.5-10.1 [facility] Serum or plasma creatinine m easurement (mass/volume)Ordered By: Librado Carter on 03-08-2024 Creatinine [Mass/Vol] 0.99 mg/dL 0.70-1.30 [facility] Comment on above: The validity of the calculated GFR & GFRAA in patients over 70 years has not been determined. Clinical correlation is essential. Serum or plasma urea nitroge n measurement (mass/volume)Ordered By: Librado Carter on 03-08-2024 Urea nitrogen [Mass/Vol] 24 mg/dL 7-18 [facility] Thin prep Papanicolaou smear with manual screeningOrdered By: Librado Carter on 03-08-2024 Thin prep Papanicolaou smear with manual screening 3.8 g/dL 3.2-5.0 [facility] Thin prep Papanicolaou smear with manual screening 26 U/L 15-37 [facility] Thin prep Papanicolaou smear with manual screening 8 5-15 [facility] Whole blood hemoglobin A1c/t otal hemoglobin ratio (mass fraction)Ordered By: Librado Carter on 03-08-2024 HbA1c (Bld) [Mass fraction] 5.0 % 3.8-5.6 [facility] Comment on above: Normal < 5.7 % Predi abetic 5.7 - 6.4 % Diabetic >or= 6.5 % Please note range changes. Absolute lymphocyte counton 04-02-2022 Lymphocytes Auto (Unsp spec) [#/Vol] 2.19 10*3/uL 0.83-4.51 [facility] Work Phone: Basophil percentageon 2021 Basophils/100 WBC (Bld) 0.0 % 0-1 [facility] Work Phone: Bilirubin [Mass/Vol] 0.80 mg/dL 0.20-1.00 [facility] Work Phone: Comment on above: For patients on eltr ombopag therapy, use of Dimension Calion TBIL is not recommended. Chloride [Moles/Vol] 109 mmol/L 98-107 [facility] Work Phone: Cholesterol [Mass/Vol] 199 mg/dL <200 [facility] Work Phone: Comment on above: <200 mg/dL Desirable 200-240 mg/dL Borderline >240 mg/dL High Risk Eosinophils/100 WBC (Bld) 0.0 % 0-5 [facility] Work Phone: Glucose [Mass/Vol] 101 mg/dL 74-106 [facility] Work Phone: Comment on above: Fasting Glucose resu lt from 100 to 125 mg/dL suggests IMPAIRED HOMEOSTASIS per A.D.A. criteria. Neutrophils (Bld) [#/Vol] 5.0 10*3/uL 2.0-7.7 [facility] Work Phone: Neutrophils/100 WBC (Bld) 64.4 % 47-70 [facility] Work Phone: Potassium [Moles/Vol] 3.6 mmol/L 3.5-5.1 [facility] Work Phone: Protein [Mass/Vol] 7.0 g/dL 6.4-8.2 [facility] Work Phone: Sodium [Moles/Vol] 141 mmol/L 136-145 [facility] Work Phone: Triglyceride [Mass/Vol] 65 mg/dL <199 [facility] Work Phone: Comment on above: The drugs N-Acetylcy steine and Metamizole may falsely depress this assay.Serum Triglycerides Reference Interval Normal <150 mg/dL Borderline high 150 - 199 mg/dL High 200 - 499 mg/dL Very High > or = 500 mg/dL WBC (Bld) [#/Vol] 7.7 10*3/uL 4.4-11.0 [facility] Work [facility]: Blood erythrocytes count (nu mber/volume)on 04-02-2022 RBC (Bld) [#/Vol] 5.35 10*6/uL 4.6-6.2 [facility]: Blood hemoglobin measurement (mass/volume)on 04-02-2022 Hemoglobin (Bld) [Mass/Vol] 15.8 g/dL 13.0-16.5 [facility] Work Phone: Blood lymphocytes/100 leukoc yteson 04-02-2022 Lymphocytes/100 WBC (Bld) 28.4 % 19-41 [facility] Work Phone: Blood monocytes/100 leukocyt eson 04-02-2022 Monocytes/100 WBC (Bld) 7.1 % 0-10 [facility] [facility] Work Phone: Blood platelet mean volumeon 04-02-2022 Platelet mean volume (Bld) [Entitic vol] 9.9 fL 6.2-12.0 [facility] Work Phone: Determination of erythrocyte mean corpuscular volume (MCV)on 04-02-2022 MCV (RBC) [Entitic vol] 86.2 fL 80-94 [facility] Work Phone: Hematocrit Auto (Bld) [Volum e fraction]on 04-02-2022 Hematocrit (Bld) [Volume fraction] 46.1 % 40-54 [facility] Work Phone: Laboratory - Chemistry and C hemistry - challengeon 04-02-2022 ALP [Catalytic activity/Vol] 80 U/L 45-117 [facility] Work Phone: ALT [Catalytic activity/Vol] 35 U/L 16-61 [facility] Work Phone: CO2 [Moles/Vol] 25.0 mmol/L 21.0-32.0 [facility] Work Phone: Globulin (S) [Mass/Vol] 3.2 g/dL 2.2-4.2 [facility] Work Phone: Urea nitrogen/Creatinine [Mass ratio] 23.1 mg/mg 10-20 [facility] Work Phone: Laboratory - Hematology and Cell countson 04-02-2022 Erythrocyte distribution width (RBC) [Entitic vol] 39.2 fL 35.1-43.9 [facility] Work Phone: Erythrocyte distribution width (RBC) [Ratio] 12.6 % 11.6-14.6 [facility] Work Phone: Immature granulocytes/100 WBC (Bld) 0.100 % 0.0-0.9 [facility] Work Phone: Comment on above: IG% - Immature Granu locytes (promyelocytes, myelocytes and metamyelocytes) > 1% indicates that a LEFT SHIFT is Present. MCH (RBC) [Entitic mass] 29.5 pg 27.0-32.0 [facility] Work Phone: Nucleated RBC/100 WBC (Bld) [Ratio] 0 % 0-5 [facility] Work Phone: MCHC Auto (RBC) [Mass/Vol]on 04-02-2022 MCHC (RBC) [Mass/Vol] 34.3 g/dL 32-36 [facility] Work Phone: No Panel Informationon 04-02 Estimated GFR (MDRD) Amer 98 mL/min >60 [facility] Work Phone: Comment on above: GFR Calc Estimated GFR (MDRD) Non-Af Amer 81 mL/min >60 [facility] Work Phone: Comment on above: Non- GFR Calc Prostate Specific Antigen Total 5.47 ng/mL 0.0-4.0 [facility] Work Phone: Comment on above: This test was perfor med using the TPSA assay method [facility] Values obtained with differentassay methods cannot be used interchangably.When changing PSA assays in the course of monitoring apatient, additional sequential testing should be carriedout to confirm baseline values. Platelets bldon 04-02-2022 Platelets (Bld) [#/Vol] 258 10*3/uL 150-450 [facility] Work Phone: Serum or plasma albumin francisco urement (mass/volume)on 04-02-2022 Albumin [Mass/Vol] 3.8 g/dL 3.2-5.0 [facility] Work Phone: Serum or plasma albumin/glob ulin mass ratioon 04-02-2022 Albumin/Globulin [Mass ratio] 1.2 {ratio} 0.9-2.4 [facility] Work Phone: Serum or plasma calcium francisco urement (mass/volume)on 04-02-2022 Calcium [Mass/Vol] 8.7 mg/dL 8.5-10.1 [facility] Work Phone: Serum or plasma cholesterol in HDL measurement (mass/volume)on 04-02-2022 Cholesterol in HDL [Mass/Vol] 60 mg/dL >40 [facility] Work Phone: Comment on above: The drugs N-Acetylcy steine and Metamizole may falsely depress this assay. Reference Range HDL <40 mg/dL Low HDL Cholesterol HDL >or= 60 mg/dL High HDL Cholesterol Serum or plasma cholesterol in VLDL measurement (mass/volume)on 04-02-2022 Cholesterol in VLDL [Mass/Vol] 13 mg/dL 5-40 [facility] Work Phone: Serum or plasma creatinine m easurement (mass/volume)on 04-02-2022 Creatinine [Mass/Vol] 0.99 mg/dL 0.70-1.30 [facility] Work Phone: Comment on above: The validity of the calculated GFR & GFRAA in patients over 70 years has not been determined. Clinical correlation is essential. Serum or plasma low density lipoprotein (LDL) cholesterol measurement (mass/volume)on 04-02-2022 Cholesterol in LDL [Mass/Vol] 126 mg/dL 0-130 [facility] Work Phone: Serum or plasma urea nitroge n measurement (mass/volume)on 04-02-2022 Urea nitrogen [Mass/Vol] 23 mg/dL 7-18 [facility] Work Phone: Thin prep Papanicolaou smear with manual screeningon 04-02-2022 Thin prep Papanicolaou smear with manual screening 20 U/L 15-37 [facility] Work Phone: Thin prep Papanicolaou smear with manual screening 7 5-15 [facility] Work Phone: NOVEL CORONAVIRUS NASOPHARYN GEAL - [facility] SPECIMEN ONLYon 07-02-2020 SARS-COV-2 NOT DETECTED Normal NOT DETECTED [facility] Comment on above: Order Comment: [facility] Agent Suspected: SARS-COV-2 This test was performed using real time PCR and has been approved for the qualitative detection of SARS-CoV-2 nucleic acid. The test has been authorized by the FDA under an emergency use authorization for use by authorized laboratories. Result Comment: Nega tive results do not preclude SARS-CoV-2 infection and should not be used as the sole basis for treatment or other patient management decisions. Optimum specimen types and timing for peak viral levels during infections caused by SARS-CoV-2 has not been determined. The possibility of a false negative result should especially be considered if the patient's recent exposures or clinical presentation suggest that SARS-CoV-2 infection is probable, and diagnostic tests for other causes of illness (e.g., other respiratory illness) are negative. Collection of a new specimen and re-testing may be necessary if the patient is critically ill or clinically deteriorating. Performed By: #### L [id number] #### [facility] (DEFAULT) [address] [place] [address] Vital Signs Date Time Vital Sign Value Performing Clinician Andrey younger 06-07-2025 12:40-0400 Body temperature 97.9 [degF] Dr. Librado Carter DO Work Phone: [facility] 06-07-2025 12:40-0400 Diastolic blood pressure 96 mm[Hg] Dr. Librado Carter DO Work Phone: [facility] 06-07-2025 12:40-0400 Heart rate 81 /min Dr. Librado Carter DO Work Phone: [facility] 06-07-2025 12:40-0400 Respiratory rate 16 /min Dr. Librado Carter DO Work Phone: [facility] 06-07-2025 12:40-0400 SaO2% (BldA) [Mass fraction] 96 % Dr. Librado Carter DO Work Phone: [facility] 06-07-2025 12:40-0400 Systolic blood pressure 146 mm[Hg] Dr. Librado Carter DO Work Phone: [facility] 06-06-2025 12:36-0400 Body height 165.[address] Librado Carter DO Work Phone: [facility] 06-06-2025 12:36-0400 Body mass index (BMI) [Ratio] 31.4 kg/m2 Dr. Librado Carter DO Work Phone: [facility] 06-06-2025 12:36-0400 Body weight 85.[address] Librado Carter DO Work Phone: [facility] 03-06-2025 16:37-0400 Body temperature 97.4 [degF] Dr. Librado Carter DO Work Phone: [facility] 03-06-2025 16:37-0400 Heart rate 72 /min Dr. Librado Carter DO Work Phone: [facility] 03-06-2025 16:37-0400 Respiratory rate 10 /min Dr. Librado Carter DO Work Phone: [facility] 03-06-2025 16:37-0400 SaO2% (BldA) [Mass fraction] 97 % Dr. Librado Carter DO Work Phone: [facility] 03-06-2025 14:24-0400 Body height 165.[address] Librado Carter DO Work Phone: [facility] 03-06-2025 14:24-0400 Body mass index (BMI) [Ratio] 31.2 kg/m2 Dr. Librado Carter DO Work Phone: [facility] 03-06-2025 14:24-0400 Body weight 85.[address] Librado Carter DO Work Phone: [facility] 03-06-2025 14:24-0400 Diastolic blood pressure 97 mm[Hg] Dr. Librado Carter DO Work Phone: [facility] 03-06-2025 14:24-0400 Systolic blood pressure 142 mm[Hg] Dr. Librado Carter DO Work Phone: [facility] 02-05-2025 07:58-0400 Body mass index (BMI) [Ratio] 32.1 kg/m2 Dr. Librado Carter DO Work Phone: [facility] 02-05-2025 07:58-0400 Body temperature 97.1 [degF] Dr. Librado Carter DO Work Phone: [facility] 02-05-2025 07:58-0400 Body weight 87.[address] Librado Carter DO Work Phone: [facility] 02-05-2025 07:58-0400 Diastolic blood pressure 91 mm[Hg] Dr. Librado Carter DO Work Phone: [facility] 02-05-2025 07:58-0400 Heart rate 73 /min Dr. Librado Carter DO Work Phone: [facility] 02-05-2025 07:58-0400 Respiratory rate 18 /min Dr. Librado Carter DO Work Phone: [facility] 02-05-2025 07:58-0400 SaO2% (BldA) [Mass fraction] 96 % Dr. Librado Carter DO Work Phone: [facility] 02-05-2025 07:58-0400 Systolic blood pressure 154 mm[Hg] Dr. Librado Carter DO Work Phone: [facility] 01-30-2024 08:10-0400 Body height 165.[address] Librado Carter Work Phone: [facility] 01-30-2024 08:10-0400 Body mass index (BMI) [Ratio] 30 kg/m2 Dr. Librado Carter Work Phone: [facility] 01-30-2024 08:10-0400 Body temperature 98 [degF] Dr. Librado Carter Work Phone: [facility] 01-30-2024 08:10-0400 Body weight 81.[address] Librado Carter Work Phone: [facility] 01-30-2024 08:10-0400 Body weight 81.[address] Librado Carter Work Phone: [facility] 01-30-2024 08:10-0400 Diastolic blood pressure 82 mm[Hg] Dr. Librado Carter Work Phone: [facility] 01-30-2024 08:10-0400 Heart rate 79 /min Dr. Librado Carter Work Phone: [facility] 01-30-2024 08:10-0400 Respiratory rate 18 /min Dr. Librado Carter Work Phone: [facility] 01-30-2024 08:10-0400 SaO2% (BldA) [Mass fraction] 98 % Dr. Librado Carter Work Phone: [facility] 01-30-2024 08:10-0400 SaO2% (BldA) [Mass fraction] 97 % Dr. Librado Carter Work Phone: [facility] 01-30-2024 08:10-0400 Systolic blood pressure 148 mm[Hg] Dr. Librado Carter Work Phone: [facility] 12-19-2023 08:47-0500 Body temperature 98.8 [degF] Dr. Librado Carter Work Phone: [facility] 12-19-2023 08:47-0500 Diastolic blood pressure 74 mm[Hg] Dr. Librado Carter Work Phone: [facility] 12-19-2023 08:47-0500 Heart rate 59 /min Dr. Librado Carter Work Phone: [facility] 12-19-2023 08:47-0500 Respiratory rate 16 /min Dr. Librado Carter Work Phone: [facility] 12-19-2023 08:47-0500 SaO2% (BldA) [Mass fraction] 96 % Dr. Librado Carter Work Phone: [facility] 12-19-2023 08:47-0500 Systolic blood pressure 94 mm[Hg] Dr. Librado Carter Work Phone: [facility] 12-19-2023 07:22-0500 Body height 165.[address] Librado Carter Work Phone: [facility] 12-19-2023 07:22-0500 Body mass index (BMI) [Ratio] 30 kg/m2 Dr. Librado Carter Work Phone: [facility] 12-19-2023 07:22-0500 Body weight [address] Librado Carter Work Phone: [facility] 11-29-2023 08:53-0500 Body mass index (BMI) [Ratio] 30.4 kg/m2 Dr. Librado Carter Work Phone: [facility] 11-29-2023 08:53-0500 Body weight [address] Librado Carter Work Phone: [facility] 09-28-2023 12:45-0500 Body mass index (BMI) [Ratio] 31.8 kg/m2 Dr. Librado Carter Work Phone: [facility] 09-28-2023 12:45-0500 Body temperature 97.7 [degF] Dr. Librado Carter Work Phone: [facility] 09-28-2023 12:45-0500 Body weight 86.[address] Librado Carter Work Phone: [facility] 09-28-2023 12:45-0500 Diastolic blood pressure 88 mm[Hg] Dr. Librado Carter Work Phone: [facility] 09-28-2023 12:45-0500 Heart rate 72 /min Dr. Librado Carter Work Phone: [facility] 09-28-2023 12:45-0500 Respiratory rate 16 /min Dr. Librado Carter Work Phone: [facility] 09-28-2023 12:45-0500 SaO2% (BldA) [Mass fraction] 99 % Dr. Librado Carter Work Phone: [facility] 09-28-2023 12:45-0500 Systolic blood pressure 142 mm[Hg] Dr. Librado Carter Work Phone: [facility] 03-31-2022 09:47-0400 Body height 165.[address] Librado Carter Work Phone: [facility] Work Phone: 03-31-2022 09:47-0400 Body temperature 97.6 [degF] Dr. Librado Carter Work Phone: [facility] Work Phone: 03-31-2022 09:47-0400 Body weight 83.[address] Librado Carter Work Phone: [facility] Work Phone: 03-31-2022 09:47-0400 Diastolic blood pressure 82 mm[Hg] Dr. Librado Carter Work Phone: [facility] Work Phone: 03-31-2022 09:47-0400 Heart rate 71 /min Dr. Librado Carter Work Phone: [facility] Work Phone: 03-31-2022 09:47-0400 Respiratory rate 17 /min Dr. Librado Carter Work Phone: [facility] Work Phone: 03-31-2022 09:47-0400 SaO2% (BldA) [Mass fraction] 98 % Dr. Librado Carter Work Phone: [facility] Work Phone: 03-31-2022 09:47-0400 Systolic blood pressure 138 mm[Hg] Dr. Librado Carter Work Phone: [facility] Work Phone: 03-31-2022 09:47-0400 Body height 165.[address] Librado Carter Work Phone: [facility] Work Phone: 03-31-2022 09:47-0400 Body temperature 97.6 [degF] Dr. Librado Carter Work Phone: [facility] Work Phone: 03-31-2022 09:47-0400 Body weight 83.[address] Librado Carter Work Phone: [facility] Work Phone: 03-31-2022 09:47-0400 Diastolic blood pressure 82 mm[Hg] Dr. Librado Carter Work Phone: [facility] Work Phone: 03-31-2022 09:47-0400 Heart rate 71 /min Dr. Librado Carter Work Phone: [facility] Work Phone: 03-31-2022 09:47-0400 Respiratory rate 17 /min Dr. Librado Carter Work Phone: [facility] Work Phone: 03-31-2022 09:47-0400 SaO2% (BldA) [Mass fraction] 98 % Dr. Librado Carter Work Phone: [facility] Work Phone: 03-31-2022 09:47-0400 Systolic blood pressure 138 mm[Hg] Dr. Librado Carter Work Phone: [facility] Work Phone: 03-31-2021 06:41-0400 Body mass index (BMI) [Ratio] 30.9 kg/m2 Dr. Librado Carter Work Phone: [facility] Work Phone: 03-31-2021 06:41-0400 Body mass index (BMI) [Ratio] 30.9 kg/m2 Dr. Librado Carter Work Phone: [facility] Work Phone: Encounters Encounter Date Encounter Type Care Provider Facility Start: 06-19-2025 End: 06-19-[address] Librado Carter DO Work Phone: -Laboratory Specimen Start: 06-19-2025 End: 06-19-[address] Chris Sanchez MD -Laboratory Specimen Work Phone: Start: 06-19-2025 End: 06-19-2025 ambulatory Chris Sanchez Facility:[facility] Start: 06-06-2025 End: 06-07-2025 ambulatory Chris Sanchez Facility:[facility] Start: 06-06-2025 End: 06-07-2025 Evaluation and management of inpatient Dr. Chris Sanchez MD -Medical Surgical 3 Work Phone: Start: 06-06-2025 End: 06-07-[address] Librado Carter DO Work Phone: -Medical Surgical 3 Start: 05-30-2025 End: 05-30-2025 ambulatory Aguila Toney Facility:[facility] Start: 05-30-2025 End: 05-30-2025 Non-patient / Non-visit Dr. Aguila Toney MD -[facility] Work Phone: Start: 04-18-2025 Encounter for genera l adult medical examination without abnormal findings [facility] Start: 04-08-2025 End: 04-08-[address] Librado Carter DO -Laboratory Work Phone: Start: 04-08-2025 End: 04-08-2025 ambulatory Librado Carter Facility:[facility] Start: 03-06-2025 End: 03-06-2025 Emergency department patient visit Dr. Librado Carter DO Work Phone: -Emergency Department Work Phone: Start: 02-05-2025 End: 02-05-2025 Patient encounter procedure Geri CABRERA -[facility] Work Phone: Start: 02-05-2025 End: 02-05-2025 ambulatory Librado Carter Facility[place] [place] Start: 07-25-2024 Encounter for other preprocedural examination Jak Najera [facility] Start: 07-16-2024 End: 07-16-[facility] Start: 03-08-2024 End: 03-08-[address] Librado Carter Work Phone: [facility] Work Phone: Start: 03-08-2024 End: 03-08-[address] Librado Carter Work Phone: [facility]-Laboratory Work Phone: Start: 01-31-2024 Non-patient / Non-visit Dr. Geeta Carter Work Phone: [facility] Start: 01-30-2024 End: 01-30-[address] Librado Carter Work Phone: [facility] Work Phone: Start: 01-30-2024 End: 01-30-[address] [facility] Work Phone: Start: 12-26-2023 End: 12-26-[address] Librado Carter Work Phone: [facility] Work Phone: Start: 12-26-2023 End: 12-26-[address] [facility] Work Phone: Start: 12-19-2023 Non-patient / Non-visit Dr. Geeta Carter Work Phone: [facility] Start: 12-19-2023 End: 12-19-2023 Admission to same day surgery center Dr. Librado Carter Work Phone: [facility]-Endoscopy Work Phone: Start: 12-19-2023 End: 12-19-[address] Librado Carter Work Phone: [facility] Work Phone: Start: 11-29-2023 Non-patient / Non-visit Dr. Geeta Carter Work Phone: [facility] Work Phone: Start: 09-28-2023 End: 09-28-[address] [facility]ibrado [facility] Work Phone: Start: 05-03-2022 End: 05-03-[address] Librado Carter Work Phone[facility] Start: 04-02-2022 End: 04-02-[address] Librado Carter Work Phone: [facility]-Laboratory Start: 03-31-2022 End: 03-31-[address] Librado Carter Work Phone: [facility] Procedures Date Procedure Procedure Detail Performing Clinician Start: 06-19-[address] Librado Carter DO Work Phone: Start: 06-07-[address] Librado Carter DO Work Phone: Start: 06-06-2025 Cysto,TUR,Prostate,O lympus (Not Applicable) Dr. Librado Carter DO Work Phone: Start: 04-08-2025 Prostate specific an tigen measurement Dr. Librado Carter DO Work Phone: Comment on above: This test was perfor med using the [employer] tPSA method. Measured values of a patient sample can vary depending on the testing procedure used. PSA values determined on patient samples by different testing procedures cannot be used interchangeably. If there is a change in PSA assays while monitoring therapy, sequential testing should be performed to confirm baseline values. Start: 12-19-[address] Librado day Work Phone: Start: 05-03-2022 Plain x-ray of hand Dr. Librado Carter Work Phone: History of repair of musculotendinous cuff of shoulder H/O repair of right rotator cuff Dr. Librado Carter Work Phone: History of tonsillectomy History of tonsillectomy Dr. Librado Carter Work Phone: Plan of Treatment Date Care Activity Detail Author Start: 06-07-2025 End: 06-07-2025 Patient discharge [facility] Start: 06-07-2025 Removal of urinary catheter [facility] Start: 06-07-2025 Measuring intake and output [facility] Start: 06-06-2025 Anesthesia transurethral resection of prostate ANESTH REMOVAL OF PROSTATE [facility] Start: 06-06-2025 Trurl electrosurg rescj prostate bleed complete PROSTATECTOMY (TURP) [facility] Start: 06-06-2025 Following clinical pathway protocol [facility] Start: 06-06-2025 Application of intermittent pneumatic compression device [facility] Start: 06-06-2025 Measuring intake and output [facility] Start: 06-06-2025 Ambulation therapy management [facility] Start: 06-06-2025 Assessment of risk of venous thromboembolism [facility] Start: 06-06-2025 Following clinical pathway protocol [facility] Start: 06-06-2025 Irrigation of urinary bladder [facility] Start: 06-06-2025 Taking patient vital signs [facility] Start: 06-06-2025 Vital signs measurements [facility] Start: 06-06-2025 End: 06-06-2025 [facility] Start: 06-06-2025 Admission procedure [facility] Start: 06-06-2025 Documentation procedure [facility] Start: 06-06-2025 End: 06-06-2025 Provision of activity privileges [facility] Start: 03-06-2025 [facility] Start: 12-19-2023 Colonoscopy flx dx w/collj spec when pfrmd DIAGNOSTIC COLONOSCOPY [facility] Start: 12-19-2023 Patient discharge [facility] Colonoscopy [facility] Electrocardiographic procedure [facility] Exercise tolerance test [facility] Measurement of respi ratory function [facility] Patient Education [facility] Work Phone: Patient referral [facility] Work Phone: Immunizations Immunization Date Immunization Notes Care Provider Fa cilimorgan 09-26-2022 influenza, injectabl e, quadrivalent, preservative free Dr. Librado Carter Work Phone: [facility] 07-08-2020 diphtheria, tetanus toxoids and acellular pertussis vaccine, unspecified formulation Dr. Librado Caretr Work Phone: [facility] Work Phone: 07-08-2020 tetanus toxoid, redu [place] diphtheria toxoid, and acellular pertussis vaccine, adsorbed Dr. Librado Carter Work Phone: [facility] Payers Date Payer Category Payer Unknown [id number] 2024 Self-pay [id number] 2024 Unknown [id number] 2014 Unknown [id number] Unknown [facility] [id number] Unknown [id number] [id number] Unknown [id number] [id number] [id number] Unknown [id number] [id number] Unknown [id number] [id number] [id number] Unknown [id number] 2.16.8 [id number] Unknown [id number] [id number] Unknown [id number] [id number] Social History Date Type Detail Facility Start: 03-31-2022 End: 01-30-2024 Tobacco smoking status NHIS Unknown if ever smoked [facility] Start: 03-19-2020 Non-smoker [facility] Start: 1960 Sex Assigned At Male [facility] Start: 03-06-2025 End: 05-27-2025 Tobacco smoking status NHIS Never smoked tobacco (finding) [facility] Start: 03-06-2025 Sex Male (finding) [facility] Medical Equipment Procedure Code Equipment Code [...] Goals Date Patient Goal Desired Activity /State Functional Status Date Assessment Result Facility 06-07-2025 Functional status Ambulates [facility] Work Phone: Mental Status Date Assessment Result Facility 06-07-2025 Cognitive function Awake;Alert;A ppropriate;Fol lows Commands [facility] Work Phone: 06-06-2025 Cognitive function Voice/Name [facility] Work Phone: 12-19-2023 Cognitive function Voice/Name;Touch/Esthela hannon [facility] Work Phone: Clinical Notes 12-19-2023 to 06-07-2025 Note Date & Type Note Facility 06-07-2025 Consult note [facility] 06-07-2025 Discharge summary [facility] 06-07-2025 [facility] [facility] 06-07-2025 History and physical note [facility] 06-07-2025 Discharge summary Note Date/Time June 07, 2025 12:57pm [facility] Medical Records Department [address] [place] [address] Discharge Summary 06/07/25 0930 MR#: [id number] Acct: [id number] Name: LUIS GRAF Rep #:[id number] : 1960 65 From: Chris Sanchez MD PCP: Dr. Librado Carter, DO Status:ADM QUENTIN Location: [address] Providers Date of Admission: 06/06/25 Date of Discharge: 06/07/25 Primary Care Physician: Dr. Librado Carter, DO Reason For Visit: Cysto,TUR,Prostate,Olympus Medications at Discharge Home Medications saw palm 160 mg-vit E 100 unit-selen 100 qua-jmoc-vvojzi-pygeum tablet (ProstateHealth) 2 tab PO DAILY 11/29/23 4 LIFE TRANSFER FACTOR CARDIO 2 ea PO BID 12/14/23 4 LIFE TRANSFER FACTOR LUNG 3 ea PO DAILY 12/14/23 4 LIFE TRANSFER FACTORY CLASSIC 3 ea PO DAILY 12/14/23 fexofenadine 180 mg tablet (Krystle Allergy) 180 mg PO DAILY 01/30/24 albuterol sulfate 2.5 mg/3 mL (0.083 %) solution for nebulization 2.5 mg (3 mL) inhalation Q6H PRN PRN COUGH/SOB #180 mL 02/05/25 ezetimibe 10 mg tablet 10 mg PO QDAY 02/05/25 tamsulosin 0.4 mg capsule 0.8 mg PO QHS 02/05/25 diazepam 2 mg tablet (Valium) 2 mg PO TID 3 days #10 tabs 03/06/25 dutasteride 0.5 mg capsule 0.5 mg PO DAILY 05/27/25 lisinopril 20 mg tablet 20 mg PO DAILY 05/27/25 ciprofloxacin HCl 500 mg tablet (Cipro) 500 mg PO BID #10 tabs 06/06/25 Hospital Course Operations TURP Weight / BMI Weight Weight: 85.6 kg Body Mass Index (BMI) 31.4 ABG / Lab / Microbiology Data 06/07/25 06:12 06/07/25 06:12 Laboratory: Laboratory Results - last 24 hr 06/07/25 06:12: WBC 11.9 H, RBC 4.83, Hgb 14.2, Hct 41.3, MCV 85.5, MCH 29.4, MCHC 34.4, RDW Std Deviation 39.1, RDW Coeff of Elizabeth 12.6, Plt Count 213, MPV 9.8, Immature Gran % (Auto) 0.400, Neut % (Auto) 75.5 H, Lymph % (Auto) 16.0 L, [place] % (Auto) 7.8, Eos % (Auto) 0.2, Baso % (Auto) 0.1, Absolute Neuts (auto) 9.0 H, Absolute Lymphs (auto) 1.90, Nucleated RBC % 0, Sodium 136, Potassium 4.1, Chloride 105, Carbon Dioxide 19.5 L, Anion Gap 11, BUN 17, Creatinine 0.89,Estim Creat Clear Calc 84.37, Est GFR (MDRD) Non-Af 96, BUN/Creatinine Ratio 19.0, Glucose 112 H, Calcium 8.6 D/C Instructions May resume sexual activity in: 4-6 weeks Call your doctor if you observe: Fever of 101 or Higher and Uncontrolled pain Suture Line Care: Avoid Pulling/Pushing and Avoid Pinching/Bending DC O2, CPAP, BIPAP Needs Home O2 Discharge instructions: No Please Follow Up With: Chris Sanchez MD When: call for appt, 2 weeks. Meaningful Use Info Meaningful Use Meaningful Use Diagnoses (Choose all that apply): None applicable Discharge Plan Admission Admit Date/Time: 06/06/25 07:45 Primary Reason for Your Visit: turp Attending Provider: Chris Sanchez Primary Care Provider: Librado Carter Instructions Patient Instructions: TURP, TURP Home Recovery, TURP Hospital Recovery Discharge Orders/Prescriptions Prescriptions: New ciprofloxacin HCl [Cipro] 500 mg tablet 500 mg PO BID Qty: 10 0RF Continued fexofenadine [Krystle Allergy] 180 mg tablet 180 mg PO DAILY Prostate Health 160-100-100 mg-unit-mcg tablet 2 tab PO DAILY tamsulosin 0.4 mg capsule 0.8 mg PO QHS ezetimibe 10 mg tablet 10 mg PO QDAY albuterol sulfate 2.5 mg /3 mL (0.083 %) solution for nebulization 2.5 mg inhalation Q6H PRN PRN (Reason: COUGH/SOB) Qty: 180 6RF 4 LIFE TRANSFER FACTOR CARDIO 2 ea PO BID 4 LIFE TRANSFER FACTOR LUNG 3 ea PO DAILY 4 LIFE TRANSFER FACTORY CLASSIC 3 ea PO DAILY lisinopril 20 mg tablet 20 mg PO DAILY dutasteride 0.5 mg capsule 0.5 mg PO DAILY diazepam [Valium] 2 mg tablet 2 mg PO TID 3 Days Qty: 10 0RF Discontinued sulfamethoxazole-trimethoprim 800-160 mg tablet 1 tab PO BID Other Ambulatory Orders: 12 Lead EKG (Routine) Timeframe: 20250530 Location: None Selected Ordered By: Dr. Cristian Bustos Referrals / Follow Up: Librado Carter DO [Primary Care Provider] - Disposition Discharge Orders: Discharge Patient (Routine); Ordered 06/07/25 Ordered By: Dr. Chris Sanchez 06/07/25929 <Electronically signed by Chris Sanchez MD> Cosigner Signature (if applicable): CC: Dr. Chris Sanchez MD; Dr. Librado Carter DO~ Signed [facility] Work Phone: 1(535) 868-281507-19-2025 [facility] Medical Records Department [address] [place] [address] Discharge Summary 06/07/25 0930 MR#: [id number] Acct: [id number] Name: LUIS GRAF Rep #: [id number] : 1960 65 From: Chris Sanchez MD PCP: Dr. Librado Carter DO Status:ADM QUENTIN Location: [place] [address] Providers Date of Admission: 06/06/25 Date of Discharge: 06/07/25 Primary Care Physician: Dr. Librado Carter DO Reason For Visit: Cysto,TUR,Prostate,Olympus Medications at Discharge Home Medications saw palm 160 mg-vit E 100 unit-selen 100 jke-kzhf-gxsifn-pygeum tablet (Prostate Health) 2 tab PO DAILY 11/29/23 4 LIFE TRANSFER FACTOR CARDIO 2 ea PO BID 12/14/23 4 LIFE TRANSFER FACTOR LUNG 3 ea PO DAILY 12/14/23 4 LIFE TRANSFER FACTORY CLASSIC 3 ea PO DAILY 12/14/23 fexofenadine 180 mg tablet (Krystle Allergy) 180 mg PO DAILY 01/30/24 albuterol sulfate 2.5 mg/3 mL (0.083 %) solution for nebulization 2.5 mg (3 mL) inhalation Q6H PRN PRN COUGH/SOB #180 mL 02/05/25 ezetimibe 10 mg tablet 10 mg PO QDAY 02/05/25 tamsulosin 0.4 mg capsule 0.8 mg PO QHS 02/05/25 diazepam 2 mg tablet (Valium) 2 mg PO TID 3 days #10 tabs 03/06/25 dutasteride 0.5 mg capsule 0.5 mg PO DAILY 05/27/25 lisinopril 20 mg tablet 20 mg PO DAILY 05/27/25 ciprofloxacin HCl 500 mg tablet (Cipro) 500 mg PO BID #10 tabs 06/06/25 Hospital Course Operations TURP Weight / BMI Weight Weight: 85.6 kg Body Mass Index (BMI) 31.4 ABG / Lab / Microbiology Data 06/07/25 06:12 06/07/25 06:12 Laboratory: Laboratory Results - last 24 hr 06/07/25 06:12: WBC 11.9 H, RBC 4.83, Hgb 14.2, Hct 41.3, MCV 85.5, MCH 29.4, MCHC 34.4, RDW Std Deviation 39.1, RDW Coeff of Elizabeth 12.6, Plt Count 213, MPV 9.8, Immature Gran % (Auto) 0.400, Neut % (Auto) 75.5 H, Lymph % (Auto) 16.0 L, [place] % (Auto) 7.8, Eos % (Auto) 0.2, Baso % (Auto) 0.1, A bsolute Neuts (auto) 9.0 H, Absolute Lymphs (auto) 1.90, Nucleated RBC % 0, Sodium 136, Potassium 4.1, Chloride 105, Carbon Dioxide 19.5 L, Anion Gap 11, BUN 17, Creatinine 0.89, Estim Creat Clear Calc 84.37, Est GFR (MDRD) Non-Af 96, BUN/Creatinine Ratio 19.0, Glucose 112 H, Calcium 8.6 D/C Instructions May resume sexual activity in: 4-6 weeks Call your doctor if you observe: Fever of 101 or Higher and Uncontrolled pain Suture Line Care: Avoid Pulling/Pushing and Avoid Pinching/Bending DC O2, CPAP, BIPAP Needs Home O2 Discharge instructions: No Please Follow Up With: Chris Sanchez MD When: call for appt, 2 weeks. Meaningful Use Info Meaningful Use Meaningful Use Diagnoses (Choose all that apply): None applicable Discharge Plan Admission Admit Date/Time: 06/06/25 07:45 Primary Reason for Your Visit: turp Attending Provider: Chris Sanchez Primary Care Provider: Librado Carter Instructions Patient Instructions: TURP, TURP Home Recovery, TURP Hospital Recovery Discharge Orders/Prescriptions Prescriptions: New ciprofloxacin HCl [Cipro] 500 mg tablet 500 mg PO BID Qty: 10 0RF Continued fexofenadine [Krystle Allergy] 180 mg tablet 180 mg PO DAILY Prostate Health 160-100-100 mg-unit-mcg tablet 2 tab PO DAILY tamsulosin 0.4 mg capsule 0.8 mg PO QHS ezetimibe 10 mg tablet 10 mg PO QDAY albuterol sulfate 2.5 mg /3 mL (0.083 %) solution for nebulization 2.5 mg inhalation Q6H PRN PRN (Reason: COUGH/SOB) Qty: 180 6RF 4 LIFE TRANSFER FACTOR CARDIO 2 ea PO BID 4 LIFE TRANSFER FACTOR LUNG 3 ea PO DAILY 4 LIFE TRANSFER FACTORY CLASSIC 3 ea PO DAILY lisinopril 20 mg tablet 20 mg PO DAILY dutasteride 0.5 mg capsule 0.5 mg PO DAILY diazepam [Valium] 2 mg tablet 2 mg PO TID 3 Days Qty: 10 0RF Discontinued sulfamethoxazole-trimethoprim 800-160 mg tablet 1 tab PO BID Other Ambulatory Orders: 12 Lead EKG (Routine) Timeframe: 20250530 Location: None Selected Ordered By: Dr. Cristian Bustos Referrals / Follow Up: Emma,Librado, DO [Primary Care Provider] - Disposition Discharge Orders: Discharge Patient (Routine); Ordered 06/07/25 Ordered By: Dr. Chris Sanchez 06/07/25 0998 Cosigner Signature (if applicable): CC: Dr. Chris Sanchez MD; Dr. Librado Carter DO [facility] Consult note Author Maxime Coyle [facility] Note Date/Time June 07, 2025 12:5 7pm [facility] Medical Records Department [address] [facility] [place] [address] Anesthesia Postop Eval II 06/06/25 1421 MR#: [id number] Acct: [id number] Name: LUIS GRAF Rep #:[id number] : 1960 65 From: Maxime BLANCHARD PCP: Dr. Librado Carter DO Status:ADM QUENTIN Y Race: C Location: [place] [address] Anesthesia Postop Eval I Sum Postop Eval Completion status Anesthesia document: Postop Eval 1 completed: Yes Anesthesia Postop Eval I Summary Anesthesia Postop Eval I Summary: Anesthesia Postop Eval I: Assessment Summary Airway patent Yes 06/06/25 11:00 HAND [email or web address] Spontaneous unlabored Yes 06/06/25 11:00 JOAN respirations Mental status nausea No 06/06/25 11:00 JOAN Vomiting No 06/06/25 11:00 HAND COLLATORVITOR Anesthesia Postop Eval I: Fluid Summary Crystalloid volume administer 600 06/06/25 11:00 JOAN (ml) Colloids volume administered ( ml) Blood Product volume administered (ml) Total IV fluid infused 600 06/06/25 11:00 JOAN Anesthesia Postop Eval I: Summary Notes Anesthesia Complication No 06/06/25 11:00 JOAN Anesthesia Complication Comment: Post-operative progress note Anesthesia: Postop Eval II Evaluation Mental status: Awake and Calm Pain Level: 2 nausea: No Vomiting: No Complications Anesthesia Complication: No 06/06/25 1421 <Electronically signed by Maxime Coyle CRNA> Date _ Maxime Coyle HAND COLLATOR Cosigner Signature: Date CC: ~ Signed [facility] Work Phone: 1(232) 937-952307-18-2025 Consult note Author Fifi Brandt [facility] Note Date/Time June 06, 2025 11:0 1am [facility] Medical Records Department [address] [place] [address] Anesthesia Postop Eval I 06/06/25 1100 MR#: [id number] Acct: [id number] Name: LUIS GRAF Rep #:[id number] : 1960 65 From: Fifi bowles CRNA PCP: Dr. Librado Carter, DO Status:ADM QUENTIN Y Race: C Location: [place] [address] Anesthesia: Postop Eval I Current Vital Signs Temperature: 97 F Pulse Rate: 69 Blood Pressure: 127/91 Respiratory Rate: 16 Pulse Ox: 96 Assessment Airway patent: Yes Spontaneous unlabored respirations: Yes nausea: No Vomiting: No Anesthesia Complication: No Fluid Hydration Crystalloid volume administer (ml): 600 Total IV fluid infused: 600 Progress Note Anesthesia document: Postop Eval 1 completed: Yes 06/06/25 1101 <Electronically signed by Fifi godfrey HAND COLLATOR> Date _ Fifi Brandt HAND COLLATOR Cosigner Signature: Date CC: ~ Signed [facility] Work Phone: 1(287) 533-784807-18-2025 Consult note Author Cristian Bustos [facility] Note Date/Time June 06, 2025 9:07 am [facility] Medical Records Department [address] [place] [address] Pre-Anesthesia Evaluation 06/06/25 0859 MR#: [id number] Acct: [id number] Name: LUIS GRAF Rep #:[id number] : 1960 65 From: Cristian Bustos MD PCP: Dr. Librado Carter, DO Status:ADM QUENTIN Y Race: C Location: [place] [id number] -1 ASA Classification* ASA Classification ASA Classification: 2 Assessment & Plan Anesthesia* Anesthesia Assessment Anesthesia Assessment: Discussed sedation and/or anesthesia options, risks, benefits, and alternatives with patient/parents/legal guardian/POA. Questions invited. The patient/parents/legal guardian/POA seems to understand and agrees to proceedwith anesthesia plan. Reviewed the physical assessment, medical history, allergy history and patient home medications list prior to surgery/procedure/anesthetic and documented any changes. Performed airway and anesthesia risk assessments. Anesthesia Type Anesthesia Type: General History Source History Obtained from:: Patient and Chart Anesthesia Focused Assessment* Temperature: 98.6 F Pulse Rate: 73 Blood Pressure: 132/89 Respiratory Rate: 18 Pulse Ox: 98 Oxygen Delivery Method: Room Air Airway Assessment Mouth opens: >3 cm Mallampati Score: IV Teeth Condition: Caps/Crowns (Patient has couple crowns. They are tight.) and Missing (Multiple missing teeth. Edentulous on top.) Neck Range of motion (ROM): Limited ROM (Slight Decrease) Labs Anesthesia Preop lab: CBC WBC 5.8 K/mm3 (4.4-11.0) 04/08/25 08:47 04/08/25 RBC 5.42 M/mm3 (4.6-6.2) 04/08/25 08:47 04/08/25 Hgb 15.9 g/dL (13.0-16.5) 04/08/25 08:47 04/08/25 Hct 46.8 % (40-54) 04/08/25 08:47 04/08/25 Plt Count 220 K/mm3 (150-450) 04/08/25 08:47 04/08/25 CHEMISTRY Potassium 4.3 mmol/L (3.3-5.1) 04/08/25 08:47 04/08/25 Sodium 142 mmol/L (133-145) 04/08/25 08:47 04/08/25 BUN 16 mg/dL (4-19) 04/08/25 08:47 04/08/25 Creatinine 0.95 mg/dL (0.70-1.20) 04/08/25 08:47 04/08/25 Glucose 84 mg/dL (70-99) 04/08/25 08:47 04/08/25 TSH 0.97 uIU/mL (0.358-3.74) 04/18/17 09:26 COAG PT 13.0 SECONDS (11.7-14.9) 03/19/20 12:25 Pre-Assessment Diagnosis/Proposed Procedure Planned Operative Procedure(s): TURP Anesthesia History 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 05/27/25 09:21 Cholinesterase deficiency No 05/27/25 09:21 You/Your Family Experience No 05/27/25 09:21 fever (hyperthermia) with Relationship Recent Exposure to Contagious No 06/06/25 08:18 Disease Does patient have nerve No 05/27/25 09:21 stimulator Patient instructed to have device shut off --Does patient have Pacemaker No 06/06/25 08:18 or ICD? When Was Last Pacemaker Check QUESTION #4 FULL TEXT: You/Your Family Experience fever (hyperthermia) with Anesthesia Last Oral Intake Last Oral intake: Last Oral Intake NPO since 20:00 06/06/25 08:18 Meds taken in AM with sips of No 06/06/25 08:18 water? 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 Female No 05/27/25 09:21 HX of Motion Sickness No 05/27/25 09:21 HX of N/V After Surgery No 05/27/25 09:21 Non-Smoker Yes 05/27/25 09:21 Duration of Surgery greater Yes 05/27/25 09:21 than 60 minutes Number of Risk Factors 2 05/27/25 09:21 PONV Score Moderate Risk 05/27/25 09:21 Height & Weight Height & Weight: Anesthesia: Height & Weight Height 5 ft 5 in 06/06/25 08:18 Weight: 85.6 kg 06/06/25 08:18 Body Mass Index (BMI) 31.4 06/06/25 08:18 Respiratory Assessment Respiratory Assessment - forming process line worker: Respiratory Tract Infection Hx - forming process line worker Hx Respiratory Tract Infection No 05/27/25 09:21 STOP Sleep Apnea STOP Sleep Apnea - forming process line worker: STOP Sleep Apnea - forming process 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 Has anyone observed you stop breathing during sleep? STOP Results Positive 05/27/25 09:21 QUESTION #5 FULL TEXT : Do you snore loudly (louder than talking or can be heard through closed doors)? 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 Specify any problems Hx of Preganancy in last 3 N/A 05/27/25 09:21 Months Nurse Filling Out Transfusion [email or web address] 05/27/25 09:21 & Questions: Date: 05/27/25 05/27/25 09:21 Time: 09:24 05/27/25 09:21 Patient unable to answer at this time (ie. confused, unrespo /Reproduction History /Reproductive History - forming process line worker: /Reproductive Hx- forming process line worker Hx Now Gestational Age (in weeks): EDC: Hx Hx Para Hx Section SAB Active Medications Active Medications: Current Medications Generic Name Dose Route Start Last Admin Trade Name Freq PRN Reason Stop Dose Admin Acetaminophen 650 mg 06/06/25 07:45 Acetaminophen 325 Mg Tablet PO Q6H PRN PRN Pain Score 1-10 Al Hydroxide/Mg Hydroxide 30 ml 06/06/25 07:45 Mag Hydrox/Al Hydrox/Simeth 30 Ml Udc PO Q4H PRN PRN HEARTBURN Albuterol Sulfate 2.5 mg 06/06/25 07:44 Albuterol 2.5 Mg/3 Ml Vial.Neb. INHALATION Q6H PRN PRN COUGH/SOB Diazepam 2 mg 06/06/25 14:00 Diazepam 2 Mg Tablet PO TID JAYDA Docusate Sodium 200 mg 06/06/25 10:00 Docusate Sodium 100 Mg Capsule PO BID JAYDA Ezetimibe 10 mg 06/06/25 07:45 Ezetimibe 10 Mg Tablet PO QDAY [facility] Cefazolin Sodium 2 gm/ Sodium 110 mls @ 200 mls/hr 06/06/25 09:05 Chloride IV 06/06/25 09:37 INTRAOP ONE Lactated Ringer's 1,000 mls @ 15 mls/hr 06/06/25 07:45 06/06/25 08:22 IV 15 mls/hr .Q48H JAYDA Administration Sodium Chloride 1,000 mls @ 125 mls/hr 06/06/25 07:45 IV .Q8H JAYDA Ciprofloxacin 400 mg in 200 mls @ 200 mls/hr 06/06/25 10:00 Cipro IV 06/06/25 22:59 Q12 JAYDA Ketorolac Tromethamine 15 mg 06/06/25 07:45 Ketorolac 15 Mg/Ml Vial IV 06/08/25 07:46 Q6H PRN PRN PAIN 1-10 Lisinopril 20 mg 06/06/25 10:00 Lisinopril 20 Mg Tablet PO DAILY [facility] Protocol Non-Formulary Medication 0.5 mg 06/06/25 10:00 Dutasteride PO DAILY [facility] Non-Formulary Medication 180 mg 06/06/25 10:00 Fexofenadine [Krystle Allergy] PO DAILY [facility] Ondansetron HCl 4 mg 06/06/25 07:45 Ondansetron 4 Mg/2 Ml Vial IV Q8H PRN NAUSEA/VOMITING Oxycodone HCl 5 - 10 mg 06/06/25 07:45 Oxycodone 5 Mg Tablet PO Q6H PRN PRN Pain Score 4-10 Tamsulosin HCl 0.8 mg 06/06/25 22:00 Tamsulosin Hcl 0.4 Mg Capsule PO QHS [facility] Trimethoprim/Sulfamethoxazole 1 tablet 06/06/25 10:00 Smz/Tmp Ds Tablet PO BID [facility] PFSH Medical History Wears hearing aid Loss of hearing Migraine headache Wears glasses Cancer Gout Prostate disease High [...] Medications ?Medication ?Instructions ?Recorded ?Last Taken ?Type saw palm 160 mg-vit E 100 2 tab PO DAILY 11/29/2305/20 18:30 History unit-selen 100 ado-iokg-pfboys-pygeum tablet (Prostate Health) 4 LIFE TRANSFER FACTOR CARDIO 2 ea PO BID 12/14/23 18:30 History 4 LIFE TRANSFER FACTOR LUNG 3 ea PO DAILY 12/14/23 08:00 History 4 LIFE TRANSFER FACTORY CLASSIC 3 ea PO DAILY 12/14/23 06/05/25 08:00 History fexofenadine 180 mg tablet 180 mg PO DAILY 01/30/24 08:00 History (Krystle Allergy) albuterol sulfate 2.5 mg/3 mL 2.5 mg (3 mL) inhalation Q6H PRN 02/05/25 Unknown Rx (0.083 %) solution for nebulization PRN COUGH/SOB #180 mL ezetimibe 10 mg tablet 10 mg PO QDAY 02/05/2506/05 08:00 History tamsulosin 0.4 mg capsule 0.8 mg PO QHS 02/05/2506/05 08:00 History diazepam 2 mg tablet (Valium) 2 mg PO TID 3 days #10 t abs 03/06/25 Unknown Rx dutasteride 0.5 mg capsule 0.5 mg PO DAILY 05/27/25 08:00 History lisinopril 20 mg tablet 20 mg PO DAILY 05/27/2505/20 08:00 History ciprofloxacin HCl 500 mg tablet 500 mg PO BID #10 tabs 06/06/25 Unknown Rx (Cipro) Allergy/AdvReac Type Severity Reaction Status Date / Time grass pollen Allergy Chest Verified 06/06/25 08:13 tightness mold Allergy Chest Verified 06/06/25 08:13 tightness ragweed pollen Allergy Chest Verified 06/06/25 08:13 tightness shrimp Allergy Swelling Verified 06/06/25 08:13 Family History Father Lung disease Diabetes Mother Diabetes Brother Diabetes Surgical History History of repair of left rotator cuff Hx of vasectomy Hx of colonoscopy H/O repair of right rotator cuff H/O hernia repair History of tonsillectomy Social History household members: spouse current occupational status: employed current occupation: [employer] Smoking Status: Never smoker alcohol intake: never substance use type: does not use Review of Systems (Anesthesia) ROS Narrative System reviewed and no additional complaints, except as documented. 06/06/25 0907 <Electronically signed by Cristian galdamez MD> Date _ Cristian Bustos MD Cosigner Signature: Date CC: ~ Signed [facility] Work Phone: 1(677) 467-286907-18-2025 Consult note [facility] Medical Records Department [facility] [place] [address] Anesthesia Postop Eval I 06/06/25 1100 MR#: [id number] Acct: [id number] Name: LUIS GRAF Rep #:[id number] : 1960 65 From: Fifi bowles CRNA PCP: Dr. Librado Carter, DO Status:ADM QUENTIN Y Race: C Location: [place] [address] Anesthesia: Postop Eval I Current Vital Signs Temperature: 97 F Pulse Rate: 69 Blood Pressure: 127/91 Respiratory Rate: 16 Pulse Ox: 96 Assessment Airway patent: Yes Spontaneous unlabored respirations: Yes nausea: No Vomiting: No Anesthesia Complication: No Fluid Hydration Crystalloid volume administer (ml): 600 Total IV fluid infused: 600 Progress Note Anesthesia document: Postop Eval 1 completed: Yes 06/06/25 110 bekah HAND COLLATOR> Date _ Fifi Brandt HAND COLLATOR Cosigner Signature: Date CC: ~ Signed [facility]07-18-2025 Procedure note [facility] Medical Records Department [address] [place] [address] Operative Report 06/06/25 1050 MR#: [id number] Acct: [id number] Name: LUIS GRAF Rep #:[id number] : 1960 65 From: Chris Sanchez MD PCP: Dr. Librado Carter, DO Status:ADM QUENTIN Location: [place] [address] Operative Report (Standard) Operative Information Date of Procedure: 06/06/25 Pre-Operative Diagnosis: BPH with obstruction Post-Operative Diagnosis: The same Surgery/Procedure Performed: Transurethral section prostate auto porter: No Type of Anesthesia: General RN Documented Start/Stop Times: Operation Date: 06/06/25 10:00 Case Time Into Pre-Op 06/06/25 07:41 Anesthesia Start 06/06/25 09:29 Into Room 07/18/25 09:29 Out of Pre-Op 06/06/25 09:29 Procedure Start 06/06/25 09:41 Procedure End 06/06/25 10:48 Procedure Start Time: 09:41 Procedure Stop Time: 10:48 Select all DRAINS/GRAFTS/IMPLANTS that apply: Drains Drain details: 22 [employer] three-way Estimated Blood Loss: 10 cc I th Specimen collected: Yes Description of specimen(s) removed: Prostate tissue chips Description of surgery: In the preoperative setting I discussed with the patient how the surgery would be done with expect afterwards. We discussed how a prostate resection is done and we discussed the risk of the surgery including, bleeding, infection, retrograde ejaculation, changes with ejaculation or intercourse,. We discussed the possibility that the resection of the prostate may not alleviate his urinarysymptoms. We discussed the small risk of developing scar tissue along the urethral channel and strictures. We also discussed the chance of the prostate could grow back and he may need further surgery or treatment in the future for prostate problems. Patient was taken back to the operating room, timeout procedure was performed, he was identified and marked and placed on the operating room table. He underwent general anesthesia. He was placed in dorsolithotomy position. Penis and testicles were prepped and draped in usual sterile fashion. Went into the bladder using the visual obturator with a resectoscope. Once inside the bladderidentified the right and left ureteral orifice. I then identified the prostate and the anatomy of the prostate. Imarked out the area of the sphincter and theverumontanum was identified. I then proceeded with the prostate resection firstresected the median lobe. And then resected the right lobe of the prostate. Then to resect the left lobe of the prostate. I then resected the apical tissueof the prostate. Thiswas a complete resection of all obstructive tissue to improve voiding and relieve obstruction. I then made sure that there was no injury to the sphincter or the verumontanum was still intact. At the end of theresection all the chips were Ellik out of the bladder. I then identified the left and right ureteral orifice and these were confirmed to be in good position and effluxing and not injured. The resectoscope was removed, a 22 Cymraes catheter was placed into the bladder on continuous irrigation. And the urine was fairly light pink color and draining normally. He was taken back to the PACU in good condition. Surgical Findings: Very large prostate resected nicely wide open Complications Complications: No Admit VTE Documentation VTE Present on Admission: No VTE Mechan Device Prophylaxis: SCD's VTE Pharm Prophylaxis ordered?: No 06/06/25 1051 Cosigner Signature (if applicable): CC: Dr. Chris Sanchez MD; Dr. Librado Carter, DO~ Signed [facility]07-18-2025 Discharge summary Author Chris Sanchez [facility] Note Date/Time June 07, 2025 12:5 7pm [facility] Medical Records Department [address] [place] [address] Instructions for Home/Discharge Instructions 06/06/25 0748 MR#: [id number] Acct: [id number] Name: LUIS GRAF Rep #:[id number] : 1960 65 From: Chris Sanchez MD PCP: Dr. Librado Carter, Status:REG SDC Discharge Instructions DC O2, CPAP, BIPAP needs Home O2 Discharge instructions: No Dressing / Incision Discharge Activity: Return to Normal Activity, No Restrictions and May Drive May resume sexual activity in: 4-6 weeks Dressing / Incision Call your doctor if you observe: Fever of 101 or Higher and Uncontrolled pain Suture Line Care: Avoid Pulling/Pushing and Avoid Pinching/Bending Follow Up Care Please Follow Up With: Chris Sanchez MD When: call for appt, 2 weeks. Test Results: Test results from this visit will be discussed in further detail at your follow- up appointment, if applicable. Discharge Plan Admission Primary Reason for Your Visit: turp Attending Provider: Chris Sanchez Primary Care Provider: Librado Carter Instructions Patient Instructions: TURP, TURP Home Recovery, TURP Hospital Recovery Print Language: Vietnamese Discharge Orders/Prescriptions Prescriptions: New ciprofloxacin HCl [Cipro] 500 mg tablet 500 mg PO BID Qty: 10 0RF Continued fexofenadine [Krystle Allergy] 180 mg tablet 180 mg PO DAILY [facility] 160-100-100 mg-unit-mcg tablet 2 tab PO DAILY tamsulosin 0.4 mg capsule 0.8 mg PO QHS ezetimibe 10 mg tablet 10 mg PO QDAY albuterol sulfate 2.5 mg /3 mL (0.083 %) solution for nebulization 2.5 mg inhalation Q6H PRN PRN (Reason: COUGH/SOB) Qty: 180 6RF 4 LIFE TRANSFER FACTOR CARDIO 2 ea PO BID 4 LIFE TRANSFER FACTOR LUNG 3 ea PO DAILY 4 LIFE TRANSFER FACTORY CLASSIC 3 ea PO DAILY lisinopril 20 mg tablet 20 mg PO DAILY dutasteride 0.5 mg capsule 0.5 mg PO DAILY diazepam [Valium] 2 mg tablet 2 mg PO TID 3 Days Qty: 10 0RF Discontinued sulfamethoxazole-trimethoprim 800-160 mg tablet 1 tab PO BID Other Ambulatory Orders: 12 Lead EKG (Routine) Timeframe: 20250530 Location: None Selected Ordered By: Dr. Cristian Bustos Referrals / Follow Up: Librado Carter DO [Primary Care Provider] - Disposition Disposition (needs filled in before D/C Order can be placed): Home, Self Care 06/06/25 0748<Electronically signed by Chris Sanchez MD>Chris Sanchez MD CC: Dr. Librado Carter DO ~ Signed [facility] Work Phone: [phone] 630-503707-18-2025 Consult note [facility] Medical Records Department [address] [place] [address] Pre-Anesthesia Evaluation 06/06/25 0859 MR#: [id number] Acct: [id number] Name: LUIS GRAF Rep #:[id number] : 1960 65 From: Cristian Bustos MD PCP: Dr. Librado Carter DO Status:ADM QUENTIN Y Race: C Location: [place] [address] ASA Classification* ASA Classification ASA Classification: 2 Assessment & Plan Anesthesia* Anesthesia Assessment Anesthesia Assessment: Discussed sedation and/or anesthesia options, risks, benefits, and alternatives with patient/parents/legal guardian/POA. Questions invited. The patient/parents/legal guardian/POA seems to understand and agrees to proceedwith anesthesia plan. Reviewed the physical assessment, medical history, allergy history and patient home medications list prior to surgery/procedure/anesthetic and documented any changes. Performed airway and anesthesia risk assessments. Anesthesia Type Anesthesia Type: General History Source History Obtained from:: Patient and Chart Anesthesia Focused Assessment* Temperature: 98.6 F Pulse Rate: 73 Blood Pressure: 132/89 Respiratory Rate: 18 Pulse Ox: 98 Oxygen Delivery Method: Room Air Airway Assessment Mouth opens: >3 cm Mallampati Score: IV Teeth Condition: Caps/Crowns (Patient has couple crowns. They are tight.) and Missing (Multiple missing teeth. Edentulous on top.) Neck Range of motion (ROM): Limited ROM (Slight Decrease) Labs Anesthesia Preop lab: CBC WBC 5.8 K/mm3 (4.4-11.0) 04/08/25 08:47 04/08/25 RBC 5.42 M/mm3 (4.6-6.2) 04/08/25 08:47 04/08/25 Hgb 15.9 g/dL (13.0-16.5) 04/08/25 08:47 04/08/25 Hct 46.8 % (40-54) 04/08/25 08:47 04/08/25 Plt Count 220 K/mm3 (150-450) 04/08/25 08:47 04/08/25 CHEMISTRY Potassium 4.3 mmol/L (3.3-5.1) 04/08/25 08:47 04/08/25 Sodium 142 mmol/L (133-145) 04/08/25 08:47 04/08/25 BUN 16 mg/dL (4-19) 04/08/25 08:47 04/08/25 Creatinine 0.95 mg/dL (0.70-1.20) 04/08/25 08:47 04/08/25 Glucose 84 mg/dL (70-99) 04/08/25 08:47 04/08/25 TSH 0.97 uIU/mL (0.358-3.74) 04/18/17 09:26 COAG PT 13.0 SECONDS (11.7-14.9) 03/19/20 12:25 Pre-Assessment Diagnosis/Proposed Procedure Planned Operative Procedure(s): TURP Anesthesia History 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 05/27/25 09:21 Cholinesterase deficiency No 05/27/25 09:21 You/Your Family Experience No 05/27/25 09:21 fever (hyperthermia) with Relationship Recent Exposure to Contagious No 06/06/25 08:18 Disease Does patient have nerve No 05/27/25 09:21 stimulator Patient instructed to have device shut off --Does patient have Pacemaker No 06/06/25 08:18 or ICD? When Was Last Pacemaker Check QUESTION #4 FULL TEXT: You/Your Family Experience fever (hyperthermia) with Anesthesia Last Oral Intake Last Oral intake: Last Oral Intake NPO since 20:00 06/06/25 08:18 Meds taken in AM with sips of No 06/06/25 08:18 water? 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 Female No 05/27/25 09:21 HX of Motion Sickness No 05/27/25 09:21 HX of N/V After Surgery No 05/27/25 09:21 Non-Smoker Yes 05/27/25 09:21 Duration of Surgery greater Yes 05/27/25 09:21 than 60 minutes Number of Risk Factors 2 05/27/25 09:21 PONV Score Moderate Risk 05/27/25 09:21 Height & Weight Height & Weight: Anesthesia: Height & Weight Height 5 ft 5 in 06/06/25 08:18 Weight: 85.6 kg 06/06/25 08:18 Body Mass Index (BMI) 31.4 06/06/25 08:18 Respiratory Assessment Respiratory Assessment - forming process line worker: Respiratory Tract Infection Hx - forming process line worker Hx Respiratory Tract Infection No 05/27/25 09:21 STOP Sleep Apnea STOP Sleep Apnea - forming process line worker: STOP Sleep Apnea - forming process 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 Has anyone observed you stop breathing during sleep? STOP Results Positive 05/27/25 09:21 QUESTION #5 FULL TEXT : Do you snore loudly (louder than talking or can be heard through closeddoors)? 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 Specify any problems Hx of Preganancy in last 3 N/A 05/27/25 09:21 Months Nurse Filling Out Transfusion [email or web address] 05/27/25 09:21 & Questions: Date: 05/27/25 05/27/25 09:21 Time: 09:24 05/27/25 09:21 Patient unable to answer at this time (ie. confused, unrespo /Reproduction History /Reproductive History - forming process line worker: /Reproductive Hx- forming process line worker Hx Now Gestational Age (in weeks): EDC: Hx Hx Para Hx Section SAB Active Medications Active Medications: Current Medications Generic Name Dose Route Start Last Admin Trade Name Freq PRN Reason Stop Dose Admin Acetaminophen 650 mg 06/06/25 07:45 Acetaminophen 325 Mg Tablet PO Q6H PRN PRN Pain Score 1-10 Al Hydroxide/Mg Hydroxide 30 ml 06/06/25 07:45 Mag Hydrox/Al Hydrox/Simeth 30 Ml Udc PO Q4H PRN PRN HEARTBURN Albuterol Sulfate 2.5 mg 06/06/25 07:44 Albuterol 2.5 Mg/3 Ml Vial.Neb. INHALATION Q6H PRN PRN COUGH/SOB Diazepam 2 mg 06/06/25 14:00 Diazepam 2 Mg Tablet PO TID JAYDA Docusate Sodium 200 mg 06/06/25 10:00 Docusate Sodium 100 Mg Capsule PO BID JAYDA Ezetimibe 10 mg 06/06/25 07:45 Ezetimibe 10 Mg Tablet PO QDAY JAYDA Cefazolin Sodium 2 gm/ Sodium 110 mls @ 200 mls/hr 06/06/25 09:05 Chloride IV 06/06/25 09:37 INTRAOP ONE Lactated Ringer's 1,000 mls @ 15 mls/hr 06/06/25 07:45 06/06/25 08:22 IV 15 mls/hr .Q48H JAYDA Administration Sodium Chloride 1,000 mls @ 125 mls/hr 06/06/25 07:45 IV .Q8H JAYDA Ciprofloxacin 400 mg in 200 mls @ 200 mls/hr 06/06/25 10:00 Cipro IV 06/06/25 22:59 Q12 [facility] Ketorolac Tromethamine 15 mg 06/06/25 07:45 Ketorolac 15 Mg/Ml Vial IV 06/08/25 07:46 Q6H PRN PRN PAIN 1-10 Lisinopril 20 mg 06/06/25 10:00 Lisinopril 20 Mg Tablet PO DAILY [facility] Protocol Non-Formulary Medication 0.5 mg 06/06/25 10:00 Dutasteride PO DAILY [facility] Non-Formulary Medication 180 mg 06/06/25 10:00 Fexofenadine [Krystle Allergy] PO DAILY [facility] Ondansetron HCl 4 mg 06/06/25 07:45 Ondansetron 4 Mg/2 Ml Vial IV Q8H PRN NAUSEA/VOMITING Oxycodone HCl 5 - 10 mg 06/06/25 07:45 Oxycodone 5 Mg Tablet PO Q6H PRN PRN Pain Score 4-10 Tamsulosin HCl 0.8 mg 06/06/25 22:00 Tamsulosin Hcl 0.4 Mg Capsule PO QHS [facility] Trimethoprim/Sulfamethoxazole 1 tablet 06/06/25 10:00 Smz/Tmp Ds Tablet PO BID [facility] PFSH Medical History Wears hearing aid Loss of hearing Migraine headache Wears glasses Cancer Gout Prostate disease High [...] Medications ?Medication ?Instructions ?Recorded ?Last Taken ?Type saw palm 160 mg-vit E 100 2 tab PO DAILY 11/29/2305/20 18:30 History unit-selen 100 xqx-rnet-ntrykf-pygeum tablet (Prostate Health) 4 LIFE TRANSFER FACTOR CARDIO 2 ea PO BID 12/14/23 18:30 History 4 LIFE TRANSFER FACTOR LUNG 3 ea PO DAILY 12/14/23 08:00 History 4 LIFE TRANSFER FACTORY CLASSIC 3 ea PO DAILY 12/14/23 06/05/25 08:00 History fexofenadine 180 mg tablet 180 mg PO DAILY 01/30/24 08:00 History (Krystle Allergy) albuterol sulfate 2.5 mg/3 mL 2.5 mg (3 mL) inhalation Q6H PRN 02/05/25 Unknown Rx (0.083 %) solution for nebulization PRN COUGH/SOB #180 mL ezetimibe 10 mg tablet 10 mg PO QDAY 02/05/2506/05 08:00 History tamsulosin 0.4 mg capsule 0.8 mg PO QHS 02/05/2506/05 08:00 History diazepam 2 mg tablet (Valium) 2 mg PO TID 3 days #10 t abs 03/06/25 Unknown Rx dutasteride 0.5 mg capsule 0.5 mg PO DAILY 05/27/25 08:00 History lisinopril 20 mg tablet 20 mg PO DAILY 05/27/25 0706/13 08:00 History ciprofloxacin HCl 500 mg tablet 500 mg PO BID #10 tabs 06/06/25 Unknown Rx (Cipro) Allergy/AdvReac Type Severity Reaction Status Date / Time grass pollen Allergy Chest Verified 06/06/25 08:13 tightness mold Allergy Chest Verified 06/06/25 08:13 tightness ragweed pollen Allergy Chest Verified 06/06/25 08:13 tightness shrimp Allergy Swelling Verified 06/06/25 08:13 Family History Father Lung disease Diabetes Mother Diabetes Brother Diabetes Surgical History History of repair of left rotator cuff Hx of vasectomy Hx of colonoscopy H/O repair of right rotator cuff H/O hernia repair History of tonsillectomy Social History household members: spouse current occupational status: employed current occupation: [employer] Smoking Status: Never smoker alcohol intake: never substance use type: does not use Review of Systems (Anesthesia) ROS Narrative System reviewed and no additional complaints, except as documented. 06/06/25 0907 denice ZEPEDA> Date _ Cristian Bustos MD Cosigner Signature: Date CC: ~ Signed [facility]07-18-2025 History and physical note Author Chris Sanchez [facility] Note Date/Time June 07, 2025 12:5 7pm [facility] Medical Records Department [address] [place] [address] History & Physical Exam 06/06/25 0702 MR#: [id number] Acct: [id number] Name: LUIS GRAF Rep #:[id number] : 1960 65 From: Chris Sanchez MD PCP: Dr. Librado Carter, DO Status:PRE [facility] Location: [facility] HPI - General General Date of Service: 06/06/25 Chief Complaint: BPH with obstruction HPI Narrative LUIS GRAF, is a 65 M who presents for transurethral section of the prostate very large prostate plan to do a TURP may have to do a staged procedure, plan for a TURP today [facility] Medical History (Updated 05/27/25 @ 09:29 by German Jalloh) Wears hearing aid Loss of hearing Migraine headache Wears glasses Cancer Gout Prostate disease High [...] Medications ?Medication ?Instructions ?Recorded ?Last Taken ?Type saw palm 160 mg-vit E 100 2 tab PO DAILY 11/29/2311/21 05:15 History unit-selen 100 nux-odgy-jemlyw-pygeum tablet (Prostate Health) 4 LIFE TRANSFER FACTOR [...] days #10 t abs 03/06/25 Unknown Rx dutasteride 0.5 mg capsule 0.5 mg PO DAILY 05/27/25 Un known History lisinopril 20 mg tablet 20 mg PO DAILY 05/27/25 Unkn own History sulfamethoxazole 800 1 tab PO BID 05/27/25 Unknow n History mg-trimethoprim 160 mg tablet Allergy/AdvReac Type Severity Reaction Status Date / Time grass pollen Allergy Chest Verified 05/27/25 09:17 tightness mold Allergy Chest Verified 05/27/25 09:17 tightness ragweed pollen Allergy Chest Verified 05/27/25 09:17 tightness shrimp Allergy Swelling Verified 05/27/25 09:17 Family History Father Lung disease Diabetes Mother Diabetes Brother Diabetes Surgical History History of repair of left rotator cuff Hx of vasectomy Hx of colonoscopy H/O repair of right rotator cuff H/O hernia repair History of tonsillectomy Social History household members: spouse current occupational status: employed current occupation: [employer] Smoking Status: Never smoker alcohol intake: never substance use type: does not use 06/06/25 0702 <Electronically signed by Chris Sanchez MD> Cosigner Signature (if applicable): CC: Dr. Chris Sanchez MD; Dr. Librado Carter, DO~ Signed [facility] Work Phone: 1(577) 288-448807-18-2025 [facility] Medical Records Department [address] [place] [address] History Physical Exam 06/06/25 0702 MR#: [id number] Acct: [id number] Name: LUIS GRAF Rep #: [id number] : 1960 65 From: Chris Sanchez MD PCP: Dr. Librado Carter, Status:PRE [facility] Location: [facility] HPI - General General Date of Service: 06/06/25 Chief Complaint: BPH with obstruction HPI Narrative LUIS GRAF, is a 65 M who presents for transurethral section of the prostate very large prostate plan to do a TURP may have to do a staged procedure, plan for a TURP today [facility] Medical History (Updated 05/27/25 @ 09:29 by German Jalloh) Wears hearing aid Loss of hearing Migraine headache Wears glasses Cancer Gout Prostate disease High [...] Medications ???Medication ???Instructions ???Recorded ???Last Taken ???Type saw palm 160 mg-vit E 100 2 tab PO DAILY 11/29/23 12/18/23 0 5:15 History unit-selen 100 ksb-igsk-slvawy-pygeum tablet (Prostate Health) 4 LIFE TRANSFER FACTOR [...] TID 3 days #10 tabs Unknown Rx dutasteride 0.5 mg capsule 0.5 mg PO DAILY 05/27/25 Unknown H istory lisinopril 20 mg tablet 20 mg PO DAILY 05/27/25 Unknown Hi story sulfamethoxazole 800 1 tab PO BID 05/27/25 Unknown Hist ory mg-trimethoprim 160 mg tablet Allergy/AdvReac Type Severity Reaction Status Date / Time grass pollen Allergy Chest Verified 05/27/25 09:17 tightness mold Allergy Chest Verified 05/27/25 09:17 tightness ragweed pollen Allergy Chest Verified 05/27/25 09:17 tightness shrimp Allergy Swelling Verified 05/27/25 09:17 Family History Father Lung disease Diabetes Mother Diabetes Brother Diabetes Surgical History History of repair of left rotator cuff Hx of vasectomy Hx of colonoscopy H/O repair of right rotator cuff H/O hernia repair History of tonsillectomy Social History household members: spouse current occupational status: employed current occupation: [employer] Smoking Status: Never smoker alcohol intake: never substance use type: does not use 06/06/25 0702 Cosigner Signature (if applicable): CC: Dr. Chris Sanchez MD; Dr. Librado Carter DO [facility] Discharge instructions Ambulatory Orders* 12 Lead EKG [[facility]] Time Frame: 05/30/25, Location: None Selected Additional Instructions Date of Discharge: 06/07/25[facility] Work Phone: 1(765) 240-385204-17-2025 Discharge summary [facility] Medical Records Department [address] [place] [address] Emergency Department Summary 03/06/25 MR#: [id number] Acct: [id number] Name: LUIS GRAF Rep #:[id number] : [...] no recent procedure. Recent Illness/Hospitalization: No PFSH PFSH Medical History Wears glasses [...] PO .QD 11/29/23 05:15 History unit-selen 100 wud-iglx-kbwmym-pygeum tablet (Prostate Health) 4 LIFE TRANSFER FACTOR [...] spouse current occupational status: employed current occupation: [employer] Smoking Status: Never smoker alcohol intake: never [...] pulse are 2+. DTR 2+ at the patellaand ankle. General Back: Negative for CVA tenderness [...] Acute lumbosacral myofascial strain, Pulmonary hypertension, Elevated blood- pressure reading without diagnosis of hypertension, BMI 31.0-31.9,adult [...] Primary Care Provider: Librado Carter Referrals: Librado Carter DO [Primary Care Provider] - 3-5 Days if not improving Activity Restrictions/Additional Instructions: 1. Apply ice to your lower back 6-8 times a day for the next 3 to 5 days Print Language: Vietnamese Disposition Disposition: Home, Self Care What to do if you have Problems For any increased pain, shortness of breath, bleeding, nausea or vomiting, chestpain, or any unexpected problems, contact your Primary Care Provider. Call [facility] ([phone]) or report tothe closest Emergency Room. Call 911 if necessary. 03/06/25 1634 Cosigner Signature (if applicable): CC: Dr. Librado Carter DO ~ Signed [facility]04-17-2025 Discharge summary Author Que Santiago [facility] Note Date/Time March 06, 2025 4:3 4pm [facility] Medical Records Department [address] [place] [address] Emergency Department Summary 03/06/25 MR#: [id number] Acct: [id number] Name: LUIS GRAF Rep #:[id number] : 1960 65 From: Que Santiago MD PCP: Dr. Librado Carter DO Status:REG ER Location: ED HPI History [...] PO .QD 11/29/23 05:15 History unit-selen 100 yej-lmss-nqcedd-pygeum tablet (Prostate Health) 4 LIFE TRANSFER FACTOR [...] spouse current occupational status: employed current occupation: [employer] Smoking Status: Never smoker alcohol intake: never [...] Acute lumbosacral myofascial strain, Pulmonary hypertension, Elevated blood- pressure reading without diagnosis of hypertension, BMI 31.0-31.9,adult [...] Care Provider: Librado Carter Referrals: Librado Carter, DO [Primary Care Provider] - 3-5 Days if not improving Activity Restrictions/Additional Instructions: 1. Apply ice to your lower back 6-8 times a day for the next 3 to 5 days Print Language: Vietnamese Disposition Disposition: Home, Self Care What to do if you have Problems For any increased pain, shortness of breath, bleeding, nausea or vomiting, chestpain, or any unexpected problems, contact your Primary Care Provider. Call [facility] ([phone]) or report to the closest Emergency Room. Call 911 if necessary. 03/06/25 1634 <Electronically signed by Que Santiago MD> Cosigner Signature (if applicable): CC: Dr. Librado Carter DO ~ Signed [facility] Work Phone: 1([phone]) 841-561404-17-2025 Hospital Discharge instructions Additional Instructions 1. Apply ice to your lower back 6-8 times a day for the next 3 to 5 [facility] Work Phone: 1(905) 141-777603-19-2025 Evaluation note* Diagnosis Onset Date Resolution Status Admit Date Asthma chronic February 05 8:44am Obesity chronic February 05 8:44am CANDACE (obstructive sleep apnea) chroni c February 05, 2025 8:44am [facility] Work Phone: 1([phone]) 307-988803-13-2024 Procedure [facility] 12-19-2023 Procedure [facility]01-30-2024 [facility] Diagnosis Onset Date Resolution Status CANDACE (obstructive sleep apnea) acute Asthma chronic [facility] Work Phone: Evaluation note* Diagnosis Onset Date Resolution Status Asthma chronic CANDACE (obstructive sleep apnea) chronic Encounter for screening for malignant neoplasm of colo n acute [facility] Work Phone: Evaluation note* Diagnosis Onset Date Resolution Status Encounter for screening for malignant neoplasm of colo n acute Asthma chronic CANDACE (obstructive sleep apnea) chronic [facility] Work Phone: Evaluation noteNo assessment information available [facility] Work Phone: History and physical note Author Joseph Macias [facility] December 19, 2023 8:05am Note Date/Time December 19, 2023 8 :05am [facility] Medical Records Department [address] [place] [address] History & Physical Exam 12/19/23 0804 MR#: [id number] Acct: [id number] Name: LUIS GRAF Rep #:[id number] : 1960 63 From: Joseph garcia MD PCP: Dr. Librado Carter DO Status:REG [facility] Location: [facility] HPI - General HPI Narrative LUIS GRAF, is a 63 M who presents for screening colonoscopy. His last colonoscopy was 12 years ago. He denies any abdominal pain or blood in the stool. He has no family history of colon cancer. [facility] Medical History (Updated 12/14/23 @ 14:41 by [...] palm 160 mg-vit E 100 unit-selen 100 wbg-xaqi-hrwkgz-pygeum tablet (ProstateHealth) 2 tab PO .QD 11/29/23 [...] spouse current occupational status: employed current occupation: [employer] Smoking Status: Never smoker alcohol intake: never [...] hives Discharge Is Pt Admitted From a Custodial, or a Usp: No Who Could Help: After D/C, Where Do you Plan to Go: Return Home From the PAT History Number of Risk Factors: 2 Vital [...] proceed with procedure. Joseph Macias MD Pager: [facility] [address] [place] [address], [address] [place] [address] Office: Surgery Risks - Colonoscopy Risks Include but are not Limited To: Risks include but are not limited to: Bleeding, perforation requiring further surgery, inability to complete colonoscopy requiring barium enema. 12/19/23 0805 <Electronically signed by Joseph Macias MD> Cosigner Signature (if applicable): CC: Dr. Joseph Macias MD; Dr. Librado Carter, DO~ Signed [facility] Work Phone: Reason for referral (narrative)No reason for referral information availableWACMC [facility] Work Phone: Summary Purpose Family History No Family History Records Found Relationship Condition Age at Onset Recorded Date/T bernard father Disorder of lung Unknown Diabetes mellitus Unknown mother Diabetes mellitus Unknown brother Diabetes mellitus Unknown Advance Directives No Advanced Directives Records Found Advance Directive Response Recorded Date/ Time Advance Directives Yes October 24, 2014 3:07pm Living Will Yes March 19, 2020 3:12pm Power of Suit Attendant Yes March 19 3:12pm Advance Directive Response Recorded Date/ Time Name of Medical Power of Suit Attendant December 14, 2023 2:35pm Advance Directives Yes October 24, 2014 2:07pm Living Will Yes December 14 2:35pm Power of Suit Attendant Yes December 14, 2023 2:35pm Advance Directive Response Recorded Date/ Time Name of Medical Power of Suit Attendant December 14, 2023 3:35pm Advance Directives Yes October 24, 2014 3:07pm Living Will Yes December 14 3:35pm Power of Suit Attendant Yes December 14, 2023 3:35pm Advance Directive Response Recorded Date/ Time Living Will Yes December 14 3:35pm Do you have a Healthcare Power of Suit Attendant? Yes December 14, 2023 3:35pm Living Will Yes March 06, 2025 3:15pm Do you have a Healthcare Power of Suit Attendant? Yes March 06, 2025 3:15pm Name of Medical Power of Suit Attendant March 06, 2025 3:15pm Advance Directives Yes October 24, 2014 3:07pm Advance Directive Response Recorded Date/ Time Do you have a Healthcare Power of Suit Attendant? Yes June 06, 2025 12:36pm Name of Medical Power of Suit Attendant June 06, 2025 12:36pm Living Will Yes March 06, 2025 3:15pm Do you have a Healthcare Power of Suit Attendant? Yes March 06, 2025 3:15pm Name of Medical Power of Suit Attendant March 06, 2025 3:15pm Advance Directives Yes October 24, 2014 3:07pm Chief Complaint and Reason for Visit Chief [...] 4am CANDACE (obstructive sleep apnea) January 8:44am Chief Complaint Admit Date back pain March 06, 2025 2:2 3pm Cysto,TUR,Prostate,[place] June 06 7:45am Chief Complaint Admit Date back pain March 06, 2025 2:2 3pm PREOP May 30, 2025 8:33 am Cysto,TUR,Prostate,[place] June 06 7:45am Additional Source Comments (unrecognized sect ion and content) No Status Records FoundNo Status Records Found INFORMATION SOURCE (unrecogn ized section and content) DATE CREATED AUTHOR 07/11/2020 [facility] DATE CREATED AUTHOR AUTHOR'S ORGANIZ ATION 06/29/2025 [facility] Goals (unrecognized section and content) Goals may be documented in a n alternate sectionGoals may be documented in an alternate sectionGoals may be documented in an alternate section Care Teams (unrecognized sec tion and content) Team Status: Active Member Role Status Dates Dr. Librado Carter , DO Family Provider Active Dr. Librado Carter , DO Primary Care Provider Active Team Status: Inactive Member Role Status Dates Dr. Librado Carter DO Primary Care Provider, Referrin g Provider Active Geri Del Real PICKING MACHINE OPERATOR, PICKING MACHINE OPERATOR-C Attending Provider Active Team Status: Active Member Role Status Dates Dr. Librado Carter DO Primary Care Provider Active Mckayla Pinzon [...] Primary Care Provider Active Geri Del Real PICKING MACHINE OPERATOR, PICKING MACHINE OPERATOR-C Attending Provider, Referrin g Provider Active Team Status: Inactive Member Role Status Dates Dr. Librado Carter DO Primary Care Provider, Referrin g Provider Active Dr. Albert Hallman DO Attending Provider Active Team Status: Active Member Role Status Dates Dr. Librado Carter DO Primary Care Provider Active Geri Del Real PICKING MACHINE OPERATOR, PICKING MACHINE OPERATOR-C Referring Provider, Other Pr ovider Active [...] End: February 05, 2025 Geri Del Real PICKING MACHINE OPERATOR, PICKING MACHINE OPERATOR-C Attending Provider Active Start: February 05, [...] March 06, 2025 End: March 06, 2025 Team Status: Active Member Role/Relationship Status Dates Dr. Librado Carter DO Primary Care Provider Active Team Status: Inactive Member Role/Relationship Status Dates Dr. Librado Carter DO Primary Care Provider Active Start: March 06, 2025 End: March 06, 2025 Dr. Que Santiago MD Attending Provider Active Sta rt: March 06, 2025 End: March 06, 2025 Dr. Que Santiago MD Referring Provider Active Sta rt: March 06, 2025 End: March 06, 2025 Dr. Que Santiago MD Emergency Provider Active Sta rt: March 06, 2025 End: March 06, 2025 Team Status: Inactive Member Role/Relationship Status Dates Dr. Librado Carter DO Primary Care Provider Active Start: April 08, 2025 End: April 08, 2025 Dr. Librado Carter DO Attending Provider Active Start: April 08, 2025 End: April 08, 2025 Dr. Librado Carter DO Referring Provider Active Start: April 08, 2025 End: April 08, 2025 Team Status: Inactive Member Role/Relationship Status Dates Dr. Librado Carter DO Primary Care Provider Active Start: June 06, 2025 End: June 07, 2025 Dr. Chris Sanchez MD Admit Provider Active Start: June 06, 2025 End: June 07, 2025 Dr. Chris Sanchez MD Attending Provider Active Start: June 06, 2025 End: June 07, 2025 Dr. Chris Sanchez MD Referring Provider Active Start: June 06, 2025 End: June 07, 2025 Team Status: Active Member Role/Relationship Status Dates Dr. Librado Carter DO Primary Care Provider Active Start: May 30, 2025 End: May 30, 2025 Dr. Aguila Toney MD Attending Provider Active S tart: May 30, 2025 End: May 30, 2025 Dr. Cristian Bustos MD Referring Provider Active Start: May 30, 2025 End: May 30, 2025 Team Status: Inactive Member Role/Relationship Status Dates Dr. Librado Carter DO Primary Care Provider Active Start: June 06, 2025 End: June 07, 2025 Dr. Chris Sanchez MD Admit Provider Active Start: June 06, 2025 End: June 07, 2025 Dr. Chris Sanchez MD Attending Provider Active Start: June 06, 2025 End: June 07, 2025 Dr. Chris Sanchez MD Referring Provider Active Start: June 06, 2025 End: June 07, 2025 Team Status: Inactive Member Role/Relationship Status Dates Dr. Librado Carter DO Primary Care Provider Active Start: June 19, 2025 End: June 19, 2025 Dr. Chris Sanchez MD Attending Provider Active Start: June 19, 2025 End: June 19, 2025 Dr. Chris Sanchez MD Referring Provider Active Start: June 19, 2025 End: June 19, 2025 FOR RECORDS PERTAINING TO PATIENTS WHO ARE [...] BE BASED ON THE PRIMARY CLINICAL RECORDS. [employer] [facility]. provides no warranty or guarantee of the accuracy or completeness of information in this document.
[2025-10-25 10:53] LABS: PSA,Total- Diagnostic 1.76 ng/mL (0.00-4.00)
== END | disposition home or self-care (01) ==
PROVIDERS: PCP Family Medicine; Referring Provider Nurse Practitioner; Visit Provider Nurse Practitioner
DX: R97.20 Elevated prostate specific antigen [PSA] (principal)
CPT/HCPCS: 36415; 84153